=== PATIENT | female | born 1960 | race Caucasian/White ===

== ENCOUNTER 2021-07-18 10:46 | Emergency (ER) | payer MEDICARE, SELFPAY ==
[2021-07-18 10:46] VITALS: BP 121/87; PULSE 82; RESP 18; TEMP 36.8; O2SAT 98; BMI 20.2
--- NOTE | 2021-07-18 12:58 | XR_ITS ---
PROCEDURE INFORMATION: Exam: XR Left Wrist Exam date and time: 07/18/2021 12:58 PM Age: 61 years old Clinical indication: Injury or trauma; Fall; Blunt trauma (contusions or hematomas); Wrist; Left TECHNIQUE: Imaging protocol: XR Left wrist. Views: 3 or more views. COMPARISON: CR XR HAND LT MIN 3V 07/18/2021 1:32 PM FINDINGS: Bones/joints: There is no evidence of acute fracture.There is no evidence of malalignment or dislocation. Soft tissues: Normal. IMPRESSION: There is no evidence of acute fracture.There is no evidence of malalignment or dislocation.
--- NOTE | 2021-07-18 12:58 | XR_ITS ---
PROCEDURE INFORMATION: Exam: XR Left Hand Exam date and time: 07/18/2021 12:58 PM Age: 61 years old Clinical indication: Injury or trauma; Fall; Blunt trauma (contusions or hematomas); Hand; Left TECHNIQUE: Imaging protocol: XR Left hand. Views: 3 or more views. COMPARISON: No relevant prior studies available. FINDINGS: Bones/joints: There is no evidence of acute fracture.There is no evidence of malalignment or dislocation. Soft tissues: Normal. IMPRESSION: There is no evidence of acute fracture.There is no evidence of malalignment or dislocation.
[2021-07-18 12:59] VITALS: PULSE 61; RESP 18; TEMP 36.8; O2SAT 97; BMI 23.3
--- NOTE | 2021-07-18 13:03 | HMH.EDUTC ---
[facility] [place] Clinical Impression: Fall Qualifiers: Encounter type: initial encounter Qualified Code(s): W19.XXXA - Unspecified fall, initial encounter Laceration of left hand Qualifiers: Encounter type: initial encounter Foreign body presence: without foreign body Qualified Code(s): S61.412A - Laceration without foreign body of left hand, initial encounter Left wrist sprain Qualifiers: Encounter type: initial encounter Qualified Code(s): S63.502A - Unspecified sprain of left wrist, initial encounter Disposition: Home, Self-Care Condition on Discharge: Good Instructions: Wrist Sprain, DI for Wrist Sprain, DI for Laceration Repair-Skin Closure Strips Additional Instructions: Rest the extremity, apply ice for 15 minutes as tolerated three or four times per day, Wear the brody wrap for compression, Elevate the extremity as tolerated while you are resting. Take tylenol for pain. Follow up with Dr. Sebastian (orthopedics) regarding your wrist and hand pain if it continues. Sometimes there can be fractures that don't show up well on the first set of x-rays. So, you should follow up if you continue to have symptoms. I put in a referral but you need to call his office and schedule an appointment. Follow up with your regular doctor. GO TO THE ER FOR ANY WORSENING SYMPTOMS Prescriptions: Mupirocin [Bactroban 2% Ointment 22gm tube] 1 applicatio TP TID 7 Days #1 gm Transmission Status: Received by [id number] cephALEXin [cephALEXin 500mg capsule] 500 mg PO Q6H 10 Days #40 cap Transmission Status: Received by [id number] Referrals: ProviderBrittni MD [Primary Care Provider] - Jr Sebastian MD [Staff Physician] - Time of Disposition: 15:38 Medical Decision Making - Medical Records Medical records reviewed: No: I reviewed the patient's medical records. - Sridhar Inquiry Pt receiving controlled substance: No Vital Signs: 07/18/21 10:46 07/18/21 12:59 07/18/21 15:39 Temperature 98.2 F 98.2 F 98.2 F Temperature Source Oral Oral Pulse Rate 61 Pulse Rate [Right Radial] 82 61 Respiratory Rate 18 18 18 Blood Pressure 121/87 Blood Pressure [Right Arm] 121/87 Blood Pressure Mean [Right Arm] 98 02 Sat by Pulse Oximetry 98 97 Oxygen Delivery Method Room Air Orders (Tests/Meds): ED MEDICATIONS Discontinued Medications Generic Name Dose Route Start Last Admin Trade Name Aaron PRN Reason Stop Dose Admin Tetanus/Reduced Diphtheria/Acell Pertussis 0.5 ml 07/18/21 13:03 07/18/21 14:11 Tet/Diphth/Pert-Adult 0.5ml Syringe IM 07/18/21 13:04 0.5 ml .ONCE ONE Administration [facility] [place]PI - General Stated complaint: AO [id number] lac to left thumb Time Seen by Provider: 07/18/21 13:03 Mode of Arrival: Ambulatory Source of Information: Patient Limitations: No Limitations Description of Symptoms (Recalled from Triage Doc. by RN): pt fell yesterday around 1700. pt presents with a lac to her L palm at the base of her thumb. HEENT Symptoms (Recalled from RN notes): No Resp Symptoms (Recalled from RN notes): No Skin Symptoms (Recalled from RN notes): Yes (lac to L palm at the base of the thumb) MS Symptoms (Recalled from RN notes): No Functional Status (Recalled from RN notes): wnl - History of Present Illness Provider Complaint: She fell yesterday evening at around 1800 while cleaning her bedroom. She tripped over some stuff that she has sit in the floor. - Related Data Previous Rx's Medication Instructions Recorded Mupirocin [Bactroban 2% Ointment 1 applicatio TP TID 7 Days #1 gm 07/18/21 22gm tube] cephALEXin [cephALEXin 500mg 500 mg PO Q6H 10 Days #40 cap 07/18/21 capsule] Allergies Allergy/AdvReac Type Severity Reaction Status Date / Time No Known Allergies Allergy Verified 07/18/21 14:10 - Worker's Comp Is this a Worker's Comp case?: No [facility] History - Hepatitis A Screen Drug use history?: No High risk sexual behaviors
[2021-07-18 15:39] VITALS: BP 121/87; PULSE 61; RESP 18; TEMP 36.8
== END 2021-07-18 15:42 | disposition home or self-care (01) ==
PROVIDERS: Emergency Provider Nurse Practitioner Family
DX: S61.412A Laceration without foreign body of left hand, initial encounter (principal); W01.0XXA Fall on same level from slipping, tripping and stumbling without subsequent striking against object, initial encounter; Y92.013 Bedroom of single-family (private) house as the place of occurrence of the external cause; Z23 Encounter for immunization
CPT/HCPCS: 73110; 73130; 90715; 99202; G0463

== ENCOUNTER 2021-08-06 11:28 | Emergency (ER) | payer MEDICARE, SELFPAY ==
[2021-08-06 11:35] VITALS: BP 106/70; PULSE 71; RESP 21; TEMP 36.6; O2SAT 97; BMI 22.4
--- NOTE | 2021-08-06 12:04 | HMH.EDUTC ---
[facility] [place] Impression: Bronchitis Disposition: Home, Self-Care Condition on Discharge: Good Instructions: Sinusitis, Pneumonia-Adult, Acute Bronchitis Additional Instructions: ? Start antibiotic today. Be sure to complete entire prescription even if feeling better ? Monitor temp. Tylenol every 4 hours as needed and / or ibuprofen every 6 hours as needed ( As long as your primary care physician has told you that it ok to take both. For fever/aches/pains ER if no less than 101 despite Tylenol or Motrin ? Humidifier/vaporizer or hot steamy shower ? Inhaler every 4-6 hours as needed like we discussed. If unsure how to use it, ask pharmacist to demonstrate how. Should help open airways and improve cough, wheezing, and shortness of breath ?*Tessalon Perles will not cause drowsiness but use at bedtime to help stop cough so that you may get some rest. Follow up IMMEDIATELY for new or worsening of symptoms OR no noticeable improvement over the next 48-72 hours. 911 immediately for any life threatening symptoms such as chest pain or difficulty breathing Prescriptions: Albuterol Sulfate [Proventil-HFA 90mcg/puff Inh] 1 - 2 puffs IH Q6HP PRN #1 each PRN Reason: Shortness Of Breath Transmission Status: Received by [id number] Benzonatate [Benzonatate 100mg cap] 100 mg PO Q8HP PRN #15 cap PRN Reason: Cough Transmission Status: Received by [facility] Cefdinir [Omnicef 300mg Capsule] 300 mg PO BID #20 cap Transmission Status: Received by [id number] Referrals: Graham Pelaez MD [Primary Care Provider] - As needed Time of Disposition: 18:08 Medical Decision Making - Sridhar Inquiry Pt receiving controlled substance: No Sridhar was queried for this patient: No Vital Signs: 08/06/21 11:35 08/06/21 12:51 Temperature 97.8 F 97.8 F Temperature Source Oral Pulse Rate 71 Pulse Rate [Right Brachial] 71 Respiratory Rate 21 21 Blood Pressure 106/70 L Blood Pressure [Right Arm] 106/70 L Blood Pressure Mean [Right Arm] 82 Blood Pressure Source [Right Arm] Automatic Cuff Blood Pressure Position [Right Arm] Sitting 02 Sat by Pulse Oximetry 97 Oxygen Delivery Method Room Air Orders (Tests/Meds): ORDERS Category Date Time Status Covid-19 Nasal PCR ([facility]) Routine Lab 08/06/21 11:57 Received - Radiology Data #1 Image(s): Chest Image Reviewed: Yes I have reviewed radiologist's interpretation IMPRESSION: Increased interstitial markings with patchy bilateral opacities concerning for pneumonia. Underlying fibrosis not excluded. Recommend follow-up radiographs. Medical Decision Narrative: Patient family reports that she is suppose to have albuterol inhaler but she lost it and wanting to get another one [facility] [place] - General Stated complaint: chest congestion, no appetite Time Seen by Provider: 08/06/21 12:35 Mode of Arrival: Ambulatory Source of Information: Patient Limitations: No Limitations Description of Symptoms (Recalled from Triage Doc. by RN): PATIENT C/O CHEST CONGESTION, SOA, AND DRY COUGH X 2 DAYS HEENT Symptoms (Recalled from RN notes): No Resp Symptoms (Recalled from RN notes): Yes Skin Symptoms (Recalled from RN notes): No MS Symptoms (Recalled from RN notes): No Functional Status (Recalled from RN notes): WNL - History of Present Illness Provider Complaint: Family states that she has been having dry cough, complaining of pain in her lungs when she coughs, chest congestion and sitting around more than normal State that she hasnt had fever or anything but she kept complaining of not feeling well so they brought her in to get her checked States that she gets pneumonia at times and they was worried that she may be starting to get it again and wanted to catch it early - Related Data Previous Rx's Medication Instructions Recorded Albuterol Sulfate [Proventil-HFA 1 - 2 puffs IH Q6HP PRN #1 each 08/06/21 90mcg/puff Inh] Benzonatate
--- NOTE | 2021-08-06 12:11 | XR_ITS ---
FINAL REPORT CLINICAL HISTORY: COUGH FINDINGS: PA and lateral views of the chest were obtained. There is no prior exam for comparison. The cardiac and mediastinal silhouettes are within normal limits. There is increased interstitial markings with patchy bilateral opacities which is concerning for pneumonia. Underlying fibrosis is not excluded. There is no pleural effusion or pneumothorax. No acute osseous abnormality is identified. IMPRESSION: Increased interstitial markings with patchy bilateral opacities concerning for pneumonia. Underlying fibrosis not excluded. Recommend follow-up radiographs. Reviewed, Interpreted and Dictated by Keyona Brunson MD Transcribed by Yaneth Chin Authenticated by Keyona Brunson MD on 08/06/2021 12:34:36 PM [facility]
[2021-08-06 12:51] VITALS: BP 106/70; PULSE 71; RESP 21; TEMP 36.6; O2SAT 97
--- NOTE | 2021-08-06 20:25 | PC.NURSE ---
PATIENT NOTIFIED OF POSITIVE COVID TEST AT THIS TIME
== END 2021-08-06 12:53 | disposition home or self-care (01) ==
PROVIDERS: Emergency Provider Nurse Practitioner; PCP Internal Medicine Adolescent Medicine
DX: J20.9 Acute bronchitis, unspecified (principal); U07.1 COVID-19
CPT/HCPCS: 71046; 99202; C9803; G0463; U0003; U0005

== ENCOUNTER → 2021-08-18 14:59 | Outpatient (CLI) | payer MEDICARE, SELFPAY | LOC: HMH.CTC 15:00 | PROVIDERS: Visit Provider Nurse Practitioner | DX: Z20.822 Contact with and (suspected) exposure to COVID-19 (principal) | CPT/HCPCS: C9803; U0003; U0005 ==

== ENCOUNTER → 2021-09-08 09:43 | Outpatient (CLI) | payer MEDICARE, SELFPAY ==
--- NOTE | 2021-09-08 09:49 | MM_ITS ---
PROCEDURE INFORMATION: Exam: MG Bilateral Screening 3D Mammography Exam date and time: 09/08/2021 9:49 AM Age: 61 years old Clinical indication: Encounter for screening mammogram for malignant neoplasm of breast TECHNIQUE: Imaging protocol: Bilateral Screening tomosynthesis and 2D mammography including computer-aided detection (CAD) when performed. COMPARISON: No relevant prior studies available. FINDINGS: MAMMOGRAPHY: Breast composition: The breast tissue is heterogeneously dense, which may obscure small masses. Mass: None. Architectural distortion: None. Calcifications: No suspicious calcifications. Asymmetric density: None. Skin thickening: None. Axillary adenopathy: None. IMPRESSION: No mammographic evidence of malignancy. Annual screening is recommended unless otherwise clinically indicated. ASSESSMENT: BI-RADS Category 1: Negative
== END ==
PROVIDERS: PCP Internal Medicine Adolescent Medicine; Visit Provider Internal Medicine Adolescent Medicine
DX: Z12.31 Encounter for screening mammogram for malignant neoplasm of breast (principal)
CPT/HCPCS: 77063; 77067

== ENCOUNTER → 2021-12-02 12:45 | Outpatient (CLI) | payer MEDICARE, SELFPAY ==
--- NOTE | 2021-12-02 13:56 | MR_ITS ---
FINAL REPORT CLINICAL HISTORY: SEIZURE DISORDER, ATAXIA seizure disorder ataxia headaches FINDINGS: Multiplanar MR imaging of the brain was performed without contrast. There are postoperative changes from right temporal craniotomy. There is encephalomalacia in the anterior right temporal lobe and involving the right hippocampus. There is no evidence of intracranial hemorrhage or mass. The ventricular size is normal. There is no evidence of shift of the midline structures. No area of restricted diffusion is identified. The posterior fossa and brainstem have an unremarkable appearance. Normal major vessel vascular flow voids are seen. IMPRESSION: Postoperative change from right temporal craniotomy with encephalomalacia in the anterior right temporal lobe including the right hippocampus. No acute intracranial abnormality. Reviewed, Interpreted and Dictated by Carlos Maravilla III, MD Transcribed by Refugio Parham Authenticated by Carlos Maravilla III, MD on 12/02/2021 04:22:33 PM [facility]
== END ==
PROVIDERS: PCP Internal Medicine Adolescent Medicine; Visit Provider Internal Medicine Adolescent Medicine
DX: G40.909 Epilepsy, unspecified, not intractable, without status epilepticus (principal)
CPT/HCPCS: 70551; 95816

== ENCOUNTER → 2022-06-02 11:33 | Outpatient (CLI) | payer MEDICARE, SELFPAY ==
--- NOTE | 2022-06-02 11:38 | XR_ITS ---
FINAL REPORT CLINICAL HISTORY: COUGH COMPARISON: 08/06/2021 FINDINGS: Two views of the chest were obtained. The heart size and pulmonary vascularity are within normal limits. The mediastinum is normal. There are bibasilar pulmonary opacities favoring scarring. There is no pneumothorax. The bony thorax is intact. IMPRESSION: Bibasilar pulmonary opacities favor scarring. Reviewed, Interpreted and Dictated by Carlos Maravilla III, MD Transcribed by Yanteh Chin Authenticated and [facility]
== END ==
LOC: RAD 11:35
PROVIDERS: PCP Internal Medicine Adolescent Medicine; Visit Provider Nurse Practitioner Family
DX: R05.2 Subacute cough (principal); Z86.16 Personal history of COVID-19
CPT/HCPCS: 71046

== ENCOUNTER 2022-09-02 12:52 | Emergency (ER) | payer MEDICARE, SELFPAY ==
--- NOTE | 2022-09-02 12:53 | XR_ITS ---
FINAL REPORT CLINICAL HISTORY: SOA COMPARISON: 06/02/2022 FINDINGS: Two views of the chest were obtained. The heart size and pulmonary vascularity are within normal limits. The mediastinum is normal. There are bilateral pulmonary opacities consistent with bilateral pneumonia. There is no pneumothorax. The bony thorax is intact. IMPRESSION: Findings are consistent with bilateral pneumonia. Reviewed, Interpreted and Dictated by Carlos Maravilla III, MD Transcribed by Yaneth Chin Authenticated and [facility]
[2022-09-02 13:10] VITALS: BP 112/64; PULSE 71; RESP 24; TEMP 36.8; O2SAT 95; BMI 19.1
--- NOTE | 2022-09-02 13:29 | EXP.UTC ---
Discharge Plan Disposition Patient Disposition: Home, Self-Care Condition: Good Prescriptions Prescriptions: New benzonatate 100 mg capsule 100 mg PO TID PRN (Reason: cough) Qty: 30 0RF cefdinir 300 mg capsule 300 mg PO BID Qty: 20 0RF guaifenesin [Mucinex] 600 mg tablet extended release 12hr 600 mg PO BID PRN (Reason: congeston) Qty: 20 0RF azithromycin [Zithromax Z-Carlos] 250 mg tablet See Rx Instructions .ROUTE .COMPLEX 5 Days Qty: 6 0RF Rx Instructions: For 250 mg dose pack: take 500 mg today (day 1), then 250 mg for 4 days (days 2-5) prednisone 10 mg tablet 10 mg PO BID 3 Days Qty: 6 0RF Referrals Follow up/Referrals: Graham Pelaez MD [Primary Care Provider] - See instructions Activity Restrictions/Add. Instructions Additional Instructions/Restrictions: Start antibiotics today you was prescribed Azithromycin and Cefdinir. Be sure to complete entire prescription even if feeling better Monitor temp. Tylenol every 4 hours as needed and / or ibuprofen every 6 hours as needed ( As long as your primary care physician has told you that it ok to take both. For fever/aches/pains ER if no less than 101 despite Tylenol or Motrin Humidifier/vaporizer or hot steamy shower Inhaler as you was prescribed Mucinex during the day for your cough and cough suppressant only at night. Be sure to drink lots of water. I *Tessalon Perles will not cause drowsiness but use at bedtime to help stop cough so that you may get some rest. *Start Oral Prednisone steroid tomorrow. Helps with inflammation therefore, cough and wheezing. Follow directions on the package. Reviewed side effects. Patient reports taking them before. Follow up with your Family Doctor next week for reevaluation Follow up IMMEDIATELY for new or worsening of symptoms OR no noticeable improvement over the next 48-72 hours. 911 immediately for any life threatening symptoms such as chest pain or difficulty breathing Go straight to the ER if any life threatening symptoms or worsening of shortness of breath Clinical Impressions Clinical Impression: Bilateral pneumonia Instructions Patient Instructions: Pneumonia-Adult, Prednisone, Azithromycin, Cefdinir Discharge ED Provider: Roxane Diaz [facility] [place] HPI General Stated complaint: SOA,cough Mode of Arrival: Ambulatory Source of Information: Patient and Relative Limitations: No Limitations Time Seen by Provider: 09/02/22 13:29 Description of Symptoms (Recalled from Triage Doc. by RN): PATIENT C/O SOA AND COUGH X 4 DAYS HEENT Symptoms (Recalled from RN notes): No Resp Symptoms (Recalled from RN notes): Yes Skin Symptoms (Recalled from RN notes): No MS Symptoms (Recalled from RN notes): No Functional Status (Recalled from RN notes): WNL History of Present Illness Provider Complaint: Patient states that she has had cough, sore throat, felt a little SOA at times for the last 4 days States that she did this about a month ago and had to have antibiotics so family brought her in to get her checked Related Data Previous Rx's Medication Instructions Recorded azithromycin 250 mg tablet See Rx Instructions PO .COMPLEX 5 09/02/22 (Zithromax Z-Carlos) days #6 tabs benzonatate 100 mg capsule 100 mg PO TID PRN cough #30 caps 09/02/22 cefdinir 300 mg capsule 300 mg PO BID #20 caps 09/02/22 guaifenesin 600 mg tablet, 600 mg PO BID PRN congeston #20 09/02/22 extended release 12 hr (Mucinex) tabs prednisone 10 mg tablet 10 mg PO BID 3 days #6 tabs 09/02/22 Allergies Allergy/AdvReac Type Severity Reaction Status Date / Time No Known Allergies Allergy Verified 07/18/21 14:10 Worker's Comp Is this a Worker's Comp case?: No PFSH PFS Disclaimer: The information contained in this section may have been updated after the patient was seen, as this information can be updated by other users. Medical History (Updated 09/02/22 @ 14:42 by Roxane Diaz APRN) COPD (chronic obstru
[2022-09-02 13:43] LABS: UTC Strep Screen (Rapid) Negative (Negative)
[2022-09-02 13:44] VITALS: BP 112/64; PULSE 71; RESP 24; TEMP 36.8; O2SAT 95
== END 2022-09-02 15:05 | disposition home or self-care (01) ==
PROVIDERS: Emergency Provider Nurse Practitioner; PCP Internal Medicine Adolescent Medicine
DX: J18.9 Pneumonia, unspecified organism (principal)
CPT/HCPCS: 71046; 87880; 96372; 99212; 99213; G0463

== ENCOUNTER → 2022-09-12 11:43 | Outpatient (CLI) | payer MEDICARE, SELFPAY ==
--- NOTE | 2022-09-12 11:55 | XR_ITS ---
FINAL REPORT CLINICAL HISTORY: CONSTIPATION FINDINGS: A single supine view of the abdomen was obtained. There is a moderate amount of stool in the colon, consistent with constipation. Otherwise, the bowel gas pattern is unremarkable. There are no pathologic calcifications. Osseous structures are within normal limits. IMPRESSION: Moderate amount of stool in the colon consistent with constipation. Reviewed, Interpreted and Dictated by Keyona Brunson MD Transcribed by Kelly Omer Authenticated and [facility]
== END ==
LOC: RAD 11:46
PROVIDERS: PCP Internal Medicine Adolescent Medicine; Visit Provider Internal Medicine Adolescent Medicine
DX: K59.00 Constipation, unspecified (principal)
CPT/HCPCS: 74018

== ENCOUNTER 2022-10-13 23:48 | Emergency (ER) | payer MEDICARE, SELFPAY ==
[2022-10-13 23:50] VITALS: BP 144/78; PULSE 100; RESP 18; TEMP 36.9; O2SAT 93; BMI 20.6
[2022-10-14] VITALS: BP 124/70; PULSE 100; O2SAT 92
--- NOTE | 2022-10-14 | XR_ITS ---
PROCEDURE INFORMATION: Exam: XR Pelvis Exam date and time: 10/14/2022 12:06 AM Age: 62 years old Clinical indication: Injury or trauma; Fall; Blunt trauma (contusions or hematomas); Does not apply; Pelvic region; Additional info: Fal TECHNIQUE: Imaging protocol: Radiologic exam of the pelvis. Views: 1 or 2 view. COMPARISON: CR XR KUB 09/12/2022 12:11 PM FINDINGS: Bones/joints: There is partially visualized mild lumbar scoliosis. Osseous alignment is otherwise normal. No acute fracture. No significant arthritic change. Soft tissues: Unremarkable. IMPRESSION: No acute abnormality
--- NOTE | 2022-10-14 | XR_ITS ---
PROCEDURE INFORMATION: Exam: XR Chest Exam date and time: 10/14/2022 12:02 AM Age: 62 years old Clinical indication: Cough TECHNIQUE: Imaging protocol: Radiologic exam of the chest. Views: 2 views. COMPARISON: CR XR CHEST 2V 09/02/2022 1:36 PM FINDINGS: Lungs: Patchy diffuse bilateral pulmonary infiltrates appear overall slightly improved compared to the prior study. There has developed a small focus of consolidation in the right upper lobe which appears in the. Pleural spaces: Unremarkable. No pleural effusion. No pneumothorax. Heart/Mediastinum: Unremarkable. No cardiomegaly. Bones/joints: Unremarkable. IMPRESSION: Predominant overall improvement of patchy diffuse bilateral pulmonary infiltrates with development of a small new area of infiltrate in the right upper lobe.
[2022-10-14 00:07] LABS: Coronavirus 19, PCR Not Detected (NotDetected); Influenza A, PCR Not Detected (NotDetected); Influenza B, PCR Not Detected (NotDetected)
--- NOTE | 2022-10-14 00:11 | HMH.EDURI ---
Discharge Plan Disposition Patient Disposition: Home, Self-Care Prescriptions Prescriptions: New benzonatate 100 mg Capsule 100 mg PO Q8H Qty: 20 0RF minocycline 100 mg Capsule 100 mg PO BID Qty: 14 0RF prednisone [prednisone] 20 mg tablet 20 mg PO BID Qty: 10 0RF No Action fluticasone propion-salmeterol [Advair Diskus] 250-50 mcg/dose blister with device 2 inh INHALATION BID Label Comments: INHALE 1 PUFF BY MOUTH TWICE DAILY sertraline 100 mg tablet 100 mg PO DAILY Label Comments: TAKE 1 TABLET BY MOUTH ONCE DAILY levothyroxine 25 mcg tablet 25 mcg PO DAILY Label Comments: TAKE 1 TABLET BY MOUTH ONCE DAILY propranolol 10 mg tablet 10 mg PO DAILY Label Comments: TAKE 1 TABLET BY MOUTH ONCE DAILY pravastatin 20 mg tablet 20 mg PO DAILY Label Comments: TAKE 1 TABLET BY MOUTH ONCE DAILY lamotrigine 100 mg tablet 100 mg PO DAILY Label Comments: TAKE 1 TABLET BY MOUTH TWICE DAILY memantine 10 mg tablet 10 mg PO DAILY Label Comments: TAKE 1 TABLET BY MOUTH TWICE DAILY losartan 25 mg Tablet 25 mg PO DAILY Referrals Follow up/Referrals: Graham Pelaez MD [Primary Care Provider] - See instructions Clinical Impressions Clinical Impression: Bronchitis, RAD (reactive airway disease) Instructions Patient Instructions: DI for Acute Bronchitis Discharge ED Provider: Asad (ED)Ciaran URI/Sore Throat HPI General Chief Complaint: Upper Respiratory Infection Stated Complaint: AO 10/13/22 23:15 denies injuries,cough,congestion Time Seen by Provider: 10/14/22 00:11 Mode of Arrival: Ambulatory Source of Information: Patient, Relative and Medical Record Limitations: No Limitations Description of Symptoms (Recalled from ER Triage Doc. by RN): pt's brother states she fell in bedroom today that was unwitnessed by pt reports no injuries. pt has had a cough x 3 days and would like to be check out for that History of Present Illness HPI Narrative: cough over the last few days with reported fall today - has hx of wt loss and ongoing cough - no tob but possible aspiration Complaint: cough Onset (ago): day(s) Duration: intermittent Severity: moderate Able to tolerate fluids by mouth: Yes Associated symptoms: denies other symptoms Treatments prior to arrival: none Related Data Home Medications Medication Instructions Recorded Confirmed fluticasone 250 mcg-salmeterol 50 2 inh inhalation BID Asthma 10/13/22 10/13/22 mcg/dose blistr powdr for inhalation (Advair Diskus) lamotrigine 100 mg tablet 100 mg PO DAILY seizures 10/13/22 10/13/22 levothyroxine 25 mcg tablet 25 mcg PO DAILY hypothyroidism 10/13/22 10/13/22 memantine 10 mg tablet 10 mg PO DAILY dizziness 10/13/22 10/13/22 pravastatin 20 mg tablet 20 mg PO DAILY High cholesterol 10/13/22 10/13/22 propranolol 10 mg tablet 10 mg PO DAILY high blood pressures 10/13/22 10/13/22 sertraline 100 mg tablet 100 mg PO DAILY Depression 10/13/22 10/13/22 losartan 25 mg tablet 25 mg PO DAILY High blood pressure 10/14/22 10/14/22 Previous Rx's Medication Instructions Recorded benzonatate 100 mg capsule 100 mg PO Q8H #20 caps 10/14/22 minocycline 100 mg capsule 100 mg PO BID #14 caps 10/14/22 prednisone 20 mg tablet 20 mg PO BID #10 tabs 10/14/22 Allergies Allergy/AdvReac Type Severity Reaction Status Date / Time No Known Allergies Allergy Verified 07/18/21 14:10 [facility] Disclaimer: The information contained in this section may have been updated after the patient was seen, as this information can be updated by other users. Medical History (Updated 10/14/22 @ 01:40 by Ciaran Kamara (MD [facility]) COPD (chronic obstructive pulmonary disease) Seizure Social History (Updated 09/02/22 @ 15:00 by Roxane Diaz APRN) Smoking Status: Never smoker alcohol intake: never current occupational status: other Travel in the last 8 weeks: None
--- NOTE | 2022-10-14 00:13 | CT_ITS ---
PROCEDURE INFORMATION: Exam: CT Chest Without Contrast; Diagnostic Exam date and time: 10/14/2022 12:19 AM Age: 62 years old Clinical indication: Cough TECHNIQUE: Imaging protocol: Diagnostic computed tomography of the chest without contrast. Radiation optimization: All CT scans at this facility use at least one of these dose optimization techniques: automated exposure control; mA and/or kV adjustment per patient size (includes targeted exams where dose is matched to clinical indication); or iterative reconstruction. REPORTING DATA: Count of CT and Cardiac NM exams in prior 12 months: This patient has received 0 known CTs and 0 known cardiac nuclear medicine studies in the 12 months prior to the current study. COMPARISON: CR XR CHEST 2V 10/14/2022 12:02 AM FINDINGS: Lungs: Moderate diffuse peribronchovascular cuffing noted throughout both lungs. Patchy areas of reticulonodular infiltrate noted throughout both lungs. There is subsegmental atelectasis in the posterior right lung base. There is an 11.5 mm nodule in the lateral right lung apex. A few other scattered subsolid, subcentimeter nodular densities are noted throughout both lungs No other discrete nodular opacities or masslike opacity seen. Pleural spaces: Unremarkable. No pneumothorax. No pleural effusion. Heart: Unremarkable. No cardiomegaly. No pericardial effusion. Coronary arteries: No significant coronary artery calcifications. Lymph nodes: Unremarkable. No enlarged lymph nodes. Vasculature: Moderate atherosclerotic calcification noted in the aortic arch. Bones/joints: Mild degenerative changes noted throughout the thoracic spine. Soft tissues: Unremarkable. IMPRESSION: Scattered mixed parenchymal densities in both lungs including peribronchovascular cuffing, reticulonodular infiltrates and areas of solid and subsolid nodular opacity, the largest measuring 11.5 mm in the right lung apex. Differential diagnosis would include chronic interstitial lung disease and/or active pneumonitis, depending on clinical presentation. Recommend CT Chest at 3-6 months. Subsequent management based on the most suspicious nodule(s). (Reference: Krunal) References: Tamhoaddi H, et al. Guidelines for Management of Incidental Pulmonary Nodules Detected on CT Images: From the Fleischner Society 2017. Radiology. 2017;284(1):228-243.
[2022-10-14 00:30] VITALS: BP 111/59; PULSE 91; O2SAT 91
[2022-10-14 00:40] LABS: Basophils # 0.1 K/mm3 (0-0.2); Basophils % 0.5 % (0.1-2.0); Eosinophils # 0.2 K/mm3 (0.0-0.4); Eosinophils % 1.5 % (0.1-12.0); Hematocrit 38.4 % (37.0-47.0); Hemoglobin 12.4 g/dL (12.2-16.2); Lymphocytes % 9.9 % (10-50); Mean Corpuscular HGB Conc 32.2 g/dL (31.8-35.4); Mean Corpuscular Hemoglobin 29.4 pg (27.0-31.2); Mean Corpuscular Volume 91.5 fl (81-99); Mean Platelet Volume 9.4 fl (7.4-10.4); Monocytes # 0.5 K/mm3 (0.1-1.0); Monocytes % 4.6 % (1.7-9.3); Neutrophils # 8.5 K/mm3 (1.8-7.8); Neutrophils % 83.5 % (37.0-80.0); Platelet Count 79 K/mm3 (142-424); Red Cell Distribution Width 15.4 % (11.5-17.5); White Blood Count 10.2 K/mm3 (4.8-10.8)
[2022-10-14 00:44] LABS: Chloride 103 mmol/L (98-107); Potassium 4.1 mmoL/L (3.5-5.1); Sodium 133 mmol/L (136-145)
[2022-10-14 00:46] LABS: Blood Urea Nitrogen 18 mg/dl (7-17); Creatinine Clearance Estimated 53 mL/min (50-200); Estimated Glomerular Filt Rate 56 ml/min (>60); GFR (African American) 68 ML/MIN (>60)
[2022-10-14 00:47] LABS: Alanine Aminotransferase 27 U/L (12-78); Albumin Level 3.5 g/dl (3.5-5.0); Albumin/Globulin Ratio 1.1 (1.1-1.8); Alkaline Phosphatase 174 U/L (38-126); Anion Gap 9.1 mEq/L (5-15); Aspartate Amino Transferase 52 U/L (14-36); Bilirubin,Total 1.2 mg/dl (0.2-1.3); Calcium 8.2 mg/dl (8.4-10.2); Carbon Dioxide 25 mmol/L (22.0-30.0); Globulin 3.2 g/dL (1.3-3.2); Glucose 122 mg/dl (74-100); Total Protein,Serum 6.7 g/dl (6.3-8.2)
[2022-10-14 01:00] VITALS: BP 103/55; PULSE 87; O2SAT 92
[2022-10-14 01:40] VITALS: BP 116/82; PULSE 81; RESP 16; TEMP 36.9; O2SAT 93
[2022-10-14 01:50] LABS: T4 (Thyroxine) 9.2 ug/dl (5.53-11.0)
[2022-10-14 02:04] LABS: Thyroid Stimulating Hormone 3.27 uIU/mL (0.465-4.68)
== END 2022-10-14 01:47 | disposition home or self-care (01) ==
PROVIDERS: Emergency Provider Emergency Medicine; PCP Internal Medicine Adolescent Medicine
DX: J20.9 Acute bronchitis, unspecified (principal); J45.909 Unspecified asthma, uncomplicated
CPT/HCPCS: 71046; 71250; 72170; 80053; 84436; 84443; 85025; 96374; 99284; 99285; C9803; J0696; U0003; U0005

== ENCOUNTER → 2023-02-22 09:50 | Outpatient (CLI) | payer MEDICARE, SELFPAY ==
[2023-02-22 10:13] LABS: Basophils % 0.2 % (0.1-2.0); Eosinophils # 0.1 K/mm3 (0.0-0.4); Eosinophils % 1.6 % (0.1-12.0); Hematocrit 33.9 % (37.0-47.0); Hemoglobin 10.6 g/dL (12.2-16.2); Lymphocytes % 21.2 % (10-50); Mean Corpuscular HGB Conc 31.2 g/dL (31.8-35.4); Mean Corpuscular Hemoglobin 26.8 pg (27.0-31.2); Mean Corpuscular Volume 85.9 fl (81-99); Mean Platelet Volume 10.5 fl (7.4-10.4); Monocytes # 0.2 K/mm3 (0.1-1.0); Monocytes % 3.6 % (1.7-9.3); Neutrophils # 3.6 K/mm3 (1.8-7.8); Neutrophils % 73.4 % (37.0-80.0); Platelet Count 71 K/mm3 (142-424); Red Blood Count 3.95 M/mm3 (4.20-5.40); Red Cell Distribution Width 16.9 % (11.5-17.5); White Blood Count 4.9 K/mm3 (4.8-10.8)
[2023-02-22 11:32] LABS: Chloride 107 mmol/L (98-107); Potassium 3.8 mmoL/L (3.5-5.1); Sodium 142 mmol/L (136-145)
[2023-02-22 11:35] LABS: Alanine Aminotransferase 34 U/L (12-78); Alkaline Phosphatase 138 U/L (38-126); Amylase 56 U/L (30-110); Anion Gap 9.8 mEq/L (5-15); Aspartate Amino Transferase 63 U/L (14-36); Bilirubin,Total 0.6 mg/dl (0.2-1.3); Blood Urea Nitrogen 18 mg/dl (7-17); Calcium 9.4 mg/dl (8.4-10.2); Carbon Dioxide 29 mmol/L (22.0-30.0); Estimated Glomerular Filt Rate 50 ml/min (>60); GFR (African American) 61 ML/MIN (>60); Glucose 74 mg/dl (74-100); Lipase 104 U/L (23-300)
== END ==
PROVIDERS: PCP Internal Medicine Adolescent Medicine; Visit Provider Internal Medicine Adolescent Medicine
DX: R31.0 Gross hematuria (principal); R10.84 Generalized abdominal pain
CPT/HCPCS: 36415; 80053; 82150; 83690; 85025

== ENCOUNTER → 2023-02-23 09:12 | Outpatient (CLI) | payer MEDICARE, SELFPAY ==
--- NOTE | 2023-02-23 09:17 | CT_ITS ---
FINAL REPORT TECHNIQUE: Oral and IV contrast enhanced exam CLINICAL HISTORY: GROSS HEMATURIA FINDINGS: Abdomen: Lung bases demonstrate bronchial wall thickening. Coarse linear density in the right lower lobe likely represents atelectasis or resolving pneumonia. The gallbladder is unremarkable. Liver has an unremarkable CT appearance. The spleen is moderately enlarged measuring up to 15.5 cm. Portal vein is patent. There are numerous retroperitoneal varices like related to splenic or portal hypertension. Varices obscures the left adrenal gland. Pancreas and right adrenal gland are unremarkable. Kidneys show no mass or obstruction. Bowel is unremarkable. No bowel obstruction or fluid collection is seen. Pelvis: The appendix is not visualized. Pelvic bowel loops unremarkable. Tiny right inguinal hernia containing fat. Patient is status post hysterectomy. Pelvic bowel loops are unremarkable. No fluid collection or adenopathy is seen. IMPRESSION: Significant splenomegaly with evidence of splenic or portal vein hypertension. No evidence of renal mass. Reviewed, Interpreted and Dictated by Paul Pires MD Transcribed by Kelly Omer Authenticated and [facility]
== END ==
LOC: RAD 09:13
PROVIDERS: PCP Internal Medicine Adolescent Medicine; Visit Provider Internal Medicine Adolescent Medicine
DX: R31.0 Gross hematuria (principal)
CPT/HCPCS: 74177; Q9967

== ENCOUNTER → 2023-03-30 14:01 | Outpatient (CLI) | payer MEDICARE, SELFPAY ==
--- NOTE | 2023-03-30 14:01 | US_ITS ---
PROCEDURE: US TRANSVAGINAL CLINICAL INDICATION: post menopausal bleeding COMPARISON: No exams were available for comparison FINDINGS: UTERUS: 4.2 cm x 3.6 cmx 1.8 cm with a combined endometrial thickness of 5.3mm. The endometrial cavity appears to be fluid filled and within the endometrium is a small polyp measuring 3.9 mm. The endometrial stripe is very thin. LEFT OVARY: 1.1 cmx0.9 cmx0.6cm with a volume of 0.3ml. RIGHT OVARY: Not visualized Left ovary appears atrophic. Right ovary not visualized. There is no fluid in the cul-de-sac. Significant fluid-filled bowel in the pelvis. IMPRESSION: 1. Anteverted small atrophic appearing uterus. 2. The endometrial cavity appears fluid-filled, possibly blood or mucus.. 3. There is a 3.9 mm polyp within the uterine cavity near the fundus. There is a tiny 2 mm cystic area next to this. 4. Left ovary appears atrophic. Right ovary is not seen. 5. No fluid in the cul-de-sac. Dictated by: Spencer Benoit MD 03/30/2023 16:58 Spencer Benoit MD in [place] 03/30/2023 16:58
== END ==
LOC: RAD 14:01
PROVIDERS: PCP Internal Medicine Adolescent Medicine; Visit Provider Obstetrics & Gynecology
DX: N95.0 Postmenopausal bleeding (principal)
CPT/HCPCS: 76830

== ENCOUNTER → 2023-04-24 09:36 | Outpatient (CLI) | payer MEDICARE, SELFPAY ==
--- NOTE | 2023-04-24 09:58 | US_ITS ---
FINAL REPORT TECHNIQUE: Sonographic images of the right upper quadrant were obtained. CLINICAL HISTORY: ANEMIA COMPARISON: None FINDINGS: PANCREAS: The head of the pancreas is unremarkable in appearance, while the tail of the pancreas is obscured by overlying bowel gas.. LIVER: Homogeneous. No focal hepatic lesion. No intrahepatic biliary ductal dilatation. GALLBLADDER: No gallstones. No gallbladder wall thickening or pericholecystic fluid. COMMON DUCT: 5 mm. Normal for age. RIGHT KIDNEY: The right kidney measures 8 cm. There is no hydronephrosis, mass, or stone. A small renal cyst is present. FREE FLUID: None. IMPRESSION: Unremarkable ultrasound of the right upper quadrant. Reviewed, Interpreted and Dictated by Keyona Brunson MD Transcribed by Alyssa Harrell Authenticated and [facility]
== END ==
LOC: RAD 09:38
PROVIDERS: PCP Internal Medicine Adolescent Medicine; Visit Provider Internal Medicine Gastroenterology
DX: I85.01 Esophageal varices with bleeding (principal); D50.9 Iron deficiency anemia, unspecified; K62.5 Hemorrhage of anus and rectum; D61.818 Other pancytopenia; R16.1 Splenomegaly, not elsewhere classified; R94.5 Abnormal results of liver function studies
CPT/HCPCS: 93975

== ENCOUNTER → 2023-04-25 09:17 | Outpatient (CLI) | payer MEDICARE, SELFPAY ==
[2023-04-25 10:39] LABS: Basophils % 0.4 % (0.1-2.0); Eosinophils # 0.1 K/mm3 (0.0-0.4); Eosinophils % 1.6 % (0.1-12.0); Hematocrit 32.1 % (37.0-47.0); Hemoglobin 10.1 g/dL (12.2-16.2); Lymphocytes # 0.8 K/mm3 (0.7-4.5); Lymphocytes % 25.3 % (10-50); Mean Corpuscular HGB Conc 31.4 g/dL (31.8-35.4); Mean Corpuscular Volume 85.9 fl (81-99); Mean Platelet Volume 9.6 fl (7.4-10.4); Monocytes # 0.1 K/mm3 (0.1-1.0); Monocytes % 4.3 % (1.7-9.3); Neutrophils # 2.1 K/mm3 (1.8-7.8); Neutrophils % 68.5 % (37.0-80.0); Platelet Count 59 K/mm3 (142-424); Red Blood Count 3.73 M/mm3 (4.20-5.40); Red Cell Distribution Width 16.7 % (11.5-17.5); White Blood Count 3.1 K/mm3 (4.8-10.8)
[2023-04-25 10:44] LABS: INR 1.19 (0.9-1.1); Prothrombin Time 12.7 seconds (10.1-12.5)
[2023-04-25 10:54] LABS: Chloride 108 mmol/L (98-107); Potassium 4.1 mmoL/L (3.5-5.1); Sodium 142 mmol/L (136-145)
[2023-04-25 10:56] LABS: Alanine Aminotransferase 31 U/L (12-78); Aspartate Amino Transferase 59 U/L (14-36); Blood Urea Nitrogen 17 mg/dl (7-17); Estimated Glomerular Filt Rate 50 ml/min (>60); GFR (African American) 61 ML/MIN (>60)
[2023-04-25 10:57] LABS: Albumin Level 3.7 g/dl (3.5-5.0); Alkaline Phosphatase 143 U/L (38-126); Anion Gap 8.1 mEq/L (5-15); Bilirubin,Total 0.5 mg/dl (0.2-1.3); Calcium 8.8 mg/dl (8.4-10.2); Carbon Dioxide 30 mmol/L (22.0-30.0); Globulin 3.6 g/dL (1.3-3.2); Glucose 103 mg/dl (74-100); Iron 44 ug/dL (37-170); Total Protein,Serum 7.3 g/dl (6.3-8.2)
[2023-04-25 11:06] LABS: Total Iron Binding Capacity 477 ug/dL (265-497)
[2023-04-25 11:32] LABS: Ferritin 12.5 ng/ml (11.1-264)
[2023-04-26 07:12] LABS: HBsAg Screen Negative (Negative); HCV Ab Non Reactive (Non Reactive); Hep A Ab, IGM Negative (Negative); Hep B Core Ab, IgM Negative (Negative)
[2023-04-26 08:52] LABS: Ceruloplasmin 26.9 mg/dL (19.0-39.0); Immunoglobulin A, Qn 453 mg/dL (87-352); Immunoglobulin G, Qn 1565 mg/dL (586-1602); Immunoglobulin M, Qn 161 mg/dL (26-217)
[2023-04-26 20:32] LABS: Actin (Smooth Muscle) Antibody 5 Units (0-19); Angiotensin Converting Enzyme 56 U/L (14-82); Mitochondrial (M2) Antibody <20.0 Units (0.0-20.0)
[2023-04-27 08:35] LABS: Antinuclear Antibodies, IFA Negative (.)
[2023-05-02 15:44] LABS: Alpha-1-Antitrypsin 25 mg/dL (101-187); Phenotype (PI) ZZ (.)
[2023-05-07 08:53] LABS: Fibrosis Score 0.62; Fibrosis Stage F3
[2023-05-07 08:54] LABS: NASH Score 0.64; Steatosis Grade S1; Steatosis Score 0.52
[2023-05-07 08:55] LABS: Alpha 2-Macroglobulins, Qn 298; Haptoglobin 41; NASH Grade N2
[2023-05-07 08:56] LABS: Apolipoprotein A-1 131; Bilirubin, Total 0.2
[2023-05-07 08:57] LABS: ALT (SGPT) P5P 28; AST (SGOT) P5P 46; Cholesterol, Total 159; GGT 143
[2023-05-07 08:58] LABS: Glucose 93; Triglycerides 76
== END ==
LOC: LAB 09:19
PROVIDERS: PCP Internal Medicine Adolescent Medicine; Visit Provider Internal Medicine Gastroenterology
DX: K76.0 Fatty (change of) liver, not elsewhere classified (principal); I85.01 Esophageal varices with bleeding; D50.9 Iron deficiency anemia, unspecified; K62.5 Hemorrhage of anus and rectum
CPT/HCPCS: 36415; 80053; 80074; 81256; 82103; 82104; 82164; 82390; 82728; 82784; 83540; 83550; 85025; 85610; 86038; 86255; 86256

== ENCOUNTER 2023-08-01 08:35 | Outpatient (CLI) | payer MEDICARE, SELFPAY ==
[2023-08-01 08:59] LABS: Hematocrit 33.9 % (37.0-47.0); Hemoglobin 10.9 g/dL (12.2-16.2); Mean Corpuscular HGB Conc 32.1 g/dL (31.8-35.4); Mean Corpuscular Hemoglobin 28.3 pg (27.0-31.2); Mean Corpuscular Volume 88.2 fl (81-99); Red Blood Count 3.84 M/mm3 (4.20-5.40); White Blood Count 3.2 K/mm3 (4.8-10.8)
[2023-08-01 09:00] LABS: Basophils % 0.5 % (0.1-2.0); Eosinophils # 0.1 K/mm3 (0.0-0.4); Eosinophils % 2.6 % (0.1-12.0); Lymphocytes # 0.6 K/mm3 (0.7-4.5); Lymphocytes % 18.6 % (10-50); Mean Platelet Volume 10.4 fl (7.4-10.4); Monocytes # 0.1 K/mm3 (0.1-1.0); Monocytes % 3.7 % (1.7-9.3); Neutrophils # 2.4 K/mm3 (1.8-7.8); Neutrophils % 74.7 % (37.0-80.0); Platelet Count 57 K/mm3 (142-424); Red Cell Distribution Width 16.6 % (11.5-17.5)
[2023-08-01 09:25] LABS: Prothrombin Time 12.8 seconds (10.1-12.5)
[2023-08-01 09:35] LABS: Ammonia 16 umol/L (9-30)
[2023-08-01 09:38] LABS: Alanine Aminotransferase 30 U/L (12-78); Albumin Level 3.7 g/dl (3.5-5.0); Alkaline Phosphatase 162 U/L (38-126); Anion Gap 4.9 mEq/L (5-15); Aspartate Amino Transferase 64 U/L (14-36); Bilirubin,Total 0.7 mg/dl (0.2-1.3); Blood Urea Nitrogen 14 mg/dl (7-17); Calcium 8.1 mg/dl (8.4-10.2); Carbon Dioxide 29 mmol/L (22.0-30.0); Chloride 106 mmol/L (98-107); Estimated Glomerular Filt Rate 56 ml/min (>60); GFR (African American) 68 ML/MIN (>60); Globulin 3.6 g/dL (1.3-3.2); Glucose 99 mg/dl (74-100); Potassium 3.9 mmoL/L (3.5-5.1); Sodium 136 mmol/L (136-145); Total Protein,Serum 7.3 g/dl (6.3-8.2)
[2023-08-01 15:17] LABS: Iron 64 ug/dL (37-170)
[2023-08-01 15:31] LABS: Total Iron Binding Capacity 438 ug/dL (265-497)
[2023-08-01 15:54] LABS: Ferritin 14.1 ng/ml (11.1-264)
== END 2023-08-01 23:59 ==
LOC: LAB 08:38
PROVIDERS: PCP Internal Medicine Adolescent Medicine; Visit Provider Internal Medicine Gastroenterology
DX: D50.9 Iron deficiency anemia, unspecified (principal); E88.01 Alpha-1-antitrypsin deficiency; K74.02 Hepatic fibrosis, advanced fibrosis
CPT/HCPCS: 36415; 80053; 82140; 82728; 83540; 83550; 85025; 85610

== ENCOUNTER 2023-09-26 13:57 | Emergency (ER) | payer MEDICARE, SELFPAY ==
[2023-09-26 14:15] VITALS: BP 109/76; PULSE 65; RESP 19; TEMP 36.6; O2SAT 98; BMI 21.2
--- NOTE | 2023-09-26 14:25 | EXP.UTC ---
Discharge Plan Disposition Patient Disposition: Home, Self-Care Condition: Good Prescriptions Prescriptions: New benzonatate 100 mg capsule 100 mg PO TID PRN (Reason: cough) Qty: 20 0RF No Action sertraline 100 mg tablet 100 mg PO DAILY Patient Comments: TAKE 1 TABLET BY MOUTH ONCE DAILY propranolol 10 mg tablet 10 mg PO DAILY Patient Comments: TAKE 1 TABLET BY MOUTH ONCE DAILY pravastatin 20 mg tablet 20 mg PO DAILY Patient Comments: TAKE 1 TABLET BY MOUTH ONCE DAILY lamotrigine 100 mg tablet 100 mg PO DAILY Patient Comments: TAKE 1 TABLET BY MOUTH TWICE DAILY Referrals Follow up/Referrals: Graham Pelaez MD [Primary Care Provider] - See instructions Activity Restrictions/Add. Instructions Additional Instructions/Restrictions: *Monitor Temp, Over the counter Motrin or Tylenol as directed/as needed Tylenol every 4 hours and Motrin every 6 hours (as long as your family doctor has told you that you can take it) for fever or pain. and straight to ER if unable to lower temp less than 101.0 after medication given *Warm salt water gargles may help to soothe the throat *Throat Lozenges? *Warm fluids like tea with honey may help to soothe the throat? *Sleep elevated *Humidifier/Vaporizer Follow up IMMEDIATELY for new or worsening symptoms or no Noticeable improvement over the next 48-72 hours. 911 for difficulty breathing or swallowing You were tested for today for Upper Respiratory Panel with COVID19 your test result should be back in the next 24hours, you may check your results on the [facility] My Health Portal if your COVID or Influenza is positive you must Quarantine for 5 days Clinical Impressions Clinical Impression: Viral syndrome Instructions Patient Instructions: DI for Viral Syndrome Discharge ED Provider: Roxane Diaz [facility] [place] HPI General Stated complaint: vomiting, runny nose, cough Mode of Arrival: Ambulatory Source of Information: Patient Limitations: No Limitations Time Seen by Provider: 09/26/23 14:25 Description of Symptoms (Recalled from Triage Doc. by RN): PATIENT C/O BODY ACHES, CHILLS, AND COUGH SINCE MONDAY HEENT Symptoms (Recalled from RN notes): No Resp Symptoms (Recalled from RN notes): Yes Skin Symptoms (Recalled from RN notes): No MS Symptoms (Recalled from RN notes): No Functional Status (Recalled from RN notes): WNL History of Present Illness Provider Complaint: Family states that she was around grandkids over the weekend and one of them felt warm like they may be sick and Monday she started with a dry cough and saying that she was chilling and feeling achy all over and they was worried she may have flu, COVID or something going around and wanted to get her tested Family states that she hasnt had fever or anything they have been checking her Related Data Home Medications Medication Instructions Recorded Confirmed lamotrigine 100 mg tablet 100 mg PO DAILY 09/26/23 09/26/23 pravastatin 20 mg tablet 20 mg PO DAILY 09/26/23 09/26/23 propranolol 10 mg tablet 10 mg PO DAILY 09/26/23 09/26/23 sertraline 100 mg tablet 100 mg PO DAILY 09/26/23 09/26/23 Previous Rx's Medication Instructions Recorded benzonatate 100 mg capsule 100 mg PO TID PRN cough #20 caps 09/26/23 Allergies Allergy/AdvReac Type Severity Reaction Status Date / Time No Known Allergies Allergy Verified 05/31/23 11:24 Worker's Comp Is this a Worker's Comp case?: No [facility] Disclaimer: The information contained in this section may have been updated after the patient was seen, as this information can be updated by other users. Medical History COPD (chronic obstructive pulmonary disease) Seizure Surgical History History of brain surgery right frontal lobe History of neck surgery Hx of cataract surgery Hx of tubal ligation Family History Other Diabetes Social History Smoking Status: Never smoker alcohol intake: never substance use type: denies use current occupational status: other Travel in the last 8 weeks: None caregiver/support person: Yes ROS Obtained: Yes All systems reviewed & no additional complaints except as documented and Yes Systems reviewed as appropriate & no additional complaints except as documented Constitutional Constitutional: Reports system reviewed and no additional complaints, except as documented, Reports as per HPI, Reports body ache, Reports chills, Denies fever(s) and Denies headache(s) ENT Ears, Nose, Mouth, and Throat: Reports system reviewed and no additional complaints, except as documented, Reports as per HPI, Denies otalgia, Denies headache(s), Reports nasal congestion and Denies sore throat Cardiovascular Cardiovascular: Reports system reviewed and no additional complaints, except as documented, Reports as per HPI, Denies chest pain, Denies dyspnea and Denies dyspnea on exertion Respiratory Respiratory: Reports system reviewed and no additional complaints, except as documented, Reports as per HPI, Denies shortness of breath, Denies chest congestion, Reports cough, Denies dyspnea and Denies dyspnea on exertion Gastrointestinal Gastrointestingal: Reports system reviewed and no additional complaints, except as documented and as per HPI Neurologic Neurologic: Denies headache(s) Physical Exam General General appearance: alert and in no apparent distress ENT ENT exam: Present mucous membranes moist Expanded ENT Exam Nose exam: Absent sinus tenderness Throat exam: Present normal inspection Respiratory Respiratory exam: Present normal lung sounds bilaterally; Absent respiratory distress or wheezes Cardiovascular Cardiovascular exam: Present regular rate, normal rhythm and normal heart sounds Neurological Exam Neurological exam: Present alert, oriented X3 and normal gait Medical Decision Making Sridhar Inquiry Pt receiving controlled substance: No Sridhar was queried for this patient: No Vital Signs: 09/26/23 14:15 Temperature 97.8 F Temperature Source Oral Pulse Rate [Left Brachial] 65 Respiratory Rate 19 Blood Pressure [Left Arm] 109/76 L Blood Pressure Mean [Left Arm] 87 Blood Pressure Source [Left Arm] Automatic Cuff Blood Pressure Position [Left Arm] Sitting 02 Sat by Pulse Oximetry 98 Oxygen Delivery Method Room Air Lab Data Lab results reviewed: Yes I reviewed the patient's lab results.
[2023-09-26 14:27] VITALS: BP 109/76; PULSE 65; RESP 19; TEMP 36.6; O2SAT 98
[2023-09-26 14:32] LABS: UTC Influenza A Antigen Negative (Negative); UTC Influenza B Antigen Negative (Negative)
[2023-09-26 15:20] LABS: Adenovirus,PCR Not Detected (NotDetected); Coronavirus 229E Not Detected (NotDetected); Coronavirus NL63 Not Detected (NotDetected); Coronavirus OC43 Not Detected (NotDetected); Coronovirus HKU1,PCR Not Detected (NotDetected); Human Metapneumovirus Not Detected (NotDetected); Influenza A, PCR Not Detected (NotDetected); Influenza AH1, 2009 Not Detected (NotDetected); Influenza AH1, PCR Not Detected (NotDetected); Influenza AH3,PCR Not Detected (NotDetected); Influenza B, PCR Not Detected (NotDetected); Parainfluenza 1, PCR Not Detected (NotDetected); Parainfluenza 2, PCR Not Detected (NotDetected); Parainfluenza 3, PCR Not Detected (NotDetected); Parainfluenza 4, PCR Not Detected (NotDetected); Respiratory Syncytial Virus Not Detected (NotDetected); Rhinovirus/Enterovirus Not Detected (NotDetected)
[2023-09-26 18:12] LABS: Coronavirus 19, PCR Detected (NotDetected)
== END 2023-09-26 14:52 | disposition home or self-care (01) ==
PROVIDERS: Emergency Provider Nurse Practitioner; PCP Internal Medicine Adolescent Medicine
DX: U07.1 COVID-19 (principal); R11.2 Nausea with vomiting, unspecified; R05.9 Cough, unspecified; R09.81 Nasal congestion; R68.83 Chills (without fever); J45.909 Unspecified asthma, uncomplicated
CPT/HCPCS: 87632; 87635; 87804; 99212; 99214; G0463

== ENCOUNTER 2023-11-06 10:12 | Outpatient (CLI) | payer MEDICARE, SELFPAY ==
[2023-11-06 10:31] LABS: Basophils % 0.2 % (0.1-2.0); Eosinophils # 0.1 K/mm3 (0.0-0.4); Eosinophils % 0.6 % (0.1-12.0); Hematocrit 33.3 % (37.0-47.0); Hemoglobin 10.3 g/dL (12.2-16.2); Lymphocytes # 0.9 K/mm3 (0.7-4.5); Lymphocytes % 9.5 % (10-50); Mean Corpuscular HGB Conc 30.8 g/dL (31.8-35.4); Mean Corpuscular Hemoglobin 26.6 pg (27.0-31.2); Mean Corpuscular Volume 86.4 fl (81-99); Mean Platelet Volume 10.5 fl (7.4-10.4); Monocytes # 0.3 K/mm3 (0.1-1.0); Monocytes % 3.5 % (1.7-9.3); Neutrophils # 8.3 K/mm3 (1.8-7.8); Neutrophils % 86.2 % (37.0-80.0); Platelet Count 51 K/mm3 (142-424); Red Blood Count 3.85 M/mm3 (4.20-5.40); Red Cell Distribution Width 16.8 % (11.5-17.5); White Blood Count 9.6 K/mm3 (4.8-10.8)
[2023-11-06 10:34] LABS: MANUAL DIFFERENTIAL MANUAL DIFFERENTIAL (MANUAL DIFF)
[2023-11-06 10:41] LABS: Ammonia 11 umol/L (9-30)
[2023-11-06 10:45] LABS: INR 1.27 (0.9-1.1); Prothrombin Time 13.5 seconds (10.1-12.5)
[2023-11-06 11:56] LABS: Alanine Aminotransferase 34 U/L (12-78); Albumin Level 3.5 g/dl (3.5-5.0); Alkaline Phosphatase 148 U/L (38-126); Anion Gap 8.8 mEq/L (5-15); Aspartate Amino Transferase 62 U/L (14-36); Bilirubin,Total 1.1 mg/dl (0.2-1.3); Blood Urea Nitrogen 18 mg/dl (7-17); Carbon Dioxide 25 mmol/L (22.0-30.0); Chloride 108 mmol/L (98-107); Estimated Glomerular Filt Rate 63 ml/min (>60); GFR (African American) 76 ML/MIN (>60); Globulin 3.5 g/dL (1.3-3.2); Glucose 116 mg/dl (74-100); Potassium 3.8 mmoL/L (3.5-5.1); Sodium 138 mmol/L (136-145)
[2023-11-06 12:05] LABS: Lymphocytes % 15 % (10-50); Monocytes % 3 % (2-9); Neutrophils % 74 % (42-76); Total Cells Counted 100
[2023-11-06 12:06] LABS: Anisocytosis 3+; Hypochromasia 2+; Platelet Estimate Marked Decrease
[2023-11-06 12:33] LABS: Iron 69 ug/dL (37-170)
[2023-11-06 12:43] LABS: Total Iron Binding Capacity 427 ug/dL (265-497)
[2023-11-06 13:09] LABS: Ferritin 16.2 ng/ml (11.1-264)
== END 2023-11-06 23:59 ==
LOC: LAB 10:13
PROVIDERS: PCP Internal Medicine Adolescent Medicine; Visit Provider Internal Medicine Gastroenterology
DX: D50.9 Iron deficiency anemia, unspecified (principal)
CPT/HCPCS: 36415; 80053; 82140; 82728; 83540; 83550; 85007; 85025; 85610

== ENCOUNTER 2023-11-06 18:59 | Inpatient (IN) | payer MEDICARE, SELFPAY ==
[2023-11-06 19:00] VITALS: BP 156/83; PULSE 100; RESP 18; TEMP 36.9; O2SAT 91; BMI 18.8
--- NOTE | 2023-11-06 19:03 | ECG_ITS ---
APPROVED REPORT Exam: Resting ECG HR:99 bpm ECG Measurements Heart Rate 99 AXES DC 200 P 68 QRSd 113 QRS 86 QT 350 T 74 QTc 406 Conclusion SINUS RHYTHM POSSIBLE LEFT ATRIAL ENLARGEMENT [-0.1mV P-WAVE IN V1/V2] LOW QRS VOLTAGE IN PRECORDIAL LEADS [QRS DEFLECTION < 1.0 mV IN CHEST LEADS] POSSIBLE ANTERIOR MYOCARDIAL INFARCTION , PROBABLY OLD [30 ms Q WAVE IN V3/V4, OR R < 0.2 mV IN V4] BORDERLINE ECG UNCONFIRMED REPORT Electronically signed by : Jamal Martinez, 11/06/2023 22:34:46
--- NOTE | 2023-11-06 19:18 | CT_ITS ---
PROCEDURE INFORMATION: Exam: CT Chest With Contrast; Diagnostic Exam date and time: 11/06/2023 7:49 PM Age: 63 years old Clinical indication: Other: Back pain; Additional info: AMS, off balance, abd pain, back pain TECHNIQUE: Imaging protocol: Diagnostic computed tomography of the chest with contrast. Radiation optimization: All CT scans at this facility use at least one of these dose optimization techniques: automated exposure control; mA and/or kV adjustment per patient size (includes targeted exams where dose is matched to clinical indication); or iterative reconstruction. Contrast material: ISOVUE; Contrast volume: 50 ml; Contrast route: IV; COMPARISON: CT CHEST WO CON 10/14/2022 12:19 AM FINDINGS: Lungs: Diffuse [id number] bronchial wall thickening compatible with chronic bronchitis type changes redemonstrated. Associated inspissated debris in some of the segmental airways to the lower lobes. Multifocal patchy mixed reticulonodular and consolidative type airspace opacities noted scattered throughout the right lung involving all lobes. These opacities includes some more nodular appearing opacities including the anterior right lung apex measuring 12 mm on image 19 and the anterior medial right upper lobe measuring 21 mm on image 36 and the medial superior segment right lower lobe posterior to the hilum measuring 24 mm on image 46 and the medial inferior right lower lobe measuring 24 mm on image 68. Bandlike density seen in the left lower lung riley compatible with subsegmental atelectasis. Lung riley otherwise clear. Lungs somewhat degraded by motion artifact. Pleural spaces: Unremarkable. No pneumothorax. No pleural effusion. Heart: Heart size mildly enlarged similar to previous. Coronary arteries: No significant coronary artery calcifications. Esophagus: Mildly patulous air-filled esophagus redemonstrated. Lymph nodes: Moderate mediastinal lymphadenopathy noted including right paratracheal region measuring up to 18 mm and precarinal region measuring up to 22 mm and subcarinal region measuring up to 22 mm and AP window region measuring up to 16 mm. Associated possible mild right hilar and infrahilar adenopathy but difficult to assess due to motion artifact. Vasculature: Unremarkable. No aortic aneurysm. Bones/joints: Unremarkable. No acute fracture. Soft tissues: Unremarkable. IMPRESSION: 1. Extensive multifocal mixed reticulonodular and airspace opacities throughout the right lung consistent with multifocal pneumonia. Associated more nodular masslike opacities measuring up to 24 mm thought to represent pseudo masses related to consolidation although the possibility that 1 or more these might reflect developing masses can not be excluded. For this reason a follow-up CT in 3 months is advised for reassessment to ensure resolution or assess for progression. 2. Chronic bronchitis type changes with diffuse bronchial wall thickening redemonstrated. Some inspissated debris in the lower lobe airways. 3. Extensive mediastinal lymphadenopathy and mild right hilar adenopathy that may be reactive related to lung changes. This can be reassessed at time of the follow-up chest CT.
--- NOTE | 2023-11-06 19:18 | CT_ITS ---
PROCEDURE INFORMATION: Exam: CT Abdomen And Pelvis With Contrast Exam date and time: 11/06/2023 7:49 PM Age: 63 years old Clinical indication: Abdominal pain; Additional info: AMS, off balance, abd pain, back pain TECHNIQUE: Imaging protocol: Computed tomography of the abdomen and pelvis with contrast. Radiation optimization: All CT scans at this facility use at least one of these dose optimization techniques: automated exposure control; mA and/or kV adjustment per patient size (includes targeted exams where dose is matched to clinical indication); or iterative reconstruction. Contrast material: ISOVUE; Contrast volume: 50 ml; Contrast route: IV; COMPARISON: CT ABDOMEN PELVIS W CON 02/23/2023 9:27 AM FINDINGS: Lungs: Refer to CT chest for lung bases. Liver: Fatty liver changes. Liver otherwise unremarkable. Liver normal length measuring 12 cm. Fgbahohb-ag-aoyldf splenomegaly measuring 17 cm and previously measured 16.3 cm. Spleen otherwise unremarkable. Gallbladder and bile ducts: Normal. No calcified stones. No ductal dilation. Pancreas: Normal. No ductal dilation. Spleen: See Liver finding. Adrenal glands: Normal. No mass. Kidneys and ureters: Bilateral small renal cysts are noted [id number]-left. No follow-up of these lesions advised. Stomach and bowel: Possible mild wall thickening of the distal antrum in the proximal to mid 2nd portion of the duodenum. Mildly fluid distended small bowel loops of the pelvis and lower abdomen. GI tract structures otherwise unremarkable with no evident wall thickening allowing for incomplete distention. Appendix: No evidence of appendicitis. Intraperitoneal space: Unremarkable. No free air. No significant fluid collection. Vasculature: Moderate to severe narrowing of the origin of the SMA identified with possible mild post stenotic dilatation. This finding is similar to previous. Nonvisualization of the celiac artery which may be due to occlusion versus developmental absence with reconstitution at the level of the confluence of the splenic artery and hepatic artery also similar to previous. Extensive upper abdomen varices including paraesophageal and gastroesophageal varices and associated prominence of the splenic vein and recanalized umbilical vein noted similar to previous. Lymph nodes: Unremarkable. No enlarged lymph nodes. Urinary bladder: Unremarkable as visualized. Reproductive: Unremarkable as visualized. Bones/joints: Unremarkable. No acute fracture. Soft tissues: Unremarkable. IMPRESSION: 1. Fatty liver changes redemonstrated. 2. Lmymmrmk-jw-tsrnxy splenomegaly with interval increase in size. Associated extensive upper abdomen varices including the gastrohepatic and paraesophageal region and enlarged splenic vein and recanalized umbilical vein suggesting portal hypertension. 3. Possible wall thickening of the distal stomach and the duodenal that may be accentuated by decreased distension but I can not exclude gastritis or enteritis and can be correlated clinically. 4. Fluid distended pelvic and lower abdomen small bowel loops that may be a transient phenomenon but might also be associated with gastroenteritis. 5. Nonvisualization of the celiac axis that may be developmental versus occlusion with distal reconstitution at the confluence of the splenic and hepatic arteries. These vessels may fill from a branch of the SMA. 6. Potential ymggvrcb-ug-hfemzo narrowing of the proximal SMA redemonstrated incompletely assessed with this non CTA exam. Mild post stenotic dilatation. The narrowing might be secondary to median arcuate ligament syndrome versus atherosclerotic changes. 7. Additional nonemergent findings as above. COMMENTS: Consistent with the [employer]'s Incidental Findings Committee white paper (J Am Radames Radiol 2018): Any incidental renal lesion less than 1 cm or classified as too small to characterize, or any incidental cystic renal lesion characterized as simple-appearing, is likely benign. No follow-up imaging is recommended for these lesions per consensus recommendations based on imaging criteria.
--- NOTE | 2023-11-06 19:18 | CT_ITS ---
PROCEDURE INFORMATION: Exam: CTA Head With Contrast, Arteriography Exam date and time: 11/06/2023 7:46 PM Age: 63 years old Clinical indication: Other: AMS; Additional info: AMS, off balance, abd pain, back pain TECHNIQUE: Imaging protocol: Computed tomographic angiography of the head with contrast. Exam focused on the arteries. 3D rendering (Not supervised by radiologist): MIP and/or 3D reconstructed images were created by the technologist. Radiation optimization: All CT scans at this facility use at least one of these dose optimization techniques: automated exposure control; mA and/or kV adjustment per patient size (includes targeted exams where dose is matched to clinical indication); or iterative reconstruction. Contrast material: ISOVUE; Contrast volume: 100 ml; Contrast route: INTRAVENOUS (IV); COMPARISON: CT HEAD/BRAIN WO CON 11/06/2023 7:31 PM FINDINGS: ANTERIOR CIRCULATION: Right internal carotid artery: Intracranial segment is patent with no significant stenosis. No aneurysm. Right middle cerebral artery: No occlusion or significant stenosis. No aneurysm. Right anterior cerebral artery: No occlusion or significant stenosis. No aneurysm. Left internal carotid artery: Intracranial segment is patent with no significant stenosis. No aneurysm. Left middle cerebral artery: No occlusion or significant stenosis. No aneurysm. Left anterior cerebral artery: No occlusion or significant stenosis. No aneurysm. POSTERIOR CIRCULATION: Right vertebral artery: No occlusion or significant stenosis. No aneurysm. Left vertebral artery: No occlusion or significant stenosis. No aneurysm. Basilar artery: No occlusion or significant stenosis. No aneurysm. Right posterior cerebral artery: No occlusion or significant stenosis. No aneurysm. Left posterior cerebral artery: No occlusion or significant stenosis. No aneurysm. Brain: No definite mass, mass effect, or midline shift. Cerebral ventricles: No ventriculomegaly. Bones/joints: Right-sided craniotomy. No acute fracture. Soft tissues: Unremarkable. IMPRESSION: No large vessel stenosis or occlusion.
--- NOTE | 2023-11-06 19:18 | CT_ITS ---
PROCEDURE INFORMATION: Exam: CTA Neck With Contrast Exam date and time: 11/06/2023 7:46 PM Age: 63 years old Clinical indication: Other: AMS; Additional info: AMS, off balance, abd pain, back pain TECHNIQUE: Imaging protocol: Computed tomographic angiography of the neck with contrast. Exam focused on the cervical segments of the vasculature. 3D rendering (Not supervised by radiologist): MIP and/or 3D reconstructed images were created by the technologist. Radiation optimization: All CT scans at this facility use at least one of these dose optimization techniques: automated exposure control; mA and/or kV adjustment per patient size (includes targeted exams where dose is matched to clinical indication); or iterative reconstruction. Contrast material: ISOVUE; Contrast volume: 100 ml; Contrast route: INTRAVENOUS (IV); COMPARISON: CT ANGIO HEAD 11/06/2023 7:46 PM FINDINGS: Right common carotid artery: No stenosis. No dissection or occlusion. Right internal carotid artery: No stenosis of the extracranial segment. No dissection or occlusion. Right external carotid artery: No occlusion or stenosis of the origin. Left common carotid artery: No stenosis. No dissection or occlusion. Left internal carotid artery: Mild, less than 50% stenosis within the left proximal ICA. Left external carotid artery: No occlusion or stenosis of the origin. Right vertebral artery: No stenosis. No dissection or occlusion. Left vertebral artery: No stenosis. No dissection or occlusion. Lymph nodes: Mediastinal lymphadenopathy. Soft tissues: Normal. No significant soft tissue swelling. Bones/joints: No acute fracture. Lungs: Patchy airspace densities within the lung apices, right worse than left, as detailed on CT chest same day. IMPRESSION: 1. Patchy airspace densities within the lung apices, right worse than left, as detailed on CT chest same day. 2. Mediastinal lymphadenopathy. 3. Mild, less than 50% stenosis within the left proximal ICA. REFERENCES: NASCET CRITERIA. The degree of stenosis in the cervical segment of the internal carotid artery is based on NASCET criteria. Normal is no stenosis. Mild is less than 50% stenosis. Moderate is 50-69% stenosis. Severe is 70% to 99% stenosis. Total occlusion is no detectable patent lumen.
--- NOTE | 2023-11-06 19:18 | CT_ITS ---
PROCEDURE INFORMATION: Exam: CT Thoracic Spine Without Contrast Exam date and time: 11/06/2023 7:41 PM Age: 63 years old Clinical indication: Pain in thoracic spine; Additional info: AMS, off balance, abd pain, back pain TECHNIQUE: Imaging protocol: Computed tomography of the thoracic spine without contrast. Radiation optimization: All CT scans at this facility use at least one of these dose optimization techniques: automated exposure control; mA and/or kV adjustment per patient size (includes targeted exams where dose is matched to clinical indication); or iterative reconstruction. COMPARISON: CT ABDOMEN PELVIS W CON 02/23/2023 9:27 AM FINDINGS: Bones/joints: No acute fracture. Normal alignment. No significant disc bulge or herniation. No severe spinal canal stenosis. No significant neural foraminal narrowing. Soft tissues: Unremarkable. IMPRESSION: Unremarkable CT Spine.
--- NOTE | 2023-11-06 19:18 | CT_ITS ---
PROCEDURE INFORMATION: Exam: CT Lumbar Spine Without Contrast Exam date and time: 11/06/2023 7:43 PM Age: 63 years old Clinical indication: Low back pain; Additional info: AMS, off balance, abd pain, back pain TECHNIQUE: Imaging protocol: Computed tomography of the lumbar spine without contrast. Radiation optimization: All CT scans at this facility use at least one of these dose optimization techniques: automated exposure control; mA and/or kV adjustment per patient size (includes targeted exams where dose is matched to clinical indication); or iterative reconstruction. COMPARISON: T CT THORACIC SPINE WO CON 11/06/2023 7:41 PM FINDINGS: Bones/joints: Mild multilevel degenerative changes identified most pronounced at the L3-L4 level. Alignment vertebral body heights intact. No acute fracture identified. Mild dextroscoliosis. At L2-L3 mildly bulging disc and facet hypertrophic changes result in moderate central canal and [id number]-ew-trorctqa bilateral foramina narrowing. At L3-L4 moderately bulging disc and associated facet and ligamentum hypertrophy result in [id number] central canal and moderate bilateral foramina narrowing. At L4-L5 broadly bulging disc and facet arthritic changes result in moderate central canal and slhe-ek-wrwyskuc foramina narrowing. Soft tissues: Unremarkable. IMPRESSION: Multilevel degenerative changes with associated bulging disc and facet hypertrophic changes resulting in central canal and foramina narrowing most pronounced at L3-L4.
--- NOTE | 2023-11-06 19:18 | CT_ITS ---
PROCEDURE INFORMATION: Exam: CT Head Without Contrast Exam date and time: 11/06/2023 7:31 PM Age: 63 years old Clinical indication: Altered mental status/memory loss; Additional info: AMS, off balance, abd pain, back pain TECHNIQUE: Imaging protocol: Computed tomography of the head without contrast. Radiation optimization: All CT scans at this facility use at least one of these dose optimization techniques: automated exposure control; mA and/or kV adjustment per patient size (includes targeted exams where dose is matched to clinical indication); or iterative reconstruction. COMPARISON: MR HEAD/BRAIN WO CON 12/02/2021 2:10 PM FINDINGS: Brain: No intracranial hemorrhage. Generalized atrophic changes of the ventricles and subarachnoid spaces. Chronic small-vessel ischemic changes noted. No mass, mass effect or midline shift. Intracranial atherosclerotic changes are noted. Encephalomalacia in the right temporal lobe region under the craniotomy site redemonstrated. Cerebral ventricles: See Brain finding. Paranasal sinuses: Mild mucosal thickening of the maxillary and ethmoid sinuses. No fluid levels. Mastoid air cells: Visualized mastoid air cells are well aerated. Bones/joints: Right-sided craniotomy in the temporal frontal bone region redemonstrated. Soft tissues: Unremarkable. IMPRESSION: Stable noncontrast CT brain with chronic changes. No acute intracranial abnormality.
--- NOTE | 2023-11-06 19:19 | XR_ITS ---
PROCEDURE INFORMATION: Exam: XR Chest Exam date and time: 11/06/2023 7:51 PM Age: 63 years old Clinical indication: Dyspnea TECHNIQUE: Imaging protocol: Radiologic exam of the chest. Views: 1 view. COMPARISON: CT CHEST W CON 11/06/2023 7:49 PM and chest x-ray 10/14/2022 FINDINGS: Lungs: Multifocal opacities seen in the right upper and lower lung riley compatible with the opacities noted on the CT scan of the chest obtained today. Mild atelectasis in the left mid lung riley. Lungs are otherwise clear. Pleural spaces: Unremarkable. No pleural effusion. No pneumothorax. Heart/Mediastinum: Cardiomegaly redemonstrated. Vascularity appears normal. Bones/joints: Unremarkable. IMPRESSION: Right sided opacities compatible with multifocal pneumonia as noted on the CT.
[2023-11-06] MEDS: RINGERS SOLUTION,LACTATED 500 ML 999 ML IV (19:26)
--- NOTE | 2023-11-06 19:29 | PC.NURSE ---
pt gone with radiology
[2023-11-06 19:30] LABS: Basophils # 0.1 K/mm3 (0-0.2); Basophils % 0.5 % (0.1-2.0); Eosinophils # 0.1 K/mm3 (0.0-0.4); Eosinophils % 0.8 % (0.1-12.0); Hematocrit 35.7 % (37.0-47.0); Hemoglobin 11.3 g/dL (12.2-16.2); Lymphocytes # 1.2 K/mm3 (0.7-4.5); Lymphocytes % 7.1 % (10-50); Mean Corpuscular HGB Conc 31.8 g/dL (31.8-35.4); Mean Corpuscular Hemoglobin 26.8 pg (27.0-31.2); Mean Corpuscular Volume 84.5 fl (81-99); Monocytes # 0.6 K/mm3 (0.1-1.0); Monocytes % 3.3 % (1.7-9.3); Neutrophils # 14.8 K/mm3 (1.8-7.8); Neutrophils % 88.4 % (37.0-80.0); Platelet Count 82 K/mm3 (142-424); Red Blood Count 4.23 M/mm3 (4.20-5.40); Red Cell Distribution Width 16.9 % (11.5-17.5); White Blood Count 16.8 K/mm3 (4.8-10.8)
[2023-11-06 19:31] LABS: VBG Base Excess -0.9 mmol/L (-2.4-2.3); VBG Oxygen Saturation 43.6 % (50-70); VBG PCO2 48.7 mmol/L (35-51); VBG PH 7.33 mmol/L (7.31-7.41); VBG PO2 26.6 mmol/L (28-40); VBG Total CO2 26.5 mmol/L (23-27)
[2023-11-06 19:32] LABS: Lactate Venous 2.4 mmol/L (0.4-2.0)
[2023-11-06 19:33] LABS: Chloride 105 mmol/L (98-107); MANUAL DIFFERENTIAL MANUAL DIFFERENTIAL (MANUAL DIFF); Sodium 138 mmol/L (136-145)
[2023-11-06 19:35] LABS: Alanine Aminotransferase 40 U/L (12-78); Aspartate Amino Transferase 67 U/L (14-36); Blood Urea Nitrogen 16 mg/dl (7-17); Creatinine Clearance Estimated 52 mL/min (50-200); Estimated Glomerular Filt Rate 63 ml/min (>60); GFR (African American) 76 ML/MIN (>60)
[2023-11-06 19:36] LABS: Activated Partial Thrombo Time 30.6 seconds (22.8-30.6); Albumin Level 4.1 g/dl (3.5-5.0); Alkaline Phosphatase 199 U/L (38-126); Bilirubin,Total 1.3 mg/dl (0.2-1.3); Carbon Dioxide 27 mmol/L (22.0-30.0); Glucose 126 mg/dl (74-100); INR 1.24 (0.9-1.1); Lipase 58 U/L (23-300); Prothrombin Time 13.2 seconds (10.1-12.5); Total Protein,Serum 8.1 g/dl (6.3-8.2)
--- NOTE | 2023-11-06 19:38 | ED_ITS ---
Discharge Plan Disposition Patient Disposition: Admitted Prescriptions Prescriptions: No Action sertraline 100 mg tablet 100 mg PO DAILY Patient Comments: TAKE 1 TABLET BY MOUTH ONCE DAILY propranolol 10 mg tablet 10 mg PO DAILY Patient Comments: TAKE 1 TABLET BY MOUTH ONCE DAILY pravastatin 20 mg tablet 20 mg PO DAILY Patient Comments: TAKE 1 TABLET BY MOUTH ONCE DAILY lamotrigine 100 mg tablet 100 mg PO DAILY Patient Comments: TAKE 1 TABLET BY MOUTH TWICE DAILY benzonatate 100 mg capsule 100 mg PO TID PRN (Reason: cough) Qty: 20 0RF Referrals Follow up/Referrals: Provider,Referral, MD [Referring] - See instructions Clinical Impressions Clinical Impression: Severe sepsis, Encephalopathy, Hypoxemia, Tachypnea, Abdominal pain, Back pain, Tachycardia, Chronic dementia, Multifocal pneumonia, UTI (urinary tract infection) Discharge ED Provider: Ni Martinez General Adult HPI General Chief complaint: Weakness Stated complaint: Weakness Time Seen by Provider: 11/06/23 19:03 Mode of Arrival: Wheelchair Source of Information: Patient Limitations: No Limitations Description of Symptoms (Recalled from ER Triage Doc. by RN): Patient brought in by brother who she lives with. Brother states she has not been acting like her self today, states that she has been more confused today and unsteady. Patient has dementia at baseline. Patient states her back and stomach hurt and that she has been coughing alot. Upon assessment patient o2 sats 90% on room air, patient placed on 3L NC with improvement noted. History of Present Illness HPI narrative: Leia is a 63-year-old female brought in by her brother who lives with her primarily for altered mental status. He states that she is demented at baseline but normally is alert awake oriented for the most part and answering questions and mobile. However the last several days she has had more slowed movements has been falling to the side he also noticed that she has been breathing more heavily than normal. When talking to the patient she complains of multiple things including worsening cough shortness of breath thoracic lumbar and abdominal pain. She and her brother both deny trauma. When asked articulate where the majority of her symptoms are she claims in her abdomen. Her brother states his biggest concern was her falling to the side and her slowed movement. She has not been having a fever at home to their knowledge. No sick contacts that they are aware of. She does have a history of hemochromatosis and cirrhosis but has never had hepatic encephalopathy in the past. Related Data Home Medications Medication Instructions Recorded Confirmed lamotrigine 100 mg tablet 100 mg PO DAILY 09/26/23 09/26/23 pravastatin 20 mg tablet 20 mg PO DAILY 09/26/23 09/26/23 propranolol 10 mg tablet 10 mg PO DAILY 09/26/23 09/26/23 sertraline 100 mg tablet 100 mg PO DAILY 09/26/23 09/26/23 Previous Rx's Medication Instructions Recorded benzonatate 100 mg capsule 100 mg PO TID PRN cough #20 caps 09/26/23 Allergies Allergy/AdvReac Type Severity Reaction Status Date / Time No Known Allergies Allergy Verified 05/31/23 11:24 [facility] Disclaimer: The information contained in this section may have been updated after the patient was seen, as this information can be updated by other users. Medical History COPD (chronic obstructive pulmonary disease) Seizure Surgical History History of brain surgery right frontal lobe History of neck surgery Hx of cataract surgery Hx of tubal ligation Family History Other Diabetes Social History Smoking Status: Never smoker alcohol intake: never substance use type: denies use current occupational status: other Travel in the last 8 weeks: None caregiver/support person: Yes ROS Obtained: Yes All systems reviewed & no additional complaints except as documented Physical Exam General General appearance: alert Head Head exam: atraumatic Neck Neck exam: Absent tenderness Respiratory Respiratory exam: Present other (Patient is tachypneic respiratory rate 30-40 oxygen saturation is 90% on room air placed on 2 L nasal cannula with normal sats no focal adventitious lung sounds) Cardiovascular Cardiovascular exam: Present tachycardia Abdominal Exam Abdominal exam: Present soft and tenderness (Diffuse tenderness primarily lower abdomen) Back Exam Back exam: Present tenderness (Midline thoracic tenderness and lumbar tenderness without any step-offs or deformities) Neurological Exam Neurological exam: Present alert and other (Patient is moving all extremities however does not cooperate with posterior circulation or sensory exam); Absent oriented X3 (Patient disoriented to time) Medical Decision Making Sridhar Inquiry Pt receiving controlled substance: No Vital Signs: 11/06/23 19:00 Temperature 98.4 F Temperature Source Oral Pulse Rate [Right] 100 H Respiratory Rate 18 Blood Pressure [Right Arm] 156/83 H Blood Pressure Mean [Right Arm] 107 Blood Pressure Source [Right Arm] Automatic Cuff 02 Sat by Pulse Oximetry 91 L Oxygen Delivery Method Room Air Lab Data Lab results reviewed: Yes I reviewed the patient's lab results. Lab Results 11/06/23 19:13: WBC 16.8 H D, RBC 4.23, Hgb 11.3 L, Hct 35.7 L, MCV 84.5, MCH 26.8 L, MCHC 31.8, RDW 16.9, Plt Count 82 L D, MPV 10.0, Neut % (Auto) 88.4 H, L ymph % (Auto) 7.1 L, [place] % (Auto) 3.3, Eos % (Auto) 0.8, Baso % (Auto) 0.5, N eut # (Auto) 14.8 H, Lymph # (Auto) 1.2, [place] # (Auto) 0.6, Eos # (Auto) 0.1, Baso # (Auto) 0.1, Total Counted 100, Neutrophils % (Manual) 93 H, Lymphocytes % (Manual) 5 L, Monocytes % (Manual) 2, Platelet Estimate Moderate decrease, Hypochromasia 1+, PT 13.2 H, INR 1.24 H, APTT 30.6, Sodium 138, Potassium 4.0, Chloride 105, Carbon Dioxide 27, Anion Gap 10.0, BUN 16, Creatinine 0.90, Estimated Creat Clear 52, Estimated GFR 63, Est GFR ( Amer) 76, Glucose 126 H, Lactate 2.0, Calcium 9.0, Total Bilirubin 1.3, AST 67 H, ALT 40, Alkaline Phosphatase 199 H, Ammonia 21, Troponin I 0.04 H, Total Protein 8.1, Albumin 4.1 D, Globulin 4.0 H, Albumin/Globulin Ratio 1.0 L, Lipase 58 11/06/23 19:20: VBG pH 7.33, VBG pCO2 48.7, VBG pO2 26.6 L, VBG HCO3 25.0, VBG Total CO2 26.5, VBG O2 Saturation 43.6 L, VBG Base Excess -0.9, VBG Lactic Acid 2.4 H 11/06/23 19:58: SARS-CoV-2 (PCR) Not detected, Influenza A Untype (PCR) Not detected, Influenza Type B (PCR) Not detected 11/06/23 20:05: Urine Color Yellow, Urine Appearance Clear, Urine pH 6.0, Ur Specific [place] 1.015, Urine Protein Negative, Urine Glucose (UA) Negative, Urine Ketones Negative, Urine Blood Negative, Urine Nitrate Negative, Urine Bilirubin Negative, Urine Urobilinogen 1.0, Ur Leukocyte Esterase 2+ A, Urine RBC None, Urine WBC 10-20, Ur Squamous Epith Cells 3-5, Ur Transition Epith Cell Occ, Urine Bacteria None 11/06/23 19:13 11/06/23 19:13 Orders (Tests/Meds): ED MEDICATIONS Generic Name Dose Route Start Last Admin Trade Name Freq PRN Reason Stop Dose Admin Lactated Ringer's 1,990 mls @ 995 mls/hr 11/06/23 20:20 11/06/23 20:29 Lactated Ringer's 1000 Ml Bag 30 ml/kg infuse over 2 hr (1990 ml) 11/06/23 22:19 995 mls/hr IV Administration .Q2H ONE Vancomycin HCl 1,000 mg/ 250 mls @ 125 mls/hr 11/06/23 20:30 Sodium Chloride IV 11/06/23 22:29 ONCE ONE Miscellaneous 1 each 11/06/23 20:30 11/06/23 20:46 Vancomycin Consult Request NOTAPPLIC 12/06/23 20:29 1 each CONSULT PHARMACY [facility] Administration Discontinued Medications Generic Name Dose Route Start Last Admin Trade Name Freq PRN Reason Stop Dose Admin Lactated Ringer's 500 mls @ 999 mls/hr 11/06/23 19:30 Lactated Ringer's 1000 Ml Bag IV 11/06/23 20:00 .Q31M [facility] Lactated Ringer's 500 mls @ 999 mls/hr 11/06/23 19:24 11/06/23 19:26 Lactated Ringer's 500ml IV 11/06/23 19:54 999 mls/hr .Q31M ONE Administration Cefepime HCl 2 gm/ Sodium 100 mls @ 200 mls/hr 11/06/23 20:20 11/06/23 20:30 Chloride IV 11/06/23 20:49 200 mls/hr ONCE ONE Administration Azithromycin 500 mg/ Sodium 250 mls @ 250 mls/hr 11/06/23 20:21 11/06/23 20:59 Chloride IV 11/06/23 20:22 250 mls/hr ONCE ONE Administration Iopamidol 150 ml 11/06/23 19:48 11/06/23 19:50 Iopamidol-370 (76%);100ml Bottle IV 11/06/23 19:49 150 ml ONCE ONE Administration Sodium Chloride 10 ml 11/06/23 19:48 11/06/23 19:50 Sodium Chloride 0.9% 10ml Syr (Rad Only) IV 11/06/23 19:49 10 ml ONCE ONE Administration Sodium Chloride 50 ml 11/06/23 19:48 11/06/23 19:50 0.9 % Sodium Chloride 50 Ml Vial IV 11/06/23 19:49 50 ml ONCE ONE Administration ORDERS Category Date Time Status CT abdomen pelvis w con Stat Cat Scan 11/06/23 19:[address] angio head Stat Cat Scan 11/06/23 19:[address] angio neck Stat Cat Scan 11/06/23 19:[address] chest w con Stat Cat Scan 11/06/23 19:[address] head/brain wo con Stat Cat Scan 11/06/23 19:[address] lumbar spine wo con Stat Cat Scan 11/06/23 19:[address] thoracic spine wo con Stat Cat Scan 11/06/23 19:18 Completed CXR --portable [XR chest portable] Stat Exams 11/06/23 19:19 Completed Ammonia Stat Lab 11/06/23 19:13 Completed Basic Metabolic Panel AMLAB Lab 11/07/23 06:00 Ordered CBC w/Auto Diff [Complete Blood Count Auto Diff] Stat Lab 11/06/23 19:13 Completed CMP [Comprehensive Metabolic Panel] Stat Lab 11/06/23 19:13 Completed Complete Blood Count Auto Diff AMLAB Lab 11/07/23 06:00 Ordered Lactic Acid Stat Lab 11/06/23 19:13 Completed Lipase Stat Lab 11/06/23 19:13 Completed PT/PTT Stat Lab 11/06/23 19:13 Completed Rapid PCR Covid and Flu A/B Stat Lab 11/06/23 19:58 Completed Trop I [Troponin I] Stat Lab 11/06/23 19:13 Completed Troponin I Q3H Lab 11/06/23 22:30 Ordered Troponin I Q3H Lab 11/07/23 01:30 Ordered UA [Urinalysis and Microscopic] Stat Lab 11/06/23 20:05 Completed Blood Culture Stat Micro 11/06/23 19:33 Received Urine Culture Stat Micro 11/06/23 20:05 Received Venous Blood Gas Stat RT 11/06/23 19:20 Completed ECG Data Tracing #1: I reviewed this ECG and interpreted as documented below: Ventricular rate of 99 there is a normal axis sinus rhythm no acute ischemic changes noted there is left atrial enlargement low voltage QRS Tissue Perfus/Sepsis Re-Eval Sepsis Re-Evaluation Performed: Yes Date Performed: 11/06/23 Time Performed: 20:24 Medical Decision Narrative: Patient is an acutely encephalopathic 63-year-old female presents today with tachycardia tachypnea cough changes in mental status back pain and abdominal pain. Given the fact that she is demented and acutely encephalopathic her history and physical is very limited and for this reason her workup will need to be broad. Differential includes trauma particularly intracranial injury or intracranial hematoma, infectious etiologies such as pneumonia COVID flu urinary tract infection, metabolic abnormality such as hyponatremia surgical pathology in the abdomen such as appendicitis colitis etc., hepatic encephalopathy acute hypercarbic respiratory failure etc. CT scan of the head neck chest abdomen pelvis and thoracic and lumbar spine have been ordered in addition to laboratory evaluation. IV fluids have been initiated will reassess after initial workup is complete. Reassessment 8:[address] scans performed which I personally interpreted. I see no evidence of trauma or any intracranial abnormalities. Specifically in the lungs there are multiple nodularities and inflammatory processes most likely infectious we will treat as multifocal pneumonia. These have been noticed on multiple x-rays and CAT scans in the past cannot rule out malignancy. Additionally patient has urinary tract infection. Thus we will treat with vancomycin cefepime and azithromycin. She has leukocytosis was tachypneic and tachycardic and encephalopathic thus having endorgan damage in the setting of sepsis so the working diagnosis is severe sepsis secondary to multifocal pneumonia urinary tract infection. Sepsis fluid bolus has been initiated. Awaiting formal radiology reads to make sure no alternative diagnosis that would require transfer is going to be found. I discussed this case with the family and the patient who are agreeable to this plan. Will reassess after formal radiology reads. Reassessment 9:[address] scans returned which are consistent with my interpretation above. Specifically in the abdomen there is no surgical pathology that is noted. Many other nonemergent findings per radiology read. Serial abdominal exams are improved. CT scan of the chest according radiology is also most likely consistent with infectious etiology but cannot rule out malignancy and I did specifically tell the that she needs repeat CT scan in 3 to 6 months to ensure resolution as we cannot rule out malignancy at the moment. I spoke with Richard with hospital medicine who agreed admit the patient for further evaluation and management. Critical Care Critical Care Time Critical Care Time: Yes Attestation: On 11/06/23, the high probability of a clinically significant, sudden or life threatening deterioration of the following system(s) required my full and direct attention, intervention and personal management. The time I documented below is in addition to time spent performing reported procedures but includes the following listed in this critical care notation. Total Time Total Critical Care Time: 65
[2023-11-06 19:46] LABS: Ammonia 21 umol/L (9-30)
[2023-11-06 19:48] LABS: Troponin I 0.04 ng/ml (0.00-0.034)
[2023-11-06] MEDS: 0.9 % SODIUM CHLORIDE 50 ML VIAL IV (19:50)
[2023-11-06] MEDS: IOPAMIDOL-370 (76%);100ML BOTTLE 150 ML IV (19:50)
[2023-11-06] MEDS: SODIUM CHLORIDE 0.9% 10ML SYR (RAD ONLY) 10 ML IV (19:50)
[2023-11-06 19:58] LABS: Hypochromasia 1+; Lymphocytes % 5 % (10-50); Monocytes % 2 % (2-9); Neutrophils % 93 % (42-76); Platelet Estimate Moderate Decrease; Total Cells Counted 100
[2023-11-06 20:05] VITALS: BP 153/78; PULSE 94; O2SAT 97
[2023-11-06 20:09] LABS: Coronavirus 19, PCR Not Detected (NotDetected); Influenza A, PCR Not Detected (NotDetected); Influenza B, PCR Not Detected (NotDetected)
[2023-11-06 20:09] LABS: Microscopic, Urine URINE MICROSCOPIC (MICROSCOPIC)
[2023-11-06 20:10] LABS: Appearance,Urine CLEAR (Clear); Bilirubin,Urine Negative (Negative); Blood, Urine Negative (Negative); Color,Urine YELLOW (Yellow); Glucose,Urine (UA) Negative (Negative); Ketones,Urine Negative (Negative); Leukocyte Esterase,Urine 2+ (Negative); Nitrate,Urine Negative (Negative); Protein,Urine Negative (Negative); Specific Gravity, Urine 1.015 (1.005-1.030)
[2023-11-06 20:29] LABS: Transitional Epi Cells,Urine OCC #/lpf (0-3)
[2023-11-06] MEDS: LACTATED RINGERS 995 ML IV (20:29)
[2023-11-06 20:30] VITALS: BP 124/73; PULSE 92; RESP 24; O2SAT 99
[2023-11-06] MEDS: CEFEPIME HCL 2 GM in 0.9 % SODIUM CHLORIDE 100 ML IV (20:30)
[2023-11-06] MEDS: VANCOMYCIN CONSULT REQUEST 1 EACH NOTAPPLIC (20:46)
--- NOTE | 2023-11-06 20:46 | PC.NURSE ---
vanc consult complete and verified with Goldy at [facility].
[2023-11-06] MEDS: AZITHROMYCIN 500 MG in 0.9 % SODIUM CHLORIDE 250 ML 250 MG IV (20:59)
[2023-11-06 21:01] VITALS: BP 110/91; PULSE 88; RESP 18; O2SAT 94
--- NOTE | 2023-11-06 21:10 | PC.NURSE ---
call placed to housekeeping room inspector for bed assignment
--- NOTE | 2023-11-06 21:18 | PC.NURSE ---
Attempted report, Nasima HALE requested to return call when she exited patient room. Awaiting return call.
[2023-11-06 21:27] VITALS: BP 110/91; PULSE 88; RESP 18; TEMP 36.9; O2SAT 94
[2023-11-06 22:00] VITALS: BP 121/62; PULSE 90; RESP 18; TEMP 36.8; O2SAT 95; BMI 18.3
--- NOTE | 2023-11-06 22:19 | EXP.HP ---
History of Present Illness *Admission Date: 11/06/23 *Reason for visit:: Sepsis *History of present illness: 63-year-old female brought to [facility] ED by her brother who lives with her primarily for altered mental status. PMHX of dementia, hld, htn, seziures, pancytopenia, and hemochromastosis. Brother reports that the pt has been falling to the left, more confused, and breathing more heavier than normal. She c/o chest pain and back pain. She is alert to self and situation. Brother reports that she is at baseline. She is able to ambulate and complete ADL's on her own. ED work up is significant for leukocytosis of 16.8, chest xray that reveals right sided multifocal pna, and UA with wbc's and leukocyte esterase. She was started on cefepime, vancomycin, and azithromycin and given a sepsis fluid bolus. The ED physician consulted the hospitalist team for further medical management. After discussing the case with the ED physician, I admitted the pt to the medical floor. Upon admission assessment, she is alert to self and situation. Brother is at the bedside and is the main historian. Her lactate is 2.0. I will continue current antibiotics. I will reassess for additional fluid is needed after the sepsis bolus is complete. She is currently 95 % on 2L. I will wean to maintain 02 above 92%. I am consulting pulmonary regrading her Chest CT finds of nodular mass like opacities and need for follow up chest CT imaging. [facility] Disclaimer: The information contained in this section may have been updated after the patient was seen, as this information can be updated by other users. Medical History (Updated 11/07/23 @ 16:24 by Cam Wallace MD) UTI (urinary tract infection) Pneumonia CKD (chronic kidney disease) Cirrhosis Hemochromatosis Seizure COPD (chronic obstructive pulmonary disease) Surgical History Hx of cataract surgery History of neck surgery Hx of tubal ligation History of brain surgery Family History Other Diabetes Social History Smoking Status: Never smoker alcohol intake: never substance use type: denies use current occupational status: other Travel in the last 8 weeks: None caregiver/support person: Yes Review of Systems Review of Systems Review of systems:: unable to obtain Meds Home Medications and Allergies Home Medications Medication Instructions Recorded Confirmed Type lamotrigine 100 mg tablet 100 mg PO BID 09/26/23 11/06/23 History pravastatin 20 mg tablet 20 mg PO DAILY 09/26/23 11/06/23 History propranolol 10 mg tablet 10 mg PO DAILY 09/26/23 11/06/23 History sertraline 100 mg tablet 100 mg PO DAILY 09/26/23 11/06/23 History levothyroxine 25 mcg tablet 25 mcg PO DAILY 11/07/23 11/07/23 History New Prescriptions to Start Prescriptions: Allergies Allergy/AdvReac Type Severity Reaction Status Date / Time No Known Allergies Allergy Verified 05/31/23 11:24 Exam Data for Last 24 hours Vital signs and Labs for Last 24 Hours: Temp Pulse Resp BP Pulse Ox O2 Del Method O2 Flow Rate 98.2 F 90 18 121/62 95 Nasal Cannula 2 11/06/23 22:00 11/06/23 22:00 11/06/23 22:00 11/06/23 22:00 11/06/23 22:00 11/06/23 22:00 11/06/23 22:00 Laboratory Results - last 24 hr 11/06/23 19:13: WBC 16.8 H D, RBC 4.23, Hgb 11.3 L, Hct 35.7 L, MCV 84.5, MCH 26.8 L, MCHC 31.8, RDW 16.9, Plt Count 82 L D, MPV 10.0, Neut % (Auto) 88.4 H, Lymph % (Auto) 7.1 L, [place] % (Auto) 3.3, Eos % (Auto) 0.8, Baso % (Auto) 0.5, Neut # (Auto) 14.8 H, Lymph # (Auto) 1.2, [place] # (Auto) 0.6, Eos # (Auto) 0.1, Baso # (Auto) 0.1, Total Counted 100, Neutrophils % (Manual) 93 H, Lymphocytes % (Manual) 5 L, Monocytes % (Manual) 2, Platelet Estimate Moderate decrease, Hypochromasia 1+, PT 13.2 H, INR 1.24 H, APTT 30.6, Sodium 138, Potassium 4.0, Chloride 105, Carbon Dioxide 27, Anion Gap 10.0, BUN 16, Creatinine 0.90, Estimated Creat Clear 52, Estimated GFR 63, Est GFR ( Amer) 76, Glucose 126 H, Lactate 2.0, Calcium 9.0, Total Bilirubin 1.3, AST 67 H, ALT 40, Alkaline Phosphatase 199 H, Ammonia 21, Troponin I 0.04 H, Total Protein 8.1, Albumin 4.1 D, Globulin 4.0 H, Albumin/Globulin Ratio 1.0 L, Lipase 58 11/06/23 19:20: VBG pH 7.33, VBG pCO2 48.7, VBG pO2 26.6 L, VBG HCO3 25.0, VBG Total CO2 26.5, VBG O2 Saturation 43.6 L, VBG Base Excess -0.9, VBG Lactic Acid 2.4 H 11/06/23 19:58: SARS-CoV-2 (PCR) Not detected, Influenza A Untype (PCR) Not detected, Influenza Type B (PCR) Not detected 11/06/23 20:05: Urine Color Yellow, Urine Appearance Clear, Urine pH 6.0, Ur Specific [place] 1.015, Urine Protein Negative, Urine Glucose (UA) Negative, Urine Ketones Negative, Urine Blood Negative, Urine Nitrate Negative, Urine Bilirubin Negative, Urine Urobilinogen 1.0, Ur Leukocyte Esterase 2+ A, Urine RBC None, Urine WBC 10-20, Ur Squamous Epith Cells 3-5, Ur Transition Epith Cell Occ, Urine Bacteria None I & O for Last 24 hours: Intake & Output 11/03/23 11/04/23 11/05/23 11/06/23 23:59 23:59 23:59 23:59 Intake Total 600 / 600 Balance 600 / 600 Weight 56.245 kg Constitutional Constitutional: no acute distress and thin *Routine HEENT Exam Head: Present normocephalic and atraumatic Eye: Present EOMI, PERRL and normal accommodation ENT: Present mucous membranes dry *Routine Neck Exam Neck: Present supple and full ROM; Absent JVD *Routine Respiratory Exam Respiratory: Present wheezes, crackles, able to speak in complete sentences and symmetric chest movement; Absent respiratory distress *Routine Cardiovascular Exam Cardiovascular: Present RRR *Routine Abdominal Exam Abdominal: Present soft and normoactive bowel sounds; Absent tenderness *Routine Rectal Exam Rectal:: deferred *Routine Genitalia Exam Genitalia:: deferred *Routine Extremities Exam Extremities: Present full ROM and pulses intact; Absent edema *Routine Skin Exam Skin: Present intact and warm *Routine Neurological Exam Neurological: Present alert; Absent oriented X3 Assessment and Plan *Assessment and plan (1) Sepsis: Status: Acute Category: Medical Code(s): A41.9 - Sepsis, unspecified organism (2) Multifocal pneumonia: Status: Acute Category: Medical Code(s): J18.9 - Pneumonia, unspecified organism (3) UTI (urinary tract infection): Status: Acute Category: Medical Code(s): N39.0 - Urinary tract infection, site not specified (4) Hemochromatosis: Status: Acute Category: Medical Code(s): E83.119 - Hemochromatosis, unspecified (5) Pancytopenia: Status: Acute Category: Medical Code(s): D61.818 - Other pancytopenia (6) Dementia: Status: Acute Category: Medical Code(s): F03.90 - Unspecified dementia, unspecified severity, without behavioral disturbance, psychotic disturbance, mood disturbance, and anxiety (7) HTN (hypertension): Status: Acute Category: Medical Code(s): I10 - Essential (primary) hypertension (8) HLD (hyperlipidemia): Status: Acute Category: Medical Code(s): E78.5 - Hyperlipidemia, unspecified Plan 63-year-old female brought to [facility] ED by her brother who lives with her primarily for altered mental status. PMHX of dementia, hld, htn, seziures, pancytopenia, and hemochromastosis. Brother reports that the pt has been falling to the left, more confused, and breathing more heavier than normal. She c/o chest pain and back pain. She is alert to self and situation. Brother reports that she is at baseline. She is able to ambulate and complete ADL's on her own. ED work up is significant for leukocytosis of 16.8, chest xray that reveals right sided multifocal pna, and UA with wbc's and leukocyte esterase. She was started on cefepime, vancomycin, and azithromycin and given a sepsis fluid bolus. The ED physician consulted the hospitalist team for further medical management. After discussing the case with the ED physician, I admitted the pt to the medical floor. Upon admission assessment, she is alert to self and situation. Brother is at the bedside and is the main historian. Her lactate is 2.0. I will continue current antibiotics. I will reassess for additional fluid is needed after the sepsis bolus is complete. She is currently 95 % on 2L. I will wean to maintain 02 above 92%. I am consulting pulmonary regrading her Chest CT finds of nodular mass like opacities and need for follow up chest CT imaging. SEPSIS PNA UTI -Leukocytosis of 16.8, HR 100, UTI + PNA -Complete sepsis re-evaluation -> lactate 2.0 -UA positive for wbc's and leukocyte esterase -Chest XRAY reveiwed and reveals right sided multifocal pna -Cefepime 2gm Q 12 hr, Vancomycin q 12 hr, and Azithromycin 500 mg Q 24 hr -blood culture and ua pending -repeat cbc and bmp in the morning -sepsis fluid bolus given in ED -VBG reveals lactate 2.4 and pO2 26.6 -Chest CT reveals nodular mass like opacities and need for follow up chest CT imaging -> consulting pulmonary, thank you for the help!! -On 2L NC. Please titrate to O2 sat above 92 %. -Duonebs q 6hr prn -Troponin 0.04. Continue to trend. HEMOCHROMATOSIS PANCYTOPENIA DEMENTIA HTN HLD -awaiting home med req -continue lamotrigine 100 mg, pravastatin 20mg, and sertraline. -continue propranolol 10mg with caution in setting of sepsis -Plt count at baseline 82. FULL CODE CARDIAC DIET DVT: HOLD Rounded on patient after nurse practitioner. Personally examined and interviewed patient. Agree with exam findings and care plan as documented.
--- NOTE | 2023-11-06 23:07 | EXP.SEPSISRE ---
[facility] Tissue Perfusion Eval Sepsis Re-Evaluation Performed: Yes Date Performed: 11/06/23 Time Performed: 23:07
[2023-11-06 23:08] LABS: Troponin I 0.07 ng/ml (0.00-0.034)
[2023-11-06 23:33] LABS: Reflex Lactic Add Lactic Reflex
[2023-11-07] VITALS (8 sets, daily range): BP systolic 86–102; BP diastolic 38–53; PULSE 63–95; RESP 16–17; TEMP 36.6–37.2; O2SAT 92–97; BMI 18.3
[2023-11-07 00:08] LABS: Lactic Acid Follow Up (RFLX 1) 2.3 mmol/L (0.7-2.1)
[2023-11-07] MEDS: VANCOMYCIN HCL 1,000 MG in 0.9 % SODIUM CHLORIDE 250 ML 125 MG IV ×2 (00:13→12:18)
--- NOTE | 2023-11-07 01:24 | PC.NURSE ---
pt noted to drag left foot when walking compared to right foot where she is able to mixing picker tender leg completely. notified vicente jalloh aprn of findings.
[2023-11-07 01:38] LABS: Reflex Lactic (2 hrs) Add Lactic Reflex
[2023-11-07] MEDS: ONDANSETRON 4MG/2ML VIAL 4 MG IV ×2 (02:15→12:19)
[2023-11-07] MEDS: ACETAMINOPHEN 325MG TAB 650 MG PO ×2 (02:15→19:55)
[2023-11-07 02:23] LABS: Troponin I 0.07 ng/ml (0.00-0.034)
[2023-11-07] MEDS: LACTATED RINGERS 1000ML 500 ML 250 ML IV (04:13)
[2023-11-07 06:40] LABS: Basophils % 0.4 % (0.1-2.0); Eosinophils % 0.8 % (0.1-12.0); Hematocrit 25.4 % (37.0-47.0); Lymphocytes % 22.3 % (10-50); Mean Corpuscular HGB Conc 30.4 g/dL (31.8-35.4); Mean Corpuscular Hemoglobin 26.3 pg (27.0-31.2); Mean Corpuscular Volume 86.5 fl (81-99); Mean Platelet Volume 10.1 fl (7.4-10.4); Monocytes # 0.3 K/mm3 (0.1-1.0); Monocytes % 5.8 % (1.7-9.3); Neutrophils # 3.1 K/mm3 (1.8-7.8); Neutrophils % 70.7 % (37.0-80.0); Red Blood Count 2.94 M/mm3 (4.20-5.40); Red Cell Distribution Width 17.1 % (11.5-17.5); White Blood Count 4.4 K/mm3 (4.8-10.8)
--- NOTE | 2023-11-07 06:50 | PC.NURSE ---
pt admitted for sepsis pneumonia. pt alert to name and place. lr bolus x2 liters given along with cefepime, vancomycin and zithromax. lactic 2.0 then 2.4 then returned to 2.0. trop 0.07, 0.04 and 0.07. pt reports pain in upper abdomen and back. from what i can collect this is chronic. blood cx collected. bp 92/42. nut former made aware. new order for lr 500 ml over 2 hours ordered and given. repeat bp 86/38. nut former made aware. will recheck in 30min-1 hr per instrction from provider
[2023-11-07 06:58] LABS: Platelet Count 40 K/mm3 (142-424)
[2023-11-07 06:59] LABS: Hemoglobin 7.7 g/dL (12.2-16.2)
[2023-11-07 07:07] LABS: Chloride 113 mmol/L (98-107); Potassium 3.5 mmoL/L (3.5-5.1); Sodium 138 mmol/L (136-145)
[2023-11-07 07:10] LABS: Anion Gap 3.5 mEq/L (5-15); Blood Urea Nitrogen 14 mg/dl (7-17); Calcium 7.8 mg/dl (8.4-10.2); Carbon Dioxide 25 mmol/L (22.0-30.0); Creatinine Clearance Estimated 50 mL/min (50-200); Estimated Glomerular Filt Rate 72 ml/min (>60); GFR (African American) 87 ML/MIN (>60); Glucose 130 mg/dl (74-100)
--- NOTE | 2023-11-07 07:41 | P.PN_ITS ---
Subjective *Date: 11/07/23 *Time: 17:56 Interval history: Patient denies any significant symptoms today. No shortness of breath or chest pain. Family at bedside. No nausea or vomiting. Stable on 2 L oxygen. Afebrile overnight. Labs showing improvement this morning. Medical Exam Vital signs and Labs for Last 24 Hours: Vital Signs Temp Pulse Pulse Resp BP BP Pulse Ox 11/07/23 07:36 97.9 F 73 16 102/53 L 95 11/07/23 06:15 63 86/38 L 11/07/23 05:00 11/07/23 04:00 98.8 F 75 17 92/42 L 94 L 11/07/23 03:00 11/07/23 01:00 11/07/23 00:00 95 H 11/07/23 00:00 98.3 F 92 H 17 101/50 L 97 11/07/23 00:00 98.3 F 92 H 17 101/50 L 97 11/06/23 23:00 11/06/23 22:53 11/06/23 22:00 98.2 F 90 18 121/62 95 11/06/23 21:27 98.4 F 88 18 110/91 H 11/06/23 21:01 88 18 110/91 H 94 L 11/06/23 20:30 92 H 24 124/73 99 11/06/23 20:05 94 H 153/78 H 97 11/06/23 19:00 98.4 F 100 H 18 156/83 H 91 L O2 Del Method O2 Flow Rate 11/07/23 07:36 Nasal Cannula 2 11/07/23 06:15 11/07/23 05:00 Nasal Cannula 2 11/07/23 04:00 Nasal Cannula 2 11/07/23 03:00 Nasal Cannula 2 11/07/23 01:00 Nasal Cannula 2 11/07/23 00:00 11/07/23 00:00 Nasal Cannula 2 11/07/23 00:00 Nasal Cannula 2 11/06/23 23:00 Nasal Cannula 2 11/06/23 22:53 Nasal Cannula 2 11/06/23 22:00 Nasal Cannula 2 11/06/23 21:27 Nasal Cannula 2 11/06/23 21:01 Nasal Cannula 2 11/06/23 20:30 Nasal Cannula 2 11/06/23 20:05 Nasal Cannula 2 11/06/23 19:00 Room Air Intake and Output 11/06/23 11/06/23 11/07/23 15:59 23:59 07:59 Intake Total 600 / 600 1480 / 1480 Output Total 0 / 0 0 / 0 Balance 600 / 600 1480 / 1480 Intake: Intake, Total IV Amount 600 / 600 1480 / 1480 Cefepime HCl 2 gm In 0.9 % 100 / 100 1480 / 1480 Sodium Chloride 100 ml @ 200 mls/hr IV ONCE ONE Rx#:[id number] Lactated Ringers 1000ML 500 ml 500 / 500 @ 999 mls/hr IV .Q31M [facility] Rx#: [id number] Output: Output, Urine Amount 0 / 0 0 / 0 Other: Number of Unmeasured Voids 1 1 Weight 56.245 kg 56.245 kg Patient Weight 11/07/23 23:59 Weight 56.245 kg Laboratory Results - last 24 hr 11/06/23 19:13: WBC 16.8 H D, RBC 4.23, Hgb 11.3 L, Hct 35.7 L, MCV 84.5, MCH 26.8 L, MCHC 31.8, RDW 16.9, Plt Count 82 L D, MPV 10.0, Neut % (Auto) 88.4 H, Lymph % (Auto) 7.1 L, [place] % (Auto) 3.3, Eos % (Auto) 0.8, Baso % (Auto) 0.5, Neut # (Auto) 14.8 H, Lymph # (Auto) 1.2, [place] # (Auto) 0.6, Eos # (Auto) 0.1, Baso # (Auto) 0.1, Total Counted 100, Neutrophils % (Manual) 93 H, Lymphocytes % (Manual) 5 L, Monocytes % (Manual) 2, Platelet Estimate Moderate decrease, Hypochromasia 1+, PT 13.2 H, INR 1.24 H, APTT 30.6, Sodium 138, Potassium 4.0, Chloride 105, Carbon Dioxide 27, Anion Gap 10.0, BUN 16, Creatinine 0.90, Estimated Creat Clear 52, Estimated GFR 63, Est GFR ( Amer) 76, Glucose 126 H, Lactate 2.0, Calcium 9.0, Total Bilirubin 1.3, AST 67 H, ALT 40, Alkaline Phosphatase 199 H, Ammonia 21, Troponin I 0.04 H, Total Protein 8.1, Albumin 4.1 D, Globulin 4.0 H, Albumin/Globulin Ratio 1.0 L, Lipase 58 11/06/23 19:20: VBG pH 7.33, VBG pCO2 48.7, VBG pO2 26.6 L, VBG HCO3 25.0, VBG Total CO2 26.5, VBG O2 Saturation 43.6 L, VBG Base Excess -0.9, VBG Lactic Acid 2.4 H 11/06/23 19:58: SARS-CoV-2 (PCR) Not detected, Influenza A Untype (PCR) Not detected, Influenza Type B (PCR) Not detected 11/06/23 20:05: Urine Color Yellow, Urine Appearance Clear, Urine pH 6.0, Ur Specific [place] 1.015, Urine Protein Negative, Urine Glucose (UA) Negative, Urine Ketones Negative, Urine Blood Negative, Urine Nitrate Negative, Urine Bilirubin Negative, Urine Urobilinogen 1.0, Ur Leukocyte Esterase 2+ A, Urine RBC None, Urine WBC 10-20, Ur Squamous Epith Cells 3-5, Ur Transition Epith Cell Occ, Urine Bacteria None 11/06/23 22:33: Troponin I 0.07 H 11/06/23 23:45: Lactate 2.3 H 11/07/23 01:50: Lactate 2.0, Troponin I 0.07 H 11/07/23 05:51: WBC 4.4 L D, RBC 2.94 L D, Hgb 7.7 L D, Hct 25.4 L, MCV 86.5, MCH 26.3 L, MCHC 30.4 L, RDW 17.1, Plt Count 40 L* D, MPV 10.1, Neut % (Auto) 70.7, Lymph % (Auto) 22.3, [place] % (Auto) 5.8, Eos % (Auto) 0.8, Baso % (Auto) 0.4, Neut # (Auto) 3.1, Lymph # (Auto) 1.0, [place] # (Auto) 0.3, Eos # (Auto) 0.0, Baso # (Auto) 0.0, Sodium 138, Potassium 3.5, Chloride 113 H, Carbon Dioxide 25, Anion Gap 3.5 L, BUN 14, Creatinine 0.80, Estimated Creat Clear 50, Estimated GFR 72, Est GFR ( Amer) 87, Glucose 130 H, Calcium 7.8 L I & O for Labs for Last 24 Hours: Intake & Output 11/04/23 11/05/23 11/06/23 11/07/23 23:59 23:59 23:59 23:59 Intake Total 600 / 600 1480 / 1480 Output Total 0 / 0 0 / 0 Balance 600 / 600 1480 / 1480 Weight 56.245 kg 56.245 kg Constitutional: Present no acute distress, thin and chronically ill appearing Head: Present atraumatic and normocephalic ENT: Present normal exam and mucous membranes moist Comment:: Bitemporal wasting Neck: Present normal inspection Respiratory: Present normal respiratory effort; Absent rhonchi, wheezes or crackles Cardiac: Present Reg Rate and Rhythm GI: Present soft and normal bowel sounds; Absent distention or tenderness Extremities: Present normal inspection and full ROM Skin: Present intact; Absent erythema Neuro: Present Grossly Intact, alert, awake and moves all extremities Comment:: Oriented to self. Answering yes/no questions appropriately Assessment and Plan *Assessment and plan (1) Sepsis: Status: Acute Category: Medical Code(s): A41.9 - Sepsis, unspecified organism (2) Multifocal pneumonia: Status: Acute Category: Medical Code(s): J18.9 - Pneumonia, unspecified organism (3) UTI (urinary tract infection): Status: Acute Category: Medical Code(s): N39.0 - Urinary tract infection, site not specified (4) Hemochromatosis: Status: Acute Category: Medical Code(s): E83.119 - Hemochromatosis, unspecified (5) Pancytopenia: Status: Acute Category: Medical Code(s): D61.818 - Other pancytopenia (6) Dementia: Status: Acute Category: Medical Code(s): F03.90 - Unspecified dementia, unspecified severity, without behavioral disturbance, psychotic disturbance, mood disturbance, and anxiety (7) HTN (hypertension): Status: Acute Category: Medical Code(s): I10 - Essential (primary) hypertension (8) HLD (hyperlipidemia): Status: Acute Category: Medical Code(s): E78.5 - Hyperlipidemia, unspecified Plan 63-year-old female brought to [facility] ED by her brother who lives with her primarily for altered mental status. PMHX of dementia, hld, htn, seziures, pancytopenia, and hemochromastosis. Brother reports that the pt has been falling to the left, more confused, and breathing more heavier than normal. She c/o chest pain and back pain. She is alert to self and situation. Brother reports that she is at baseline. She is able to ambulate and complete ADL's on her own. ED work up is s ignificant for leukocytosis of 16.8, chest xray that reveals right sided multifocal pna, and UA with wbc's and leukocyte esterase. She was started on cefepime, vancomycin, and azithromycin and given a sepsis fluid bolus. The ED physician consulted the hospitalist team for further medical management. After discussing the case with the ED physician, I admitted the pt to the medical floor. Upon admission assessment, she is alert to self and situation. Brother at bedside this morning. Showing some improvement with her labs. Continues to require inpatient management for IV antibiotics awaiting cultures. Pulmonology assisting with care. Problems addressed as follows: SEPSIS PNA UTI -Seeing improvement in white cell count, leukocytosis of 14. Stable on 2 L oxygen with goal sats greater 90%. -Discussed case with pulmonology, recommend continuing antibiotics with cefepime 2 g every 12 hours and vancomycin IV and azithromycin 500 mg daily. -Blood culture and urine cultures pending -repeat cbc and bmp in the morning -sepsis fluid bolus given in ED, blood pressure still soft but tolerating p.o. intake. MAP above 65. Holding home propranolol. -On 2L NC. Please titrate to O2 sat above 92 %. -Duonebs q 6hr prn -Troponin 0.04. Continue to trend. HEMOCHROMATOSIS PANCYTOPENIA DEMENTIA HTN HLD -Continue Lamictal 100 mg twice daily. Continue levothyroxine 25 mcg daily. Continue Zoloft 100 mg daily. -Platelets decreased to 40 this morning. No active signs of bleeding. No indication for transfusion. Hemoglobin 7.7. FULL CODE CARDIAC DIET DVT: HOLD
--- NOTE | 2023-11-07 07:48 | [facility].PHAINT1 ---
Pharmacy Intervention Comments: HOME MEDICATION LIST VERIFIED VIA OUTSIDE PHARMACY
--- NOTE | 2023-11-07 08:14 | P.CONPHA_ITS ---
Pharmacy Consult Date: 11/07/23 Time: 08:14 Referring provider: DR. CASON Reason for Consult:: VANCOMYCIN DOSING Allergies Allergy/AdvReac Type Severity Reaction Status Date / Time No Known Allergies Allergy Verified 05/31/23 11:24 Home Medications Medication Instructions Recorded Confirmed Type lamotrigine 100 mg tablet 100 mg PO BID 09/26/23 11/06/23 History pravastatin 20 mg tablet 20 mg PO DAILY 09/26/23 11/06/23 History propranolol 10 mg tablet 10 mg PO DAILY 09/26/23 11/06/23 History sertraline 100 mg tablet 100 mg PO DAILY 09/26/23 11/06/23 History New Prescriptions to Start Prescriptions: Height: 1.75 m Weight: 56.245 kg Laboratory Results:: Laboratory Results - last 24 hr 11/06/23 19:13: WBC 16.8 H D, RBC 4.23, Hgb 11.3 L, Hct 35.7 L, MCV 84.5, MCH 26.8 L, MCHC 31.8, RDW 16.9, Plt Count 82 L D, MPV 10.0, Neut % (Auto) 88.4 H, Lymph % (Auto) 7.1 L, [place] % (Auto) 3.3, Eos % (Auto) 0.8, Baso % (Auto) 0.5, Neut # (Auto) 14.8 H, Lymph # (Auto) 1.2, [place] # (Auto) 0.6, Eos # (Auto) 0.1, Baso # (Auto) 0.1, Total Counted 100, Neutrophils % (Manual) 93 H, Lymphocytes % (Manual) 5 L, Monocytes % (Manual) 2, Platelet Estimate Moderate decrease, Hypochromasia 1+, PT 13.2 H, INR 1.24 H, APTT 30.6, Sodium 138, Potassium 4.0, Chloride 105, Carbon Dioxide 27, Anion Gap 10.0, BUN 16, Creatinine 0.90, Estimated Creat Clear 52, Estimated GFR 63, Est GFR ( Amer) 76, Glucose 126 H, Lactate 2.0, Calcium 9.0, Total Bilirubin 1.3, AST 67 H, ALT 40, Alkaline Phosphatase 199 H, Ammonia 21, Troponin I 0.04 H, Total Protein 8.1, Albumin 4.1 D, Globulin 4.0 H, Albumin/Globulin Ratio 1.0 L, Lipase 58 11/06/23 19:20: VBG pH 7.33, VBG pCO2 48.7, VBG pO2 26.6 L, VBG HCO3 25.0, VBG Total CO2 26.5, VBG O2 Saturation 43.6 L, VBG Base Excess -0.9, VBG Lactic Acid 2.4 H 11/06/23 19:58: SARS-CoV-2 (PCR) Not detected, Influenza A Untype (PCR) Not detected, Influenza Type B (PCR) Not detected 11/06/23 20:05: Urine Color Yellow, Urine Appearance Clear, Urine pH 6.0, Ur Specific [place] 1.015, Urine Protein Negative, Urine Glucose (UA) Negative, Urine Ketones Negative, Urine Blood Negative, Urine Nitrate Negative, Urine Bilirubin Negative, Urine Urobilinogen 1.0, Ur Leukocyte Esterase 2+ A, Urine RBC None, Urine WBC 10-20, Ur Squamous Epith Cells 3-5, Ur Transition Epith Cell Occ, Urine Bacteria None 11/06/23 22:33: Troponin I 0.07 H 11/06/23 23:45: Lactate 2.3 H 11/07/23 01:50: Lactate 2.0, Troponin I 0.07 H 11/07/23 05:51: WBC 4.4 L D, RBC 2.94 L D, Hgb 7.7 L D, Hct 25.4 L, MCV 86.5, MCH 26.3 L, MCHC 30.4 L, RDW 17.1, Plt Count 40 L* D, MPV 10.1, Neut % (Auto) 70.7, Lymph % (Auto) 22.3, [place] % (Auto) 5.8, Eos % (Auto) 0.8, Baso % (Auto) 0.4, Neut # (Auto) 3.1, Lymph # (Auto) 1.0, [place] # (Auto) 0.3, Eos # (Auto) 0.0, Baso # (Auto) 0.0, Sodium 138, Potassium 3.5, Chloride 113 H, Carbon Dioxide 25, Anion Gap 3.5 L, BUN 14, Creatinine 0.80, Estimated Creat Clear 50, Estimated GFR 72, Est GFR ( Amer) 87, Glucose 130 H, Calcium 7.8 L Medical History: Medical History (Updated 11/06/23 @ 22:41 by Nasima Beauchamp RN) UTI (urinary tract infection) Pneumonia CKD (chronic kidney disease) Cirrhosis Hemochromatosis Seizure COPD (chronic obstructive pulmonary disease) Assessment and Plan Assessment and plan all Dx Assessment and Plan for all problems:: Pharmacokinetic dosing service Objective: Patient: Floor: Age: 63 yo Serum creatinine: 0.8 mg/dL Height: 68.9 Inches Weight (kg): 56.3 Assessment: IBW (kg): 65.97 Dosing wt(kg): 56.3 Estimated Creatinine clearance (ml/min): 63.1 CRCL method: Cockcroft and Gault using ibw(default). Drug selected: Vancomycin Loading dose (mg): 0 Vd (liters): 45.0 (factor used: 0.8 L/kg) Joe (hr-1): 0.057 Half life (hrs): 12.16 Recommended dose: 1000 mg Interval: 18 hrs Infusion time (hrs): 2.0 Predicted peak (mcg/mL): 32.7 Predicted trough (mcg/mL): 13.14 Total body weight is being used for vancomycin dosing. Recommendations: Give Vancomycin 1000 mg q 18 hrs with an expected Cpeak of 32.7 mcg/ml and an expected Ctrough of 13.14 mcg/ml ----Vanco only - ignore for aminoglycosides----- CLvanco= 2.56 L/hr AUC 0-24 /DENISE Data: DENISE 0.5 mcg/mL: AUC/DENISE: 1041.7 DENISE 1.0 mcg/mL: AUC/DENISE: 520.8 --------- DENISE 1.5 mcg/mL: AUC/DENISE: 347.2 DENISE 2.0 mcg/mL: AUC/DENISE: 260.4
[2023-11-07] MEDS: SERTRALINE 100MG TABLET 100 MG PO (08:15)
[2023-11-07] MEDS: lamoTRIgine 100MG TABLET 100 MG PO ×2 (08:16→20:01)
[2023-11-07] MEDS: CEFEPIME HCL 2 GM in 0.9 % SODIUM CHLORIDE 100 ML IV ×2 (08:16→19:54)
--- NOTE | 2023-11-07 09:26 | P.CONS_ITS ---
History of Present Illness History of present illness: Mr. Woo is a 63-year-old female with a reported history of pancytopenia, hemochromatosis, cirrhosis with splenomegaly and varices presented to the ER complaining of altered mentation. She also had a recent diagnosis of COVID-19 pneumonia August 2023. She denies any baseline respiratory complaints. Not using any oxygen at baseline. [facility] Disclaimer: The information contained in this section may have been updated after the patient was seen, as this information can be updated by other users. Medical History (Updated 11/07/23 @ 16:24 by Cam Wallace MD) UTI (urinary tract infection) Pneumonia CKD (chronic kidney disease) Cirrhosis Hemochromatosis Seizure COPD (chronic obstructive pulmonary disease) Surgical History Hx of cataract surgery History of neck surgery Hx of tubal ligation History of brain surgery Family History Other Diabetes Social History Smoking Status: Never smoker alcohol intake: never substance use type: denies use current occupational status: other Travel in the last 8 weeks: None caregiver/support person: Yes Review of Systems Constitutional Constitutional: Reports anorexia, Reports body ache(s) and Reports fatigue Eyes Eyes: Denies eye discharge, Denies dry eyes, Denies irritation and Denies itchy eyes ENT Ears, Nose, Mouth, and Throat: Denies epistaxis, Denies facial pain, Denies lip swelling and Denies throat swelling *Cardiovascular Cardiovascular: Reports dyspnea and Reports dyspnea on exertion *Respiratory Respiratory: Reports chest congestion, Reports cough, Reports dyspnea, Reports dyspnea on exertion, Reports excessive phlegm production, Denies hemoptysis, Denies pain on inspiration and Denies wheezing *Gastrointestinal Gastrointestinal: Denies abdominal pain, Denies belching and Denies cramping *Musculoskeletal Musculoskeletal: Reports myalgias and Reports other (No small joint swelling or Pain) Psychiatric Psychiatric: Denies homicidal ideation and Denies suicidal ideation Endocrine Endocrine: Reports fatigue and Denies heat intolerance Hematologic/Lymphatic Hematologic/Lymphatic: Denies easy bleeding and Denies lymphadenopathy Allergic/Immunologic Allergic/Immunologic: Denies itchy eyes, Denies lip swelling, Denies throat swelling and Denies wheezing Pulmonology Exam Inpatient Vital signs and Labs for Last 24 Hours: Temp Pulse Resp BP Pulse Ox O2 Del Method O2 Flow Rate 97.9 F 70 16 102/53 L 95 Nasal Cannula 2 11/07/23 07:36 11/07/23 08:00 11/07/23 07:36 11/07/23 07:36 11/07/23 07:36 11/07/23 08:15 11/07/23 08:15 Laboratory Results - last 24 hr 11/06/23 19:13: WBC 16.8 H D, RBC 4.23, Hgb 11.3 L, Hct 35.7 L, MCV 84.5, MCH 26.8 L, MCHC 31.8, RDW 16.9, Plt Count 82 L D, MPV 10.0, Neut % (Auto) 88.4 H, L ymph % (Auto) 7.1 L, [place] % (Auto) 3.3, Eos % (Auto) 0.8, Baso % (Auto) 0.5, N eut # (Auto) 14.8 H, Lymph # (Auto) 1.2, [place] # (Auto) 0.6, Eos # (Auto) 0.1, Baso # (Auto) 0.1, Total Counted 100, Neutrophils % (Manual) 93 H, Lymphocytes % (Manual) 5 L, Monocytes % (Manual) 2, Platelet Estimate Moderate decrease, Hypochromasia 1+, PT 13.2 H, INR 1.24 H, APTT 30.6, Sodium 138, Potassium 4.0, Chloride 105, Carbon Dioxide 27, Anion Gap 10.0, BUN 16, Creatinine 0.90, Estimated Creat Clear 52, Estimated GFR 63, Est GFR ( Amer) 76, Glucose 126 H, Lactate 2.0, Calcium 9.0, Total Bilirubin 1.3, AST 67 H, ALT 40, Alkaline Phosphatase 199 H, Ammonia 21, Troponin I 0.04 H, Total Protein 8.1, Albumin 4.1 D, Globulin 4.0 H, Albumin/Globulin Ratio 1.0 L, Lipase 58 11/06/23 19:20: VBG pH 7.33, VBG pCO2 48.7, VBG pO2 26.6 L, VBG HCO3 25.0, VBG Total CO2 26.5, VBG O2 Saturation 43.6 L, VBG Base Excess -0.9, VBG Lactic Acid 2.4 H 11/06/23 19:58: SARS-CoV-2 (PCR) Not detected, Influenza A Untype (PCR) Not detected, Influenza Type B (PCR) Not detected 11/06/23 20:05: Urine Color Yellow, Urine Appearance Clear, Urine pH 6.0, Ur Specific [place] 1.015, Urine Protein Negative, Urine Glucose (UA) Negative, Urine Ketones Negative, Urine Blood Negative, Urine Nitrate Negative, Urine Bilirubin Negative, Urine Urobilinogen 1.0, Ur Leukocyte Esterase 2+ A, Urine RBC None, Urine WBC 10-20, Ur Squamous Epith Cells 3-5, Ur Transition Epith Cell Occ, Urine Bacteria None 11/06/23 22:33: Troponin I 0.07 H 11/06/23 23:45: Lactate 2.3 H 11/07/23 01:50: Lactate 2.0, Troponin I 0.07 H 11/07/23 05:51: WBC 4.4 L D, RBC 2.94 L D, Hgb 7.7 L D, Hct 25.4 L, MCV 86.5, M CH 26.3 L, MCHC 30.4 L, RDW 17.1, Plt Count 40 L* D, MPV 10.1, Neut % (Auto) 70.7, Lymph % (Auto) 22.3, [place] % (Auto) 5.8, Eos % (Auto) 0.8, Baso % (Auto) 0.4, Neut # (Auto) 3.1, Lymph # (Auto) 1.0, [place] # (Auto) 0.3, Eos # (Auto) 0.0, Baso # (Auto) 0.0, Sodium 138, Potassium 3.5, Chloride 113 H, Carbon Dioxide 25, Anion Gap 3.5 L, BUN 14, Creatinine 0.80, Estimated Creat Clear 50, Estimated GFR 72, Est GFR ( Amer) 87, Glucose 130 H, Calcium 7.8 L I & O for Labs for Last 24 Hours: Intake & Output 11/04/23 11/05/23 11/06/23 11/07/23 23:59 23:59 23:59 23:59 Intake Total 600 / 600 1929 Output Total 0 / 0 0 / 0 Balance 600 / 600 1930 / 1930 Weight 124 lb 124 lb Constitutional: Present moderate distress Head: Present normocephalic and atraumatic ENT: Present normal exam, normal oropharynx and mucous membranes moist Neck: Present normal inspection and full ROM Respiratory: Present respiratory distress, rhonchi, diminished air movement and able to speak in complete sentences; Absent wheezes or crackles Cardiac: Present S1/S2, Tachycardia and radial pulses present GI: Present soft and distention; Absent tenderness or guarding Rectal (female): Present deferred (female): Present deferred Skin: Present intact; Absent cyanosis or jaundice Neuro: Present alert and awake Extremities: Present normal inspection; Absent clubbing or cyanosis Psychiatric: Present normal affect and cooperative Meds Home Medications and Allergies Home Medications Medication Instructions Recorded Confirmed Type lamotrigine 100 mg tablet 100 mg PO BID 09/26/23 11/06/23 History pravastatin 20 mg tablet 20 mg PO DAILY 09/26/23 11/06/23 History propranolol 10 mg tablet 10 mg PO DAILY 09/26/23 11/06/23 History sertraline 100 mg tablet 100 mg PO DAILY 09/26/23 11/06/23 History levothyroxine 25 mcg tablet 25 mcg PO DAILY 11/07/23 11/07/23 History New Prescriptions to Start Prescriptions: Allergies Allergy/AdvReac Type Severity Reaction Status Date / Time No Known Allergies Allergy Verified 05/31/23 11:24 Results Laboratory Findings 11/07/23 05:51 11/07/23 05:51 PT/INR, D-dimer PT 13.2 seconds (10.1-12.5) H 11/06/23 19:13 INR 1.24 (0.9-1.1) H 11/06/23 19:13 Abnormal lab findings: Abnormal Labs 11/06/23 11/06/23 11/06/23 19:13 19:20 20:05 WBC 16.8 H D RBC Hgb 11.3 L Hct 35.7 L MCH 26.8 L MCHC Plt Count 82 L D Neut % (Auto) 88.4 H Lymph % (Auto) 7.1 L Neut # (Auto) 14.8 H Neutrophils % (Manual) 93 H Lymphocytes % (Manual) 5 L PT 13.2 H INR 1.24 H VBG pO2 26.6 L VBG O2 Saturation 43.6 L VBG Lactic Acid 2.4 H Chloride Anion Gap Glucose 126 H Lactate Calcium AST 67 H Alkaline Phosphatase 199 H Troponin I 0.04 H Globulin 4.0 H Albumin/Globulin Ratio 1.0 L Ur Leukocyte Esterase 2+ A 11/06/23 11/06/23 11/07/23 22:33 23:45 01:50 WBC RBC Hgb Hct MCH MCHC Plt Count Neut % (Auto) Lymph % (Auto) Neut # (Auto) Neutrophils % (Manual) Lymphocytes % (Manual) PT INR VBG pO2 VBG O2 Saturation VBG Lactic Acid Chloride Anion Gap Glucose Lactate 2.3 H Calcium AST Alkaline Phosphatase Troponin I 0.07 H 0.07 H Globulin Albumin/Globulin Ratio Ur Leukocyte Esterase 11/07/23 05:51 WBC 4.4 L D RBC 2.94 L D Hgb 7.7 L D Hct 25.4 L MCH 26.3 L MCHC 30.4 L Plt Count 40 L* D Neut % (Auto) Lymph % (Auto) Neut # (Auto) Neutrophils % (Manual) Lymphocytes % (Manual) PT INR VBG pO2 VBG O2 Saturation VBG Lactic Acid Chloride 113 H Anion Gap 3.5 L Glucose 130 H Lactate Calcium 7.8 L AST Alkaline Phosphatase Troponin I Globulin Albumin/Globulin Ratio Ur Leukocyte Esterase Assessment and Plan *Assessment and plan (1) Acute hypoxemic respiratory failure: Status: Acute Category: Medical Code(s): J96.01 - Acute respiratory failure with hypoxia Plan Mr. Woo is a 63-year-old female with a reported history of pancytopenia, hemochromatosis, cirrhosis with splenomegaly and varices presented to the ER complaining of altered mentation. She also had a recent diagnosis of COVID-19 pneumonia August 2023. She denies any baseline respiratory complaints. Not using any oxygen at baseline. Significant neutrophilic leukocytosis upon admission, followed by leukopenia. ANC greater than 1000. COVID-19 and flu PCR on this admission negative. CTA upon this admission negative for pulmonary embolism. Bilateral patchy consolidative changes along with bilateral lower lobe Lt > Right bronchial thickening and mucous plugging. The noted findings especially with respect to the right lower lobe airspace/nodular opacity along with right upper lobe bronchiectasis and micronodular pattern, bilateral lower lobe bronchial thickening/mucous plugging appear to be present on patient's CT from September 2022, but worsened on recent imaging. No prior sputum cultures available for review. Given patient's abnormal CT findings as being there and getting worse concerning for atypical pneumonia at this point of time. Plan: Continue oxygen supplementation to maintain O2 saturation goal of 90 to 95%. Currently on 2 L. DuoNebs every 6 hours PRN Follow with sputum Gram stain AFB fungal stain and cultures Follow with fungal infectious workup Continue vancomycin and cefepime pending culture results. Will have low threshold to de-escalate antibiotics pending clinical improvement and blood cultures
--- NOTE | 2023-11-07 13:37 | HMH.OTEV ---
OT Inpatient Evaluation Rehab OT IP Evaluation Start: 11/07/23 10:29 Freq: ONCE Status: Active Protocol: Document 11/07/23 13:31 JULIAN (Rec: 11/07/23 13:36 [facility] [id number]) Rehab OT IP Assessment Subjective History Pt oriented x 3 on arrival. Pt agreeable to engage in therapy evaluation. Pt admitted on 11/06/23 due to sepsis and PNA. History and PHysical: 63-year-old female brought to [facility] ED by her brother who lives with her primarily for altered mental status. PMHX of dementia, hld, htn, seziures, pancytopenia, and hemochromastosis. Brother reports that the pt has been falling to the left, more confused, and breathing more heavier than normal. She c/o chest pain and back pain. She is alert to self and situation . Brother reports that she is at baseline. She is able to ambulate and complete ADL's on her own. ED work up is significant for leukocytosis of 16.8, chest xray that reveals right sided multifocal pna, and UA with wbc's and leukocyte esterase. She was started on cefepime, vancomycin, and azithromycin and given a sepsis fluid bolus . The ED physician consulted the hospitalist team for further medical management. After discussing the case with the ED physician, I admitted the pt to the medical floor. Upon admission assessment, she is alert to self and situation. Brother is at the bedside and is the main historian. Her lactate is 2.0. I will continue current antibiotics. I will reassess for additional fluid is needed after the sepsis bolus is complete. She is currently 95 % on 2L. I will wean to maintain 02 above 92%. I am consulting pulmonary regrading her Chest CT finds of nodular mass like opacities and need for follow up chest CT imaging . Subjective I just feel weak. Prior to being in the hospital , pt reports she was living with her brother. Pt claims normally she is independent with ADLs such as feeding, dressing, and bathing. However, she was dependent upon brother for completion of all IADLs. She did use a cane at times during functional transfers. Objective Patient Orientation Person,Place,Birthday Right Upper Extremity Gross ROM WFL Left Upper Extremity Gross ROM WFL Bed Mobility bed mobility-scooting,bed mobility - supine/sit Assist Level Contact Guard/Hand Hold Transfer Training Sit/Stand Transfer Assist Level Minimal x 1 (25% assist) Chair Transfer Assistive Devices Rolling Walker Rehab OT IP prob,goals,plan Problems Date of Evaluation: 11/07/23 OT IP Problems Bed Mobility,Transfers,Balance ,Self care,Safety Rehab Potential Rehab Potential Good Equipment Needs Assistive Devices Rolling / Wheeled Walker Plan OT intervention Plan Bed Mobility,Transfers,Balance ,Self care,Safety,Therapeutic Exercise OT Plan Frequency Daily Duration LOS Discharge Goals Bed Mobility Ability Standby Assistance Sit to Stand Chair Transfer Ability Contact Guard/Hand Hold Chair Transfer Ability Contact Guard/Hand Hold Chair Transfer Technique Sit to/from Ambulatory Chair Transfer Assistive Devices Rolling Walker Feeding Ability Assist with Tray Set Up Lower Body Dressing Ability Minimal Assistance Upper Body Dressing Ability Standby Assistance Bathing Ability Minimal Assistance Performing Toilet Hygiene Ability Minimal Assistance Overall Commode/Toilet Transfer Ability Contact Guard Commode/Toilet Transfer Technique Sit to/from Ambulatory Commode/Toilet Transfer Assistive Grab Bars Devices Decrease in Endurance Yes Discharge Plan OT Discharge Plan Pt will continue to be seen for OT services while at [facility]. Pt can return home with brother's assistance once she is medically stable per physician. Therapist does reacommend OT evaluation upon returning home. Continued skilled therapy is important in order for patient to improve strength, safety, endurance, ADL independence, and functional transfers to reach PLOF. Eval Complexity Eval Charge Codes 87335 - Moderate Complexity PHYSICIAN CERTIFICATION: I certify the specified therapy services for Leona Woo are required, authorized, and reviewed every 30 days.
--- NOTE | 2023-11-07 13:40 | HMH.PTEV ---
Physical Therapy Evaluation Rehab PT IP Evaluation Start: 11/07/23 10:29 Freq: ONCE Status: Active Protocol: Document 11/07/23 13:30 MAYCO (Rec: 11/07/23 13:40 MAYCO [email or web address]) Subjective/History History History Per H&P: 63-year-old female brought to [facility] ED by her brother who lives with her primarily for altered mental status. PMHX of dementia, hld, htn, seziures, pancytopenia, and hemochromastosis. Brother reports that the pt has been falling to the left, more confused, and breathing more heavier than normal. She c/o chest pain and back pain. She is alert to self and situation . Brother reports that she is at baseline. She is able to ambulate and complete ADL's on her own. ED work up is significant for leukocytosis of 16.8, chest xray that reveals right sided multifocal pna, and UA with wbc's and leukocyte esterase. She was started on cefepime, vancomycin, and azithromycin and given a sepsis fluid bolus . The ED physician consulted the hospitalist team for further medical management.... Subjective Subjective PLOF per pt report: Lives with brother who assists with tasks as needed. Ambulated independently without use of AD. Some stairs in home. Pt is questionable historian d /t confusion and recent medical history. New diagnosis of cancer in past 12 No months? Rehab PT IP Eval Objective Appearance Patient Behavior Appropriate,Cooperative Patient Orientation Person,Birthday Difficulty following instructions none Speech Pattern Clear Ambulation Patient Able to Ambulate Yes Ambulation Observation IP General Gait Pattern Observation Narrow Based Gait Ambulation Distance (feet) 16 Ambulation Assistive Device Rolling Walker Ambulation Ability Contact Guard/Hand Hold, Minimal x 1 (25% assist) Balance Ability to Arise Able, uses arms to help Sitting Balance Steady, safe Standing Balance Steady, wide stance Transfers Bed Transfer Ability Supervision/Stand by Sit to Stand Bed Transfer Ability Minimal x 2 (25% assist) MMT All Extremities PT MMT WFL Rehab PT IP prob,goals,plan Problems Date of Evaluation: 11/07/23 PT IP Problems Transfers,Gait,Balance,Self care,Safety Rehab Potential Rehab Potential Good Equipment Needs Assistive Devices Rolling / Wheeled Walker Plan PT Intervention Plan Transfers,Gait,Balance,Self care,Safety,Therapeutic Exercise Other Intervention Plan 1-2 times PT Plan Frequency Daily Duration LOS Discharge Goals Bed Transfer Ability Independent Sit to Stand Chair Transfer Ability Contact Guard/Hand Hold Ambulation Assistive Device Rolling Walker Ambulation Distance (feet) 25 Discharge Plan PT Discharge Plan Initial physical therapy evaluation performed. Patient presents below baseline at this time in functional mobility, transfers, gait, and strength. Pt would benefit from skilled PT while at [facility] to prevent further functional decline and maximize safety with mobility. Pt safe to d/c home when deemed medically necessary d/t current level of mobility, home set-up, and available family support. PT recommending home health PT services to address deficits. Eval Complexity Eval Charge Codes 19652 - Moderate Complexity PHYSICIAN CERTIFICATION: I certify the specified therapy services for Leona Woo are required, authorized, and reviewed every 30 days.
--- NOTE | 2023-11-07 14:27 | PC.NURSE ---
made nurse aware of hypotension
[2023-11-07] MEDS: PRAVASTATIN 20MG TAB 20 MG PO (20:01)
[2023-11-07] MEDS: AZITHROMYCIN 500 MG in 0.9 % SODIUM CHLORIDE 250 ML 250 MG IV (20:45)
[2023-11-08] VITALS (9 sets, daily range): BP systolic 90–111; BP diastolic 45–58; PULSE 64–82; RESP 16–24; TEMP 36.5–37; O2SAT 95–98; BMI 20.2
[2023-11-08 06:03] LABS: Basophils % 0.6 % (0.1-2.0); Eosinophils % 1.5 % (0.1-12.0); Hematocrit 25.6 % (37.0-47.0); Hemoglobin 7.7 g/dL (12.2-16.2); Lymphocytes # 0.8 K/mm3 (0.7-4.5); Lymphocytes % 31.7 % (10-50); Mean Corpuscular HGB Conc 30.2 g/dL (31.8-35.4); Mean Corpuscular Hemoglobin 26.6 pg (27.0-31.2); Mean Corpuscular Volume 87.9 fl (81-99); Monocytes # 0.2 K/mm3 (0.1-1.0); Monocytes % 8.3 % (1.7-9.3); Neutrophils # 1.4 K/mm3 (1.8-7.8); Neutrophils % 57.9 % (37.0-80.0); Red Blood Count 2.91 M/mm3 (4.20-5.40); Red Cell Distribution Width 16.9 % (11.5-17.5); White Blood Count 2.4 K/mm3 (4.8-10.8)
[2023-11-08 06:07] LABS: Chloride 114 mmol/L (98-107); Sodium 140 mmol/L (136-145)
[2023-11-08 06:08] LABS: Potassium 4.4 mmoL/L (3.5-5.1)
[2023-11-08 06:10] LABS: Alanine Aminotransferase 24 U/L (12-78); Alkaline Phosphatase 116 U/L (38-126); Anion Gap 0.4 mEq/L (5-15); Aspartate Amino Transferase 43 U/L (14-36); Bilirubin,Total 0.8 mg/dl (0.2-1.3); Blood Urea Nitrogen 16 mg/dl (7-17); Carbon Dioxide 30 mmol/L (22.0-30.0); Creatinine Clearance Estimated 56 mL/min (50-200); Estimated Glomerular Filt Rate 63 ml/min (>60); GFR (African American) 76 ML/MIN (>60)
[2023-11-08 06:11] LABS: Albumin Level 2.3 g/dl (3.5-5.0); Albumin/Globulin Ratio 0.8 (1.1-1.8); Calcium 8.1 mg/dl (8.4-10.2); Globulin 2.9 g/dL (1.3-3.2); Glucose 86 mg/dl (74-100); Magnesium 2.1 mg/dl (1.6-2.3); Total Protein,Serum 5.2 g/dl (6.3-8.2)
[2023-11-08 06:12] LABS: Platelet Count 38 K/mm3 (142-424)
[2023-11-08] MEDS: VANCOMYCIN HCL 1,000 MG in 0.9 % SODIUM CHLORIDE 250 ML 125 MG IV (06:20)
[2023-11-08] MEDS: LEVOTHYROXINE 25MCG (0.025MG) TAB 25 MCG PO (06:20)
[2023-11-08] MEDS: ONDANSETRON 4MG/2ML VIAL 4 MG IV (06:20)
--- NOTE | 2023-11-08 07:46 | P.PN_ITS ---
Subjective *Date: 11/08/23 *Time: 10:23 Interval history: Patient did well overnight. Continues to require 2 L oxygen. No fevers. No nausea or vomiting. Tolerating p.o. intake. Kidney function electrolytes stable. White cell count down again to 2.4. Still awaiting cultures. Unable to produce sputum with cough. Will induce today with respiratory therapy Medical Exam Vital signs and Labs for Last 24 Hours: Vital Signs Temp Pulse Pulse Resp BP Pulse Ox O2 Del Method 11/08/23 07:32 97.9 F 69 17 92/52 L 97 Room Air 11/08/23 07:00 Nasal Cannula 11/08/23 06:31 100/49 L 11/08/23 05:00 Nasal Cannula 11/08/23 04:00 98.1 F 65 16 93/45 L 96 Nasal Cannula 11/08/23 03:00 Nasal Cannula 11/08/23 01:00 Nasal Cannula 11/08/23 00:00 98.6 F 64 16 90/50 L 95 Nasal Cannula 11/07/23 23:00 Nasal Cannula 11/07/23 21:00 Nasal Cannula 11/07/23 20:00 98.0 F 72 16 92/49 L 92 L Nasal Cannula 11/07/23 20:00 Room Air 11/07/23 18:29 Nasal Cannula 11/07/23 16:43 Nasal Cannula 11/07/23 15:26 98.2 F 74 17 95/50 L 94 L Nasal Cannula 11/07/23 14:01 Nasal Cannula 11/07/23 11:37 Nasal Cannula 11/07/23 11:22 98.9 F 64 16 91/46 L 92 L Room Air 11/07/23 11:00 Nasal Cannula 11/07/23 08:15 Nasal Cannula 11/07/23 08:00 70 11/07/23 08:00 Nasal Cannula O2 Flow Rate 11/08/23 07:32 11/08/23 07:00 2 11/08/23 06:31 11/08/23 05:00 2 11/08/23 04:00 11/08/23 03:00 2 11/08/23 01:00 2 11/08/23 00:00 11/07/23 23:00 2 11/07/23 21:00 11/07/23 20:00 2 11/07/23 20:00 11/07/23 18:29 2 11/07/23 16:43 2 11/07/23 15:26 2 11/07/23 14:01 2 11/07/23 11:37 2 11/07/23 11:22 11/07/23 11:00 2 11/07/23 08:15 2 11/07/23 08:00 11/07/23 08:00 Intake and Output 11/07/23 11/07/23 11/08/23 15:59 23:59 07:59 Intake Total 1280 / 2760 Output Total 200 / 400 200 / 400 0 / 0 Balance 1080 / 2360 -200 / 2360 0 / 0 Intake: Intake, Oral Amount 930 / 930 Intake, Total IV Amount 350 / 1830 Azithromycin 500 mg In 0.9 % 250 / 250 Sodium Chloride 250 ml @ 250 mls/hr IV Q24H [facility] Rx#:[id number] Cefepime HCl 2 gm In 0.9 % 100 / 100 Sodium Chloride 100 ml @ 200 mls/hr IV Q12H [facility] Rx#:[id number] Output: Output, Urine Amount 200 / 400 200 / 400 0 / 0 Other: Number of Unmeasured Voids 1 1 1 Number of Bowel Movements 1 Weight 56.245 kg 62.188 kg Patient Weight 11/08/23 23:59 Weight 62.188 kg Laboratory Results - last 24 hr 11/08/23 05:40: WBC 2.4 L D, RBC 2.91 L, Hgb 7.7 L, Hct 25.6 L, MCV 87.9, MCH 26.6 L, MCHC 30.2 L, RDW 16.9, Plt Count 38 L*, MPV 11.0 H, Neut % (Auto) 57.9, Lymph % (Auto) 31.7, [place] % (Auto) 8.3, Eos % (Auto) 1.5, Baso % (Auto) 0.6, Neut # (Auto) 1.4 L, Lymph # (Auto) 0.8, [place] # (Auto) 0.2, Eos # (Auto) 0.0, Baso # (Auto) 0.0, Sodium 140, Potassium 4.4 D, Chloride 114 H, Carbon Dioxide 30, Anion Gap 0.4 L, BUN 16, Creatinine 0.90, Estimated Creat Clear 56, Estimated GFR 63, Est GFR ( Amer) 76, Glucose 86 D, Calcium 8.1 L, Magnesium 2.1, Total Bilirubin 0.8, AST 43 H D, ALT 24 D, Alkaline Phosphatase 116, Total Protein 5.2 L D, Albumin 2.3 L D, Globulin 2.9, Albumin/Globulin Ratio 0.8 L I & O for Labs for Last 24 Hours: Intake & Output 11/05/23 11/06/23 11/07/23 11/08/23 23:59 23:59 23:59 23:59 Intake Total 600 / 600 2760 / 2760 Output Total 0 / 0 400 / 400 0 / 0 Balance 600 / 600 2360 / 2360 0 / 0 Weight 56.245 kg 56.245 kg 62.188 kg Constitutional: Present no acute distress, thin and chronically ill appearing Head: Present atraumatic and normocephalic ENT: Present normal exam and mucous membranes moist Comment:: Bitemporal wasting Neck: Present normal inspection Respiratory: Present rhonchi and normal respiratory effort; Absent wheezes or crackles Cardiac: Present Reg Rate and Rhythm GI: Present soft and normal bowel sounds; Absent distention or tenderness Extremities: Present normal inspection and full ROM Skin: Present intact; Absent erythema Neuro: Present Grossly Intact, alert, awake and moves all extremities Comment:: Oriented to self. Answering yes/no questions appropriately Assessment and Plan *Assessment and plan (1) Sepsis: Status: Acute Category: Medical Code(s): A41.9 - Sepsis, unspecified organism (2) Multifocal pneumonia: Status: Acute Category: Medical Code(s): J18.9 - Pneumonia, unspecified organism (3) UTI (urinary tract infection): Status: Acute Category: Medical Code(s): N39.0 - Urinary tract infection, site not specified (4) Hemochromatosis: Status: Acute Category: Medical Code(s): E83.119 - Hemochromatosis, unspecified (5) Pancytopenia: Status: Acute Category: Medical Code(s): D61.818 - Other pancytopenia (6) Dementia: Status: Acute Category: Medical Code(s): F03.90 - Unspecified dementia, unspecified severity, without behavioral disturbance, psychotic disturbance, mood disturbance, and anxiety (7) HTN (hypertension): Status: Acute Category: Medical Code(s): I10 - Essential (primary) hypertension (8) HLD (hyperlipidemia): Status: Acute Category: Medical Code(s): E78.5 - Hyperlipidemia, unspecified Plan 63-year-old female brought to [facility] ED by her brother who lives with her primarily for altered mental status. PMHX of dementia, hld, htn, seziures, pancytopenia, and hemochromastosis. Brother reports that the pt has been falling to the left, more confused, and breathing more heavier than normal. She c/o chest pain and back pain. She is alert to self and situation. Brother reports that she is at baseline. She is able to ambulate and complete ADL's on her own. ED work up is significant for leukocytosis of 16.8, chest xray that reveals right sided multifocal pna, and UA with wbc's and leukocyte esterase. She was started on cefepime, vancomycin, and azithromycin and given a sepsis fluid bolus. The ED physician consulted the hospitalist team for further medical management. After discussing the case with the ED physician, I admitted the pt to the medical floor. Upon admission assessment, she is alert to self and situation. Brother at bedside this morning. Showing some improvement with her labs. Continues to require inpatient management for IV antibiotics awaiting cultures. Pulmonology assisting with care. Problems addressed as follows: SEPSIS PNA UTI -Consulted, discussed case this morning. Continue oxygen for goal saturation greater 90%, currently on 2 L. Continue DuoNebs every 6 hours as needed. Pulmonology recommends inducing sputum today with percussion and nebs. Will follow sputum Gram stain, AFB, fungal stains and cultures. Fungal infectious workup pending. - Continue vancomycin and cefepime pending culture results. - White cell count decreased to 2.4. Concern for pancytopenia -Repeat CBC, CMP, magnesium ordered for the morning. -Blood culture and urine culture pending HEMOCHROMATOSIS PANCYTOPENIA DEMENTIA HTN HLD -Continue Lamictal 100 mg twice daily. Continue levothyroxine 25 mcg daily. Continue Zoloft 100 mg daily. -Platelets decreased to 40 this morning. No active signs of bleeding. No indication for transfusion. Hemoglobin 7.7. FULL CODE CARDIAC DIET DVT: HOLD
[2023-11-08] MEDS: SERTRALINE 100MG TABLET 100 MG PO (08:52)
[2023-11-08] MEDS: lamoTRIgine 100MG TABLET 100 MG PO ×2 (08:52→20:00)
[2023-11-08] MEDS: CEFEPIME HCL 2 GM in 0.9 % SODIUM CHLORIDE 100 ML IV ×2 (08:53→19:49)
--- NOTE | 2023-11-08 09:37 | P.PN_ITS ---
Subjective *Date: 11/08/23 *Time: 13:18 Interval history: No acute respiratory events overnight. Patient denies any new respiratory complaints. Pulmonology Exam Inpatient Vital signs and Labs for Last 24 Hours: Temp Pulse Resp BP Pulse Ox O2 Del Method O2 Flow Rate 97.9 F 69 17 92/52 L 97 Room Air 2 11/08/23 07:32 11/08/23 07:32 11/08/23 07:32 11/08/23 07:32 11/08/23 07:32 11/08/23 07:32 11/08/23 07:00 Laboratory Results - last 24 hr 11/08/23 05:40: WBC 2.4 L D, RBC 2.91 L, Hgb 7.7 L, Hct 25.6 L, MCV 87.9, MCH 26.6 L, MCHC 30.2 L, RDW 16.9, Plt Count 38 L*, MPV 11.0 H, Neut % (Auto) 57.9, Lymph % (Auto) 31.7, [place] % (Auto) 8.3, Eos % (Auto) 1.5, Baso % (Auto) 0.6, Neut # (Auto) 1.4 L, Lymph # (Auto) 0.8, [place] # (Auto) 0.2, Eos # (Auto) 0.0, Baso # (Auto) 0.0, Sodium 140, Potassium 4.4 D, Chloride 114 H, Carbon Dioxide 30, Anion Gap 0.4 L, BUN 16, Creatinine 0.90, Estimated Creat Clear 56, Estimated GFR 63, Est GFR ( Amer) 76, Glucose 86 D, Calcium 8.1 L, Magnesium 2.1, Total Bilirubin 0.8, AST 43 H D, ALT 24 D, Alkaline Phosphatase 116, Total Protein 5.2 L D, Albumin 2.3 L D, Globulin 2.9, Albumin/Globulin Ratio 0.8 L Temp Pulse Resp BP Pulse Ox O2 Del Method O2 Flow Rate 97.9 F 70 16 102/53 L 95 Nasal Cannula 2 11/07/23 07:36 11/07/23 08:00 11/07/23 07:36 11/07/23 07:36 11/07/23 07:36 11/07/23 08:15 11/07/23 08:15 Laboratory Results - last 24 hr 11/06/23 19:13: WBC 16.8 H D, RBC 4.23, Hgb 11.3 L, Hct 35.7 L, MCV 84.5, MCH 26.8 L, MCHC 31.8, RDW 16.9, Plt Count 82 L D, MPV 10.0, Neut % (Auto) 88.4 H, Lymph % (Auto) 7.1 L, [place] % (Auto) 3.3, Eos % (Auto) 0.8, Baso % (Auto) 0.5, Neut # (Auto) 14.8 H, Lymph # (Auto) 1.2, [place] # (Auto) 0.6, Eos # (Auto) 0.1, Baso # (Auto) 0.1, Total Counted 100, Neutrophils % (Manual) 93 H, Lymphocytes % (Manual) 5 L, Monocytes % (Manual) 2, Platelet Estimate Moderate decrease, Hypochromasia 1+, PT 13.2 H, INR 1.24 H, APTT 30.6, Sodium 138, Potassium 4.0, Chloride 105, Carbon Dioxide 27, Anion Gap 10.0, BUN 16, Creatinine 0.90, Estimated Creat Clear 52, Estimated GFR 63, Est GFR ( Amer) 76, Glucose 126 H, Lactate 2.0, Calcium 9.0, Total Bilirubin 1.3, AST 67 H, ALT 40, Alkaline Phosphatase 199 H, Ammonia 21, Troponin I 0.04 H, Total Protein 8.1, Albumin 4.1 D, Globulin 4.0 H, Albumin/Globulin Ratio 1.0 L, Lipase 58 11/06/23 19:20: VBG pH 7.33, VBG pCO2 48.7, VBG pO2 26.6 L, VBG HCO3 25.0, VBG Total CO2 26.5, VBG O2 Saturation 43.6 L, VBG Base Excess -0.9, VBG Lactic Acid 2.4 H 11/06/23 19:58: SARS-CoV-2 (PCR) Not detected, Influenza A Untype (PCR) Not detected, Influenza Type B (PCR) Not detected 11/06/23 20:05: Urine Color Yellow, Urine Appearance Clear, Urine pH 6.0, Ur Specific [place] 1.015, Urine Protein Negative, Urine Glucose (UA) Negative, Urine Ketones Negative, Urine Blood Negative, Urine Nitrate Negative, Urine Bilirubin Negative, Urine Urobilinogen 1.0, Ur Leukocyte Esterase 2+ A, Urine RBC None, Urine WBC 10-20, Ur Squamous Epith Cells 3-5, Ur Transition Epith Cell Occ, Urine Bacteria None 11/06/23 22:33: Troponin I 0.07 H 11/06/23 23:45: Lactate 2.3 H 11/07/23 01:50: Lactate 2.0, Troponin I 0.07 H 11/07/23 05:51: WBC 4.4 L D, RBC 2.94 L D, Hgb 7.7 L D, Hct 25.4 L, MCV 86.5, MCH 26.3 L, MCHC 30.4 L, RDW 17.1, Plt Count 40 L* D, MPV 10.1, Neut % (Auto) 70.7, Lymph % (Auto) 22.3, [place] % (Auto) 5.8, Eos % (Auto) 0.8, Baso % (Auto) 0.4, Neut # (Auto) 3.1, Lymph # (Auto) 1.0, [place] # (Auto) 0.3, Eos # (Auto) 0.0, Baso # (Auto) 0.0, Sodium 138, Potassium 3.5, Chloride 113 H, Carbon Dioxide 25, Anion Gap 3.5 L, BUN 14, Creatinine 0.80, Estimated Creat Clear 50, Estimated GFR 72, Est GFR ( Amer) 87, Glucose 130 H, Calcium 7.8 L I & O for Labs for Last 24 Hours: Intake & Output 11/05/23 11/06/23 11/07/23 11/08/23 23:59 23:59 23:59 23:59 Intake Total 600 / 600 2760 / 2760 270 / 270 Output Total 0 / 0 400 / 400 0 / 0 Balance 600 / 600 2360 / 2360 270 / 270 Weight 124 lb 124 lb 137 lb 1.6 oz Intake & Output 11/04/23 11/05/23 11/06/23 11/07/23 23:59 23:59 23:59 23:59 Intake Total 600 / 600 1929 / 1930 Output Total 0 / 0 0 / 0 Balance 600 / 600 1929 / 193 Weight 124 lb 124 lb Constitutional: Present moderate distress Head: Present normocephalic and atraumatic ENT: Present normal exam, normal oropharynx and mucous membranes moist Neck: Present normal inspection and full ROM Respiratory: Present respiratory distress, rhonchi, diminished air movement and able to speak in complete sentences; Absent wheezes or crackles Cardiac: Present S1/S2, Tachycardia and radial pulses present GI: Present soft and distention; Absent tenderness or guarding Rectal (female): Present deferred (female): Present deferred Skin: Present intact; Absent cyanosis or jaundice Neuro: Present alert and awake Extremities: Present normal inspection; Absent clubbing or cyanosis Psychiatric: Present normal affect and cooperative Assessment and Plan *Assessment and plan (1) Acute hypoxemic respiratory failure: Status: Acute Category: Medical Code(s): J96.01 - Acute respiratory failure with hypoxia Plan Mr. Woo is a 63-year-old female with a reported history of pancytopenia, hemochromatosis, cirrhosis with splenomegaly and varices presented to the ER complaining of altered mentation. She also had a recent diagnosis of COVID-19 pneumonia August 2023. She denies any baseline respiratory complaints. Not using any oxygen at baseline. Significant neutrophilic leukocytosis upon admission, followed by leukopenia. ANC greater than 1000. COVID-19 and flu PCR on this admission negative. CTA upon this admission negative for pulmonary embolism. Bilateral patchy consolidative changes along with bilateral lower lobe Lt > Right bronchial thickening and mucous plugging. The noted findings especially with respect to the right lower lobe airspace/nodular opacity along with right upper lobe bronchiectasis and micronodular pattern, bilateral lower lobe bronchial thickening/mucous plugging appear to be present on patient's CT from September 2022, but worsened on recent imaging. No prior sputum cultures available for review. Given patient's abnormal CT findings as being there and getting worse concerning for atypical pneumonia at this point of time. Interval update: No acute respiratory events overnight. Worsening leukopenia and neutropenia. ANC 1400. Platelet count of 38. Cultures pending. Blood pressure is low normal. Will continue to monitor. Plan: Initiate chest percussion therapy twice daily Continue oxygen supplementation to maintain O2 saturation goal of 90 to 95%. C urrently on 2 L. DuoNebs every 6 hours PRN Follow with sputum Gram stain AFB fungal stain and cultures Follow with fungal infectious workup Continue vancomycin and cefepime pending culture results. Will have low threshold to de-escalate antibiotics pending clinical improvement and blood cultures
--- NOTE | 2023-11-08 10:00 | SW/DCPLANNER ---
Addendum entered by Sunshine Prince 11/08/23 10:23: Carly terrell/ [facility] stated that rolling walker will be delivered to patient today. Original Note: I spoke w/ this patient regarding plans once medically stable for discharge. PT/OT evaluated patient and recommended home w/ home health service. I spoke w/ patient and her family that she resides w/ at this time. Family stated that patient will not be homebound at this time and they would prefer outpatient rehab at [facility]. MD will order outpatient rehab once medically stable for discharge. Patient/family have also requested a rolling walker from [facility] at time of discharge: this will be ordered.
[2023-11-08] MEDS: SODIUM CHLORIDE 3% 15ML NEB 3 ML IH (10:23)
--- NOTE | 2023-11-08 14:02 | PC.NURSE ---
Helped patient up to use restroom. Patient resting in chair with chair alarm active.
--- NOTE | 2023-11-08 17:12 | PC.NURSE ---
Pt is sitting up in bed eating dinner. She has been up to the chair this shift and tolerated well. She has c/o discomfort to her back today. Has ambulated to BR with assist x1. No BM this shift. Medications administered per sep. Call light within reach.
[2023-11-08] MEDS: IPRATROPIUM/ALBUTEROL 3 ML NEB IH (19:03)
--- NOTE | 2023-11-08 19:38 | PC.NURSE ---
ROOM AIR SAT PT SATTING 98% ON 2L NC. SPO2 DROPPED TO 89% ON ROOM AIR. PLACED PT BACK ON 1L NC
[2023-11-08] MEDS: AZITHROMYCIN 500 MG in 0.9 % SODIUM CHLORIDE 250 ML 250 MG IV (19:49)
[2023-11-08] MEDS: PRAVASTATIN 20MG TAB 20 MG PO (20:00)
[2023-11-09] VITALS: BP 115/64; PULSE 93; RESP 20; TEMP 37.4; O2SAT 90; O2SAT 95
[2023-11-09 00:42] LABS: Vancomycin,Trough 10.8 ug/mL (5.0-10.0)
--- NOTE | 2023-11-09 00:51 | PC.NURSE ---
Consulted [facility] for dosing of vancomycin after trough of 10.8, Oma from [facility] said to proceed with scheduled dose
[2023-11-09] MEDS: VANCOMYCIN HCL 1,000 MG in 0.9 % SODIUM CHLORIDE 250 ML 125 MG IV (01:05)
--- NOTE | 2023-11-09 03:32 | PC.NURSE ---
Pt is alert to self and has moderate intermittent confusion. Pt was on 1L NC at the beginning of this shift and was tolerating it well at that time, pt took NC off and O2 dropped to low 80s this nurse applied 2L NC. Pt is now sating at 96%. pt is unstable while walking and requires x2 assist. Pt has tolerated antibiotic therapy well. Pt denies pain and needs at this time.
[2023-11-09 04:00] VITALS: BP 98/53; PULSE 79; RESP 18; TEMP 36.8; O2SAT 92; BMI 20.7
[2023-11-09] MEDS: BENZONATATE 100MG CAPSULE 100 MG PO (04:46)
[2023-11-09] MEDS: ACETAMINOPHEN 325MG TAB 650 MG PO ×2 (04:47→09:20)
[2023-11-09 06:32] LABS: Chloride 114 mmol/L (98-107)
[2023-11-09 06:33] LABS: Potassium 4.2 mmoL/L (3.5-5.1); Sodium 140 mmol/L (136-145)
[2023-11-09 06:34] LABS: Basophils % 0.4 % (0.1-2.0); Eosinophils % 0.8 % (0.1-12.0); Hematocrit 24.9 % (37.0-47.0); Hemoglobin 7.5 g/dL (12.2-16.2); Lymphocytes # 0.7 K/mm3 (0.7-4.5); Lymphocytes % 25.2 % (10-50); Mean Corpuscular HGB Conc 30.2 g/dL (31.8-35.4); Mean Corpuscular Hemoglobin 26.6 pg (27.0-31.2); Mean Platelet Volume 10.3 fl (7.4-10.4); Monocytes # 0.2 K/mm3 (0.1-1.0); Monocytes % 5.5 % (1.7-9.3); Neutrophils % 68.1 % (37.0-80.0); Red Blood Count 2.83 M/mm3 (4.20-5.40); Red Cell Distribution Width 17.1 % (11.5-17.5); White Blood Count 2.9 K/mm3 (4.8-10.8)
[2023-11-09 06:35] LABS: Alanine Aminotransferase 25 U/L (12-78); Alkaline Phosphatase 124 U/L (38-126); Aspartate Amino Transferase 47 U/L (14-36); Bilirubin,Total 0.7 mg/dl (0.2-1.3); Blood Urea Nitrogen 16 mg/dl (7-17); Creatinine Clearance Estimated 57 mL/min (50-200); Estimated Glomerular Filt Rate 63 ml/min (>60); GFR (African American) 76 ML/MIN (>60)
[2023-11-09 06:36] LABS: Albumin Level 2.3 g/dl (3.5-5.0); Albumin/Globulin Ratio 0.8 (1.1-1.8); Anion Gap 1.2 mEq/L (5-15); Carbon Dioxide 29 mmol/L (22.0-30.0); Glucose 101 mg/dl (74-100); Total Protein,Serum 5.3 g/dl (6.3-8.2)
[2023-11-09] MEDS: LEVOTHYROXINE 25MCG (0.025MG) TAB 25 MCG PO (06:38)
[2023-11-09 06:42] LABS: Platelet Count 42 K/mm3 (142-424)
--- NOTE | 2023-11-09 06:48 | PC.NURSE ---
Estrellita from lab called with critical platelet of 42
[2023-11-09 07:19] VITALS: BP 91/59; PULSE 80; RESP 19; TEMP 36.6; O2SAT 95
--- NOTE | 2023-11-09 07:28 | P.DS_ITS ---
General Admission date:: 11/07/23 Discharge date: 11/09/23 HPI HPI HPI: 63-year-old female brought to [facility] ED by her brother who lives with her primarily for altered mental status. PMHX of dementia, hld, htn, seziures, pancytopenia, and hemochromastosis. Brother reports that the pt has been falling to the left, more confused, and breathing more heavier than normal. She c/o chest pain and back pain. She is alert to self and situation. Brother reports that she is at baseline. She is able to ambulate and complete ADL's on her own. ED work up is significant for leukocytosis of 16.8, chest xray that reveals right sided multifocal pna, and UA with wbc's and leukocyte esterase. She was started on cefepime, vancomycin, and azithromycin and given a sepsis fluid bolus. The ED physician consulted the hospitalist team for further medical management. After discussing the case with the ED physician, I admitted the pt to the medical floor. Upon admission assessment, she is alert to self and situation. Brother is at the bedside and is the main historian. Her lactate is 2.0. I will continue current antibiotics. I will reassess for additional fluid is needed after the sepsis bolus is complete. She is currently 95 % on 2L. I will wean to maintain 02 above 92%. I am consulting pulmonary regrading her Chest CT finds of nodular mass like opacities and need for follow up chest CT imaging. Hospital Course Hospital Course Hospital Course: 63-year-old female brought to [facility] ED by her brother who lives with her primarily for altered mental status. PMHX of dementia, hld, htn, seziures, pancytopenia, and hemochromastosis. Brother reports that the pt has been falling to the left, more confused, and breathing more heavier than normal. She c/o chest pain and back pain. She is alert to self and situation. Brother reports that she is at baseline. She is able to ambulate and complete ADL's on her own. ED work up is significant for leukocytosis of 16.8, chest xray that reveals right sided multifocal pna, and UA with wbc's and leukocyte esterase. She was started on cefepime, vancomycin, and azithromycin and given a sepsis fluid bolus. The ED physician consulted the hospitalist team for further medical management. After discussing the case with the ED physician, admitted the pt to the medical floor. Patient did well on IV antibiotics during admission. Pulmonology was consulted and assisted with care. Stable to discharge home to complete antibiotic course. Problems addressed as follows: SEPSIS PNA UTI -Admitted to medicine for further management. Started on supplemental oxygen at 2 L. Did well with breathing treatments and antibiotics. Pulmonology was consulted, recommended obtaining sputum sample, acid-fast bacteria, fungal stains and cultures due to abnormal appearance of airspace disease on imaging. Patient developed leukopenia during treatment with white cell count of 2.4. Lab s on day of discharge showing white count of 2.9, hemoglobin 7.5, platelets 42. These were stable findings for over 48 hours prior to discharge home. Blood cultures negative on day of discharge. Urine culture positive for strep. Antibiotics transitioned to clindamycin to complete course at discharge. Nasal swab was positive for MRSA. Will have close follow-up with pulmonology for further management. Working with therapy. Patient to get outpatient therapy after discharge. HEMOCHROMATOSIS PANCYTOPENIA DEMENTIA HTN HLD -Continue Lamictal 100 mg twice daily. Continue levothyroxine 25 mcg daily. Continue Zoloft 100 mg daily. -Pancytopenia stable. Total time spent on discharge 35 minutes in counseling, documentation, chart review, and direct care with patient. Exam Data for Last 24 hours Vital signs and Labs for Last 24 Hours: Temp Pulse Resp BP Pulse Ox O2 Del Method O2 Flow Rate 97.9 F 80 19 91/59 L 95 Nasal Cannula 2 11/09/23 07:19 11/09/23 07:19 11/09/23 07:19 11/09/23 07:19 11/09/23 07:19 11/09/23 07:19 11/09/23 06:33 Laboratory Results - last 24 hr 11/09/23 00:07: Vancomycin Trough 10.8 H 11/09/23 06:04: WBC 2.9 L, RBC 2.83 L, Hgb 7.5 L, Hct 24.9 L, MCV 88.0, MCH 26.6 L, MCHC 30.2 L, RDW 17.1, Plt Count 42 L*, MPV 10.3, Neut % (Auto) 68.1, Lymph % (Auto) 25.2, [place] % (Auto) 5.5, Eos % (Auto) 0.8, Baso % (Auto) 0.4, Neut # (Auto) 2.0, Lymph # (Auto) 0.7, [place] # (Auto) 0.2, Eos # (Auto) 0.0, Baso # (Auto) 0.0, Sodium 140, Potassium 4.2, Chloride 114 H, Carbon Dioxide 29, Anion Gap 1.2 L, BUN 16, Creatinine 0.90, Estimated Creat Clear 57, Estimated GFR 63, Est GFR ( Amer) 76, Glucose 101 H, Calcium 8.0 L, Total Bilirubin 0.7, AST 47 H, ALT 25, Alkaline Phosphatase 124, Total Protein 5.3 L, Albumin 2.3 L, Globulin 3.0, Albumin/Globulin Ratio 0.8 L I & O for Last 24 hours: Intake & Output 11/06/23 11/07/23 11/08/23 11/09/23 23:59 23:59 23:59 23:59 Intake Total 600 / 600 2760 / 2760 810 / 1400 860 / 860 Output Total 0 / 0 400 / 400 3 / 3 0 / 0 Balance 600 / 600 2360 / 2360 807 / 1397 860 / 860 Weight 56.245 kg 56.245 kg 62.188 kg 63.412 kg Microbiology Reports for the Last 24 Hours: Microbiology 11/07/23 12:27 Nose - Nasal MRSA Culture - Final Results Data Completed and Pending Labs on day of discharge: Labs from last 24 hours 11/09/23 11/09/23 06:04 00:07 WBC 2.9 L RBC 2.83 L Hgb 7.5 L Hct 24.9 L MCV 88.0 MCH 26.6 L MCHC 30.2 L RDW 17.1 Plt Count 42 L* MPV 10.3 Neut % (Auto) 68.1 Lymph % (Auto) 25.2 [place] % (Auto) 5.5 Eos % (Auto) 0.8 Baso % (Auto) 0.4 Neut # (Auto) 2.0 Lymph # (Auto) 0.7 [place] # (Auto) 0.2 Eos # (Auto) 0.0 Baso # (Auto) 0.0 Sodium 140 Potassium 4.2 Chloride 114 H Carbon Dioxide 29 Anion Gap 1.2 L BUN 16 Creatinine 0.90 Estimated Creat Clear 57 Estimated GFR 63 Est GFR ( Amer) 76 Glucose 101 H Calcium 8.0 L Total Bilirubin 0.7 AST 47 H ALT 25 Alkaline Phosphatase 124 Total Protein 5.3 L Albumin 2.3 L Globulin 3.0 Albumin/Globulin Ratio 0.8 L Vancomycin Trough 10.8 H DS: Diagnosis Discharge Diagnosis (1) Acute hypoxemic respiratory failure: Status: Acute Code(s): J96.01 - Acute respiratory failure with hypoxia (2) Pneumonia: Status: Acute Code(s): J18.9 - Pneumonia, unspecified organism (3) HTN (hypertension): Status: Acute Code(s): I10 - Essential (primary) hypertension (4) Sepsis: Status: Acute Code(s): A41.9 - Sepsis, unspecified organism (5) UTI (urinary tract infection): Status: Acute Code(s): N39.0 - Urinary tract infection, site not specified (6) Chronic dementia: Status: Acute Code(s): F03.90 - Unspecified dementia, unspecified severity, without behavioral disturbance, psychotic disturbance, mood disturbance, and anxiety (7) Pancytopenia: Status: Acute Code(s): D61.818 - Other pancytopenia (8) Hemochromatosis: Status: Acute Code(s): E83.119 - Hemochromatosis, unspecified Meds Home Medications and Allergies Home Medications Medication Instructions Recorded Confirmed Type lamotrigine 100 mg tablet 100 mg PO BID 09/26/23 11/06/23 History pravastatin 20 mg tablet 20 mg PO DAILY 09/26/23 11/06/23 History sertraline 100 mg tablet 100 mg PO DAILY 09/26/23 11/06/23 History levothyroxine 25 mcg tablet 25 mcg PO DAILY 11/07/23 11/07/23 History clindamycin HCl 300 mg capsule 300 mg PO Q8H 7 days #21 caps 11/09/23 Rx New Prescriptions to Start Prescriptions: clindamycin HCl Jamal Bundy Allergies Allergy/AdvReac Type Severity Reaction Status Date / Time No Known Allergies Allergy Verified 05/31/23 11:24 Discharge Plan Disposition Patient Disposition: Home, Self-Care Condition: Fair Discharge Order Discharge Orders: Discharge Order (Routine); Ordered 11/09/23 Ordered By: Jamal Bundy Follow up Plan Follow up with: Cam Wallace MD [Physician] - 11/16/23 1:00 pm Graham Pelaez MD [Primary Care Provider] - 11/15/23 10:45 am Prescriptions/Medication Reconciliation: New clindamycin HCl 300 mg capsule 300 mg PO Q8H 7 Days Qty: 21 0RF Continued sertraline 100 mg tablet 100 mg PO DAILY Patient Comments: TAKE 1 TABLET BY MOUTH ONCE DAILY pravastatin 20 mg tablet 20 mg PO DAILY Patient Comments: TAKE 1 TABLET BY MOUTH ONCE DAILY lamotrigine 100 mg tablet 100 mg PO BID Patient Comments: TAKE 1 TABLET BY MOUTH TWICE DAILY levothyroxine 25 mcg tablet 25 mcg PO DAILY Patient Comments: TAKE 1 TABLET BY MOUTH ONCE DAILY Discontinued propranolol 10 mg tablet 10 mg PO DAILY Patient Comments: TAKE 1 TABLET BY MOUTH ONCE DAILY Other Ambulatory Orders: Home Medical Equipment (Routine) Location: None Selected Ordered By: Jamal Bundy Rehab [facility]riz (Routine) Timeframe: 3 Days Facility: [facility] - Location: Physical Therapy Ordered By: Jamal Bundy Problem Reconciliation Problems Reviewed?: Yes Patient Discharge Instructions ACTIVITY: Continue current activity DIET: continue same diet Patient Instructions: DI for Pneumonia -- Adult, DI for Sepsis -- Adult Providers Primary Care Provider: Graham Pelaez Admit Provider: Kaylynn Rosa Attending Provider: Kaylynn Rosa
[2023-11-09 08:00] VITALS: O2SAT 95
[2023-11-09] MEDS: lamoTRIgine 100MG TABLET 100 MG PO (09:17)
[2023-11-09] MEDS: SERTRALINE 100MG TABLET 100 MG PO (09:17)
[2023-11-09] MEDS: CEFEPIME HCL 2 GM in 0.9 % SODIUM CHLORIDE 100 ML IV (09:22)
--- NOTE | 2023-11-09 09:37 | P.PN_ITS ---
Subjective *Date: 11/09/23 *Time: 12:03 Interval history: No acute respiratory events overnight. Patient denies any new respiratory complaints. Pulmonology Exam Inpatient Vital signs and Labs for Last 24 Hours: Temp Pulse Resp BP Pulse Ox O2 Del Method O2 Flow Rate 97.9 F 80 19 91/59 L 95 Nasal Cannula 2 11/09/23 07:19 11/09/23 07:19 11/09/23 07:19 11/09/23 07:19 11/09/23 07:19 11/09/23 07:19 11/09/23 06:33 Laboratory Results - last 24 hr 11/09/23 00:07: Vancomycin Trough 10.8 H 11/09/23 06:04: WBC 2.9 L, RBC 2.83 L, Hgb 7.5 L, Hct 24.9 L, MCV 88.0, MCH 26.6 L, MCHC 30.2 L, RDW 17.1, Plt Count 42 L*, MPV 10.3, Neut % (Auto) 68.1, Lymph % (Auto) 25.2, [place] % (Auto) 5.5, Eos % (Auto) 0.8, Baso % (Auto) 0.4, Neut # (Aut o) 2.0, Lymph # (Auto) 0.7, [place] # (Auto) 0.2, Eos # (Auto) 0.0, Baso # (Auto) 0.0, Sodium 140, Potassium 4.2, Chloride 114 H, Carbon Dioxide 29, Anion Gap 1.2 L, BUN 16, Creatinine 0.90, Estimated Creat Clear 57, Estimated GFR 63, Est GFR ( Amer) 76, Glucose 101 H, Calcium 8.0 L, Total Bilirubin 0.7, AST 47 H, ALT 25, Alkaline Phosphatase 124, Total Protein 5.3 L, Albumin 2.3 L, Globulin 3.0, Albumin/Globulin Ratio 0.8 L, Vancomycin Peak 19.0 Temp Pulse Resp BP Pulse Ox O2 Del Method O2 Flow Rate 97.9 F 70 16 102/53 L 95 Nasal Cannula 2 11/07/23 07:36 11/07/23 08:00 11/07/23 07:36 11/07/23 07:36 11/07/23 07:36 11/07/23 08:15 11/07/23 08:15 Laboratory Results - last 24 hr 11/06/23 19:13: WBC 16.8 H D, RBC 4.23, Hgb 11.3 L, Hct 35.7 L, MCV 84.5, MCH 26.8 L, MCHC 31.8, RDW 16.9, Plt Count 82 L D, MPV 10.0, Neut % (Auto) 88.4 H, Lymph % (Auto) 7.1 L, [place] % (Auto) 3.3, Eos % (Auto) 0.8, Baso % (Auto) 0.5, Neut # (Auto) 14.8 H, Lymph # (Auto) 1.2, [place] # (Auto) 0.6, Eos # (Auto) 0.1, Baso # (Auto) 0.1, Total Counted 100, Neutrophils % (Manual) 93 H, Lymphocytes % (Manual) 5 L, Monocytes % (Manual) 2, Platelet Estimate Moderate decrease, Hypochromasia 1+, PT 13.2 H, INR 1.24 H, APTT 30.6, Sodium 138, Potassium 4.0, Chloride 105, Carbon Dioxide 27, Anion Gap 10.0, BUN 16, Creatinine 0.90, Estimated Creat Clear 52, Estimated GFR 63, Est GFR ( Amer) 76, Glucose 126 H, Lactate 2.0, Calcium 9.0, Total Bilirubin 1.3, AST 67 H, ALT 40, Alkaline Phosphatase 199 H, Ammonia 21, Troponin I 0.04 H, Total Protein 8.1, Albumin 4.1 D, Globulin 4.0 H, Albumin/Globulin Ratio 1.0 L, Lipase 58 11/06/23 19:20: VBG pH 7.33, VBG pCO2 48.7, VBG pO2 26.6 L, VBG HCO3 25.0, VBG Total CO2 26.5, VBG O2 Saturation 43.6 L, VBG Base Excess -0.9, VBG Lactic Acid 2.4 H 11/06/23 19:58: SARS-CoV-2 (PCR) Not detected, Influenza A Untype (PCR) Not detected, Influenza Type B (PCR) Not detected 11/06/23 20:05: Urine Color Yellow, Urine Appearance Clear, Urine pH 6.0, Ur Specific [place] 1.015, Urine Protein Negative, Urine Glucose (UA) Negative, Urine Ketones Negative, Urine Blood Negative, Urine Nitrate Negative, Urine Bilirubin Negative, Urine Urobilinogen 1.0, Ur Leukocyte Esterase 2+ A, Urine RBC None, Urine WBC 10-20, Ur Squamous Epith Cells 3-5, Ur Transition Epith Cell Occ, Urine Bacteria None 11/06/23 22:33: Troponin I 0.07 H 11/06/23 23:45: Lactate 2.3 H 11/07/23 01:50: Lactate 2.0, Troponin I 0.07 H 11/07/23 05:51: WBC 4.4 L D, RBC 2.94 L D, Hgb 7.7 L D, Hct 25.4 L, MCV 86.5, MCH 26.3 L, MCHC 30.4 L, RDW 17.1, Plt Count 40 L* D, MPV 10.1, Neut % (Auto) 70.7, Lymph % (Auto) 22.3, [place] % (Auto) 5.8, Eos % (Auto) 0.8, Baso % (Auto) 0.4, Neut # (Auto) 3.1, Lymph # (Auto) 1.0, [place] # (Auto) 0.3, Eos # (Auto) 0.0, Baso # (Auto) 0.0, Sodium 138, Potassium 3.5, Chloride 113 H, Carbon Dioxide 25, Anion Gap 3.5 L, BUN 14, Creatinine 0.80, Estimated Creat Clear 50, Estimated GFR 72, Est GFR ( Amer) 87, Glucose 130 H, Calcium 7.8 L I & O for Labs for Last 24 Hours: Intake & Output 11/06/23 11/07/23 11/08/23 11/09/23 23:59 23:59 23:59 23:59 Intake Total 600 / 600 2760 / 2760 810 / 1400 860 / 860 Output Total 0 / 0 400 / 400 3 / 3 200 / 200 Balance 600 / 600 2360 / 2360 807 / 1397 660 / 660 Weight 124 lb 124 lb 137 lb 1.6 oz 139 lb 12.8 oz Intake & Output 11/04/23 11/05/23 11/06/23 11/07/23 23:59 23:59 23:59 23:59 Intake Total 600 / 600 1930 / 1930 Output Total 0 / 0 0 / 0 Balance 600 / 600 1930 / 1930 Weight 124 lb 124 lb Microbiology Reports for the Last 24 Hours: Microbiology 11/07/23 12:27 Nose - Nasal MRSA Culture - Final Constitutional: Present moderate distress Head: Present normocephalic and atraumatic ENT: Present normal exam, normal oropharynx and mucous membranes moist Neck: Present normal inspection and full ROM Respiratory: Present respiratory distress, rhonchi, diminished air movement and able to speak in complete sentences; Absent wheezes or crackles Cardiac: Present S1/S2, Tachycardia and radial pulses present GI: Present soft and distention; Absent tenderness or guarding Rectal (female): Present deferred (female): Present deferred Skin: Present intact; Absent cyanosis or jaundice Neuro: Present alert and awake Extremities: Present normal inspection; Absent clubbing or cyanosis Psychiatric: Present normal affect and cooperative Assessment and Plan *Assessment and plan (1) Acute hypoxemic respiratory failure: Status: Acute Category: Medical Code(s): J96.01 - Acute respiratory failure with hypoxia Plan Mr. Woo is a 63-year-old female with a reported history of pancytopenia, hemochromatosis, cirrhosis with splenomegaly and varices presented to the ER complaining of altered mentation. She also had a recent diagnosis of COVID-19 pneumonia August 2023. She denies any baseline respiratory complaints. Not using any oxygen at baseline. Significant neutrophilic leukocytosis upon admission, followed by leukopenia. ANC greater than 1000. COVID-19 and flu PCR on this admission negative. CTA upon this admission negative for pulmonary embolism. Bilateral patchy consolidative changes along with bilateral lower lobe Lt > Right bronchial thickening and mucous plugging. The noted findings especially with respect to the right lower lobe airspace/nodular opacity along with right upper lobe bronchiectasis and micronodular pattern, bilateral lower lobe bronchial thickening/mucous plugging appear to be present on patient's CT from September 2022, but worsened on recent imaging. No prior sputum cultures available for review. Given patient's abnormal CT findings as being there and getting worse concerning for atypical pneumonia at this point of time. Interval update: No acute respiratory vents overnight. Afebrile. Leukopenia stable. Platelets less than 50. Nasal MRSA PCR positive. Could not obtain sputum cultures despite sputum induction and chest percussion therapy Plan: Continue flutter valve 3 times daily upon discharge Continue oxygen supplementation to maintain O2 saturation goal of 90 to 95%. Currently on 2 L. Given clinical stability and stable ox requirements patient can be discharged home on clindamycin to complete a total of 10-day course from pulmonary s [facility]. Will schedule for bronchoscopy transbronchial biopsy as an outpatient basis. Blood culture still pending. DuoNebs every 6 hours PRN Follow with fungal infectious workup. # Thank you for involving pulmonary in this patient care. Will continue to follow.
--- NOTE | 2023-11-09 09:38 | XR_ITS ---
FINAL REPORT CLINICAL HISTORY: Hypoxia/PNM COMPARISON: 11/06/2023 FINDINGS: SINGLE-VIEW CHEST There is cardiomegaly with persistent pulmonary vascular congestion. The mediastinum is normal. There is partially improved aeration in the right upper lobe. There is worsening bibasilar atelectasis or pneumonia. Small left effusion is identified. There is no pneumothorax. IMPRESSION: Worsening bibasilar atelectasis versus pneumonia with small left effusion. Persistent pulmonary vascular congestion. Reviewed, Interpreted and Dictated by Carlos Maravilla III, MD Transcribed by Sharon Cartwright Authenticated and [facility]
[2023-11-09 11:14] LABS: Magnesium 2.1 mg/dl (1.6-2.3)
[2023-11-09 11:27] VITALS: O2SAT 95
--- NOTE | 2023-11-10 14:24 | CARE MANAGER ---
Contacted patient's sister related to patient's hospital discharge. She states that the patient is doing well today. They have the medication and are aware of follow up appointments. Deny any other questions or concerns at this time. GEOFFREY Chaparro
[2023-11-10 18:00] LABS: Histoplasma Antibody Quant Negative (Neg:<1:1)
[2023-11-11 15:35] LABS: Aspergillus flavus Negative (Neg:<1:1); Aspergillus fumigatus Negative (Neg:<1:1); Aspergillus niger Negative (Neg:<1:1); Blastomyces Antibody Negative (Neg:<1:1)
[2023-11-14 09:06] LABS: Fungitell(Beta D-Glucan) Serum SCANNED IMAGE
== END 2023-11-09 11:48 | disposition home or self-care (01) | DRG 871 ==
LOC: ER 20:23 → 2ND 21:14
PROVIDERS: Internal Medicine Adolescent Medicine; Internal Medicine Pulmonary Disease; Nurse Practitioner Critical Care Medicine; Admitting Provider Internal Medicine; Emergency Provider Student in an Organized Health Care Education/Training Program; PCP Internal Medicine Adolescent Medicine; Visit Provider Internal Medicine
DX: A41.9 Sepsis, unspecified organism (principal); J18.9 Pneumonia, unspecified organism; J96.01 Acute respiratory failure with hypoxia; D61.818 Other pancytopenia; I12.9 Hypertensive chronic kidney disease with stage 1 through stage 4 chronic kidney disease, or unspecified chronic kidney disease; N39.0 Urinary tract infection, site not specified; F03.90 Unspecified dementia, unspecified severity, without behavioral disturbance, psychotic disturbance, mood disturbance, and anxiety; E78.5 Hyperlipidemia, unspecified; K74.60 Unspecified cirrhosis of liver; J44.9 Chronic obstructive pulmonary disease, unspecified; N18.9 Chronic kidney disease, unspecified; E83.119 Hemochromatosis, unspecified
CPT/HCPCS: 36415; 70450; 70496; 70498; 71045; 71260; 72128; 72131; 74177; 80048; 80053; 80202; 81001; 82140; 82728; 82803; 83540; 83550; 83605; 83690; 83735; 84484; 85007; 85025; 85610; 85730; 86606; 86612; 86698; 87040; 87081; 87086; 87449; 87636; 93005; 94640; 94761; 97110; 97162; 97166; 97530; 99291; G0378; J0456; J2405; J3370; Q9967

== ENCOUNTER 2023-11-23 09:34 | Outpatient (CLI) | payer MEDICARE, SELFPAY ==
[2023-11-23 09:59] LABS: Basophils % 0.8 % (0.1-2.0); Eosinophils # 0.1 K/mm3 (0.0-0.4); Eosinophils % 2.2 % (0.1-12.0); Hematocrit 28.3 % (37.0-47.0); Hemoglobin 8.6 g/dL (12.2-16.2); Lymphocytes # 0.6 K/mm3 (0.7-4.5); Lymphocytes % 24.4 % (10-50); Mean Corpuscular HGB Conc 30.6 g/dL (31.8-35.4); Mean Corpuscular Hemoglobin 26.1 pg (27.0-31.2); Mean Corpuscular Volume 85.5 fl (81-99); Mean Platelet Volume 8.8 fl (7.4-10.4); Monocytes # 0.1 K/mm3 (0.1-1.0); Monocytes % 5.4 % (1.7-9.3); Neutrophils # 1.8 K/mm3 (1.8-7.8); Neutrophils % 67.2 % (37.0-80.0); Platelet Count 77 K/mm3 (142-424); Red Blood Count 3.31 M/mm3 (4.20-5.40); Red Cell Distribution Width 17.2 % (11.5-17.5); White Blood Count 2.6 K/mm3 (4.8-10.8)
[2023-11-24 05:09] LABS: Immunoglobulin A, Qn 578 mg/dL (87-352); Immunoglobulin G, Qn 1839 mg/dL (586-1602)
[2023-11-30 18:10] LABS: Alpha-1-Antitrypsin 22 mg/dL (101-187); Phenotype (PI) ZZ (.)
[2023-12-01 08:57] LABS: Antinuclear Antibodies (ANA) Negative
== END 2023-11-23 23:59 | disposition home or self-care (01) ==
LOC: LAB 09:35
PROVIDERS: Internal Medicine Pulmonary Disease; PCP Internal Medicine Adolescent Medicine; Visit Provider Internal Medicine Medical Oncology
DX: D61.818 Other pancytopenia; J44.9 Chronic obstructive pulmonary disease, unspecified; E88.01 Alpha-1-antitrypsin deficiency; J47.9 Bronchiectasis, uncomplicated; J84.9 Interstitial pulmonary disease, unspecified; D50.9 Iron deficiency anemia, unspecified; Z79.899 Other long term (current) drug therapy
CPT/HCPCS: 36415; 82103; 82104; 82784; 85025; 86038; 86225; 86235

== ENCOUNTER 2023-11-27 09:38 | Outpatient (CLI) | payer MEDICARE, SELFPAY ==
[2023-11-27 11:00] VITALS: PULSE 74; PULSE 77
[2023-11-27] MEDS: ALBUTEROL 0.083% 2.5 MG/3 ML NEB IH (11:00)
== END 2023-11-27 23:59 | disposition home or self-care (01) ==
LOC: RT 09:39
PROVIDERS: PCP Internal Medicine Adolescent Medicine; Visit Provider Internal Medicine Pulmonary Disease
DX: R06.09 Other forms of dyspnea (principal)
CPT/HCPCS: 94060; 94618; 94640; 94727; 94729

== ENCOUNTER 2023-12-04 08:19 | Day surgery (SDC) | payer MEDICARE, SELFPAY ==
[2023-12-01 09:20] VITALS: BMI 21.4
[2023-12-04] VITALS (11 sets, daily range): BP systolic 98–155; BP diastolic 54–69; PULSE 81–87; RESP 14–20; TEMP 6.1–43; O2SAT 86–97
[2023-12-04] MEDS: LACTATED RINGERS 1000ML 1,000 ML 25 ML IV (08:38)
[2023-12-04 09:12] LABS: Anion Gap 10.8 mEq/L (5-15); Blood Urea Nitrogen 20 mg/dl (7-17); Calcium 8.7 mg/dl (8.4-10.2); Carbon Dioxide 28 mmol/L (22.0-30.0); Chloride 107 mmol/L (98-107); Creatinine Clearance Estimated 52 mL/min (50-200); Estimated Glomerular Filt Rate 72 ml/min (>60); GFR (African American) 87 ML/MIN (>60); Glucose 96 mg/dl (74-100); Potassium 3.8 mmoL/L (3.5-5.1); Sodium 142 mmol/L (136-145)
[2023-12-04 09:28] LABS: Basophils % 0.5 % (0.1-2.0); Eosinophils # 0.1 K/mm3 (0.0-0.4); Eosinophils % 3.8 % (0.1-12.0); Hematocrit 29.6 % (37.0-47.0); Lymphocytes # 0.7 K/mm3 (0.7-4.5); Lymphocytes % 28.1 % (10-50); Mean Corpuscular HGB Conc 30.4 g/dL (31.8-35.4); Mean Corpuscular Hemoglobin 25.4 pg (27.0-31.2); Mean Corpuscular Volume 83.7 fl (81-99); Mean Platelet Volume 10.7 fl (7.4-10.4); Monocytes # 0.1 K/mm3 (0.1-1.0); Monocytes % 5.5 % (1.7-9.3); Neutrophils # 1.5 K/mm3 (1.8-7.8); Neutrophils % 62.2 % (37.0-80.0); Red Blood Count 3.53 M/mm3 (4.20-5.40); Red Cell Distribution Width 17.5 % (11.5-17.5); White Blood Count 2.4 K/mm3 (4.8-10.8)
[2023-12-04 09:32] LABS: Platelet Count 37 K/mm3 (142-424)
--- NOTE | 2023-12-04 09:34 | EXP.ANES.CKL ---
[facility] Disclaimer: The information contained in this section may have been updated after the patient was seen, as this information can be updated by other users. Medical History Recurrent pneumonia Bronchiectasis AAT ([id number]) deficiency COPD mixed type UTI (urinary tract infection) Pneumonia CKD (chronic kidney disease) Cirrhosis Hemochromatosis Seizure COPD (chronic obstructive pulmonary disease) Surgical History Hx of cataract surgery History of neck surgery Hx of tubal ligation History of brain surgery right frontal lobe Family History Other Diabetes Social History Smoking Status: Never smoker alcohol intake: never substance use type: denies use current occupational status: disabled Travel in the last 8 weeks: None caregiver/support person: Yes [facility] Anesthesia Checklist Patient Identification Patient Identification: Arm Band and Family Structural Data Admitted From: Home Planned Operative Procedure/s: Bronchoscopy with Transbronchial Biopsy Consent for Planned Operative Procedure(s) Verified: Yes Verified Documents: Surgical Consent and History and Physical NPO Status Verified Time NPO: 00:00 Additional verifications Anesthesia Reactions: No Hx Blood Transfusions: No Blood Transfusion Reaction: No Airway Assessment Mallampati Score:: Class II C-Spine Mobility Assessed: Yes TMJ Mobility Assessed: Yes Dentition: Good Dentition Neurological Assessment Level of Consciousness: Awake and Alert Anesthesia Plan Anesthesia Risk discussed: Yes Anesthesia Plan: Verified ASA Class: III Anesthesia Type: General
--- NOTE | 2023-12-04 11:12 | XR_ITS ---
FINAL REPORT CLINICAL HISTORY: post bronch COMPARISON: 11/09/2023 FINDINGS: A single portable view of the chest was obtained. Cardiomegaly is noted. The pulmonary vascularity is within normal limits. The mediastinum is within normal limits. There are persistent bilateral pulmonary opacities. There is no evidence of pneumothorax. The bony thorax is intact. IMPRESSION: Persistent bilateral pulmonary opacities. No pneumothorax post bronchoscopy. Reviewed, Interpreted and Dictated by Carlos Maravilla III, MD Transcribed by Shanae Parker Authenticated and . [facility]
--- NOTE | 2023-12-04 11:13 | EXP.ANES.I ---
[facility] Anesthesia Record Part I Anesthesia Record I Intake, IV Amount: 900 Hydration: Adequate Estimated blood loss (mL): 0 Urine output (mL): 0 Blood Products used (#): none Blood Pressure: 155/68 SaO2: 92 Pulse Rate: 82 Airway Patency: Patent Respiratory Rate: 16 Temperature: 98.3 F Patient is:: Drowsy and Stable Stable to PACU at:: 11:05
--- NOTE | 2023-12-04 11:20 | EXP.BRONCH.N ---
Procedure: Date: 12/04/23 Patient Date of :: 1960 Procedure Performed:: Bronchoscopy airway examination bronchoalveolar lavage Indications:: Atypical pneumonia Recurrent pneumonia Performing Provider:: Cam Wallace MD Referring Provider:: Dr: Graham Pelaez MD Sedation:: General anesthesia Procedure:: Bronchoscopy airway examination and bronchoalveolar lavage: Consent obtained from the patient and the family member at bedside. Platelet count was resulted e low at 37 this morning. The previously transbronchial biopsy was not performed. New consent was obtained today. Airway examination alveolar lavage was performed. A clean DIAGNOSTIC bronchoscopy was advanced through the ET tube and airways were examined up to subsegmental bronchi. Airways appeared grossly normal, no evidence of mucoid secretions, mucous plugging active bleeding/old blood clots noted. Bronchoalveolar lavage was performed in the RIGHT LOWER LOBE with instillation of 60 cc normal saline with return of 30 cc blood tinged fluid back. BAL fluid was sent for cell count and differential along with bacterial fungal and AFB stain and cultures. Small alveolar bleeding noted after BAL was from the right lower lobe, hemostasis achieved by cold saline. No active bleeding noted at the end of the procedure. After completing the right lower lobe lavage and hemostasis was achieved, bronchoalveolar lavage was performed in the LEFT LOWER LOBE with instillation of 60 cc normal saline with return of 35 cc blood tinged fluid back. BAL fluid was sent for cell count and differential along with bacterial fungal and AFB stain and cultures. No transbronchial biopsies were attempted. Patient tolerated the procedure with no immediate acute complications. We will follow the patient in pulmonary clinic in 7 to 10 days. Findings:: Please see the procedure note Recommendations:: Postoperative bronchoscopy instructions Follow in pulmonary clinic in 1 to 2 weeks to follow-up with the results Complications:: No acute immediate complications Estimated blood obtained (mL): 10
--- NOTE | 2023-12-04 11:58 | SUR.PHASEI ---
All charting and care performed by Nurse Bacilio Tesfaye in phase 1 under the direct supervision and guidance from Rajni Denny RN
--- NOTE | 2023-12-04 12:45 | SUR.PHASEII ---
123Elizabeth with [facility] at bedside with oxygen tank.
--- NOTE | 2023-12-05 10:39 | EXP.ANES.II ---
[facility] Anesthesia Record Part II Anesthesia Record Part II Discharge Time: 11:23 Destination: Surgical Day Care (OP Surgery) PACU nurse assessment reviewed?: Yes Patient Condition:: Good Anesthesia Complications:: None Swallowing reflex intact?: Yes Airway Patency: Patent Cyanosis?: No Blood Pressure: 107/58 SaO2: 95 Respiratory Rate: 18 Pulse Rate: 87 Temperature: 97.5 F Mental Status: Alert & Oriented Pain level:: 0 Nausea and/or vomitting:: None Intake, IV Amount: 0 Hydration: Adequate
[2023-12-05 10:40] VITALS: BP 107/58; PULSE 87; RESP 18; TEMP 36.4; O2SAT 95
== END 2023-12-04 12:47 | disposition home or self-care (01) ==
PROVIDERS: PCP Internal Medicine Adolescent Medicine; Visit Provider Internal Medicine Pulmonary Disease
PROC: (CPT 31624; principal; 2023-12-04 10:00)
DX: J18.9 Pneumonia, unspecified organism (principal); Z87.01 Personal history of pneumonia (recurrent); J44.9 Chronic obstructive pulmonary disease, unspecified; E88.01 Alpha-1-antitrypsin deficiency; J47.9 Bronchiectasis, uncomplicated; R06.02 Shortness of breath; N18.9 Chronic kidney disease, unspecified; Z79.899 Other long term (current) drug therapy; J96.91 Respiratory failure, unspecified with hypoxia
CPT/HCPCS: 31624; 71045; 80048; 85025; 87070; 87102; 87116; 87186; 87205; 87206; 88112; 88305; 89051; J3490; J2405

== ENCOUNTER 2023-12-13 09:07 | Outpatient (CLI) | payer MEDICARE, SELFPAY | END 2023-12-13 23:59 | disposition home or self-care (01) | LOC: RT 09:08 | PROVIDERS: PCP Internal Medicine Adolescent Medicine; Visit Provider Internal Medicine Pulmonary Disease | DX: J44.9 Chronic obstructive pulmonary disease, unspecified (principal) | CPT/HCPCS: 94762 ==

== ENCOUNTER 2024-01-26 10:00 | Outpatient (RCR) | payer MEDICARE, MEDICAID, SELFPAY ==
--- NOTE | 2023-11-28 09:39 | HMH.PTOPEV ---
PT Outpatient Evaluation Rehab PT Outpatient Evaluation Start: 11/28/23 08:02 Freq: Status: Active Protocol: Document 11/28/23 08:02 DONNA (Rec: 11/28/23 09:39 DONNA [id number]) E-signed By Cheryl Nicole, PT Outpatient Therapy Subjective History Subjective History Pt is a 63 y/o female referred to PT for dementia. Pt is accompanied by her sister-in- law Rosalia who was her main historian. She reports Jonah was hospitalized for pneumonia , UTI and sepsis from 11/05-11/08 . She reports noted generalized weakness and balance deficits following hospitalization that is gradually improving. She reports she fell twice after she returned home without significant injuries. She states she was given a walker when discharged but she is not able to use it safely, states she bumps into things and pushes it too far in front of her. She states she tried using a cane but this made her balance worse as well. She states she walks slow and looks down but does not pay attention to her surroundings. She states she loses her balance and trips on uneven terrain such as the yard, slopes and sidewalks. She also states she loses her balance when she bends or reaches forward. She states she will sit a lot of the day and gets stiff so she encourages her to walk around the house multiple times per day for exercise. She states she lives with her ([id number]) and her brother Austin, states she is able to perform all ADLs independently. She states she performs dressing and bathing in a seated position and has grab bars in the bathroom to assist with balance. Medical History: Recurrent pneumonia, Bronchiectasis, AAT ([id number]) deficiency, COPD mixed type, UTI (urinary tract infection), Pneumonia, CKD (chronic kidney disease), Cirrhosis, Hemochromatosis, Seizure, COPD (chronic obstructive pulmonary disease) Vitals at rest: Spo2 98% on RA , HR 77 bpm Functional tests: 5x sit to stand: 20 from standard chair without UE support TU from standard chair without AD New diagnosis of cancer in past 12 No months? Chief Complaint Weakness Lumbopelvic Eval Manual Muscle Test Right Knee Extension Strength Grade 4 Good Knee Flexion Strength Grade 4 Good Hip Flexion Strength Grade 4 Good Hip Abduction Strength Grade 4- Good- Hip Adduction Strength Grade 4- Good- Hip Extension Strength Grade 4- Good- Ankle Dorsiflexion Strength Grade 5 Normal Left Knee Extension Strength Grade 4- Good- Knee Flexion Strength Grade 4- Good- Hip Flexion Strength Grade 4- Good- Hip Abduction Strength Grade 4- Good- Hip Adduction Strength Grade 4- Good- Hip Extension Strength Grade 4- Good- Ankle Dorsiflexion Strength Grade 5 Normal Balance Eval Gait/Posture Asssessment General Gait Observation Narrow Based Gait Assistive Devices None / NA Timed Up and Go Test 1. Is the Timed Up and Go test result > yes or = to 12 seconds? 3. Is the Timed Up and Go Test result < no 12 seconds? [place] Feet Together/Eyes open/Stable Surface pass Feet Together/Eyes Closed/Stable Surface fail Feet Together/Eyes open/Unstable Surface fail Feet Together/Eyes Closed/Unstable fail Surface Outpatient Therapy Assessment Impairments Problems/Impairmments Impaired Strength,Impaired Endurance,Impaired Transfers, Impaired Gait Pattern,Impaired Walking,Impaired Stair Climbing,Impaired Stepping on Uneven Surface,Impaired Squatting,Impaired Bending, Impaired Balance,Impaired COTTRELL Score,Impaired TUG Time, Subjective C/O Pain,Impaired Self Care/Self Management Prognosis Rehab Potential Good Clinical Impression Consistent with Diagnosis Yes Consistent with also gen. weakness & gait abnorm. Short Term Goals Number of Weeks 3 Increase Endurance Yes: perform NuStep x10' with RPE 5/10 or less Improve Balance Yes: FT EO unstable surface 30 without LOB to dec fall risk Decrease TUG Time Yes: 15 or less to decrease fall risk Patient to be Ind w/ HEP Yes: with assistance from caregiver d/t dementia Usp Goals Number of Weeks 6 Increase Strength Yes: improve BLE MMT to 4+/5 grossly to assist with gait/ function Increase Endurance Yes: perform NuStep x15' with RPE 5/10 or less Improve Transfers Yes: improve 5x sit to stand to 12 or less to dec fall risk Improve Balance Yes: FT EC unstable surface 30 without LOB to dec fall risk Decrease TUG Time Yes: 15 or less to decrease fall risk Outpatient Therapy Plan of Care Treatment Plan May Include Therapeutic Exercise Including Home Yes Exercise Program Manual Therapy Techniques Yes Neuromuscular Re-education Yes Therapeutic Activities to Return to Yes Previous Functional/Work Level Gait Training Yes ADL/Self Care Education Yes Group Therapy for Medicare Yes Eval/Re-Eval Yes Frequency Times per week 2 Duration Number of Weeks 4-6 Addendums This patient is a candidate for social No or vocational rehab? Patient/Guardian verbally acknowledges Yes understanding of treatment program and consents to further treatment? Patient/Guardian verbally acknowledges Yes understanding of diagnosis, prognosis and goals for treatment? Eval Complexity PT Charges 58972 - Moderate Complexity Shoulder/Elbow Eval Shoulder Objective Measurements Elbow Objective Measurements PHYSICIAN CERTIFICATION: I certify the specified therapy services for Leona Woo are required, authorized, and reviewed every 30 days.
--- NOTE | 2024-01-03 12:29 | HMH.RHREAS ---
Rehab Reassessment Rehab OP Re-assessment Start: 11/28/23 08:02 Freq: Status: Active Protocol: Document 01/03/24 10:50 MAYANKAlfonso (Rec: 01/03/24 12:29 DONNA [id number]) E-signed By Cheryl Nicole PT Rehab Re-assessment Subjective Subjective Pt with dementia and is poor historian. Pt reports she feels stronger overall but her balance is still wobbly at times. Denies recent falls. Pt reports she is only wearing oxygen at night now but does experience some SOA with increased activity. Pt reports compliance with HEP. Objective Objective Notes TU without AD, CGA Balance: FT EO unstable surface 25 then self corrected LOB Assessment Assessment Notes Pt has attended 5 PT visits since her initial evaluation on 11/28/23 consisting of functional strengthening and balance/proprioception training with good tolerance. Pt has not attended PT in 20+ days due to scheduling issues with her caregivers. Pt demonstrated improved balance and TUG test this date compared to the initial evaluation. Overall the pt would continue to benefit from skilled PT to further improve LE strength, endurance, and balance/proprioception to decrease fall risk and improve functional activity tolerance . Patient goals met ST/ Goals Not Met LTG Revised Goals n/a Plan Plan Continue initial POC Frequency of Therapy 2x/week Duration of therapy 4 more weeks Time and Billing Re-Eval Time 10 Re-Eval Billing Units 1 PHYSICIAN CERTIFICATION: I certify the specified therapy services for Leona Woo are required, authorized, and reviewed every 30 days.
== END 2024-01-26 11:00 | disposition home or self-care (01) ==
LOC: PT 10:00
PROVIDERS: Visit Provider Internal Medicine Adolescent Medicine
DX: R53.1 Weakness (principal)
CPT/HCPCS: 97112; 97163; 97164; 97530

== ENCOUNTER 2024-04-04 11:32 | Outpatient (CLI) | payer MEDICARE, MEDICAID, SELFPAY ==
[2024-04-04 11:40] LABS: Microscopic, Urine URINE MICROSCOPIC (MICROSCOPIC)
--- NOTE | 2024-04-04 12:00 | CT_ITS ---
FINAL REPORT CLINICAL HISTORY: ACUTE ATAXIA COMPARISON: 11/06/2023 FINDINGS: Axial images of the head were obtained without contrast. Coronal reformatted images were also obtained.This study was performed with techniques to keep radiation doses as low as reasonably achievable (ALARA). Individualized dose reduction techniques using automated exposure control or adjustment of mA and/or kV according to the patient's size were employed. There is no evidence of intracranial hemorrhage or mass. The ventricular size is within normal limits. There is no evidence of shift of the midline structures. There are postoperative changes from right temporal craniotomy with right temporal encephalomalacia, stable. No abnormal extra axial fluid collection is identified. No skull abnormality is seen on the bone window images. IMPRESSION: No acute intracranial abnormality. Postsurgical changes as above. Reviewed, Interpreted and Dictated by Carlos Maravilla III, MD Transcribed by Sharon Cartwright Authenticated and [facility]
[2024-04-04 12:08] LABS: Basophils % 0.3 % (0.1-2.0); Eosinophils % 0.4 % (0.1-12.0); Hematocrit 31.5 % (37.0-47.0); Hemoglobin 9.2 g/dL (12.2-16.2); Lymphocytes % 16.6 % (10-50); Mean Corpuscular HGB Conc 29.2 g/dL (31.8-35.4); Mean Corpuscular Hemoglobin 22.8 pg (27.0-31.2); Mean Corpuscular Volume 77.8 fl (81-99); Mean Platelet Volume 7.8 fl (7.4-10.4); Monocytes # 0.4 K/mm3 (0.1-1.0); Monocytes % 7.1 % (1.7-9.3); Neutrophils # 4.6 K/mm3 (1.8-7.8); Neutrophils % 75.6 % (37.0-80.0); Platelet Count 64 K/mm3 (142-424); Red Blood Count 4.05 M/mm3 (4.20-5.40); Red Cell Distribution Width 19.9 % (11.5-17.5)
[2024-04-04 12:24] LABS: Appearance,Urine CLEAR (Clear); Bilirubin,Urine Negative (Negative); Blood, Urine Negative (Negative); Color,Urine YELLOW (Yellow); Glucose,Urine (UA) Negative (Negative); Ketones,Urine Negative (Negative); Leukocyte Esterase,Urine Negative (Negative); Nitrate,Urine Negative (Negative); Protein,Urine 1+ (Negative); Specific Gravity, Urine >= 1.030 (1.005-1.030)
[2024-04-04 12:37] LABS: Alanine Aminotransferase 31 U/L (12-78); Albumin/Globulin Ratio 0.8 (1.1-1.8); Alkaline Phosphatase 170 U/L (38-126); Anion Gap 8.2 mEq/L (5-15); Aspartate Amino Transferase 60 U/L (14-36); Bilirubin,Total 1.3 mg/dl (0.2-1.3); Blood Urea Nitrogen 20 mg/dl (7-17); Calcium 8.1 mg/dl (8.4-10.2); Carbon Dioxide 24 mmol/L (22.0-30.0); Chloride 107 mmol/L (98-107); Estimated Glomerular Filt Rate 63 ml/min (>60); GFR (African American) 76 ML/MIN (>60); Globulin 3.9 g/dL (1.3-3.2); Glucose 98 mg/dl (74-100); Potassium 4.2 mmoL/L (3.5-5.1); Sodium 135 mmol/L (136-145); Total Protein,Serum 6.9 g/dl (6.3-8.2)
[2024-04-04 12:55] LABS: Bacteria,Urine Trace /lpf; Mucus,Urine Trace /lpf; RBC,Urine Occasional #/hpf (0-3)
[2024-04-04 12:56] LABS: Hyaline Casts,Urine Occasional #/lpf (0)
== END 2024-04-04 23:59 | disposition home or self-care (01) ==
PROVIDERS: PCP Internal Medicine Adolescent Medicine; Visit Provider Internal Medicine Adolescent Medicine
DX: R27.8 Other lack of coordination (principal); R41.82 Altered mental status, unspecified
CPT/HCPCS: 36415; 70450; 80053; 81001; 85025; 87086

== ENCOUNTER 2024-04-09 10:11 | Emergency (ER) | payer MEDICARE, MEDICAID, SELFPAY ==
[2024-04-09 10:20] VITALS: BP 102/48; PULSE 60; O2SAT 95
--- NOTE | 2024-04-09 10:22 | ECG_ITS ---
APPROVED REPORT Exam: Resting ECG HR:56 bpm ECG Measurements Heart Rate 56 AXES VA 241 P 53 QRSd 122 QRS 67 QT 461 T 72 QTc 454 Conclusion SINUS BRADYCARDIA WITH FIRST DEGREE AV BLOCK LEFT ATRIAL ENLARGEMENT [-0.15mV P-WAVE IN V1/V2] MODERATE INTRAVENTRICULAR CONDUCTION DELAY [105+ ms QRS DURATION, 80+ ms Q/S IN V1/V2, NO Q AND 60+ ms R IN I/aVL/V5/V6] ABNORMAL ECG UNCONFIRMED REPORT Electronically signed by : Jamal Martinez, 04/12/2024 23:46:24
[2024-04-09 10:25] LABS: Microscopic, Urine URINE MICROSCOPIC (MICROSCOPIC)
--- NOTE | 2024-04-09 10:27 | XR_ITS ---
FINAL REPORT CLINICAL HISTORY: falls COMPARISON: 10/14/2022 FINDINGS: Pelvis A single view was obtained. There is no acute fracture or dislocation. The joint spaces appear normal. No soft tissue abnormality is identified. IMPRESSION: No acute process. Reviewed, Interpreted and Dictated by Carlos Maravilla III, MD Transcribed by Sharon Cartwright Authenticated and [facility]
--- NOTE | 2024-04-09 10:27 | CT_ITS ---
FINAL REPORT CLINICAL HISTORY: [facility] COMPARISON: 04/04/2024 FINDINGS: Axial images of the head were obtained without contrast. Coronal reformatted images were also obtained.This study was performed with techniques to keep radiation doses as low as reasonably achievable (ALARA). Individualized dose reduction techniques using automated exposure control or adjustment of mA and/or kV according to the patient's size were employed. There is no evidence of intracranial hemorrhage or mass. The ventricular size is within normal limits. There are postoperative changes from bilateral craniotomies. Right temporal encephalomalacia is again identified. There is no evidence of shift of the midline structures. No abnormal extra axial fluid collection is identified. No skull abnormality is seen on the bone window images. IMPRESSION: No acute intracranial abnormality. Postoperative and chronic appearing findings. Reviewed, Interpreted and Dictated by Carlos Maravilla III, MD Transcribed by Sharon Cartwright Authenticated and [facility]
--- NOTE | 2024-04-09 10:28 | XR_ITS ---
FINAL REPORT CLINICAL HISTORY: falls COMPARISON: 12/04/2023 FINDINGS: SINGLE-VIEW CHEST There is cardiomegaly. The mediastinum is normal. Mild scarring is identified. There is moderate left effusion. There is no pneumothorax. IMPRESSION: Moderate left effusion should. Reviewed, Interpreted and Dictated by Carlos Maravilla III, MD Transcribed by Sharon Cartwright Authenticated and [facility]
--- NOTE | 2024-04-09 10:29 | XR_ITS ---
FINAL REPORT CLINICAL HISTORY: injury, falls FINDINGS: Left foot Three views were obtained. There is no acute fracture or dislocation. The joint spaces appear normal. No soft tissue abnormality is identified. IMPRESSION: No acute process. Reviewed, Interpreted and Dictated by Carlos Maravilla III, MD Transcribed by Sharon Cartwright Authenticated and [facility]
--- NOTE | 2024-04-09 10:29 | XR_ITS ---
FINAL REPORT CLINICAL HISTORY: injury, falls FINDINGS: Left ankle Three views were obtained. Images are presumed to be a left ankle however not marked. There is no acute fracture or dislocation. The joint spaces appear normal. No soft tissue abnormality is identified. IMPRESSION: No acute process. Reviewed, Interpreted and Dictated by Carlos Maravilla III, MD Transcribed by Sharon Cartwright Authenticated and [facility]
--- NOTE | 2024-04-09 10:30 | HMH.EDGENADL ---
Discharge Plan Disposition Patient Disposition: Home, Self-Care Prescriptions Prescriptions: No Action Greysonlerusty Ellipta 100-62.5-25 mcg blister with device 1 inh inhalation DAILY 90 Days Qty: 90 2RF albuterol sulfate 90 mcg/actuation HFA aerosol inhaler 2 inh inhalation QID PRN (Reason: shortness of breath or wheezing) 90 Days Qty: 8.5 2RF Prolastin-C 1,000 mg (+/-)/20 mL solution 3,524 mg IV WEEKLY 360 Days ipratropium-albuterol 0.5 mg-3 mg(2.5 mg base)/3 mL solution for nebulization 3 ml inhalation QID PRN (Reason: shortness of breath or wheezing) 90 Days Qty: 270 3RF Rx Instructions: Coverage under Medicare part D denied. Please run through Medicare part B if feasible. Thank you. sertraline 100 mg tablet 100 mg PO DAILY Patient Comments: TAKE 1 TABLET BY MOUTH ONCE DAILY pravastatin 20 mg tablet 20 mg PO DAILY Patient Comments: TAKE 1 TABLET BY MOUTH ONCE DAILY lamotrigine 100 mg tablet 100 mg PO BID Patient Comments: TAKE 1 TABLET BY MOUTH TWICE DAILY levothyroxine 25 mcg tablet 25 mcg PO DAILY Patient Comments: TAKE 1 TABLET BY MOUTH ONCE DAILY Referrals Follow up/Referrals: Graham Pelaez MD [Primary Care Provider] - See instructions Clinical Impressions Clinical Impression: Falls frequently, Injury of foot, left, Declining functional status, Chronic dementia Print Language Print Language: Albanian Discharge ED Provider: Ni Martinez General Adult HPI General Chief complaint: Fall Stated complaint: AMS bruises 5 falls recently soa Time Seen by Provider: 04/09/24 10:21 History of Present Illness HPI narrative: 63-year-old female with a history of alpha 1 antitrypsin and cirrhosis presents today with acute encephalopathy over the last 3 weeks. She is accompanied by her [id number]-aw-uje whom she lives with. [id number] states she has been falling frequently and has been confused and not doing her activities of daily living. She was seen at her primary care doctor's office and sent to the emergency department further evaluation and management. No further focal somatic complaints other than left foot pain from the patient after one of the recent falls. She denies any injuries definitively to her head neck chest abdomen pelvis or other long bones. Related Data Home Medications ?Medication ?Instructions ?Recorded ?Confirmed lamotrigine 100 mg tablet 100 mg PO BID 09/26/23 02/15/24 pravastatin 20 mg tablet 20 mg PO DAILY 09/26/23 02/15/24 sertraline 100 mg tablet 100 mg PO DAILY 09/26/23 02/15/24 levothyroxine 25 mcg tablet 25 mcg PO DAILY 11/07/23 02/15/24 Previous Rx's ?Medication ?Instructions ?Recorded albuterol sulfate 90 mcg/actuation 2 inh inhalation QID PRN shortness 12/11/23 aerosol inhaler of breath or wheezing 90 days #8.5 grams alpha-1 proteinase inhib.(hum) 3,524 mg (70.48 mL) IV WEEKLY 12 12/11/23 1,000 mg (+/-)/20 mL IV solution months (Prolastin-C) ipratropium 0.5 mg-albuterol 3 mg 3 ml inhalation QID PRN shortness 12/12/23 (2.5 mg base)/3 mL nebulization of breath or wheezing 90 days #270 soln mL fluticasone fur. 100 mcg-umeclid 1 inh inhalation DAILY 90 days #90 01/01/24 62.5 mcg-vilant 25 mcg ea inhalat.powder (Trelegy Ellipta) Allergies Allergy/AdvReac Type Severity Reaction Status Date / Time No Known Allergies Allergy Verified 04/09/24 10:42 [facility] Disclaimer: The information contained in this section may have been updated after the patient was seen, as this information can be updated by other users. Medical History Pulmonary emphysema Recurrent pneumonia Bronchiectasis AAT ([id number]) deficiency COPD mixed type UTI (urinary tract infection) Pneumonia CKD (chronic kidney disease) Cirrhosis Hemochromatosis Seizure COPD (chronic obstructive pulmonary disease) Surgical History Hx of cataract surgery History of neck surgery Hx of tubal ligation History of brain surgery right frontal lobe Family History Other Diabetes Social History Smoking Status: Never smoker alcohol intake: never substance use type: denies use current occupational status: disabled Travel in the last 8 weeks: None caregiver/support person: Yes ROS Obtained: Yes All systems reviewed & no additional complaints except as documented Physical Exam General General appearance: alert and in no apparent distress Respiratory Respiratory exam: Present other (Patient mildly tachypneic oxygen saturation 100% room air otherwise nonfocal respiratory exam) Cardiovascular Cardiovascular exam: Present regular rate Extremities Exam Extremities exam: Present other (Ecchymosis swelling and tenderness over the left foot) Neurological Exam Neurological exam: Present alert and other (Nonfocal GCS of 14 patient is confused); Absent oriented X3 Medical Decision Making Sridhar Inquiry Pt receiving controlled substance: No Vital Signs: 04/09/24 10:20 04/09/24 10:33 04/09/24 11:00 Temperature 98 F Temperature Source Rectal Pulse Rate 60 54 L Pulse Rate [Left] 55 L Respiratory Rate 16 Blood Pressure 102/48 L 115/62 Blood Pressure [Right Arm] 102/48 L Blood Pressure Mean Blood Pressure Mean [Right Arm] 66 Blood Pressure Source [Right Arm] Automatic Cuff Blood Pressure Position [Right Arm] Sitting 02 Sat by Pulse Oximetry 95 100 97 Oxygen Delivery Method Room Air Room Air 04/09/24 11:05 04/09/24 12:00 Temperature Temperature Source Pulse Rate 53 L 54 L Pulse Rate [Left] Respiratory Rate Blood Pressure 117/61 107/58 L Blood Pressure [Right Arm] Blood Pressure Mean 86 Blood Pressure Mean [Right Arm] Blood Pressure Source [Right Arm] Blood Pressure Position [Right Arm] 02 Sat by Pulse Oximetry 100 97 Oxygen Delivery Method Room Air Room Air Lab Data Lab results reviewed: Yes I reviewed the patient's lab results. Lab Results 04/09/24 10:20: Urine Color [place], Urine Appearance Clear, Urine pH 6.0, Ur Specific [place] >= 1.030, Urine Protein Trace, Urine Glucose (UA) Negative, Urine Ketones Negative, Urine Blood Negative, Urine Nitrate Negative, Urine Bilirubin 1+ A, Urine Urobilinogen 2.0, Ur Leukocyte Esterase Negative, Urine RBC None, Urine WBC Occasional, Ur Squamous Epith Cells 3-5, Urine Bacteria Trace 04/09/24 10:29: WBC 7.9, RBC 3.99 L, Hgb 9.1 L, Hct 31.6 L, MCV 79.1 L, MCH 22.7 L, MCHC 28.7 L, RDW 20.9 H, Plt Count 86 L, MPV 8.1, Neut % (Auto) 77.3, Lymph % (Auto) 14.2, [place] % (Auto) 7.0, Eos % (Auto) 1.0, Baso % (Auto) 0.5, Neut # (Auto) 6.1, Lymph # (Auto) 1.1, [place] # (Auto) 0.6, Eos # (Auto) 0.1, Baso # (Auto) 0.0, PT 14.0 H, INR 1.28 H, APTT 29.9, Sodium 137, Potassium 4.1, Chloride 109 H, Carbon Dioxide 26, Anion Gap 6.1, BUN 19 H, Creatinine 0.80, Estimated Creat Clear 52, Estimated GFR 72, Est GFR ( Amer) 87, Glucose 107 H, Calcium 8.2 L, Total Bilirubin 1.6 H, AST 72 H, ALT 38, Alkaline Phosphatase 167 H, Ammonia 29, Troponin I 0.04 H, Total Protein 7.1, Albumin 3.1 L, Globulin 4.0 H, Albumin/Globulin Ratio 0.8 L 04/09/24 10:32: VBG pH 7.32, VBG pCO2 48.0, VBG pO2 42.3 H, VBG HCO3 24.1, VBG Total CO2 25.6, VBG O2 Saturation 72.2 H, VBG Base Excess -2.0, VBG Lactic Acid 2.4 H 04/09/24 10:29 04/09/24 10:29 Orders (Tests/Meds): ED MEDICATIONS Discontinued Medications Generic Name Dose Route Start Last Admin Trade Name Freq PRN Reason Stop Dose Admin Lactated Ringer's 1,000 mls @ 999 mls/hr 04/09/24 10:30 04/09/24 10:32 Lactated Ringer's 1000 Ml Bag IV 04/09/24 11:30 999 mls/hr .Q1H1M SUDHA Administration ORDERS Category Date Time Status CT head/brain wo con Stat Cat Scan 04/09/24 10:27 Completed Ankle XR - Left minimum 3 Views [XR ankle LT min 3V] Exams 04/09/24 10:29 Completed Stat CXR --portable [XR chest portable] Stat Exams 04/09/24 10:28 Completed Foot XR left minimum 3 views [XR foot LT min 3V] Stat Exams 04/09/24 10:29 Completed POCUS Point of Care (ER Only) Stat Exams 04/09/24 10:27 Completed Pelvis XR 1-2 views [XR pelvis 1-2V] Stat Exams 04/09/24 10:27 Completed Ammonia Stat Lab 04/09/24 10:29 Completed CBC w/Auto Diff [Complete Blood Count Auto Diff] Stat Lab 04/09/24 10:29 Completed CMP [Comprehensive Metabolic Panel] Stat Lab 04/09/24 10:29 Completed Lactate Venous Stat Lab 04/09/24 10:32 Ordered PT/PTT Stat Lab 04/09/24 10:29 Completed Trop I [Troponin I] Stat Lab 04/09/24 10:29 Completed Troponin I Q3H Lab 04/09/24 13:30 Ordered Troponin I Q3H Lab 04/09/24 16:30 Ordered UA [Urinalysis and Microscopic] Stat Lab 04/09/24 10:20 Completed Blood Culture Stat Micro 04/09/24 11:05 Received Venous Blood Gas Stat RT 04/09/24 10:32 Completed Medical Decision Narrative: 63-year-old who was acutely encephalopathic with above history and physical presents with broad differential including infectious etiology such as pneumonia or urinary tract infection head injury with intracranial hemorrhage, malignancy, decompensated cirrhosis and hepatic encephalopathy etc. Will reassess after this initial workup is complete patient is hemodynamically stable at the moment. Reassessment 1250 patient remains very stable and after further discussion with her family this has been a chronic decline over the last [address] scan of the patient's head chest x-ray of pelvis x-ray and extremity x-rays performed which all which I personally interpreted also reviewed radiology imaging and no acute abnormalities there. Labs unremarkable specifically no evidence of ammonia elevation or hepatic encephalopathy. Bedside ultrasound was done and she does have some ascites but nothing large enough to tap. SBP is possible but unlikely. Chest x-ray performed and there is a left-sided pleural effusion she has had this in the past most likely secondary to her ascites. There is a right lower lobe consolidation that has been there with multiple chest x-rays in the past she does not have any worsening of a cough or fever and this appears actually to be radiographically improved but still persistent cannot rule out malignancy or scarring. Overall no definitive reason to admit this patient she has no urinary tract infection or acute explanation of her symptoms and it seems as if this is a chronic decline family does agree to this they have been thinking about penitentiary placement and discussion about this as well as hospice. They would not like to pursue this further I do not believe there is any indication for an acute admission to the hospital outside of social placement they will take the patient home and return with any desire to discuss hospice or penitentiary placement. Patient remains at her baseline and was discharged in stable condition. Procedures Miscellaneous Procedure Procedure Performed: Limited abdominal ultrasound Indication evaluation for possible ascites Findings small amount of ascites not large enough for paracentesis Critical Care Critical Care Time Critical Care Time: No
[2024-04-09] MEDS: LACTATED RINGERS 1000ML 1,000 ML 999 ML IV (10:32)
[2024-04-09 10:33] VITALS: BP 102/48; PULSE 55; RESP 16; TEMP 36.6; O2SAT 100; BMI 21.8
[2024-04-09 10:35] LABS: Appearance,Urine CLEAR (Clear); Blood, Urine Negative (Negative); Color,Urine ORANGE (Yellow); Glucose,Urine (UA) Negative (Negative); Ketones,Urine Negative (Negative); Leukocyte Esterase,Urine Negative (Negative); Nitrate,Urine Negative (Negative); Protein,Urine TRACE (Negative); Specific Gravity, Urine >= 1.030 (1.005-1.030)
--- NOTE | 2024-04-09 10:35 | PC.NURSE ---
RT notified of VBG order
[2024-04-09 10:37] LABS: VBG HCO3 24.1 mmol/L (23-30); VBG Oxygen Saturation 72.2 % (50-70); VBG PH 7.32 mmol/L (7.31-7.41); VBG PO2 42.3 mmol/L (28-40); VBG Total CO2 25.6 mmol/L (23-27)
[2024-04-09 10:38] LABS: Bilirubin,Urine 1+ (Negative)
--- NOTE | 2024-04-09 10:40 | PC.NURSE ---
Pt gone to RAD via stretcher
[2024-04-09 10:41] LABS: Lactate Venous 2.4 mmol/L (0.4-2.0)
[2024-04-09 10:44] LABS: Albumin Level 3.1 g/dl (3.5-5.0); Chloride 109 mmol/L (98-107)
[2024-04-09 10:45] LABS: Potassium 4.1 mmoL/L (3.5-5.1); Sodium 137 mmol/L (136-145)
[2024-04-09 10:47] LABS: Alanine Aminotransferase 38 U/L (12-78); Albumin/Globulin Ratio 0.8 (1.1-1.8); Alkaline Phosphatase 167 U/L (38-126); Anion Gap 6.1 mEq/L (5-15); Aspartate Amino Transferase 72 U/L (14-36); Bilirubin,Total 1.6 mg/dl (0.2-1.3); Blood Urea Nitrogen 19 mg/dl (7-17); Carbon Dioxide 26 mmol/L (22.0-30.0); Creatinine Clearance Estimated 52 mL/min (50-200); Estimated Glomerular Filt Rate 72 ml/min (>60); GFR (African American) 87 ML/MIN (>60); Total Protein,Serum 7.1 g/dl (6.3-8.2)
[2024-04-09 10:48] LABS: Calcium 8.2 mg/dl (8.4-10.2); Glucose 107 mg/dl (74-100)
[2024-04-09 10:49] LABS: Ammonia 29 umol/L (9-30)
[2024-04-09 10:53] LABS: Basophils % 0.5 % (0.1-2.0); Eosinophils # 0.1 K/mm3 (0.0-0.4); Hematocrit 31.6 % (37.0-47.0); Hemoglobin 9.1 g/dL (12.2-16.2); Lymphocytes # 1.1 K/mm3 (0.7-4.5); Lymphocytes % 14.2 % (10-50); Mean Corpuscular HGB Conc 28.7 g/dL (31.8-35.4); Mean Corpuscular Hemoglobin 22.7 pg (27.0-31.2); Mean Corpuscular Volume 79.1 fl (81-99); Mean Platelet Volume 8.1 fl (7.4-10.4); Monocytes # 0.6 K/mm3 (0.1-1.0); Neutrophils # 6.1 K/mm3 (1.8-7.8); Neutrophils % 77.3 % (37.0-80.0); Platelet Count 86 K/mm3 (142-424); Red Blood Count 3.99 M/mm3 (4.20-5.40); Red Cell Distribution Width 20.9 % (11.5-17.5); White Blood Count 7.9 K/mm3 (4.8-10.8)
[2024-04-09 10:55] LABS: Activated Partial Thrombo Time 29.9 seconds (22.8-30.6); INR 1.28 (0.9-1.1)
[2024-04-09 10:56] LABS: Bacteria,Urine Trace /lpf; WBC,Urine Occasional #/hpf (0-3)
[2024-04-09 11:00] VITALS: BP 115/62; PULSE 54; O2SAT 97
[2024-04-09 11:00] LABS: Troponin I 0.04 ng/ml (0.00-0.034)
[2024-04-09 11:05] VITALS: BP 117/61; PULSE 53; O2SAT 100
--- NOTE | 2024-04-09 11:47 | PC.NURSE ---
I rounded on the pt, no new complaints at this time. call mckeon in reach.
[2024-04-09 12:00] VITALS: BP 107/58; PULSE 54; O2SAT 97
[2024-04-09 13:06] VITALS: BP 114/61; PULSE 56; RESP 16; TEMP 36.7; O2SAT 96
[2024-04-09 14:42] LABS: Reflex Lactic Add Lactic Reflex
== END 2024-04-09 13:09 | disposition home or self-care (01) ==
PROVIDERS: Emergency Provider Student in an Organized Health Care Education/Training Program; PCP Internal Medicine Adolescent Medicine
DX: S99.922A Unspecified injury of left foot, initial encounter (principal); R29.6 Repeated falls; J90 Pleural effusion, not elsewhere classified; R18.8 Other ascites; R53.81 Other malaise; F03.90 Unspecified dementia, unspecified severity, without behavioral disturbance, psychotic disturbance, mood disturbance, and anxiety; W19.XXXA Unspecified fall, initial encounter
CPT/HCPCS: 70450; 71045; 72170; 73610; 73630; 80053; 81001; 82140; 82803; 84484; 85025; 85610; 85730; 87040; 93005; 96360; 99285; J7120

== ENCOUNTER 2024-04-13 02:11 | Inpatient (IN) | payer MEDICARE, MEDICAID, SELFPAY ==
[2024-04-13] VITALS (80 sets, daily range): BP systolic 67–171; BP diastolic 34–134; PULSE 48–94; RESP 14–28; TEMP 36.3–38.1; O2SAT 83–100; BMI 24.7
--- NOTE | 2024-04-13 02:14 | ECG_ITS ---
APPROVED REPORT Exam: Resting ECG HR:96 bpm ECG Measurements Heart Rate 96 AXES QRSd 169 QRS 262 QT 434 T 99 QTc 488 Conclusion ATRIAL FIBRILLATION RIGHT AXIS DEVIATION [QRS AXIS > 100] Left bundle branch block No STEMI Wide-complex tachycardia Electronically signed by : HARVEY ESTRELLA, 04/13/2024 07:42:36
[2024-04-13] MEDS: CALCIUM CHLORIDE 1GM/10ML SYRINGE (CRASH CART) 1 GM IVP (02:16)
[2024-04-13] MEDS: ROCURONIUM BROMIDE 50MG/5ML VIAL 70 MG IV (02:22)
[2024-04-13] MEDS: ETOMIDATE 40MG/20ML VIAL 20 MG IV (02:22)
--- NOTE | 2024-04-13 02:25 | CT_ITS ---
PROCEDURE INFORMATION: Exam: CTA Chest With Contrast Exam date and time: 04/13/2024 3:10 AM Age: 63 years old Clinical indication: Shortness of breath; Additional info: AMS SOA TECHNIQUE: Imaging protocol: Computed tomographic angiography of the chest with contrast. Exam focused on the arteries. 3D rendering (Not supervised by radiologist): MIP and/or 3D reconstructed images were created by the technologist. Radiation optimization: All CT scans at this facility use at least one of these dose optimization techniques: automated exposure control; mA and/or kV adjustment per patient size (includes targeted exams where dose is matched to clinical indication); or iterative reconstruction. Contrast material: ISOVUE; Contrast volume: 70 ml; Contrast route: INTRAVENOUS (IV); COMPARISON: CR XR CHEST PORTABLE 04/13/2024 2:20 AM FINDINGS: Tubes, catheters and devices: ET tube is in good position. Pulmonary arteries: Normal. No pulmonary emboli. Aorta: Unremarkable. No aortic aneurysm. No aortic dissection. Lungs: Extensive bilateral infiltrates are noted involving all lung segments. Areas of ground-glass opacity are also noted. Pleural spaces: Unremarkable. No pneumothorax. No pleural effusion. Heart: Unremarkable. No cardiomegaly. No pericardial effusion. Lymph nodes: Some prominent mediastinal lymph nodes are identified the largest is a precarinal lymph node measuring 22 mm. Bones/joints: Unremarkable. No acute fracture. Soft tissues: Unremarkable. IMPRESSION: 1. No evidence of pulmonary embolus. 2. Extensive bilateral infiltrates and moderate bilateral pleural effusions. 3. Diffuse mediastinal and bilateral hilar lymphadenopathy. 4. Coronary atherosclerosis and cardiomegaly.
--- NOTE | 2024-04-13 02:25 | XR_ITS ---
PROCEDURE INFORMATION: Exam: XR Chest Exam date and time: 04/13/2024 2:20 AM Age: 63 years old Clinical indication: Shortness of breath; Additional info: Tubed SOA TECHNIQUE: Imaging protocol: Radiologic exam of the chest. Views: 1 view. COMPARISON: CR XR CHEST PORTABLE 04/09/2024 10:41 AM FINDINGS: Tubes, catheters and devices: ET tube is in good position. Lungs: Patchy bilateral airspace disease is noted. Focal areas of consolidation are seen most prominently in the left lung base. Pleural spaces: Bilateral pleural effusions are present. Heart/Mediastinum: Unremarkable. No cardiomegaly. Bones/joints: Unremarkable. IMPRESSION: ET tube in good position. Patchy bilateral airspace disease is noted. Focal areas of consolidation are seen most prominently in the left lung base. Bilateral pleural effusions are present.
--- NOTE | 2024-04-13 02:25 | CT_ITS ---
PROCEDURE INFORMATION: Exam: CT Head Without Contrast Exam date and time: 04/13/2024 3:06 AM Age: 63 years old Clinical indication: Altered mental status/memory loss; Additional info: AMS SOA TECHNIQUE: Imaging protocol: Computed tomography of the head without contrast. Radiation optimization: All CT scans at this facility use at least one of these dose optimization techniques: automated exposure control; mA and/or kV adjustment per patient size (includes targeted exams where dose is matched to clinical indication); or iterative reconstruction. COMPARISON: CT HEAD/BRAIN WO CON 04/09/2024 10:44 AM FINDINGS: Brain: There is diffuse prominence of the cerebral sulci, cisterns, and ventricles consistent with atrophy. No intra or extra-axial fluid collections are noted. No mass or mass effect is seen. Periventricular white matter hypoattenuation is seen consistent with chronic small vessel disease. Prior right craniotomy. Cerebral ventricles: No ventriculomegaly. Paranasal sinuses: Visualized sinuses are unremarkable. No fluid levels. Mastoid air cells: Visualized mastoid air cells are well aerated. Bones: Unremarkable. No acute fracture. Soft tissues: ET tube is present.. IMPRESSION: No acute process noted.
--- NOTE | 2024-04-13 02:27 | PC.NURSE ---
finger stick 160
[2024-04-13] MEDS: FUROSEMIDE 40MG/4ML VIAL 80 MG IV (02:29)
[2024-04-13] MEDS: propofoL 100 ML 1.91 MG IV (02:30)
[2024-04-13 02:33] LABS: Basophils # 0.1 K/mm3 (0-0.2); Basophils % 0.9 % (0.1-2.0); Eosinophils # 0.2 K/mm3 (0.0-0.4); Eosinophils % 1.6 % (0.1-12.0); Hematocrit 35.7 % (37.0-47.0); Lymphocytes # 3.4 K/mm3 (0.7-4.5); Lymphocytes % 24.3 % (10-50); Mean Corpuscular Hemoglobin 23.2 pg (27.0-31.2); Mean Corpuscular Volume 82.8 fl (81-99); Mean Platelet Volume 9.3 fl (7.4-10.4); Monocytes # 0.6 K/mm3 (0.1-1.0); Monocytes % 4.4 % (1.7-9.3); Neutrophils # 9.8 K/mm3 (1.8-7.8); Neutrophils % 68.8 % (37.0-80.0); Platelet Count 180 K/mm3 (142-424); Red Blood Count 4.31 M/mm3 (4.20-5.40); Red Cell Distribution Width 21.6 % (11.5-17.5); White Blood Count 14.2 K/mm3 (4.8-10.8)
--- NOTE | 2024-04-13 02:35 | ECG_ITS ---
APPROVED REPORT Exam: Resting ECG HR:105 bpm ECG Measurements Heart Rate 105 AXES OH 165 P 79 QRSd 177 QRS 256 QT 350 T 81 QTc 411 Conclusion SINUS TACHYCARDIA WITH FREQUENT SUPRAVENTRICULAR PREMATURE COMPLEXES INTRAVENTRICULAR CONDUCTION DELAY [130+ ms QRS DURATION] LATERAL MYOCARDIAL INFARCTION , OF INDETERMINATE AGE [40+ ms Q WAVE AND/OR ST/T ABNORMALITY IN I/aVL/V5/V6] INFERIOR MYOCARDIAL INFARCTION , PROBABLY OLD [40+ ms Q WAVE AND/OR ST/T ABNORMALITY IN II/aVF] ABNORMAL ECG Wide-complex tachycardia, no STEMI Electronically signed by : HARVEY ESTRELLA, 04/13/2024 07:41:40
[2024-04-13 02:37] LABS: Albumin Level 3.4 g/dl (3.5-5.0); Chloride 107 mmol/L (98-107); Potassium 5.8 mmoL/L (3.5-5.1); Sodium 137 mmol/L (136-145)
[2024-04-13 02:39] LABS: Blood Urea Nitrogen 21 mg/dl (7-17)
[2024-04-13 02:40] LABS: Alanine Aminotransferase 44 U/L (12-78); Albumin/Globulin Ratio 0.8 (1.1-1.8); Alkaline Phosphatase 211 U/L (38-126); Anion Gap 14.8 mEq/L (5-15); Aspartate Amino Transferase 81 U/L (14-36); Bilirubin,Total 1.3 mg/dl (0.2-1.3); Calcium 8.4 mg/dl (8.4-10.2); Carbon Dioxide 21 mmol/L (22.0-30.0); Estimated Glomerular Filt Rate 50 ml/min (>60); GFR (African American) 61 ML/MIN (>60); Globulin 4.4 g/dL (1.3-3.2); Glucose 154 mg/dl (74-100); Total Protein,Serum 7.8 g/dl (6.3-8.2)
[2024-04-13 02:41] LABS: INR 1.25 (0.9-1.1); Prothrombin Time 13.7 seconds (10.1-12.5)
--- NOTE | 2024-04-13 02:44 | CT_ITS ---
PROCEDURE INFORMATION: Exam: CT Abdomen And Pelvis With Contrast Exam date and time: 04/13/2024 3:10 AM Age: 63 years old Clinical indication: Other: AMS; Additional info: Sepsis AMS TECHNIQUE: Imaging protocol: Computed tomography of the abdomen and pelvis with contrast. Radiation optimization: All CT scans at this facility use at least one of these dose optimization techniques: automated exposure control; mA and/or kV adjustment per patient size (includes targeted exams where dose is matched to clinical indication); or iterative reconstruction. Contrast material: ISOVUE; Contrast volume: 70 ml; Contrast route: IV; COMPARISON: CT ABDOMEN PELVIS W CON 11/06/2023 7:49 PM FINDINGS: Lungs: Moderate bibasilar pleural effusions. Extensive bilateral infiltrates. Heart: Cardiomegaly and coronary atherosclerosis. Liver: Normal. No mass. Gallbladder and biliary ducts: Normal. No calcified stones. No ductal dilation. Pancreas: Normal. No ductal dilation. Spleen: Normal. No splenomegaly. Adrenal glands: Normal. No mass. Kidneys and ureters: The left kidney is positioned somewhat more inferiorly the unusual and there is a prominent extrarenal pelvis although this is unchanged from prior studies. Stomach and bowel: Moderate retained stool is seen in the colon. No ileus or obstruction is present. Appendix: No evidence of appendicitis. Intraperitoneal space: Small amount of free fluid is seen in the dependent portions of the abdomen and pelvis. Vasculature: Unremarkable. No abdominal aortic aneurysm. Lymph nodes: Unremarkable. No enlarged lymph nodes. Urinary bladder: Unremarkable as visualized. Reproductive: Unremarkable as visualized. Bones/joints: Unremarkable. No acute fracture. Soft tissues: Unremarkable. IMPRESSION: 1. Extensive bilateral infiltrates and moderate bilateral pleural effusions. 2. A small amount of free fluid is seen in the abdomen and pelvis. Moderate retained stool is present. No acute process is identified.
[2024-04-13 02:47] LABS: Microscopic, Urine URINE MICROSCOPIC (MICROSCOPIC)
[2024-04-13 02:50] LABS: NT Pro Brain Natriuretic Pep. 4580 pg/mL (0-125)
[2024-04-13 02:52] LABS: Troponin I 0.06 ng/ml (0.00-0.034)
[2024-04-13 02:53] LABS: Coronavirus 19, PCR Not Detected (NotDetected); Influenza A, PCR Not Detected (NotDetected); Influenza B, PCR Not Detected (NotDetected)
[2024-04-13 02:55] LABS: Appearance,Urine CLEAR (Clear); Bilirubin,Urine Negative (Negative); Blood, Urine Negative (Negative); Color,Urine YELLOW (Yellow); Glucose,Urine (UA) Negative (Negative); Ketones,Urine Negative (Negative); Leukocyte Esterase,Urine 1+ (Negative); Nitrate,Urine Negative (Negative); Protein,Urine 2+ (Negative); Specific Gravity, Urine >= 1.030 (1.005-1.030)
[2024-04-13 02:57] LABS: ABG HCO3 19.5 mmhg (22.0-26.0); ABG Oxygen Saturation 98 % (90-100); ABG PCO2 46.8 mmhg (35.0-45.0); ABG PH 7.24 mmol/L (7.35-7.45); ABG PO2 129.4 mmhg (80-100); ABG TCO2 20.9 mmhg (23-27); Oxygen 100 %; PEEP 5; Tidal Volume 420; Vent Rate 18
[2024-04-13 02:58] LABS: Allen's Test Patient Unable; Lactate Arterial 3.3 mmol/L (0.4-2.0); Source Left Radial
[2024-04-13] MEDS: 0.9 % SODIUM CHLORIDE 50 ML VIAL IV (03:20)
[2024-04-13] MEDS: IOPAMIDOL-370 (76%);100ML BOTTLE 70 ML IV (03:20)
[2024-04-13] MEDS: SODIUM CHLORIDE 0.9% 10ML SYR (RAD ONLY) 10 ML IV (03:20)
[2024-04-13] MEDS: ASPIRIN 300MG SUPPOSITORY 300 MG RC (03:21)
--- NOTE | 2024-04-13 03:26 | ECG_ITS ---
APPROVED REPORT Exam: Resting ECG HR:84 bpm ECG Measurements Heart Rate 84 AXES QRSd 153 QRS -50 QT 376 T 79 QTc 416 Conclusion Rhythm appears regular however no obvious P waves, cannot verify sinus rhythm LEFT AXIS DEVIATION [QRS AXIS < -30] LEFT BUNDLE BRANCH BLOCK [120+ ms QRS DURATION, 80+ ms Q/S IN V1/V2, 85+ ms R IN I/aVL/V5/V6] ABNORMAL ECG Nondiagnostic ECG, see repeat ECG Electronically signed by : HARVEY ESTRELLA, 04/13/2024 07:47:26
--- NOTE | 2024-04-13 03:28 | PC.NURSE ---
INTUABTION NOTE 0209- pt to ED via EMS on NRB with gurgling resp, responsive to pain, pupils dilated. pt transferred over to ED stretcher in room 2 0215- RT starting bagging pt with BVM. FSBS 160. VS- 171/134 HR- 78, 82% on NRB. Zolle pads placed on pt. 0216- 1G Calcium Chloride given IVP 0222- 20mg etomidate given IVP, and 70mg sarmad given IVP 0223 pt intubed by MD Chavez with 7.5 ETT, 22cm @teeth. color change noted. bilat breath sounds auscultated. 0229- 80 lasix given IV per MD Chavez 0230- 20G inserted in right AC. propofol started @5 mcg/kg/min 0236- 16Fr wheeler catheter inserted 0239- 12 Fr OG inserted to 40cm.
[2024-04-13] MEDS: PIPERACILLIN/TAZO 4.5 GM in 0.9 % SODIUM CHLORIDE 100 ML IV (03:35)
--- NOTE | 2024-04-13 03:38 | ECG_ITS ---
APPROVED REPORT Exam: Resting ECG HR:61 bpm ECG Measurements Heart Rate 61 AXES FL 236 P 65 QRSd 134 QRS 71 QT 453 T 81 QTc 455 Conclusion SINUS RHYTHM WITH FIRST DEGREE AV BLOCK POSSIBLE LEFT ATRIAL ENLARGEMENT [-0.1mV P-WAVE IN V1/V2] INTRAVENTRICULAR CONDUCTION DELAY [130+ ms QRS DURATION] POSSIBLE ANTERIOR MYOCARDIAL INFARCTION , OF INDETERMINATE AGE [30 ms Q WAVE IN V3/V4, OR R < 0.2 mV IN V4] ABNORMAL ECG Electronically signed by : HARVEY ESTRELLA, 04/13/2024 07:48:07
[2024-04-13 03:39] LABS: Bacteria,Urine 1+ /lpf; WBC,Urine 20-50 #/hpf (0-3)
[2024-04-13] MEDS: ALBUTEROL 0.083% 2.5 MG/3 ML NEB 5 MG IH (03:39)
[2024-04-13 04:00] LABS: ABG Base Excess -3.5 mmol/L (-2.4-2.3); ABG HCO3 22.4 mmhg (22.0-26.0); ABG Oxygen Saturation 98 % (90-100); ABG PCO2 43.6 mmhg (35.0-45.0); ABG PH 7.33 mmol/L (7.35-7.45); ABG PO2 125.9 mmhg (80-100); ABG TCO2 23.8 mmhg (23-27)
[2024-04-13 04:01] LABS: Allen's Test Patient Unable; Oxygen 100 %; PEEP 5; Source Left Radial; Tidal Volume 420; Vent Rate 18
--- NOTE | 2024-04-13 04:43 | XR_ITS ---
PROCEDURE INFORMATION: Exam: XR Abdomen Exam date and time: 04/13/2024 4:45 AM Age: 63 years old Clinical indication: Other: Og tube placement TECHNIQUE: Imaging protocol: Radiologic exam of the abdomen. Views: Frontal supine view of the abdomen. 1 View. COMPARISON: CT ABDOMEN PELVIS W CON 04/13/2024 3:10 AM FINDINGS: Tubes, catheters and devices: The NG tube overlies the distal esophagus, advancement recommended. Gastrointestinal tract: Normal. No bowel dilation. Bones/joints: Unremarkable. IMPRESSION: The NG tube overlies the distal esophagus, advancement recommended.
--- NOTE | 2024-04-13 05:06 | ED_ITS ---
Discharge Plan Disposition Patient Disposition: Admitted Condition: Critical Chief Complaint: Shortness of Breath/Dyspnea Clinical Impressions Clinical Impression: Pulmonary edema, Pleural effusion, Sepsis, Acute hypoxic respiratory failure, Hyperkalemia, UTI (urinary tract infection) Discharge ED Provider: Tyler Chavez General Chief Complaint: Shortness of Breath/Dyspnea Stated Complaint: SOA Time Seen by Provider: 04/13/24 02:15 Mode of Arrival: EMS Source of Information: EMS Limitations: Altered Mental Status Description of Symptoms (Recalled from ER Triage Doc. by RN): Pt to ED via [facility] with inital c/o SOA. EMS reports pt was seen here 1 week ago for fluid overload. Upon arrival pt is only responsive to pain, pupils dilated, in respiratory distress with gurgling respirations. see note History of Present Illness HPI narrative: 63-year-old female with history of alpha 1 antitrypsin, COPD, hypertension, hyperlipidemia, reported recent diagnosis of fluid overload presents to the ER with concerns of shortness of breath. EMS reports patient has been on a steady decline and family called for shortness of breath and significant difficulty breathing. EMS reports they found the patient saturating in the 70s despite being on home nasal cannula. They were not able to significantly improve her oxygenation with nonrebreather. Patient declined from answering questions at home due to not being able to communicate or interact by the time they arrived in the ER. Related Data Home Medications ?Medication ?Instructions ?Recorded ?Confirmed lamotrigine 100 mg tablet 100 mg PO BID 09/26/23 02/15/24 pravastatin 20 mg tablet 20 mg PO DAILY 09/26/23 02/15/24 sertraline 100 mg tablet 100 mg PO DAILY 09/26/23 02/15/24 levothyroxine 25 mcg tablet 25 mcg PO DAILY 11/07/23 02/15/24 Previous Rx's ?Medication ?Instructions ?Recorded albuterol sulfate 90 mcg/actuation 2 inh inhalation QID PRN shortness 12/11/23 aerosol inhaler of breath or wheezing 90 days #8.5 grams alpha-1 proteinase inhib.(hum) 3,524 mg (70.48 mL) IV WEEKLY 12 12/11/23 1,000 mg (+/-)/20 mL IV solution months (Prolastin-C) ipratropium 0.5 mg-albuterol 3 mg 3 ml inhalation QID PRN shortness 05/14/24 (2.5 mg base)/3 mL nebulization of breath or wheezing 90 days #270 soln mL fluticasone fur. 100 mcg-umeclid 1 inh inhalation DAILY 90 days #90 01/01/24 62.5 mcg-vilant 25 mcg ea inhalat.powder (Trelegy Ellipta) Allergies Allergy/AdvReac Type Severity Reaction Status Date / Time No Known Allergies Allergy Verified 04/09/24 10:42 [facility] Disclaimer: The information contained in this section may have been updated after the patient was seen, as this information can be updated by other users. Medical History Pulmonary emphysema Recurrent pneumonia Bronchiectasis AAT ([id number]) deficiency COPD mixed type UTI (urinary tract infection) Pneumonia CKD (chronic kidney disease) Cirrhosis Hemochromatosis Seizure COPD (chronic obstructive pulmonary disease) Surgical History Hx of cataract surgery History of neck surgery Hx of tubal ligation History of brain surgery right frontal lobe Family History Other Diabetes Social History Smoking Status: Unknown if ever smoked alcohol intake: never substance use type: denies use current occupational status: disabled Travel in the last 8 weeks: None caregiver/support person: Yes ROS Obtained: Yes unobtainable due to mental status Physical Exam General General appearance: alert and in no apparent distress Head Head exam: atraumatic and normocephalic Eye Eye exam: Present PERRL and EOMI ENT ENT exam: Present mucous membranes moist Neck Neck exam: Present normal inspection and full ROM Chest Chest inspection: Present symmetric chest wall rise Respiratory Respiratory exam: Present respiratory distress, accessory muscle use and other (Patient in severe respiratory distress with dense rhonchi and rales throughout, accessory muscle use, clearly experiencing respiratory fatigue, only saturating in the low 80s on nonrebreather) Cardiovascular Cardiovascular exam: Present normal rhythm and tachycardia Abdominal Exam Abdominal exam: Present soft; Absent distention, tenderness, guarding or rebound Extremities Exam Extremities exam: Present full ROM, edema (2+ pitting edema in bilateral lower extremities) and other (Ecchymosis with healing abrasion on right knee, no other traumatic findings) Neurological Exam Neurological exam: Absent motor sensory deficit (No localizing deficits, responds equally to pain in all extremities) Expanded Neurological Exam Coma scale eye opening: Spontaneous Coma scale motor response: Abnormal flexion Coma scale verbal response: None Coma scale total: 8 Psychiatric Psychiatric exam: Present normal affect and normal mood Skin Skin exam: Present warm and dry HEART Score HEART Score HEART Score assessment performed?: Yes History (anamnesis): Moderately suspicious ECG: Non-specific disturbance Age: 45-65 years Risk factors: 1-2 risk factors Troponin: </= normal limit HEART Score: 4 Procedures Intubation Mallampati Score:: Class II sedative: Etomidate Mg Given: 20 paralytic: Rocuronium Mg Given: 70 Laryngoscope: Bekah (3) Assist Device Used: other (Video-assisted) ET Tube Size: 7.5 ET Tube Uncuffed: Yes Tube Secured Depth (cm): 22 Tube Secured Location: teeth Tube Placement Confirmation: visualized tube passing through cords Patient Tolerated Procedure: well and no complications Intubation Complications: none Critical Care Critical Care Time Critical Care Time: Yes Attestation: On 04/13/24, the high probability of a clinically significant, sudden or life threatening deterioration of the following system(s) required my full and direct attention, intervention and personal management. The time I documented below is in addition to time spent performing reported procedures but includes the following listed in this critical care notation. Total Time Total Critical Care Time: 80 Medical Decision Making Medical Records Medical records reviewed: Yes I reviewed the patient's medical records. MR Comment: Patient evaluated for encephalopathy 4 days ago in the ED with unremarkable workup. Patient follows with pulmonology, review of most recent progress note from pulmonology demonstrates patient has a family history of hemochromatosis and alpha 1 antitrypsin deficiency, patient to start alpha 1 antitrypsin infusions at that time. Patient does have findings of pulmonary nodule. Sridhar Inquiry Pt receiving controlled substance: No Vital Signs Vital Signs: 04/13/24 02:09 04/13/24 02:14 04/13/24 02:15 Temperature 100.5 F H Temperature Source Rectal Pulse Rate 74 80 Pulse Rate [Apical] 74 Respiratory Rate 24 Blood Pressure Blood Pressure [Right Arm] 171/134 H Blood Pressure Mean Blood Pressure Mean [Right Arm] 146 Blood Pressure Source [Right Arm] Automatic Cuff Blood Pressure Position [Right Arm] Supine 02 Sat by Pulse Oximetry 89 L 83 L 87 L Oxygen Delivery Method Non-Rebreather Non-Rebreather Non-Rebreather 04/13/24 02:15 04/13/24 02:18 04/13/24 02:19 Temperature Temperature Source Pulse Rate 81 Pulse Rate [Apical] Respiratory Rate Blood Pressure 171/134 H 143/123 H Blood Pressure [Right Arm] Blood Pressure Mean 147 129 Blood Pressure Mean [Right Arm] Blood Pressure Source [Right Arm] Blood Pressure Position [Right Arm] 02 Sat by Pulse Oximetry 99 Oxygen Delivery Method Ambu-Bag Ambu-Bag 04/13/24 02:23 04/13/24 02:23 04/13/24 02:29 Temperature Temperature Source Pulse Rate 81 85 Pulse Rate [Apical] Respiratory Rate Blood Pressure 138/117 H Blood Pressure [Right Arm] Blood Pressure Mean 122 Blood Pressure Mean [Right Arm] Blood Pressure Source [Right Arm] Blood Pressure Position [Right Arm] 02 Sat by Pulse Oximetry 100 100 Oxygen Delivery Method Mechanical Ventilation 04/13/24 02:29 04/13/24 02:31 04/13/24 02:40 Temperature Temperature Source Pulse Rate 71 89 Pulse Rate [Apical] Respiratory Rate 18 Blood Pressure 120/97 H Blood Pressure [Right Arm] Blood Pressure Mean 104 Blood Pressure Mean [Right Arm] Blood Pressure Source [Right Arm] Blood Pressure Position [Right Arm] 02 Sat by Pulse Oximetry 100 100 Oxygen Delivery Method 04/13/24 02:40 04/13/24 02:43 04/13/24 02:44 Temperature Temperature Source Pulse Rate 52 L Pulse Rate [Apical] Respiratory Rate 18 18 Blood Pressure 126/90 Blood Pressure [Right Arm] Blood Pressure Mean 105 Blood Pressure Mean [Right Arm] Blood Pressure Source [Right Arm] Blood Pressure Position [Right Arm] 02 Sat by Pulse Oximetry 100 100 Oxygen Delivery Method 04/13/24 02:44 04/13/24 02:45 04/13/24 03:20 Temperature Temperature Source Pulse Rate 89 94 H Pulse Rate [Apical] Respiratory Rate 18 27 H Blood Pressure 145/88 H Blood Pressure [Right Arm] Blood Pressure Mean 103 Blood Pressure Mean [Right Arm] Blood Pressure Source [Right Arm] Blood Pressure Position [Right Arm] 02 Sat by Pulse Oximetry 100 98 Oxygen Delivery Method 04/13/24 03:21 04/13/24 03:21 04/13/24 03:30 Temperature Temperature Source Pulse Rate 68 82 Pulse Rate [Apical] Respiratory Rate 22 17 Blood Pressure 141/72 H Blood Pressure [Right Arm] Blood Pressure Mean 110 Blood Pressure Mean [Right Arm] Blood Pressure Source [Right Arm] Blood Pressure Position [Right Arm] 02 Sat by Pulse Oximetry 94 L 91 L Oxygen Delivery Method 04/13/24 03:30 04/13/24 03:36 04/13/24 03:36 Temperature Temperature Source Pulse Rate 64 67 Pulse Rate [Apical] Respiratory Rate Blood Pressure 141/76 H Blood Pressure [Right Arm] Blood Pressure Mean 97 Blood Pressure Mean [Right Arm] Blood Pressure Source [Right Arm] Blood Pressure Position [Right Arm] 02 Sat by Pulse Oximetry Oxygen Delivery Method 04/13/24 03:45 04/13/24 03:46 04/13/24 03:46 Temperature Temperature Source Pulse Rate 51 L 53 L Pulse Rate [Apical] Respiratory Rate 18 18 Blood Pressure 84/46 L Blood Pressure [Right Arm] Blood Pressure Mean 58 Blood Pressure Mean [Right Arm] Blood Pressure Source [Right Arm] Blood Pressure Position [Right Arm] 02 Sat by Pulse Oximetry 100 100 Oxygen Delivery Method 04/13/24 03:47 04/13/24 03:47 04/13/24 03:49 Temperature Temperature Source Pulse Rate 50 L Pulse Rate [Apical] Respiratory Rate 18 Blood Pressure 87/47 L 84/42 L Blood Pressure [Right Arm] Blood Pressure Mean 56 52 Blood Pressure Mean [Right Arm] Blood Pressure Source [Right Arm] Blood Pressure Position [Right Arm] 02 Sat by Pulse Oximetry 100 Oxygen Delivery Method 04/13/24 03:49 04/13/24 03:50 04/13/24 03:50 Temperature Temperature Source Pulse Rate 50 L 49 L Pulse Rate [Apical] Respiratory Rate 18 18 Blood Pressure 82/40 L Blood Pressure [Right Arm] Blood Pressure Mean 50 Blood Pressure Mean [Right Arm] Blood Pressure Source [Right Arm] Blood Pressure Position [Right Arm] 02 Sat by Pulse Oximetry 100 100 Oxygen Delivery Method 04/13/24 03:53 04/13/24 03:53 04/13/24 03:54 Temperature Temperature Source Pulse Rate 55 L 55 L Pulse Rate [Apical] Respiratory Rate 20 21 Blood Pressure 81/38 L Blood Pressure [Right Arm] Blood Pressure Mean 48 Blood Pressure Mean [Right Arm] Blood Pressure Source [Right Arm] Blood Pressure Position [Right Arm] 02 Sat by Pulse Oximetry 100 100 Oxygen Delivery Method 04/13/24 03:54 04/13/24 03:56 04/13/24 03:56 Temperature Temperature Source Pulse Rate 55 L Pulse Rate [Apical] Respiratory Rate 21 Blood Pressure 81/39 L 67/51 L Blood Pressure [Right Arm] Blood Pressure Mean 46 54 Blood Pressure Mean [Right Arm] Blood Pressure Source [Right Arm] Blood Pressure Position [Right Arm] 02 Sat by Pulse Oximetry 100 Oxygen Delivery Method 04/13/24 03:58 04/13/24 03:58 04/13/24 04:00 Temperature Temperature Source Pulse Rate 55 L Pulse Rate [Apical] Respiratory Rate 21 21 Blood Pressure 82/41 L Blood Pressure [Right Arm] Blood Pressure Mean 51 Blood Pressure Mean [Right Arm] Blood Pressure Source [Right Arm] Blood Pressure Position [Right Arm] 02 Sat by Pulse Oximetry 100 Oxygen Delivery Method 04/13/24 04:00 04/13/24 04:02 04/13/24 04:05 Temperature Temperature Source Pulse Rate 58 L 62 Pulse Rate [Apical] Respiratory Rate 20 24 Blood Pressure 80/42 L 77/45 L 93/46 L Blood Pressure [Right Arm] Blood Pressure Mean 50 Blood Pressure Mean [Right Arm] Blood Pressure Source [Right Arm] Blood Pressure Position [Right Arm] 02 Sat by Pulse Oximetry 99 99 Oxygen Delivery Method 04/13/24 04:08 04/13/24 04:10 04/13/24 04:15 Temperature Temperature Source Pulse Rate 64 64 Pulse Rate [Apical] Respiratory Rate 23 23 28 H Blood Pressure 91/45 L 100/54 L Blood Pressure [Right Arm] Blood Pressure Mean Blood Pressure Mean [Right Arm] Blood Pressure Source [Right Arm] Blood Pressure Position [Right Arm] 02 Sat by Pulse Oximetry 98 92 L 98 Oxygen Delivery Method 04/13/24 04:20 04/13/24 04:29 04/13/24 04:30 Temperature Temperature Source Pulse Rate 62 Pulse Rate [Apical] Respiratory Rate 23 23 24 Blood Pressure 97/55 L 93/53 L 95/53 L Blood Pressure [Right Arm] Blood Pressure Mean Blood Pressure Mean [Right Arm] Blood Pressure Source [Right Arm] Blood Pressure Position [Right Arm] 02 Sat by Pulse Oximetry 98 Oxygen Delivery Method 04/13/24 04:36 Temperature Temperature Source Pulse Rate Pulse Rate [Apical] Respiratory Rate 18 Blood Pressure 85/68 L Blood Pressure [Right Arm] Blood Pressure Mean Blood Pressure Mean [Right Arm] Blood Pressure Source [Right Arm] Blood Pressure Position [Right Arm] 02 Sat by Pulse Oximetry Oxygen Delivery Method Lab Data Labs: Lab Results 04/13/24 02:10: WBC 14.2 H, RBC 4.31, Hgb 10.0 L, Hct 35.7 L, MCV 82.8, MCH 23.2 L, MCHC 28.0 L, RDW 21.6 H, Plt Count 180 D, MPV 9.3, Neut % (Auto) 68.8, Lymph % (Auto) 24.3, [place] % (Auto) 4.4, Eos % (Auto) 1.6, Baso % (Auto) 0.9, Neut # (Auto) 9.8 H, Lymph # (Auto) 3.4, [place] # (Auto) 0.6, Eos # (Auto) 0.2, Baso # (Auto) 0.1, PT 13.7 H, INR 1.25 H, Sodium 137, Potassium 5.8 H, Chloride 107, C arbon Dioxide 21 L, Anion Gap 14.8, BUN 21 H, Creatinine 1.10 H, Estimated GFR 50 L, Est GFR ( Amer) 61, Glucose 154 H, Calcium 8.4, Total Bilirubin 1.3, AST 81 H, ALT 44, Alkaline Phosphatase 211 H, Troponin I 0.06 H, NT-Pro-B Natriuret Pep 4580 H, Total Protein 7.8, Albumin 3.4 L, Globulin 4.4 H, A lbumin/Globulin Ratio 0.8 L 04/13/24 02:31: Urine Color Yellow, Urine Appearance Clear, Urine pH 6.0, Ur Specific [place] >= 1.030, Urine Protein 2+ A, Urine Glucose (UA) Negative, Urine Ketones Negative, Urine Blood Negative, Urine Nitrate Negative, Urine Bilirubin Negative, Urine Urobilinogen 1.0, Ur Leukocyte Esterase 1+ A, Urine RBC None, Urine WBC 20-50, Ur Squamous Epith Cells 5-10, Urine Bacteria 1+ 04/13/24 02:48: SARS-CoV-2 (PCR) Not detected, Influenza A Untype (PCR) Not detected, Influenza Type B (PCR) Not detected 04/13/24 02:52: Specimen Source Left radial, O2 % 100, ABG pH 7.24 L*, ABG pCO2 46.8 H, ABG pO2 129.4 H, ABG HCO3 19.5 L, ABG Total CO2 20.9 L, ABG O2 Saturation 98, ABG Base Excess -8.0 L, Ollie Test Patient unable, ABG Lactate 3.3 H, Vent Rate 18, Tidal Volume 420, PEEP 5 04/13/24 03:58: Specimen Source Left radial, O2 % 100, ABG pH 7.33 L, ABG pCO2 43.6, ABG pO2 125.9 H, ABG HCO3 22.4, ABG Total CO2 23.8, ABG O2 Saturation 98, ABG Base Excess -3.5 L, Ollie Test Patient unable, Vent Rate 18, Tidal Volume 420, PEEP 5 04/13/24 04:00: Potassium 6.0 H 04/13/24 02:10 04/13/24 04:00 Response Orders (Tests/Meds): ED MEDICATIONS Generic Name Dose Route Start Last Admin Trade Name Aaron PRN Reason Stop Dose Admin Propofol 100 mls @ 1.905 mls/hr 04/13/24 03:15 04/13/24 02:30 Diprivan 10mg/Ml 100ml Bottle IV 05/13/24 03:14 5 mcg/kg/min .Q24H SUDHA 1.91 mls/hr Administration Protocol 5 MCG/KG/MIN Midazolam/Sodium Chloride 50 mg in 50 mls @ 1.27 mls/hr 04/13/24 03:45 Midazolam 50 Mg/50 Ml-0.9%Nacl IV 05/13/24 03:44 .Q24H SUDHA Protocol 0.02 MG/KG/HR Midazolam/Sodium Chloride 50 mg in 50 mls @ 1.27 mls/hr 04/13/24 03:45 04/13/24 03:39 Midazolam 50 Mg/50 Ml-0.9%Nacl IV 05/13/24 03:44 Not Given .Q24H SUDHA Protocol 0.02 MG/KG/HR Vancomycin HCl 1,000 mg/ 250 mls @ 125 mls/hr 04/13/24 05:00 Sodium Chloride IV 04/13/24 06:59 ONCE ONE Miscellaneous 1 each 04/13/24 05:00 Vancomycin Consult Request NOTAPPLIC 05/13/24 04:59 CONSULT PHARMACY [facility] Sodium Chloride 10 ml 04/13/24 03:18 04/13/24 03:20 Sodium Chloride 0.9% 10ml Syr (Rad Only) IV 05/13/24 03:17 10 ml NEEDED PRN Administration Maintain IV Site Sodium Chloride 3 ml 04/13/24 03:31 Sodium Chloride 3% 15ml [facility] 05/13/24 03:30 ONCE PRN INDUCE SPUTUM COLLECTION Sodium Polystyrene Sulfonate 15 gm 04/13/24 05:06 Sodium Poly Sulfon 15gm/60ml Oral.Susp PO 04/13/24 05:07 ONCE ONE Discontinued Medications Generic Name Dose Route Start Last Admin Trade Name Freq PRN Reason Stop Dose Admin Albuterol Sulfate 5 mg 04/13/24 03:17 04/13/24 03:39 Albuterol 0.083% 2.5 Mg/3 Ml [facility] 04/13/24 03:18 5 mg ONCE ONE Administration Aspirin 300 mg 04/13/24 02:25 04/13/24 03:21 Aspirin 300mg Suppository RC 04/13/24 02:26 300 mg ONCE ONE Administration Calcium Chloride 1 gm 04/13/24 02:16 04/13/24 02:16 Calcium Chloride 1gm/10ml Syringe (Crash Cart) IVP 04/13/24 02:17 1 gm ONCE ONE Administration Etomidate 20 mg 04/13/24 02:22 04/13/24 02:22 Etomidate 40mg/20ml Vial IV 04/13/24 02:23 20 mg ONCE ONE Administration Furosemide 80 mg 04/13/24 02:25 04/13/24 02:29 Furosemide 40mg/4ml Vial IV 04/13/24 02:26 80 mg ONCE ONE Administration Piperacillin Sod/Tazobactam 100 mls @ 200 mls/hr 04/13/24 02:40 04/13/24 03:35 Sod 4.5 gm/ Sodium Chloride IV 04/13/24 03:09 200 mls/hr Q6HP ONE Administration Calcium Chloride 1 gm/ Sodium 110 mls @ 55 mls/hr 04/13/24 02:16 04/13/24 03:04 Chloride IV 04/13/24 02:17 Not Given ONCE ONE Iopamidol 70 ml 04/13/24 03:18 04/13/24 03:20 Iopamidol-370 (76%);100ml Bottle IV 04/13/24 03:19 70 ml ONCE ONE Administration Rocuronium [place] 70 mg 04/13/24 02:22 04/13/24 02:22 Rocuronium [place] 50mg/5ml Vial IV 04/13/24 02:23 70 mg ONCE ONE Administration Sodium Chloride 50 ml 04/13/24 03:18 04/13/24 03:20 0.9 % Sodium Chloride 50 Ml Vial IV 04/13/24 03:19 50 ml ONCE ONE Administration ORDERS Category Date Time Status CT abdomen pelvis w con Stat Cat Scan 04/13/24 02:[address] head/brain wo con Stat Cat Scan 04/13/24 02:25 Completed CTA Chest [CT angio chest PE protocol] Stat Cat Scan 04/13/24 02:25 Completed POCUS Point of Care (ER Only) Stat Exams 04/13/24 02:11 Completed XR chest portable Stat Exams 04/13/24 02:25 Completed Complete Blood Count Auto Diff Stat Lab 04/13/24 02:10 Completed Comprehensive Metabolic Panel Stat Lab 04/13/24 02:10 Completed NT Pro Brain Natriuretic Pep. Stat Lab 04/13/24 02:10 Completed POC Glucose,Bedside Stat Lab 04/13/24 03:16 Ordered Potassium Stat Lab 04/13/24 04:00 Completed Prothrombin Time INR Stat Lab 04/13/24 02:10 Completed Rapid PCR Covid and Flu A/B Stat Lab 04/13/24 02:48 Completed Troponin I Q3H Lab 04/13/24 02:10 Completed Troponin I Q3H Lab 04/13/24 05:30 Ordered Troponin I Q3H Lab 04/13/24 08:30 Ordered Urinalysis and Microscopic Stat Lab 04/13/24 02:31 Completed Blood Culture Stat Micro 04/13/24 02:50 Received Sputum Culture & Gram Stain Stat Micro 04/13/24 02:35 Received Urine Culture Stat Micro 04/13/24 02:31 Received ABG [Arterial Blood Gas] Stat RT 04/13/24 03:58 Completed Arterial Blood Gas Stat RT 04/13/24 02:52 Completed Arterial Blood Gas Stat RT 04/13/24 02:59 Ordered Lactate Arterial Stat RT 04/13/24 02:52 Completed VBG [Venous Blood Gas] Stat RT 04/13/24 02:25 Ordered MDM Narrative Medical Decision Narrative: In summary, 63-year-old female with multiple chronic medical conditions including alpha-1 antitrypsin, hyperlipidemia, hypertension, recent fluid overload all of which are comorbidities of current condition and increase her overall morbidity as well as the mount of data to be reviewed presents to the ER for complaints of shortness of breath. On initial evaluation patient is clearly in respiratory distress with a depressed GCS, tachycardic, but not hypotensive. Patient did not have any localizing deficits on exam. Patient's rhythm on the monitor was a wide-complex tachycardia, with fluid overload and concerns of possible kidney dysfunction that could have caused hyperkalemia administered calcium gluconate for membrane stabilization. She required immediate intubation for airway protection. Patient was bagged to improve oxygen saturation and was intubated with etomidate, rocuronium. See procedure note for details. Immediately upon intubation patient had pink, frothy sputum through the ET tube. This has been consistently suctioned. Chest x-ray after intubation personally interpreted demonstrated ET tube slightly high, it was advanced for better positioning. Patient also had obvious findings of pulmonary edema on that x- ray. See radiology read for final interpretation. [id number] bedside ultrasound demonstrated grossly decreased ejection fraction and poor septal squeeze. See procedure note for details. I also ordered immediate dose of IV Lasix to help with fluid management. Differential diagnosis includes but is not limited to sepsis since patient is febrile, tachycardic, hypoxic, fluid overload, CHF exacerbation, pneumonia, urinary tract infection, intracranial bleed, electrolyte abnormality, kidney dysfunction, viral syndrome. Appropriate labs and imaging were ordered to assess for these problems. Multiple ECGs were performed on this patient. Initial ECG demonstrated sinus tachycardia with occasional ectopic beats, right 105, normal MI and QTc, patient does have worsening left bundle branch block compared to previous ECG but no STEMI. Initial troponin 0.06, similar to previous. BNP over 4000. With these findings, I consulted Dr. Dawson with cardiology and discussed her ECG changes, fluid overload. He agreed with patient receiving IV Lasix and recommended she continue to receive this inpatient if she has good response, no other cardiac intervention at this time. Labs were notable for new leukocytosis with WBC 14.2, up from 7.94 days ago, patient has anemia improved from prior, ABG with pH 7.23, lactic 3.3, no hypercarbia. CMP notable for very mild RIC, patient will not tolerate fluids at this time, creatinine is likely slightly elevated due to poor cardiac function. Patient did have mild hyperkalemia with potassium 5.8, she is receiving albuterol and Lasix for management at this time. UA with findings concerning for infection WBC 20-50, 1+ bacteria, nitrate negative. Patient has already been covered with vancomycin and Zosyn, viral swab negative. Patient had episodes of hypotension from sedation but once the sedation was turned off she recovered. Versed drip was ordered to attempt different sedation on propofol to mitigate this problem. Family like patient to be full code. They are grateful patient is more stable than when they saw her leaving the house despite her being on a ventilator. CT imaging personally interpreted does not demonstrate acute intracranial abnormality. See radiology read for final interpretation. CT chest, abdomen, pelvis are notable for pulmonary edema and pleural effusions as well as mild free fluid in the pelvis likely related to her overload. She did not have an acute abdomen on exam on arrival. See reads for full interpretations. Patient did have a rhythm change and on repeat ECG had an unclear rhythm that I believed to be a junctional rhythm briefly with rate 85, no STEMI, QRS widening had improved. Further repeat ECG performed shortly thereafter demonstrate patient had converted to a sinus rhythm with first-degree AV block, normal axis, rate 61, no STEMI. This ECG appears more normal than any of her previous ECGs tonight. Patient requires admission for continued ICU level care and management of her multiple ongoing problems. I discussed this case with the hospitalist including lab abnormalities, EKG changes, cardiology recommendations, treatments in the ER so far. Patient was accepted for admission. Patient's potassium is not significantly improved on recheck. I discussed this with the hospitalist since patient was still in the ED when this resulted. After discussion because we do not want to fluid overload the patient and she will require dextrose containing fluids if she receives insulin, since she is only mildly hyperkalemic he recommended Kayexalate which I believe is reasonable. This was ordered. Patient was admitted to the hospital in critical condition.
--- NOTE | 2024-04-13 05:10 | PC.NURSE ---
[id number] FSBS 139
--- NOTE | 2024-04-13 05:29 | PC.NURSE ---
Patient arrived to floor via stretcher from ED at 05:26.
--- NOTE | 2024-04-13 05:41 | XR_ITS ---
PROCEDURE INFORMATION: Exam: XR Abdomen Exam date and time: 04/13/2024 6:03 AM Age: 63 years old Clinical indication: Other: Og placement TECHNIQUE: Imaging protocol: Radiologic exam of the abdomen. Views: Frontal supine view of the abdomen. 1 View. COMPARISON: CR XR KUB 04/13/2024 4:45 AM FINDINGS: Tubes, catheters and devices: The NG tube is in the stomach. Gastrointestinal tract: Moderate retained stool seen throughout the colon. Bones/joints: Unremarkable. IMPRESSION: The NG tube is in the stomach. Moderate retained stool seen throughout the colon.
[2024-04-13] MEDS: NOREPINEPHRINE BITARTRATE/D5W 8 MG/250 ML PLAST..BAG 15 MG IV (06:10)
[2024-04-13] MEDS: VANCOMYCIN HCL 1,000 MG in 0.9 % SODIUM CHLORIDE 250 ML 125 MG IV (06:19)
[2024-04-13] MEDS: VANCOMYCIN CONSULT REQUEST 1 EACH NOTAPPLIC (06:26)
[2024-04-13 06:49] LABS: ABG HCO3 22.6 mmhg (22.0-26.0); ABG Oxygen Saturation 97 % (90-100); ABG PCO2 36.5 mmhg (35.0-45.0); ABG PH 7.41 mmol/L (7.35-7.45); ABG PO2 92.3 mmhg (80-100); ABG TCO2 23.7 mmhg (23-27)
[2024-04-13 06:53] LABS: Oxygen 80% %; Tidal Volume 420; Vent Rate 18
[2024-04-13 06:54] LABS: Allen's Test Acceptable; PEEP 5; Source Right Radial
[2024-04-13] MEDS: MIDAZOLAM HCL IN 0.9 % NACL/PF 50 MG/50 ML PLAST..BAG IV (06:55)
[2024-04-13 07:26] LABS: Basophils # 0.1 K/mm3 (0-0.2); Basophils % 0.4 % (0.1-2.0); Eosinophils # 0.1 K/mm3 (0.0-0.4); Eosinophils % 0.6 % (0.1-12.0); Hematocrit 33.6 % (37.0-47.0); Hemoglobin 9.8 g/dL (12.2-16.2); Lymphocytes # 0.9 K/mm3 (0.7-4.5); Lymphocytes % 5.7 % (10-50); Mean Corpuscular HGB Conc 29.1 g/dL (31.8-35.4); Mean Corpuscular Hemoglobin 22.8 pg (27.0-31.2); Mean Corpuscular Volume 78.5 fl (81-99); Mean Platelet Volume 8.8 fl (7.4-10.4); Monocytes # 0.7 K/mm3 (0.1-1.0); Monocytes % 4.4 % (1.7-9.3); Neutrophils # 13.7 K/mm3 (1.8-7.8); Platelet Count 119 K/mm3 (142-424); Red Blood Count 4.29 M/mm3 (4.20-5.40); Red Cell Distribution Width 21.7 % (11.5-17.5); White Blood Count 15.3 K/mm3 (4.8-10.8)
[2024-04-13 07:29] LABS: Lactic Acid 1.6 mmol/L (0.7-2.1)
[2024-04-13 07:32] LABS: Alanine Aminotransferase 39 U/L (12-78); Albumin Level 2.6 g/dl (3.5-5.0); Albumin/Globulin Ratio 0.7 (1.1-1.8); Alkaline Phosphatase 177 U/L (38-126); Anion Gap 6.5 mEq/L (5-15); Aspartate Amino Transferase 78 U/L (14-36); Bilirubin, Conjugated 0.1 mg/dL (0.0-0.3); Bilirubin,Direct 0.8 mg/dl (0.0-0.4); Bilirubin,Indirect 0.8 mg/dL (0.0-0.9); Bilirubin,Total 1.6 mg/dl (0.2-1.3); Bilirubin,Unconjugated 0.8 mg/dL (0.0-1.1); Blood Urea Nitrogen 25 mg/dl (7-17); Calcium 8.7 mg/dl (8.4-10.2); Carbon Dioxide 25 mmol/L (22.0-30.0); Chloride 108 mmol/L (98-107); Creatinine Clearance Estimated 57 mL/min (50-200); Estimated Glomerular Filt Rate 56 ml/min (>60); GFR (African American) 68 ML/MIN (>60); Globulin 3.8 g/dL (1.3-3.2); Glucose 122 mg/dl (74-100); Magnesium 1.8 mg/dl (1.6-2.3); Potassium 4.5 mmoL/L (3.5-5.1); Sodium 135 mmol/L (136-145); Total Protein,Serum 6.4 g/dl (6.3-8.2)
[2024-04-13 07:59] LABS: MANUAL DIFFERENTIAL MANUAL DIFFERENTIAL (MANUAL DIFF)
--- NOTE | 2024-04-13 08:07 | P.HP_ITS ---
History of Present Illness *Admission Date: 04/13/24 *Reason for visit:: Respiratory failure, requiring intubation *History of present illness: This patient with multiple medical problems and being O2 dependent at home with hemochromatosis and alpha-1 antitrypsin deficiency who is oxygen dependent at home began to have difficulty breathing and not able to keep O2 saturations above 80% showing some signs of encephalitis with elevated white count and mild increase in creatinine other problems included elevated KCl. Urgency room physician did speak with Dr. Dawson patient was diuresed I believe with 80 of Lasix troponin slightly elevated but is stable patient noted with abnormal EKGs, the patient sees Dr. Valenzuela our new flower shop laborer/designer also Dr. Wallace. Pulmonology. is with the patient he does want her to remain a full code but actually expressed his relief that she was still alive he was unsure if she was can to make it to the hospital. Also gave history that she used to have seizure and had brain surgery done approximately 30 years ago. Primary care doctor is Dr. Huber [facility] Disclaimer: The information contained in this section may have been updated after the patient was seen, as this information can be updated by other users. Medical History Pulmonary emphysema Recurrent pneumonia Bronchiectasis AAT ([id number]) deficiency COPD mixed type UTI (urinary tract infection) Pneumonia CKD (chronic kidney disease) Cirrhosis Hemochromatosis Seizure COPD (chronic obstructive pulmonary disease) Surgical History Hx of cataract surgery History of neck surgery Hx of tubal ligation History of brain surgery Family History Other Diabetes Social History Smoking Status: Unknown if ever smoked alcohol intake: never substance use type: denies use current occupational status: disabled Travel in the last 8 weeks: None caregiver/support person: Yes Review of Systems Review of Systems Review of systems:: unable to obtain Constitutional Constitutional: Reports as per HPI Comments: Patient unresponsive and placed on ventilator Eyes Eyes: Reports as per HPI ENT Ears, Nose, Mouth, and Throat: Reports as per HPI *Cardiovascular Cardiovascular: Reports as per HPI *Respiratory Respiratory: Reports as per HPI Comments: Respiratory failure *Gastrointestinal Gastrointestinal: Reports as per HPI *Genitourinary Genitourinary: Reports as per HPI *Musculoskeletal Musculoskeletal: Reports as per HPI Integumentary/Breasts Skin/Breast: Reports as per HPI *Neurologic Neurologic: Reports as per HPI Psychiatric Psychiatric: Reports as per HPI Endocrine Endocrine: Reports as per HPI Hematologic/Lymphatic Hematologic/Lymphatic: Reports as per HPI Allergic/Immunologic Allergic/Immunologic: Reports as per HPI Meds Home Medications and Allergies Home Medications ?Medication ?Instructions ?Recorded ?Confirmed ?Type lamotrigine 100 mg tablet 100 mg PO BID 09/26/23 04/13/24 History pravastatin 20 mg tablet 20 mg PO DAILY 09/26/23 04/13/24 History levothyroxine 25 mcg tablet 25 mcg PO DAILY 11/07/23 04/13/24 History alpha-1 proteinase inhib.(hum) 3,524 mg (70.48 mL) IV WEEKLY 12 12/11/23 04/13/24 Rx 1,000 mg (+/-)/20 mL IV solution months (Prolastin-C) fluticasone fur. 100 mcg-umeclid 1 inh inhalation DAILY 90 days #90 01/01/24 04/13/24 Rx 62.5 mcg-vilant 25 mcg ea inhalat.powder (Trelegy Ellipta) acetylcysteine 600 mg capsule (NAC) 1,000 mg PO DAILY 04/13/24 04/13/24 History s-adenosylmethionine 400 mg tablet 400 mg PO DAILY 04/13/24 04/13/24 History sertraline 100 mg tablet 100 mg PO DAILY 04/13/24 04/13/24 History spironolactone 50 mg tablet 50 mg PO BID 04/13/24 04/13/24 History New Prescriptions to Start Prescriptions: Allergies Allergy/AdvReac Type Severity Reaction Status Date / Time No Known Allergies Allergy Verified 04/09/24 10:42 Exam Data for Last 24 hours Vital signs and Labs for Last 24 Hours: Temp Pulse Resp BP Pulse Ox O2 Del Method FiO2 97.7 F 48 L 24 96/47 L 100 Mechanical Ventilation 80 04/13/24 06:00 04/13/24 08:00 04/13/24 08:00 04/13/24 08:00 04/13/24 08:00 04/13/24 08:00 04/13/24 08:00 Laboratory Results - last 24 hr 04/13/24 02:10: WBC 14.2 H, RBC 4.31, Hgb 10.0 L, Hct 35.7 L, MCV 82.8, MCH 23.2 L, MCHC 28.0 L, RDW 21.6 H, Plt Count 180 D, MPV 9.3, Neut % (Auto) 68.8, Lymph % (Auto) 24.3, [place] % (Auto) 4.4, Eos % (Auto) 1.6, Baso % (Auto) 0.9, Neut # (Auto) 9.8 H, Lymph # (Auto) 3.4, [place] # (Auto) 0.6, Eos # (Auto) 0.2, Baso # (Auto) 0.1, PT 13.7 H, INR 1.25 H, Sodium 137, Potassium 5.8 H, Chloride 107, Carbon Dioxide 21 L, Anion Gap 14.8, BUN 21 H, Creatinine 1.10 H, Estimated GFR 50 L, Est GFR ( Amer) 61, Glucose 154 H, Calcium 8.4, Total Bilirubin 1.3, AST 81 H, ALT 44, Alkaline Phosphatase 211 H, Troponin I 0.06 H, NT-Pro-B Natriuret Pep 4580 H, Total Protein 7.8, Albumin 3.4 L, Globulin 4.4 H, Albumin/Globulin Ratio 0.8 L 04/13/24 02:31: Urine Color Yellow, Urine Appearance Clear, Urine pH 6.0, Ur Specific [place] >= 1.030, Urine Protein 2+ A, Urine Glucose (UA) Negative, Urine Ketones Negative, Urine Blood Negative, Urine Nitrate Negative, Urine Bilirubin Negative, Urine Urobilinogen 1.0, Ur Leukocyte Esterase 1+ A, Urine RBC None, Urine WBC 20-50, Ur Squamous Epith Cells 5-10, Urine Bacteria 1+ 04/13/24 02:48: SARS-CoV-2 (PCR) Not detected, Influenza A Untype (PCR) Not detected, Influenza Type B (PCR) Not detected 04/13/24 02:52: Specimen Source Left radial, O2 % 100, ABG pH 7.24 L*, ABG pCO2 46.8 H, ABG pO2 129.4 H, ABG HCO3 19.5 L, ABG Total CO2 20.9 L, ABG O2 Saturation 98, ABG Base Excess -8.0 L, Ollie Test Patient unable, ABG Lactate 3.3 H, Vent Rate 18, Tidal Volume 420, PEEP 5 04/13/24 03:58: Specimen Source Left radial, O2 % 100, ABG pH 7.33 L, ABG pCO2 43.6, ABG pO2 125.9 H, ABG HCO3 22.4, ABG Total CO2 23.8, ABG O2 Saturation 98, ABG Base Excess -3.5 L, Ollie Test Patient unable, Vent Rate 18, Tidal Volume 420, PEEP 5 04/13/24 04:00: Potassium 6.0 H 04/13/24 06:00: Specimen Source Right radial, O2 % 80%, ABG pH 7.41, ABG pCO2 36.5, ABG pO2 92.3, ABG HCO3 22.6, ABG Total CO2 23.7, ABG O2 Saturation 97, ABG Base Excess -2.0, Ollie Test Acceptable, Vent Rate 18, Tidal Volume 420, PEEP 5 04/13/24 06:48: WBC 15.3 H, RBC 4.29, Hgb 9.8 L, Hct 33.6 L, MCV 78.5 L, MCH 22.8 L, MCHC 29.1 L, RDW 21.7 H, Plt Count 119 L D, MPV 8.8, Neut % (Auto) 89.0 H, Lymph % (Auto) 5.7 L, [place] % (Auto) 4.4, Eos % (Auto) 0.6, Baso % (Auto) 0.4, Neut # (Auto) 13.7 H, Lymph # (Auto) 0.9, [place] # (Auto) 0.7, Eos # (Auto) 0.1, Baso # (Auto) 0.1, Sodium 135 L, Potassium 4.5 D, Chloride 108 H, Carbon Dioxide 25, Anion Gap 6.5, BUN 25 H, Creatinine 1.00, Estimated Creat Clear 57, Estimated GFR 56 L, Est GFR ( Amer) 68, Glucose 122 H D, Lactate 1.6, Calcium 8.7, Magnesium 1.8, Total Bilirubin 1.6 H, Direct Bilirubin 0.8 H, Conjugated Bilirubin 0.1, Indirect Bilirubin 0.8, Unconjugated Bilirubin 0.8, AST 78 H, ALT 39, Alkaline Phosphatase 177 H, Total Protein 6.4, Albumin 2.6 L D , Globulin 3.8 H, Albumin/Globulin Ratio 0.7 L I & O for Last 24 hours: Intake & Output 04/10/24 04/11/24 04/12/24 04/13/24 23:59 23:59 23:59 23:59 Intake Total 17.48 / 17.48 Output Total 700 / 700 Balance -682.52 / -682.52 Weight 63.503 kg Radiology Reports for the Last 24 Hours: Patient is intubated tube has been confirmed in proper placement Constitutional Constitutional: severe distress, thin and chronically ill appearing Comments: Patient was really nonresponsive on oxygen but low O2 sats in the 70s emergency room physician intubated patient and placed up on ventilator *Routine HEENT Exam Head: Present normocephalic and atraumatic Eye: Present PERRL ENT: Present mucous membranes dry *Routine Neck Exam Neck: Present supple Routine Chest/Breast/Axilla Exam Comments: No signs of trauma found *Routine Respiratory Exam Respiratory: Present patient mechanically ventilated *Routine Cardiovascular Exam Cardiovascular: Present bradycardia Comments: Heart sounds hard to hear with ventilation in place. Patient still has positive pulses with brisk capillary refill *Routine Abdominal Exam Abdominal: Present soft (No signs of tenderness was found patient did not wince when palpated) *Routine Rectal Exam Rectal:: deferred *Routine Genitalia Exam Genitalia:: deferred *Routine Extremities Exam Extremities: Present normal capillary refill Comments: No signs of injury found to upper or lower extremities Routine Back/Spine/Pelvis Exam Comments: Patient on stretcher being intubated musculoskeletal exam limited due to patient's critical condition *Routine Skin Exam Skin: Present intact Comments: Skin is pale but intact I did not find any abnormal bruising *Routine Neurological Exam Neurological: Present altered mental status Comments: Patient has been given medication and is sedated Routine Psychiatric Exam Comments: Unable to assess H&P: Result Impressions 1. Acute respiratory failure: Patient is O2 dependent at home was unable to maintain saturations and has been at the bed 2. Abnormal electrolytes with a KCl of 5.8 3. Several underlying chronic medical problems including deficiency alpha elton trypsin deficiency and hemochromatosis Imaging and Cardiology CT scan - chest: Status: image reviewed by me Additional comments: Bilateral pulmonary infiltrates Assessment and Plan *Assessment and plan (1) Acute hypoxic respiratory failure: Status: Acute Category: Medical Code(s): J96.01 - Acute respiratory failure with hypoxia (2) Pulmonary edema: Status: Acute Category: Medical Code(s): J81.1 - Chronic pulmonary edema (3) Hyperkalemia: Status: Acute Category: Medical Code(s): E87.5 - Hyperkalemia (4) UTI (urinary tract infection): Status: Acute Category: Medical Code(s): N39.0 - Urinary tract infection, site not specified (5) Sepsis: Status: Acute Category: Medical Code(s): A41.9 - Sepsis, unspecified organism (6) Pleural effusion: Status: Acute Category: Medical Code(s): J90 - Pleural effusion, not elsewhere classified (7) Chronic dementia: Status: Acute Category: Medical Code(s): F03.90 - Unspecified dementia, unspecified severity, without behavioral disturbance, psychotic disturbance, mood disturbance, and anxiety (8) Chronic dementia: Status: Acute Category: Medical Code(s): F03.90 - Unspecified dementia, unspecified severity, without behavioral disturbance, psychotic disturbance, mood disturbance, and anxiety (9) Declining functional status: Status: Acute Category: Medical Code(s): R53.81 - Other malaise (10) AAT ([id number]) deficiency: Status: Acute Category: Medical Code(s): E88.01 - Qmhyd-2-jzxwpsloagh deficiency Plan Ms. Tolbert is a 63-year-old female who presented in respiratory failure. Necessitating enervation in the ER. Found to have hemoptysis. Case discussed with ER physician, request admission to ICU for further management of respiratory failure and hemoptysis along with hyperkalemia. Medicine agreed to admit for further management. Pulmonology consulted to assist with vent management. 1. Respiratory failure: Secondary to chronic underlying problems including COPD alpha antitrypsin 1 deficiency hemochromatosis, possible CHF, Not O2 dependent at home. Patient developed pulmonary infiltrates -Intubated for respiratory failure and inability to oxygenate patient. Initiated on empiric antibiotics. Initiated on diuresis. - Pulmonology consulted to assist with care -Per review of chest CT, shows diffuse patchy opacifications as well as effusions bilaterally -White count elevated at 14, BNP elevated at 4500. 2. Abnormal electrolytes with elevated potassium, limited IV access so we will treat with Kayexalate, try to correct acidosis before using insulin replacement. If that is done may need to place deep, line in the future. Also noting a history of elevated liver function test consult put in for Dr. Valenzuela Initially full code, further discussion about CODE STATUS will make patient DNR notes she is intubated. They do not want trauma of chest compressions but do not want to withdraw care at this time either. Will continue with vasopressors and mechanical ventilation. Attempt to wean mechanical ventilation and extubate in the coming days if tolerates. N.p.o. Holding on anticoagulation given hemoptysis Rounded on patient after nurse practitioner. Personally examined and interviewed patient. Agree with exam findings and care plan as documented. See critical care note for further details
[2024-04-13 08:24] LABS: Troponin I 0.11 ng/ml (0.00-0.034)
[2024-04-13] MEDS: FENTANYL CITRATE/PF 1,000 MCG in 0.9 % SODIUM CHLORIDE 80 ML 2.5 MCG IV (09:08)
[2024-04-13] MEDS: SODIUM POLY SULFON 15GM/60ML ORAL.SUSP 15 GM PO (09:42)
--- NOTE | 2024-04-13 09:43 | EXP.PHA.CONS ---
Pharmacy Consult Date: 04/13/24 Time: 09:43 Referring provider: DR. VERNON Reason for Consult:: VANCOMYCIN DOSING Allergies Allergy/AdvReac Type Severity Reaction Status Date / Time No Known Allergies Allergy Verified 04/09/24 10:42 Home Medications ?Medication ?Instructions ?Recorded ?Confirmed ?Type lamotrigine 100 mg tablet 100 mg PO BID 09/26/23 02/15/24 History pravastatin 20 mg tablet 20 mg PO DAILY 09/26/23 02/15/24 History sertraline 100 mg tablet 100 mg PO DAILY 09/26/23 02/15/24 History levothyroxine 25 mcg tablet 25 mcg PO DAILY 11/07/23 02/15/24 History albuterol sulfate 90 mcg/actuation 2 inh inhalation QID PRN shortness 12/11/23 02/15/24 Rx aerosol inhaler of breath or wheezing 90 days #8.5 grams alpha-1 proteinase inhib.(hum) 3,524 mg (70.48 mL) IV WEEKLY 12 12/11/23 02/15/24 Rx 1,000 mg (+/-)/20 mL IV solution months (Prolastin-C) ipratropium 0.5 mg-albuterol 3 mg 3 ml inhalation QID PRN shortness 12/12/23 02/15/24 Rx (2.5 mg base)/3 mL nebulization of breath or wheezing 90 days #270 soln mL fluticasone fur. 100 mcg-umeclid 1 inh inhalation DAILY 90 days #90 01/01/24 02/15/24 Rx 62.5 mcg-vilant 25 mcg ea inhalat.powder (Trelegy Ellipta) New Prescriptions to Start Prescriptions: Height: 1.6 m Weight: 63.503 kg Laboratory Results:: Laboratory Results - last 24 hr 04/13/24 02:10: WBC 14.2 H, RBC 4.31, Hgb 10.0 L, Hct 35.7 L, MCV 82.8, MCH 23.2 L, MCHC 28.0 L, RDW 21.6 H, Plt Count 180 D, MPV 9.3, Neut % (Auto) 68.8, Lymph % (Auto) 24.3, [place] % (Auto) 4.4, Eos % (Auto) 1.6, Baso % (Auto) 0.9, Neut # (Auto) 9.8 H, Lymph # (Auto) 3.4, [place] # (Auto) 0.6, Eos # (Auto) 0.2, Baso # (Auto) 0.1, PT 13.7 H, INR 1.25 H, Sodium 137, Potassium 5.8 H, Chloride 107, Carbon Dioxide 21 L, Anion Gap 14.8, BUN 21 H, Creatinine 1.10 H, Estimated GFR 50 L, Est GFR ( Amer) 61, Glucose 154 H, Calcium 8.4, Total Bilirubin 1.3, AST 81 H, ALT 44, Alkaline Phosphatase 211 H, Troponin I 0.06 H, NT-Pro-B Natriuret Pep 4580 H, Total Protein 7.8, Albumin 3.4 L, Globulin 4.4 H, Albumin/Globulin Ratio 0.8 L 04/13/24 02:31: Urine Color Yellow, Urine Appearance Clear, Urine pH 6.0, Ur Specific [place] >= 1.030, Urine Protein 2+ A, Urine Glucose (UA) Negative, Urine Ketones Negative, Urine Blood Negative, Urine Nitrate Negative, Urine Bilirubin Negative, Urine Urobilinogen 1.0, Ur Leukocyte Esterase 1+ A, Urine RBC None, Urine WBC 20-50, Ur Squamous Epith Cells 5-10, Urine Bacteria 1+ 04/13/24 02:48: SARS-CoV-2 (PCR) Not detected, Influenza A Untype (PCR) Not detected, Influenza Type B (PCR) Not detected 04/13/24 02:52: Specimen Source Left radial, O2 % 100, ABG pH 7.24 L*, ABG pCO2 46.8 H, ABG pO2 129.4 H, ABG HCO3 19.5 L, ABG Total CO2 20.9 L, ABG O2 Saturation 98, ABG Base Excess -8.0 L, Ollie Test Patient unable, ABG Lactate 3.3 H, Vent Rate 18, Tidal Volume 420, PEEP 5 04/13/24 03:58: Specimen Source Left radial, O2 % 100, ABG pH 7.33 L, ABG pCO2 43.6, ABG pO2 125.9 H, ABG HCO3 22.4, ABG Total CO2 23.8, ABG O2 Saturation 98, ABG Base Excess -3.5 L, Ollie Test Patient unable, Vent Rate 18, Tidal Volume 420, PEEP 5 04/13/24 04:00: Potassium 6.0 H 04/13/24 06:00: Specimen Source Right radial, O2 % 80%, ABG pH 7.41, ABG pCO2 36.5, ABG pO2 92.3, ABG HCO3 22.6, ABG Total CO2 23.7, ABG O2 Saturation 97, ABG Base Excess -2.0, Ollie Test Acceptable, Vent Rate 18, Tidal Volume 420, PEEP 5 04/13/24 06:48: WBC 15.3 H, RBC 4.29, Hgb 9.8 L, Hct 33.6 L, MCV 78.5 L, MCH 22.8 L, MCHC 29.1 L, RDW 21.7 H, Plt Count 119 L D, MPV 8.8, Neut % (Auto) 89.0 H, Lymph % (Auto) 5.7 L, [place] % (Auto) 4.4, Eos % (Auto) 0.6, Baso % (Auto) 0.4, Neut # (Auto) 13.7 H, Lymph # (Auto) 0.9, [place] # (Auto) 0.7, Eos # (Auto) 0.1, Baso # (Auto) 0.1, Sodium 135 L, Potassium 4.5 D, Chloride 108 H, Carbon Dioxide 25, Anion Gap 6.5, BUN 25 H, Creatinine 1.00, Estimated Creat Clear 57, Estimated GFR 56 L, Est GFR ( Amer) 68, Glucose 122 H D, Lactate 1.6, Calcium 8.7, Magnesium 1.8, Total Bilirubin 1.6 H, Direct Bilirubin 0.8 H, Conjugated Bilirubin 0.1, Indirect Bilirubin 0.8, Unconjugated Bilirubin 0.8, AST 78 H, ALT 39, Alkaline Phosphatase 177 H, Troponin I 0.11 H, Total Protein 6.4, Albumin 2.6 L D, Globulin 3.8 H, Albumin/Globulin Ratio 0.7 L Medical History: Medical History (Updated 04/13/24 @ 05:41 by Tyler Chavez MD) Pulmonary emphysema Recurrent pneumonia Bronchiectasis AAT (icblu-[id number]) deficiency COPD mixed type UTI (urinary tract infection) Pneumonia CKD (chronic kidney disease) Cirrhosis Hemochromatosis Seizure COPD (chronic obstructive pulmonary disease) Assessment and Plan Assessment and plan all Dx Assessment and Plan for all problems:: Pharmacokinetic dosing service Objective: Patient: Floor: Age: 63 yo Serum creatinine: 1 mg/dL Height: 63.0 Inches Weight (kg): 63.5 Assessment: IBW (kg): 52.40 Dosing wt(kg): 63.5 Estimated Creatinine clearance (ml/min): 47.0 CRCL method: Cockcroft and Gault using ibw(default). Drug selected: Vancomycin Loading dose (mg): 0 Vd (liters): 50.8 (factor used: 0.8 L/kg) Joe (hr-1): 0.043 Half life (hrs): 16.12 Recommended dose: 1250 mg Interval: 24 hrs Infusion time (hrs): 2.0 Predicted peak (mcg/mL): 36.6 Predicted trough (mcg/mL): 14.21 Total body weight is being used for vancomycin dosing. Recommendations: Give Vancomycin 1250 mg q 24 hrs with an expected Cpeak of 36.6 mcg/ml and an expected Ctrough of 14.21 mcg/ml ----Vanco only - ignore for aminoglycosides----- CLvanco= 2.18 L/hr AUC 0-24 /DENISE Data: DENISE 0.5 mcg/mL: AUC/DENISE: 1146.8 DENISE 1.0 mcg/mL: AUC/DENISE: 573.4 --------- DENISE 1.5 mcg/mL: AUC/DENISE: 382.3 DENISE 2.0 mcg/mL: AUC/DENISE: 286.7
--- NOTE | 2024-04-13 10:21 | DIET.NUTRFU ---
TF recommendations when medically feasible to start: Pulmocare at 10ml/hr increasing Q4H as tolerated to reach goal rate of 40ml/hr providing 1440kcal/day, 60gm protein and 753ml formula fluid, flush based on fluid status start at 50ml TID and adjust based on input and output. Also currently on propofol calorie goals may need to be adjusted.
[2024-04-13 10:50] LABS: Hypochromasia 1+; Lymphocytes % 13 % (10-50); Monocytes % 3 % (2-9); Neutrophils % 84 % (42-76); Platelet Estimate Slight Decrease; Total Cells Counted 100
[2024-04-13] MEDS: PIPERCILLIN/TAZO 3.375 GM in 0.9 % SODIUM CHLORIDE 50 ML IV ×3 (11:44→22:32)
[2024-04-13 11:51] LABS: Troponin I 0.09 ng/ml (0.00-0.034)
[2024-04-13 12:03] LABS: POC Glucose,Bedside 134 (70-110)
[2024-04-13 14:53] LABS: Troponin I 0.08 ng/ml (0.00-0.034)
--- NOTE | 2024-04-13 15:10 | PC.WOUNDNOTE ---
Right Knee Left Great Toe Right Hip Right Lower back
[2024-04-13 17:27] LABS: POC Glucose,Bedside 134 (70-110)
--- NOTE | 2024-04-13 17:39 | P.PN_ITS ---
Critical Care Event Note Summary Code activated: No Narrative: This case had a high probability of a clinically significant, sudden, or life threatening deterioration of this patient's condition which required my full and direct attention, intervention and personal management. ICU/Critical care attestation Patient presented with respiratory failure. Was intubated. Continuing with vent settings, PEEP of 8, volume 420, assist-control, FiO2 weaned to 30%. Initiated on propofol and fentanyl for analgosedation. Patient is mildly hypotensive due to sedation. Currently on norepinephrine at 10. Diuresing aggressively. Negative at least 2 L so far today. Will monitor for improvement and wean vent settings as tolerates as she diuresis. Concern for pulmonary edema secondary to possible cirrhosis versus heart failure. Will obtain echo on Monday. Continue empiric broad-spectrum antibiotics with vancomycin 1.25 g daily and Zosyn 3.375 gm every 6 hours. Pending. Will de-escalate antibiotics as tolerated. This patient is critically ill with 35 minutes devoted solely to this patient managing life/organ supporting interventions that required physician assessment. This includes time spent making adjustments in ventilator settings, IV fluid administration, titration of pressors, adjustments of medications, discussion of patient with consultants and other care providers as well as updating patient and/or family (if patient by virtue of his/her condition is unable to pa rticipate in decision making). This does not include time spent performing separately billed procedures. Time is not concurrent with that of other providers. Critical care time: 30 - 74 mins [facility] Critical Care Exam Physical Exam Vital signs: Temp Pulse Resp BP Pulse Ox O2 Del Method FiO2 98.3 F 65 21 97/37 L 98 Mechanical Ventilation 30 04/13/24 17:00 04/13/24 17:00 04/13/24 17:19 04/13/24 17:00 04/13/24 17:19 04/13/24 17:26 04/13/24 17:19 Constitutional Constitutional: Present mild distress, chronically ill appearing and obtunded Routine HEENT Exam Head: Present normocephalic and atraumatic Comments: ETT in place Routine Respiratory Exam Respiratory: Present patient mechanically ventilated, rhonchi, wheezes and crackles Routine Cardiovascular Exam Cardiovascular: Present RRR Routine Abdominal Exam Abdominal: Present soft and normoactive bowel sounds Routine Extremities Exam Extremities: Present edema (3+ to thighs)
--- NOTE | 2024-04-13 17:41 | PC.NURSE ---
pt is currently intubated and lightly sedated with prop @ 8mcg and fentanyl @ 30mcg. pt remains easy to awaken. pt bp remains low even with levophed at 12mcg. pt has required frequent titration of all medications. family states that pt is a light sleeper even at home. pt will/will attempt to sit straight up in the bed. pt heels have been floated all shift, q2h oral care/suctioning attempted by RN and RT. pt tends to bite down on ett and oral care sponge when attempting care. Pt has mittens in place to prevent pt from pulling tube. pt is turned q2h, but will wiggle her body until she is off of the wedge and back in a supine position.
[2024-04-13 17:48] LABS: Troponin I 0.06 ng/ml (0.00-0.034)
[2024-04-13] MEDS: NOREPINEPHRINE BITARTRATE/D5W 8 MG/250 ML PLAST..BAG 22.5 MG IV (18:57)
[2024-04-13] MEDS: SODIUM CHLORIDE 0.9% 10ML VIAL 10 ML IV (21:05)
[2024-04-13] MEDS: PANTOPRAZOLE 40MG VIAL 40 MG IV (21:05)
[2024-04-13 21:14] LABS: Troponin I 0.06 ng/ml (0.00-0.034)
[2024-04-13 22:42] LABS: POC Glucose,Bedside 135 (70-110)
[2024-04-14] VITALS (45 sets, daily range): BP systolic 87–119; BP diastolic 39–58; PULSE 57–88; RESP 18–26; TEMP 36.4–37.7; O2SAT 94–100; BMI 22.6
[2024-04-14 00:04] LABS: Troponin I 0.06 ng/ml (0.00-0.034)
[2024-04-14] MEDS: propofoL 100 ML 9.53 MG IV ×2 (01:02→08:45)
[2024-04-14 02:49] LABS: Troponin I 0.06 ng/ml (0.00-0.034)
[2024-04-14] MEDS: NOREPINEPHRINE BITARTRATE/D5W 8 MG/250 ML PLAST..BAG 26.25 MG IV ×2 (04:06→14:13)
[2024-04-14] MEDS: PIPERCILLIN/TAZO 3.375 GM in 0.9 % SODIUM CHLORIDE 50 ML IV ×4 (05:58→22:31)
--- NOTE | 2024-04-14 06:00 | XR_ITS ---
PROCEDURE INFORMATION: Exam: XR Chest Exam date and time: 04/14/2024 6:08 AM Age: 63 years old Clinical indication: Device placement; Ett placement (vent status); Additional info: Ett/og tube verification TECHNIQUE: Imaging protocol: Radiologic exam of the chest. Views: 1 view. COMPARISON: CT ANGIO CHEST PE PROTOCOL 04/13/2024 3:10 AM FINDINGS: Tubes, catheters and devices: There is an endotracheal tube in place terminating above the pilo. There is an enteric tube in place. The tip extends beyond the field of view. Lungs: There is redemonstration of widespread pulmonary opacities. Pleural spaces: Unchanged left pleural effusion. Heart/Mediastinum: Unremarkable. No cardiomegaly. Bones/joints: Unremarkable. IMPRESSION: 1. There is an endotracheal tube in place terminating above the pilo. 2. There is redemonstration of widespread pulmonary opacities.
--- NOTE | 2024-04-14 06:35 | PC.NURSE ---
Pt remains ventilated. Current vent settings: FIO2 30%, TV 420, PEEP 5, RR 18. Current drip titration: Propofol @ 25 mcg/kg/min, Fentanyl @ 40 mcg/hr, Levo @ 14 mcg/min. Banks in place draining clear yellow urine. Total urine output: 385ml Pt received bed bath during shift. Pt q2 turned and oral care provided. Call light within reach.
[2024-04-14] MEDS: FENTANYL CITRATE/PF 1,000 MCG in 0.9 % SODIUM CHLORIDE 80 ML 4 MCG IV (07:02)
[2024-04-14 07:31] LABS: Lactate Venous 1.8 mmol/L (0.4-2.0); VBG Base Excess 0.7 mmol/L (-2.4-2.3); VBG HCO3 23.9 mmol/L (23-30); VBG Oxygen Saturation 94.8 % (50-70); VBG PCO2 31.7 mmol/L (35-51); VBG PO2 72.3 mmol/L (28-40); VBG Total CO2 24.9 mmol/L (23-27)
[2024-04-14 07:57] LABS: Basophils # 0.1 K/mm3 (0-0.2); Basophils % 0.4 % (0.1-2.0); Eosinophils # 0.1 K/mm3 (0.0-0.4); Eosinophils % 0.7 % (0.1-12.0); Hematocrit 31.3 % (37.0-47.0); Hemoglobin 9.2 g/dL (12.2-16.2); Lymphocytes # 1.7 K/mm3 (0.7-4.5); Lymphocytes % 8.7 % (10-50); Mean Corpuscular HGB Conc 29.6 g/dL (31.8-35.4); Mean Corpuscular Hemoglobin 22.7 pg (27.0-31.2); Mean Corpuscular Volume 76.9 fl (81-99); Mean Platelet Volume 7.7 fl (7.4-10.4); Monocytes # 0.9 K/mm3 (0.1-1.0); Monocytes % 4.5 % (1.7-9.3); Neutrophils # 16.4 K/mm3 (1.8-7.8); Neutrophils % 85.7 % (37.0-80.0); Platelet Count 114 K/mm3 (142-424); Red Blood Count 4.07 M/mm3 (4.20-5.40); Red Cell Distribution Width 21.9 % (11.5-17.5); White Blood Count 19.2 K/mm3 (4.8-10.8)
[2024-04-14 07:58] LABS: Ammonia 40 umol/L (9-30)
[2024-04-14 08:02] LABS: Prothrombin Time 16.1 seconds (10.1-12.5)
[2024-04-14 08:11] LABS: Alanine Aminotransferase 37 U/L (12-78); Albumin Level 2.3 g/dl (3.5-5.0); Albumin/Globulin Ratio 0.7 (1.1-1.8); Alkaline Phosphatase 154 U/L (38-126); Anion Gap 2.6 mEq/L (5-15); Aspartate Amino Transferase 67 U/L (14-36); Blood Urea Nitrogen 26 mg/dl (7-17); Calcium 7.4 mg/dl (8.4-10.2); Carbon Dioxide 30 mmol/L (22.0-30.0); Chloride 106 mmol/L (98-107); Creatinine Clearance Estimated 47 mL/min (50-200); Estimated Glomerular Filt Rate 50 ml/min (>60); GFR (African American) 61 ML/MIN (>60); Globulin 3.5 g/dL (1.3-3.2); Glucose 120 mg/dl (74-100); Magnesium 1.7 mg/dl (1.6-2.3); Potassium 3.6 mmoL/L (3.5-5.1); Sodium 135 mmol/L (136-145); Total Protein,Serum 5.8 g/dl (6.3-8.2)
[2024-04-14 08:12] LABS: MANUAL DIFFERENTIAL MANUAL DIFFERENTIAL (MANUAL DIFF)
[2024-04-14] MEDS: VANCOMYCIN/WATER FOR INJ (PEG) 1.25 GM/250 ML PIGGYBACK IV (08:46)
--- NOTE | 2024-04-14 09:50 | EXP.ACUTE.PN ---
Subjective *Date: 04/14/24 *Time: 16:18 Interval history: No acute respiratory events overnight. Afebrile. Tolerating minimal vent settings. No bowel movement. Having good urine output. -2 L since admission. Sputum growing gram-negative rods. Family at bedside and updated of plan Medical Exam Vital signs and Labs for Last 24 Hours: Vital Signs Temp Pulse Pulse Resp BP Pulse Ox O2 Del Method 04/14/24 08:17 18 98 04/14/24 08:00 61 18 94/42 L 98 Mechanical Ventilation 04/14/24 08:00 99 04/14/24 07:30 60 18 98/45 L 99 Mechanical Ventilation 04/14/24 07:25 59 L 99 Mechanical Ventilation 04/14/24 07:00 59 L 18 109/46 L 98 Mechanical Ventilation 04/14/24 06:43 18 99 04/14/24 06:33 Mechanical Ventilation 04/14/24 06:00 59 L 18 100/45 L 99 Mechanical Ventilation 04/14/24 05:00 59 L 19 104/46 L 100 Mechanical Ventilation 04/14/24 05:00 Mechanical Ventilation 04/14/24 04:00 58 L 04/14/24 04:00 98.5 F 58 L 18 105/43 L 99 Mechanical Ventilation 04/14/24 04:00 58 L 99 Mechanical Ventilation 04/14/24 03:00 58 L 18 104/44 L 100 Mechanical Ventilation 04/14/24 02:58 Mechanical Ventilation 04/14/24 02:51 20 04/14/24 02:00 57 L 18 96/39 L 99 Mechanical Ventilation 04/14/24 01:00 57 L 18 98/41 L 99 Mechanical Ventilation 04/14/24 01:00 Mechanical Ventilation 04/14/24 00:00 57 L 04/14/24 00:00 98.2 F 58 L 18 101/45 L 100 Mechanical Ventilation 04/14/24 00:00 57 L 100 Mechanical Ventilation 04/13/24 23:26 19 04/13/24 23:00 Mechanical Ventilation 04/13/24 23:00 56 L 18 98/42 L 99 Mechanical Ventilation 04/13/24 22:00 55 L 18 98/45 L 99 Mechanical Ventilation 04/13/24 21:00 56 L 18 106/42 L 99 Mechanical Ventilation 04/13/24 21:00 Mechanical Ventilation 04/13/24 20:00 56 L 04/13/24 20:00 56 L 99 Mechanical Ventilation 04/13/24 20:00 98.3 F 56 L 18 97/42 L 99 Mechanical Ventilation 04/13/24 19:45 55 L 18 89/34 L 98 Mechanical Ventilation 04/13/24 19:29 20 04/13/24 19:00 55 L 20 99/39 L 99 Mechanical Ventilation 04/13/24 18:45 Mechanical Ventilation 04/13/24 18:30 62 20 110/43 L 98 Mechanical Ventilation 04/13/24 18:00 75 24 99/35 L 96 Mechanical Ventilation 04/13/24 17:30 63 26 H 117/45 L 97 Mechanical Ventilation 04/13/24 17:26 Mechanical Ventilation 04/13/24 17:19 21 98 04/13/24 17:00 65 21 97/37 L 97 Mechanical Ventilation 04/13/24 17:00 98.3 F 04/13/24 16:28 95 04/13/24 16:27 98.2 F 69 27 H 90/58 L 95 Mechanical Ventilation 04/13/24 16:16 69 97 Mechanical Ventilation 04/13/24 16:00 60 24 100/52 L 96 Mechanical Ventilation 04/13/24 16:00 58 L 04/13/24 15:40 59 L 22 104/38 L 98 Mechanical Ventilation 04/13/24 15:40 Mechanical Ventilation 04/13/24 15:30 56 L 20 99/44 L 98 Mechanical Ventilation 04/13/24 15:00 61 20 108/64 L 97 Mechanical Ventilation 04/13/24 14:44 25 H 97 04/13/24 14:40 62 20 105/38 L 97 Mechanical Ventilation 04/13/24 14:20 58 L 22 103/53 L 97 Mechanical Ventilation 04/13/24 14:10 62 22 106/52 L 96 Mechanical Ventilation 04/13/24 14:00 60 24 81/46 L 98 Mechanical Ventilation 04/13/24 13:30 64 22 107/55 L 96 Mechanical Ventilation 04/13/24 13:00 Mechanical Ventilation 04/13/24 13:00 66 24 101/59 L 96 Mechanical Ventilation 04/13/24 12:50 69 24 113/51 L 97 Mechanical Ventilation 04/13/24 12:41 28 H 96 04/13/24 12:30 58 L 97 Mechanical Ventilation 04/13/24 12:30 59 L 25 H 100/39 L 96 Mechanical Ventilation 04/13/24 12:20 58 L 14 95/47 L 98 Mechanical Ventilation 04/13/24 12:00 60 04/13/24 12:00 96 04/13/24 12:00 56 L 24 89/53 L 99 Mechanical Ventilation 04/13/24 11:30 58 L 19 98/49 L 98 Mechanical Ventilation 04/13/24 11:00 Mechanical Ventilation 04/13/24 11:00 56 L 20 94/44 L 97 Mechanical Ventilation 04/13/24 10:15 50 L 20 98/49 L 96 Mechanical Ventilation 04/13/24 10:00 Mechanical Ventilation 04/13/24 09:51 98 FiO2 04/14/24 08:17 30 04/14/24 08:00 30 04/14/24 08:00 30 04/14/24 07:30 30 04/14/24 07:25 04/14/24 07:00 04/14/24 06:43 30 04/14/24 06:33 04/14/24 06:00 04/14/24 05:00 04/14/24 05:00 04/14/24 04:00 04/14/24 04:00 04/14/24 04:00 04/14/24 03:00 04/14/24 02:58 04/14/24 02:51 04/14/24 02:00 04/14/24 01:00 04/14/24 01:00 04/14/24 00:00 04/14/24 00:00 04/14/24 00:00 04/13/24 23:26 30 04/13/24 23:00 04/13/24 23:00 04/13/24 22:00 04/13/24 21:00 04/13/24 21:00 04/13/24 20:00 04/13/24 20:00 04/13/24 20:00 04/13/24 19:45 04/13/24 19:29 30 04/13/24 19:00 04/13/24 18:45 04/13/24 18:30 30 04/13/24 18:00 30 04/13/24 17:30 30 04/13/24 17:26 04/13/24 17:19 30 04/13/24 17:00 30 04/13/24 17:00 04/13/24 16:28 30 04/13/24 16:27 30 04/13/24 16:16 30 04/13/24 16:00 30 04/13/24 16:00 04/13/24 15:40 30 04/13/24 15:40 04/13/24 15:30 30 04/13/24 15:00 30 04/13/24 14:44 30 04/13/24 14:40 30 04/13/24 14:20 30 04/13/24 14:10 30 04/13/24 14:00 30 04/13/24 13:30 30 04/13/24 13:00 04/13/24 13:00 30 04/13/24 12:50 30 04/13/24 12:41 97 04/13/24 12:30 30 04/13/24 12:30 30 04/13/24 12:20 40 04/13/24 12:00 04/13/24 12:00 30 04/13/24 12:00 40 04/13/24 11:30 40 04/13/24 11:00 04/13/24 11:00 40 04/13/24 10:15 40 04/13/24 10:00 04/13/24 09:51 40 Intake and Output 04/13/24 04/14/24 04/14/24 23:59 07:59 15:59 Intake Total 271.464 / 755.043 400.512 / 492.612 92.1 / 492.612 Output Total 375 / 3220 230 / 265 35 / 265 Balance -103.536 / -2464.957 170.512 / 227.612 57.1 / 227.612 Intake: Intake, Total IV Amount 271.464 / 755.043 400.512 / 492.612 92.1 / 492.612 Pipercillin/Tazo 3.375 gm In 0. 50 / 100 50 / 50 9 % Sodium Chloride 50 ml @ 100 mls/hr IV Q6H [facility] Rx#:[id number] Output: Output, Urine Amount 220 / 2325 35 / 35 Output, Urine Amount (Catheter) 155 / 895 230 / 230 Banks 155 / 895 230 / 230 Other: Number of Unmeasured Voids 0 Weight 57.833 kg Patient Weight 04/14/24 23:59 Weight 57.833 kg Laboratory Results - last 24 hr 04/13/24 02:31: Urine Color Yellow, Urine Appearance Clear, Urine pH 6.0, Ur Specific [place] >= 1.030, Urine Protein 2+ A, Urine Glucose (UA) Negative, Urine Ketones Negative, Urine Blood Negative, Urine Nitrate Negative, Urine Bilirubin Negative, Urine Urobilinogen 1.0, Ur Leukocyte Esterase 1+ A, Urine RBC None, Urine WBC 20-50, Ur Squamous Epith Cells 5-10, Urine Bacteria 1+ 04/13/24 06:48: Total Counted 100, Neutrophils % (Manual) 84 H, Lymphocytes % (Manual) 13, Monocytes % (Manual) 3, Platelet Estimate Slight decrease, Hypochromasia 1+ 04/13/24 08:53: Troponin I 0.10 H 04/13/24 11:11: POC Glucose 134 H 04/13/24 11:16: Troponin I 0.09 H 04/13/24 14:19: Troponin I 0.08 H 04/13/24 16:51: POC Glucose 134 H 04/13/24 17:15: Troponin I 0.06 H 04/13/24 20:45: Troponin I 0.06 H 04/13/24 22:30: POC Glucose 135 H 04/13/24 23:20: Troponin I 0.06 H 04/14/24 02:20: Troponin I 0.06 H 04/14/24 07:20: VBG pH 7.50 H, VBG pCO2 31.7 L, VBG pO2 72.3 H, VBG HCO3 23.9, VBG Total CO2 24.9, VBG O2 Saturation 94.8 H, VBG Base Excess 0.7, VBG Lactic Acid 1.8 04/14/24 07:23: WBC 19.2 H D, RBC 4.07 L, Hgb 9.2 L, Hct 31.3 L, MCV 76.9 L, MCH 22.7 L, MCHC 29.6 L, RDW 21.9 H, Plt Count 114 L, MPV 7.7, Neut % (Auto) 85.7 H, Lymph % (Auto) 8.7 L, [place] % (Auto) 4.5, Eos % (Auto) 0.7, Baso % (Auto) 0.4, Neut # (Auto) 16.4 H, Lymph # (Auto) 1.7, [place] # (Auto) 0.9, Eos # (Auto) 0.1, Baso # (Auto) 0.1, PT 16.1 H, INR 1.50 H, Sodium 135 L, Potassium 3.6, Chloride 106, Carbon Dioxide 30, Anion Gap 2.6 L, BUN 26 H, Creatinine 1.10 H, Estimated Creat Clear 47, Estimated GFR 50 L, Est GFR ( Amer) 61, Glucose 120 H, Calcium 7.4 L, Magnesium 1.7, Total Bilirubin 2.0 H, AST 67 H, ALT 37, Alkaline Phosphatase 154 H, Ammonia 40 H, Total Protein 5.8 L, Albumin 2.3 L D, Globulin 3.5 H, Albumin/Globulin Ratio 0.7 L I & O for Labs for Last 24 Hours: Intake & Output 04/11/24 04/12/24 04/13/24 04/14/24 23:59 23:59 23:59 23:59 Intake Total 755.043 / 755.043 492.612 / 492.612 Output Total 3180 / 3220 265 / 265 Balance -2424.957 / -2464.957 227.612 / 227.612 Weight 63.5 kg 57.833 kg Microbiology Reports for the Last 24 Hours: Microbiology 04/13/24 02:35 Sputum - Endotracheal Tube Aspirate Gram Stain - Final 04/13/24 02:35 Sputum - Endotracheal Tube Aspirate Sputum Culture - Preliminary Gram Negative Rods 04/13/24 02:31 Urine,Catheterized Urine Culture - Preliminary Gram Positive Cocci 04/13/24 02:50 Blood Blood Culture - Preliminary NO GROWTH AFTER 24 HOURS 04/13/24 02:50 Blood Blood Culture - Preliminary NO GROWTH AFTER 24 HOURS Constitutional: Present no acute distress, thin and chronically ill appearing Head: Present atraumatic and normocephalic ENT: Present normal exam and mucous membranes moist Comment:: Bitemporal wasting Neck: Present normal inspection Respiratory: Present patient mechanically ventilated, rhonchi and crackles; Absent wheezes Cardiac: Present Reg Rate and Rhythm GI: Present soft and normal bowel sounds; Absent distention or tenderness Extremities: Present normal inspection, full ROM and edema (3+ pitting edema to knees) Skin: Present intact; Absent erythema Neuro: Present Other Comment:: Sedated, withdraws from painful stimuli Assessment and Plan *Assessment and plan (1) Acute hypoxic respiratory failure: Status: Acute Category: Medical Code(s): J96.01 - Acute respiratory failure with hypoxia (2) Pulmonary edema: Status: Acute Category: Medical Code(s): J81.1 - Chronic pulmonary edema (3) Hyperkalemia: Status: Acute Category: Medical Code(s): E87.5 - Hyperkalemia (4) UTI (urinary tract infection): Status: Acute Category: Medical Code(s): N39.0 - Urinary tract infection, site not specified (5) Sepsis: Status: Acute Category: Medical Code(s): A41.9 - Sepsis, unspecified organism (6) Pleural effusion: Status: Acute Category: Medical Code(s): J90 - Pleural effusion, not elsewhere classified (7) Chronic dementia: Status: Acute Category: Medical Code(s): F03.90 - Unspecified dementia, unspecified severity, without behavioral disturbance, psychotic disturbance, mood disturbance, and anxiety (8) Chronic dementia: Status: Acute Category: Medical Code(s): F03.90 - Unspecified dementia, unspecified severity, without behavioral disturbance, psychotic disturbance, mood disturbance, and anxiety (9) Declining functional status: Status: Acute Category: Medical Code(s): R53.81 - Other malaise (10) AAT ([id number]) deficiency: Status: Acute Category: Medical Code(s): E88.01 - Vuakm-[id number] deficiency Plan Ms. Tolbert is a 63-year-old female who presented in respiratory failure. Necessitating intubation in the ER. Found to have hemoptysis. Case discussed with ER physician, request admission to ICU for further management of respiratory failure and hemoptysis along with hyperkalemia. Medicine agreed to admit for further management. Pulmonology consulted to assist with vent management and assisting with critical care management. Patient showing slight improvements. Tolerating weaning settings on ventilator. Will attempt SBT today. Continues to require ICU level of care. Problems addressed as follows: Acute hypoxemic respiratory failure Pulmonary edema -Unclear etiology at this time. Sputum culture growing gram-negative rods. -Continue broad-spectrum empiric antibiotics with vancomycin and Zosyn IV, will wean pending cultures and sensitivity -Pulmonary edema concerning for secondary to CHF, COPD, alpha-1 antitrypsin deficiency, volume overload. -Echocardiogram pending -Pulmonology consulted, discussed case today, will trial SBT. Continue to keep patient intubated. Adjustments made after morning gas showing mild respiratory alkalosis. On minimal vent settings with PEEP of 8, TV 400, 30% FiO2, rate of 18. -Per my review of chest x-ray from today, improving airspace disease and edema. -White count elevated at 19, up from 14 yesterday. -Analgosedation with fentanyl and propofol -Hypotension due to sedation necessitating norepinephrine. Wean as tolerated for MAP greater than 65 -Diuresing again today with Bumex 1 mg IV Seizure disorder: Continue Lamictal 100 mg per tube twice daily Hypothyroid: Continue levothyroxine 25 mcg daily Alpha-1 antitrypsin deficiency Hemochromatosis -Complicate her liver function, heart function, respiratory function, cognition. -Ammonia elevated at 40. Initiate lactulose 20 mL once daily to promote bowel movement Electrolyte abnormalities: - Electrolytes low with potassium 3.6, magnesium 1.7. Kidney function stable with BUN 26, creatinine 1.1. Repeat CBC, CMP, magnesium ordered for the morning. BMP and magnesium ordered for this evening. -Replace per protocol N.p.o. Lovenox 40 mg daily DNR This case had a high probability of a clinically significant, sudden, or life threatening deterioration of this patient's condition which required my full and direct attention, intervention and personal management. ICU/Critical care attestation This patient is critically ill with 35 minutes devoted solely to this patient managing life/organ supporting interventions that required physician assessment. This includes time spent making adjustments in ventilator settings, IV fluid administration, titration of pressors, adjustments of medications, discussion of patient with consultants and other care providers as well as updating patient and/or family (if patient by virtue of his/her condition is unable to participate in decision making). This does not include time spent performing separately billed procedures. Time is not concurrent with that of other providers.
[2024-04-14] MEDS: ENOXAPARIN 40MG/0.4ML SYRINGE 40 MG SQ (11:25)
[2024-04-14] MEDS: BUMETANIDE 1MG/4ML VIAL 1 MG IV (11:25)
[2024-04-14 12:14] LABS: Lymphocytes % 28 % (10-50); Monocytes % 2 % (2-9); Neutrophils % 70 % (42-76); Total Cells Counted 100
[2024-04-14 12:15] LABS: Hypochromasia 1+; Platelet Estimate Moderate Decrease
--- NOTE | 2024-04-14 14:17 | PC.NURSE ---
Addendum entered by Dana Franklin RN 04/14/24 15:04: SBT completed at 1445. pt tolerated well, TV noted to be in the 350-400 range. no alarms noted while in SBT. sedation restarted and vent changed back to AC Original Note: SBT started at 1300
[2024-04-14 14:50] LABS: Lactate Venous 1.4 mmol/L (0.4-2.0); VBG Base Excess -0.8 mmol/L (-2.4-2.3); VBG HCO3 22.6 mmol/L (23-30); VBG Oxygen Saturation 95.3 % (50-70); VBG PCO2 30.6 mmol/L (35-51); VBG PH 7.49 mmol/L (7.31-7.41); VBG PO2 73.1 mmol/L (28-40); VBG Total CO2 23.6 mmol/L (23-27)
[2024-04-14 17:01] LABS: Chloride 105 mmol/L (98-107); Potassium 3.6 mmoL/L (3.5-5.1); Sodium 135 mmol/L (136-145)
[2024-04-14 17:04] LABS: Anion Gap 4.6 mEq/L (5-15); Blood Urea Nitrogen 25 mg/dl (7-17); Calcium 7.1 mg/dl (8.4-10.2); Carbon Dioxide 29 mmol/L (22.0-30.0); Creatinine Clearance Estimated 47 mL/min (50-200); Estimated Glomerular Filt Rate 50 ml/min (>60); GFR (African American) 61 ML/MIN (>60); Glucose 123 mg/dl (74-100); Magnesium 1.6 mg/dl (1.6-2.3)
[2024-04-14] MEDS: LACTULOSE 20GM/30ML UDC 20 GM PO (17:17)
[2024-04-14 17:34] LABS: POC Glucose,Bedside 136 (70-110)
[2024-04-14] MEDS: PHA TO NURSING INSTRUCTION 1 EACH NOTAPPLIC (20:20)
[2024-04-14] MEDS: SODIUM CHLORIDE 0.9% 10ML VIAL 10 ML IV (20:31)
[2024-04-14] MEDS: PANTOPRAZOLE 40MG VIAL 40 MG IV (20:31)
[2024-04-14] MEDS: MAGNESIUM SULFATE IN WATER 2 GM/50 ML PIGGYBACK IV ×2 (20:31→21:16)
[2024-04-14] MEDS: lamoTRIgine 100MG TABLET 100 MG PO (20:31)
[2024-04-14] MEDS: propofoL 100 ML 7.62 MG IV (21:16)
[2024-04-14 21:27] LABS: POC Glucose,Bedside 140 (70-110)
[2024-04-15] VITALS (35 sets, daily range): BP systolic 69–117; BP diastolic 33–64; PULSE 56–97; RESP 18–30; TEMP 36.6–37.2; O2SAT 93–100; BMI 22.6
[2024-04-15] MEDS: NOREPINEPHRINE BITARTRATE/D5W 8 MG/250 ML PLAST..BAG 18.75 MG IV ×2 (01:54→18:50)
[2024-04-15] MEDS: PIPERCILLIN/TAZO 3.375 GM in 0.9 % SODIUM CHLORIDE 50 ML IV (05:25)
[2024-04-15] MEDS: FENTANYL CITRATE/PF 1,000 MCG in 0.9 % SODIUM CHLORIDE 80 ML 3.5 MCG IV (05:39)
[2024-04-15 06:06] LABS: POC Glucose,Bedside 117 (70-110)
[2024-04-15 07:00] LABS: Basophils # 0.1 K/mm3 (0-0.2); Basophils % 0.4 % (0.1-2.0); Eosinophils # 0.2 K/mm3 (0.0-0.4); Eosinophils % 1.2 % (0.1-12.0); Hematocrit 29.8 % (37.0-47.0); Hemoglobin 8.9 g/dL (12.2-16.2); Lymphocytes % 14.4 % (10-50); Mean Corpuscular HGB Conc 29.9 g/dL (31.8-35.4); Mean Corpuscular Hemoglobin 23.1 pg (27.0-31.2); Mean Corpuscular Volume 77.1 fl (81-99); Mean Platelet Volume 9.2 fl (7.4-10.4); Monocytes # 0.8 K/mm3 (0.1-1.0); Monocytes % 5.6 % (1.7-9.3); Neutrophils # 10.9 K/mm3 (1.8-7.8); Neutrophils % 78.4 % (37.0-80.0); Platelet Count 101 K/mm3 (142-424); Red Blood Count 3.86 M/mm3 (4.20-5.40); Red Cell Distribution Width 21.9 % (11.5-17.5); White Blood Count 13.9 K/mm3 (4.8-10.8)
[2024-04-15 07:09] LABS: Albumin Level 2.3 g/dl (3.5-5.0); Chloride 106 mmol/L (98-107); Sodium 134 mmol/L (136-145)
[2024-04-15 07:10] LABS: Potassium 3.3 mmoL/L (3.5-5.1)
[2024-04-15 07:12] LABS: Alanine Aminotransferase 29 U/L (12-78); Albumin/Globulin Ratio 0.7 (1.1-1.8); Alkaline Phosphatase 170 U/L (38-126); Anion Gap 7.3 mEq/L (5-15); Aspartate Amino Transferase 63 U/L (14-36); Bilirubin,Total 2.3 mg/dl (0.2-1.3); Blood Urea Nitrogen 25 mg/dl (7-17); Carbon Dioxide 24 mmol/L (22.0-30.0); Creatinine Clearance Estimated 52 mL/min (50-200); Estimated Glomerular Filt Rate 56 ml/min (>60); GFR (African American) 68 ML/MIN (>60); Globulin 3.4 g/dL (1.3-3.2); Total Protein,Serum 5.7 g/dl (6.3-8.2)
[2024-04-15 07:13] LABS: Calcium 6.8 mg/dl (8.4-10.2); Glucose 102 mg/dl (74-100)
[2024-04-15 08:01] LABS: Magnesium 2.6 mg/dl (1.6-2.3); Phosphorous 2.6 mg/dl (2.5-4.5)
[2024-04-15] MEDS: ENOXAPARIN 40MG/0.4ML SYRINGE 40 MG SQ (08:05)
[2024-04-15] MEDS: LACTULOSE 20GM/30ML UDC 20 GM PO (08:05)
[2024-04-15] MEDS: lamoTRIgine 100MG TABLET 100 MG PO ×2 (08:05→20:25)
--- NOTE | 2024-04-15 09:03 | PC.NURSE ---
0836 dose rate changed from to to 5mcg cpot 0
--- NOTE | 2024-04-15 09:04 | PC.NURSE ---
0836 fentanyl dose changed from 30 to 20 cpot 0
[2024-04-15] MEDS: POTASSIUM CHLORIDE 20MEQ/15ML UDC 40 MEQ NG-TUBE ×2 (09:05→14:39)
--- NOTE | 2024-04-15 09:30 | EXP.PULM.CON ---
History of Present Illness History of present illness: Ms. Woo is a 63-year-old female never smoker, history of hemochromatosis alpha-1 antitrypsin deficiency, emphysema multiple pulmonary nodules and bronchiectasis presented to the ER with worsening respiratory distress eventually needing intubation mechanical ventilatory support and pulmonary was called for further evaluation and management. [facility] Disclaimer: The information contained in this section may have been updated after the patient was seen, as this information can be updated by other users. Medical History (Updated 04/15/24 @ 10:42 by Cam Wallace MD) On mechanically assisted ventilation Pulmonary emphysema Recurrent pneumonia Bronchiectasis AAT ([id number]) deficiency COPD mixed type UTI (urinary tract infection) Pneumonia CKD (chronic kidney disease) Cirrhosis Hemochromatosis Seizure COPD (chronic obstructive pulmonary disease) Surgical History Hx of cataract surgery History of neck surgery Hx of tubal ligation History of brain surgery Family History Other Diabetes Social History Smoking Status: Unknown if ever smoked alcohol intake: never substance use type: denies use current occupational status: disabled Travel in the last 8 weeks: None caregiver/support person: Yes Review of Systems Review of Systems Review of systems:: unable to obtain Review of systems (narrative): Intubated and sedated Pulmonology Exam Inpatient Vital signs and Labs for Last 24 Hours: Temp Pulse Resp BP Pulse Ox O2 Del Method FiO2 98.8 F 89 18 117/52 L 93 L Mechanical Ventilation 30 04/15/24 08:00 04/15/24 09:00 04/15/24 09:00 04/15/24 09:00 04/15/24 09:00 04/15/24 09:00 04/15/24 07:00 Laboratory Results - last 24 hr 04/14/24 07:23: Total Counted 100, Neutrophils % (Manual) 70, Lymphocytes % (Manual) 28, Monocytes % (Manual) 2, Platelet Estimate Moderate decrease, Hypochromasia 1+ 04/14/24 14:31: VBG pH 7.49 H, VBG pCO2 30.6 L, VBG pO2 73.1 H, VBG HCO3 22.6 L, VBG Total CO2 23.6, VBG O2 Saturation 95.3 H, VBG Base Excess -0.8, VBG Lactic Acid 1.4 04/14/24 16:39: Sodium 135 L, Potassium 3.6, Chloride 105, Carbon Dioxide 29, Anion Gap 4.6 L, BUN 25 H, Creatinine 1.10 H, Estimated Creat Clear 47, Estimated GFR 50 L, Est GFR ( Amer) 61, Glucose 123 H, Calcium 7.1 L, Magnesium 1.6 04/14/24 17:19: POC Glucose 136 H 04/14/24 21:14: POC Glucose 140 H 04/15/24 05:30: POC Glucose 117 H 04/15/24 06:05: WBC 13.9 H D, RBC 3.86 L, Hgb 8.9 L, Hct 29.8 L, MCV 77.1 L, MCH 23.1 L, MCHC 29.9 L, RDW 21.9 H, Plt Count 101 L, MPV 9.2, Neut % (Auto) 78.4, Lymph % (Auto) 14.4, Morris % (Auto) 5.6, Eos % (Auto) 1.2, Baso % (Auto) 0.4, Neut # (Auto) 10.9 H, Lymph # (Auto) 2.0, Morris # (Auto) 0.8, Eos # (Auto) 0.2, Baso # (Auto) 0.1, Sodium 134 L, Potassium 3.3 L, Chloride 106, Carbon Dioxide 24, Anion Gap 7.3, BUN 25 H, Creatinine 1.00, Estimated Creat Clear 52, Estimated GFR 56 L, Est GFR ( Amer) 68, Glucose 102 H, Calcium 6.8 L, Phosphorus 2.6, Magnesium 2.6 H D, Total Bilirubin 2.3 H, AST 63 H, ALT 29, Alkaline Phosphatase 170 H, Total Protein 5.7 L, Albumin 2.3 L, Globulin 3.4 H, Albumin/Globulin Ratio 0.7 L I & O for Labs for Last 24 Hours: Intake & Output 04/12/24 04/13/24 04/14/24 04/15/24 23:59 23:59 23:59 23:59 Intake Total 755.043 / 266.139 2168.246 / 1276.246 394.121 / 394.121 Output Total 3180 / 3220 1758 / 1823 435 / 435 Balance -2424.957 / -2464.957 -481.754 / -546.754 -40.879 / -40.879 Weight 139 lb 15.896 oz 127 lb 8 oz 127 lb 6.835 oz Microbiology Reports for the Last 24 Hours: Microbiology 04/13/24 02:31 Urine,Catheterized Urine Culture - Final 04/13/24 02:35 Sputum - Endotracheal Tube Aspirate Gram Stain - Final 04/13/24 02:35 Sputum - Endotracheal Tube Aspirate Sputum Culture - Final Pseudomonas aeruginosa 04/13/24 02:50 Blood Blood Culture - Preliminary NO GROWTH AFTER 48 HOURS 04/13/24 02:50 Blood Blood Culture - Preliminary NO GROWTH AFTER 48 HOURS Constitutional: Present severe distress Comment:: Intubated and Sedated Head: Present normocephalic and atraumatic Neck: Present normal inspection and trachea midline Respiratory: Present patient mechanically ventilated, respiratory distress and rhonchi; Absent wheezes or normal respiratory effort Cardiac: Present S1/S2 and Tachycardia GI: Present soft; Absent distention or tenderness Skin: Present intact; Absent cyanosis Neuro: Present awake; Absent alert or oriented x 3 Extremities: Present normal inspection; Absent clubbing or cyanosis Psychiatric: Present unable to assess Meds Home Medications and Allergies Home Medications ?Medication ?Instructions ?Recorded ?Confirmed ?Type lamotrigine 100 mg tablet 100 mg PO BID 09/26/23 04/13/24 History pravastatin 20 mg tablet 20 mg PO DAILY 09/26/23 04/13/24 History levothyroxine 25 mcg tablet 25 mcg PO DAILY 11/07/23 04/13/24 History alpha-1 proteinase inhib.(hum) 3,524 mg (70.48 mL) IV WEEKLY 12 12/11/23 04/13/24 Rx 1,000 mg (+/-)/20 mL IV solution months (Prolastin-C) fluticasone fur. 100 mcg-umeclid 1 inh inhalation DAILY 90 days #90 01/01/24 04/13/24 Rx 62.5 mcg-vilant 25 mcg ea inhalat.powder (Trelegy Ellipta) acetylcysteine 600 mg capsule (NAC) 1,000 mg PO DAILY 04/13/24 04/13/24 History s-adenosylmethionine 400 mg tablet 400 mg PO DAILY 04/13/24 04/13/24 History sertraline 100 mg tablet 100 mg PO DAILY 04/13/24 04/13/24 History spironolactone 50 mg tablet 50 mg PO BID 04/13/24 04/13/24 History New Prescriptions to Start Prescriptions: Allergies Allergy/AdvReac Type Severity Reaction Status Date / Time No Known Allergies Allergy Verified 04/09/24 10:42 Results Laboratory Findings 04/15/24 06:05 04/15/24 06:05 ABG ABG pH 7.41 mmol/L (7.35-7.45) 04/13/24 06:00 ABG pCO2 36.5 mmhg (35.0-45.0) 04/13/24 06:00 ABG pO2 92.3 mmhg (80-100) 04/13/24 06:00 ABG O2 Saturation 97 % (90-100) 04/13/24 06:00 PT/INR, D-dimer PT 16.1 seconds (10.1-12.5) H 04/14/24 07:23 INR 1.50 (0.9-1.1) H 04/14/24 07:23 Abnormal lab findings: Abnormal Labs 04/13/24 04/13/24 04/13/24 02:10 02:31 02:52 WBC 14.2 H RBC Hgb 10.0 L Hct 35.7 L MCV MCH 23.2 L MCHC 28.0 L RDW 21.6 H Plt Count Neut % (Auto) Lymph % (Auto) Neut # (Auto) 9.8 H Neutrophils % (Manual) PT 13.7 H INR 1.25 H ABG pH 7.24 L* ABG pCO2 46.8 H ABG pO2 129.4 H ABG HCO3 19.5 L ABG Total CO2 20.9 L ABG Base Excess -8.0 L ABG Lactate 3.3 H VBG pH VBG pCO2 VBG pO2 VBG HCO3 VBG O2 Saturation Sodium Potassium 5.8 H Chloride Carbon Dioxide 21 L Anion Gap BUN 21 H Creatinine 1.10 H Estimated GFR 50 L Glucose 154 H POC Glucose Calcium Magnesium Total Bilirubin Direct Bilirubin AST 81 H Alkaline Phosphatase 211 H Ammonia Troponin I 0.06 H NT-Pro-B Natriuret Pep 4580 H Total Protein Albumin 3.4 L Globulin 4.4 H Albumin/Globulin Ratio 0.8 L Urine Protein 2+ A Ur Leukocyte Esterase 1+ A 04/13/24 04/13/24 04/13/24 03:58 04:00 06:48 WBC 15.3 H RBC Hgb 9.8 L Hct 33.6 L MCV 78.5 L MCH 22.8 L MCHC 29.1 L RDW 21.7 H Plt Count 119 L D Neut % (Auto) 89.0 H Lymph % (Auto) 5.7 L Neut # (Auto) 13.7 H Neutrophils % (Manual) 84 H PT INR ABG pH 7.33 L ABG pCO2 ABG pO2 125.9 H ABG HCO3 ABG Total CO2 ABG Base Excess -3.5 L ABG Lactate VBG pH VBG pCO2 VBG pO2 VBG HCO3 VBG O2 Saturation Sodium 135 L Potassium 6.0 H Chloride 108 H Carbon Dioxide Anion Gap BUN 25 H Creatinine Estimated GFR 56 L Glucose 122 H D POC Glucose Calcium Magnesium Total Bilirubin 1.6 H Direct Bilirubin 0.8 H AST 78 H Alkaline Phosphatase 177 H Ammonia Troponin I 0.11 H NT-Pro-B Natriuret Pep Total Protein Albumin 2.6 L D Globulin 3.8 H Albumin/Globulin Ratio 0.7 L Urine Protein Ur Leukocyte Esterase 04/13/24 04/13/24 04/13/24 08:53 11:11 11:16 WBC RBC Hgb Hct MCV MCH MCHC RDW Plt Count Neut % (Auto) Lymph % (Auto) Neut # (Auto) Neutrophils % (Manual) PT INR ABG pH ABG pCO2 ABG pO2 ABG HCO3 ABG Total CO2 ABG Base Excess ABG Lactate VBG pH VBG pCO2 VBG pO2 VBG HCO3 VBG O2 Saturation Sodium Potassium Chloride Carbon Dioxide Anion Gap BUN Creatinine Estimated GFR Glucose POC Glucose 134 H Calcium Magnesium Total Bilirubin Direct Bilirubin AST Alkaline Phosphatase Ammonia Troponin I 0.10 H 0.09 H NT-Pro-B Natriuret Pep Total Protein Albumin Globulin Albumin/Globulin Ratio Urine Protein Ur Leukocyte Esterase 04/13/24 04/13/24 04/13/24 14:19 16:51 17:15 WBC RBC Hgb Hct MCV MCH MCHC RDW Plt Count Neut % (Auto) Lymph % (Auto) Neut # (Auto) Neutrophils % (Manual) PT INR ABG pH ABG pCO2 ABG pO2 ABG HCO3 ABG Total CO2 ABG Base Excess ABG Lactate VBG pH VBG pCO2 VBG pO2 VBG HCO3 VBG O2 Saturation Sodium Potassium Chloride Carbon Dioxide Anion Gap BUN Creatinine Estimated GFR Glucose POC Glucose 134 H Calcium Magnesium Total Bilirubin Direct Bilirubin AST Alkaline Phosphatase Ammonia Troponin I 0.08 H 0.06 H NT-Pro-B Natriuret Pep Total Protein Albumin Globulin Albumin/Globulin Ratio Urine Protein Ur Leukocyte Esterase 04/13/24 04/13/24 04/13/24 20:45 22:30 23:20 WBC RBC Hgb Hct MCV MCH MCHC RDW Plt Count Neut % (Auto) Lymph % (Auto) Neut # (Auto) Neutrophils % (Manual) PT INR ABG pH ABG pCO2 ABG pO2 ABG HCO3 ABG Total CO2 ABG Base Excess ABG Lactate VBG pH VBG pCO2 VBG pO2 VBG HCO3 VBG O2 Saturation Sodium Potassium Chloride Carbon Dioxide Anion Gap BUN Creatinine Estimated GFR Glucose POC Glucose 135 H Calcium Magnesium Total Bilirubin Direct Bilirubin AST Alkaline Phosphatase Ammonia Troponin I 0.06 H 0.06 H NT-Pro-B Natriuret Pep Total Protein Albumin Globulin Albumin/Globulin Ratio Urine Protein Ur Leukocyte Esterase 04/14/24 04/14/24 04/14/24 02:20 07:20 07:23 WBC 19.2 H D RBC 4.07 L Hgb 9.2 L Hct 31.3 L MCV 76.9 L MCH 22.7 L MCHC 29.6 L RDW 21.9 H Plt Count 114 L Neut % (Auto) 85.7 H Lymph % (Auto) 8.7 L Neut # (Auto) 16.4 H Neutrophils % (Manual) PT 16.1 H INR 1.50 H ABG pH ABG pCO2 ABG pO2 ABG HCO3 ABG Total CO2 ABG Base Excess ABG Lactate VBG pH 7.50 H VBG pCO2 31.7 L VBG pO2 72.3 H VBG HCO3 VBG O2 Saturation 94.8 H Sodium 135 L Potassium Chloride Carbon Dioxide Anion Gap 2.6 L BUN 26 H Creatinine 1.10 H Estimated GFR 50 L Glucose 120 H POC Glucose Calcium 7.4 L Magnesium Total Bilirubin 2.0 H Direct Bilirubin AST 67 H Alkaline Phosphatase 154 H Ammonia 40 H Troponin I 0.06 H NT-Pro-B Natriuret Pep Total Protein 5.8 L Albumin 2.3 L D Globulin 3.5 H Albumin/Globulin Ratio 0.7 L Urine Protein Ur Leukocyte Esterase 04/14/24 04/14/24 04/14/24 14:31 16:39 17:19 WBC RBC Hgb Hct MCV MCH MCHC RDW Plt Count Neut % (Auto) Lymph % (Auto) Neut # (Auto) Neutrophils % (Manual) PT INR ABG pH ABG pCO2 ABG pO2 ABG HCO3 ABG Total CO2 ABG Base Excess ABG Lactate VBG pH 7.49 H VBG pCO2 30.6 L VBG pO2 73.1 H VBG HCO3 22.6 L VBG O2 Saturation 95.3 H Sodium 135 L Potassium Chloride Carbon Dioxide Anion Gap 4.6 L BUN 25 H Creatinine 1.10 H Estimated GFR 50 L Glucose 123 H POC Glucose 136 H Calcium 7.1 L Magnesium Total Bilirubin Direct Bilirubin AST Alkaline Phosphatase Ammonia Troponin I NT-Pro-B Natriuret Pep Total Protein Albumin Globulin Albumin/Globulin Ratio Urine Protein Ur Leukocyte Esterase 04/14/24 04/15/24 04/15/24 21:14 05:30 06:05 WBC 13.9 H D RBC 3.86 L Hgb 8.9 L Hct 29.8 L MCV 77.1 L MCH 23.1 L MCHC 29.9 L RDW 21.9 H Plt Count 101 L Neut % (Auto) Lymph % (Auto) Neut # (Auto) 10.9 H Neutrophils % (Manual) PT INR ABG pH ABG pCO2 ABG pO2 ABG HCO3 ABG Total CO2 ABG Base Excess ABG Lactate VBG pH VBG pCO2 VBG pO2 VBG HCO3 VBG O2 Saturation Sodium 134 L Potassium 3.3 L Chloride Carbon Dioxide Anion Gap BUN 25 H Creatinine Estimated GFR 56 L Glucose 102 H POC Glucose 140 H 117 H Calcium 6.8 L Magnesium 2.6 H D Total Bilirubin 2.3 H Direct Bilirubin AST 63 H Alkaline Phosphatase 170 H Ammonia Troponin I NT-Pro-B Natriuret Pep Total Protein 5.7 L Albumin 2.3 L Globulin 3.4 H Albumin/Globulin Ratio 0.7 L Urine Protein Ur Leukocyte Esterase Assessment and Plan *Assessment and plan (1) Acute hypoxic respiratory failure: Status: Acute Category: Medical Code(s): J96.01 - Acute respiratory failure with hypoxia (2) Pneumonia: Status: Acute Category: Medical Code(s): J18.9 - Pneumonia, unspecified organism (3) On mechanically assisted ventilation: Status: Acute Category: Medical Code(s): Z99.11 - Dependence on respirator [ventilator] status Plan Ms. Woo is a 63-year-old female never smoker, history of hemochromatosis alpha-1 antitrypsin deficiency, emphysema multiple pulmonary nodules and bronchiectasis presented to the ER with worsening respiratory distress eventually needing intubation mechanical ventilatory support and pulmonary was called for further evaluation and management. CT chest upon admission bilateral diffuse patchy dense consolidative changes not consistent with pulmonary edema. These consolidative changes are new from her most recent CT from October 2023. Patient also noted to have bilateral pleural effusions. Patient on admission was initiated on vancomycin and cefepime. Tracheal aspirate culture from this admission growing Pseudomonas, pansensitive. Plan: Continue abnormal sedation propofol and fentanyl. No need for deep sensation sedation Continue mechanical ventilator support, currently on PEEP of 8 FiO2 30% tidal volume of 420 and a rate of 18. Will follow SBT trial. Follow with chest x-ray. Monitor end-tidal CO2. Continue vancomycin pending nasal MRSA PCR Wean cefepime to levofloxacin. Will consider bronchoscopy DuoNebs every 6 hours scheduled Abdomen soft nondistended Adequate urine output. Continue to be diagnosed. Echocardiogram pending. - Continue mechanical ventilatory support - Continue AnalgoSedation with Propofol and Fentanyl with CPOT gal less than or euqal to 2 and RASS goal of to 2 (No need for deep sedation) - VAP bundle Recommend elevate head of the bed at 30 to 45 degrees Recommend oral care with chlorhexidne Recommend GI ulcer prophylaxis - Famotidine 20mg IV BID Recommend chemical DVT prophylaxis Total critical care time spent on this patient is 35 minutes managing acute hypoxic respiratory failure needing mechanical ventilation. This time spent include reviewing test results including interpreting chest x-rays, labs and arterial blood gas, optimizing the ventilator settings,formulating plan of care, discussing the plan of care with the team and the nursing staff.
--- NOTE | 2024-04-15 09:31 | PC.NURSE ---
RESP CARE NOTE: Attempted SBT with 5cmH2O PSV and 5 cmH2O Peep, Patient Vt 100ml and Rate 30 BPM and above. Patient switched back to A/C mode and we will attempt to wait until patient is more alert, RN discontinued Fentanyl drip and will continue to monitor patient.
[2024-04-15 09:33] LABS: Vancomycin,Trough 10.2 ug/mL (5.0-10.0)
[2024-04-15] MEDS: VANCOMYCIN/WATER FOR INJ (PEG) 1.25 GM/250 ML PIGGYBACK IV (10:19)
--- NOTE | 2024-04-15 10:43 | XR_ITS ---
FINAL REPORT TECHNIQUE: Single view chest CLINICAL HISTORY: PNM COMPARISON: 04/14/2024 FINDINGS: A single view of the chest was obtained. ET tube and NG tube are unchanged. The heart is stable in size. No interval change is seen in patchy bilateral opacities. Left pleural effusion is also unchanged. There is no pneumothorax. Osseous structures are unremarkable. IMPRESSION: No significant change in patchy bilateral opacities and left pleural effusion. Reviewed, Interpreted and Dictated by Keyona Brunson MD Transcribed by Kelly Omer Authenticated and [facility]
--- NOTE | 2024-04-15 12:18 | P.CONS_ITS ---
History of Present Illness *Admission Date: 04/13/24 *Reason for visit:: Respiratory distress *History of present illness: This is a 63-year-old female patient known to this office. She has history of alpha 1 antitrypsin deficiency phenotype ZZ and hemochromatosis. 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 Patient was last seen earlier this year at our previous office. She has been having a decline over the past month per family's report. She has a history of COPD and oxygen requirements secondary to alpha-1 antitrypsin deficiency as well. Over the past month the patient has been gaining weight and becoming more short of breath. She was placed on p.o. Lasix by her PCP Dr. Pelaez. She had gone from 125 pounds to 145 approximately. On the Lasix she was able to lose the 20 pounds but was still significantly short of breath. She was admitted through the ER for respiratory failure and was intubated. CT showed extensive bilateral infiltrates and moderate bilateral pleural effusions. Sputum grew Pseudomonas. Blood cultures x 2 have been negative for 48 hours. She did have a echo done today and we are awaiting results. Upon arrival she had elevated bilirubin of 1.3, AST elevated of 81, ALT of 44 and alk phos of 211. Bilirubin was as high as 2.0 AST of 67, ALT of 37 and alk phos of 154. Concern was for pulmonary edema related to liver failure versus heart failure. Ammonia is 40 patient remains intubated. She is currently still on Lasix, lactulose for the hyperammonemia and antibiotics for Pseudomonas. No signs of ascites or perihepatic fluid on imaging. Current MELD sodium score equals 15 with elevations of her INR and bilirubin. Creatinine has remained stable around 1.0. Platelet count 101. PFSH FORMERLY [facility], 1928–1983 Disclaimer: The information contained in this section may have been updated after the patient was seen, as this information can be updated by other users. Medical History (Updated 04/15/24 @ 13:34 by Anika Forman APRN) On mechanically assisted ventilation Pulmonary emphysema Recurrent pneumonia Bronchiectasis AAT ([id number]) deficiency COPD mixed type UTI (urinary tract infection) Pneumonia CKD (chronic kidney disease) Cirrhosis Hemochromatosis Seizure COPD (chronic obstructive pulmonary disease) Surgical History Hx of cataract surgery History of neck surgery Hx of tubal ligation History of brain surgery Family History Other Diabetes Social History Smoking Status: Unknown if ever smoked alcohol intake: never substance use type: denies use current occupational status: disabled Travel in the last 8 weeks: None caregiver/support person: Yes Review of Systems Review of Systems Review of systems:: pertinent systems reviewed and negative unless documented below Review of systems (narrative): Patient's POA her brother, Austin Woo and sister provided information. Constitutional Constitutional: Reports frequent falls and Reports lethargy *Cardiovascular Cardiovascular: Reports dyspnea and Reports leg edema *Respiratory Respiratory: Reports dyspnea *Gastrointestinal Gastrointestinal: Denies abdominal pain *Neurologic Neurologic: Reports as per HPI, Reports confusion and Reports frequent falls Comments: 1 month of progressive confusion per family report Psychiatric Psychiatric: Reports confusion Meds Home Medications and Allergies Home Medications ?Medication ?Instructions ?Recorded ?Confirmed ?Type lamotrigine 100 mg tablet 100 mg PO BID 09/26/23 04/13/24 History pravastatin 20 mg tablet 20 mg PO DAILY 09/26/23 04/13/24 History levothyroxine 25 mcg tablet 25 mcg PO DAILY 11/07/23 04/13/24 History alpha-1 proteinase inhib.(hum) 3,524 mg (70.48 mL) IV WEEKLY 12 12/11/23 04/13/24 Rx 1,000 mg (+/-)/20 mL IV solution months (Prolastin-C) fluticasone fur. 100 mcg-umeclid 1 inh inhalation DAILY 90 days #90 01/01/24 04/13/24 Rx 62.5 mcg-vilant 25 mcg ea inhalat.powder (Trelegy Ellipta) acetylcysteine 600 mg capsule (NAC) 1,000 mg PO DAILY 04/13/24 04/13/24 History s-adenosylmethionine 400 mg tablet 400 mg PO DAILY 04/13/24 04/13/24 History sertraline 100 mg tablet 100 mg PO DAILY 04/13/24 04/13/24 History spironolactone 50 mg tablet 50 mg PO BID 04/13/24 04/13/24 History New Prescriptions to Start Prescriptions: Allergies Allergy/AdvReac Type Severity Reaction Status Date / Time No Known Allergies Allergy Verified 04/09/24 10:42 Exam (Inpt) Vital signs and Labs for Last 24 Hours: Temp Pulse Resp BP Pulse Ox O2 Del Method FiO2 99 F 97 H 30 H 109/45 L 95 Mechanical Ventilation 30 04/15/24 11:58 04/15/24 11:00 04/15/24 11:00 04/15/24 11:00 04/15/24 11:00 04/15/24 11:57 04/15/24 10:15 Laboratory Results - last 24 hr 04/14/24 14:31: VBG pH 7.49 H, VBG pCO2 30.6 L, VBG pO2 73.1 H, VBG HCO3 22.6 L, VBG Total CO2 23.6, VBG O2 Saturation 95.3 H, VBG Base Excess -0.8, VBG Lactic Acid 1.4 04/14/24 16:39: Sodium 135 L, Potassium 3.6, Chloride 105, Carbon Dioxide 29, A nion Gap 4.6 L, BUN 25 H, Creatinine 1.10 H, Estimated Creat Clear 47, Estimated GFR 50 L, Est GFR ( Amer) 61, Glucose 123 H, Calcium 7.1 L, Magnesium 1.6 04/14/24 17:19: POC Glucose 136 H 04/14/24 21:14: POC Glucose 140 H 04/15/24 05:30: POC Glucose 117 H 04/15/24 06:05: WBC 13.9 H D, RBC 3.86 L, Hgb 8.9 L, Hct 29.8 L, MCV 77.1 L, MCH 23.1 L, MCHC 29.9 L, RDW 21.9 H, Plt Count 101 L, MPV 9.2, Neut % (Auto) 78.4, Lymph % (Auto) 14.4, Avery % (Auto) 5.6, Eos % (Auto) 1.2, Baso % (Auto) 0.4, N eut # (Auto) 10.9 H, Lymph # (Auto) 2.0, Avery # (Auto) 0.8, Eos # (Auto) 0.2, Baso # (Auto) 0.1, Sodium 134 L, Potassium 3.3 L, Chloride 106, Carbon Dioxide 24, Anion Gap 7.3, BUN 25 H, Creatinine 1.00, Estimated Creat Clear 52, E stimated GFR 56 L, Est GFR ( Amer) 68, Glucose 102 H, Calcium 6.8 L, Phosphorus 2.6, Magnesium 2.6 H D, Total Bilirubin 2.3 H, AST 63 H, ALT 29, A lkaline Phosphatase 170 H, Total Protein 5.7 L, Albumin 2.3 L, Globulin 3.4 H, A lbumin/Globulin Ratio 0.7 L 04/15/24 08:25: Vancomycin Trough 10.2 H I & O for Labs for Last 24 Hours: Intake & Output 04/13/24 04/14/24 04/15/24 04/16/24 11:59 11:59 11:59 11:59 Intake Total 768.308 1826.146 848.910 3.75 Output Total 2425 1158 1840 20 Balance -2085.146 99.146 -991.090 -16.25 Weight 63.5 kg 57.833 kg 57.8 kg Microbiology Reports for the Last 24 Hours: Microbiology 04/13/24 02:31 Urine,Catheterized Urine Culture - Final 04/13/24 02:35 Sputum - Endotracheal Tube Aspirate Gram Stain - Final 04/13/24 02:35 Sputum - Endotracheal Tube Aspirate Sputum Culture - Final Pseudomonas aeruginosa 04/13/24 02:50 Blood Blood Culture - Preliminary NO GROWTH AFTER 48 HOURS 04/13/24 02:50 Blood Blood Culture - Preliminary NO GROWTH AFTER 48 HOURS Constitutional: obtunded Comment:: Patient intubated on trial of sedative withdrawal, obtunded and unable to answer questions currently Head: Present normocephalic and atraumatic Respiratory: Present patient mechanically ventilated; Absent wheezes Cardiac: Present Reg Rate and Rhythm GI: Present soft; Absent distention, rigidity or ascites Comments:: Slightly decreased bowel sounds Comment:: Urinary catheter in place with dark yellow urine noted in bag Extremities: Present edema Comment:: Bilateral lower extremity edema with feet elevated Comment:: See above Results Labs 04/15/24 06:05 04/15/24 06:05 Labs: Laboratory Results - last 24 hr 04/14/24 14:31: VBG pH 7.49 H, VBG pCO2 30.6 L, VBG pO2 73.1 H, VBG HCO3 22.6 L, VBG Total CO2 23.6, VBG O2 Saturation 95.3 H, VBG Base Excess -0.8, VBG Lactic Acid 1.4 04/14/24 16:39: Sodium 135 L, Potassium 3.6, Chloride 105, Carbon Dioxide 29, A nion Gap 4.6 L, BUN 25 H, Creatinine 1.10 H, Estimated Creat Clear 47, Estimated GFR 50 L, Est GFR ( Amer) 61, Glucose 123 H, Calcium 7.1 L, Magnesium 1.6 04/14/24 17:19: POC Glucose 136 H 04/14/24 21:14: POC Glucose 140 H 04/15/24 05:30: POC Glucose 117 H 04/15/24 06:05: WBC 13.9 H D, RBC 3.86 L, Hgb 8.9 L, Hct 29.8 L, MCV 77.1 L, MCH 23.1 L, MCHC 29.9 L, RDW 21.9 H, Plt Count 101 L, MPV 9.2, Neut % (Auto) 78.4, Lymph % (Auto) 14.4, Avery % (Auto) 5.6, Eos % (Auto) 1.2, Baso % (Auto) 0.4, N eut # (Auto) 10.9 H, Lymph # (Auto) 2.0, Avery # (Auto) 0.8, Eos # (Auto) 0.2, Baso # (Auto) 0.1, Sodium 134 L, Potassium 3.3 L, Chloride 106, Carbon Dioxide 24, Anion Gap 7.3, BUN 25 H, Creatinine 1.00, Estimated Creat Clear 52, E stimated GFR 56 L, Est GFR ( Amer) 68, Glucose 102 H, Calcium 6.8 L, Phosphorus 2.6, Magnesium 2.6 H D, Total Bilirubin 2.3 H, AST 63 H, ALT 29, A lkaline Phosphatase 170 H, Total Protein 5.7 L, Albumin 2.3 L, Globulin 3.4 H, A lbumin/Globulin Ratio 0.7 L 04/15/24 08:25: Vancomycin Trough 10.2 H Assessment and Plan *Assessment and plan (1) Acute hypoxic respiratory failure: Status: Acute Category: Medical Code(s): J96.01 - Acute respiratory failure with hypoxia (2) Declining functional status: Status: Acute Category: Medical Code(s): R53.81 - Other malaise (3) AAT (nfzlj-9-srnouqwnxdo) deficiency: Status: Acute Category: Medical Code(s): E88.01 - Fhkee-3-jciyrjalxgf deficiency (4) Hemochromatosis: Status: Acute Category: Medical Code(s): E83.119 - Hemochromatosis, unspecified (5) Pulmonary edema: Status: Acute Category: Medical Code(s): J81.1 - Chronic pulmonary edema Plan This is a 63-year-old female patient known to this office with a history of alpha 1 antitrypsin deficiency phenotype ZZ and hemochromatosis. She also has a history of early cirrhosis. She has had a 1 month decline per family report with increasing shortness of breath and fluid retention. She gained 20 pounds, able to diurese with outpatient p.o. Lasix per her PCP. Family reports that the shortness of breath did not improve. CT showed extensive bilateral infiltrates and moderate bilateral pleural effusions concerning for pulmonary edema secondary to liver failure/cirrhosis. Patient did have a jump in her LFTs upon arrival on the with bilirubin of 1.3, AST of 81, ALT of 44 and alk phos of 211. Alk phos is improved to 154 bilirubin has increased to 2.0. Creatinine has remained stable around 1.0. She does have a history of COPD and alpha-1 antitrypsin deficiency affecting lung function. Given ZZ phenotype. Also hemochromatosis. Current MELD score equals 15 she is currently intubated and sputum cultures have grown Pseudomonas, on antibiotics. Blood cultures x 2 negative for 48 hours. She did have echo today and we do not have results. CTA showed no pericardial effusion and no perihepatic fluid or current ascites just a small amount of free fluid in the abdomen and pelvis. No signs of hepatic hydrothorax. Discussed with Dr. Valenzuela. This does not look to be hepatopulmonary or hepatorenal syndrome. Ammonia was equal to 40 and patient is on daily lactulose, I would continue that. Patient likely needs an EGD as an outpatient to evaluate possible varices.
[2024-04-15] MEDS: LEVOFLOXACIN/D5W 750 MG/150 ML 750 MG/150 ML PIGGYBACK 100 MG IV (12:27)
--- NOTE | 2024-04-15 13:30 | PC.NURSE ---
RESP CARE NOTE: Pt placed back into A/C mode per Dr Wallace verbal order. SBT terminated at this time due to patient distress. Pulmonary toilet encouraged and sedation restarted per RN. Will continue to monitor patient.
--- NOTE | 2024-04-15 13:53 | HMH.PTWOUND ---
Rehab Inpt Wound Evaluation Rehab IP Wound Evaluation Start: 04/13/24 07:29 Freq: ONCE Status: Active Protocol: Document 04/15/24 13:47 LEONOR (Rec: 04/15/24 13:52 LEONOR [id number]) Rehab PT Wound Assessment Subjective Subjective 63 yowf adm to [facility] with SOA and multiple medical problems and being O2 dependent at home with hemochromatosis and alpha-1 antitrypsin deficiency who is oxygen dependent at home began to have difficulty breathing and not able to keep O2 saturations above 80% showing some signs of encephalitis with elevated white count and mild increase in creatinine other problems included elevated KCl. She presents with R knee wound upon admission. Wound Right Knee Wound Type Skin Tear Is This a Chronic Wound Yes Wound Length (cm) 2.5 Wound Width (cm) 2.5 Wound Margins Description Well Defined Drainage Amount None Dressing Change Patient Tolerance Tolerated Well Plan/Recommendation Comment Currently the R knee wound presents with a scab in place from some recent active bleeding since yesterday. No current dressing necessary, but speaking with RN who is in agreement with leaving the wound uncovered at this time, we would apply a non-adherent pad to the wound if it does re -open. No current needs for debridement. Will assist with mobility and further wound care as needed as pt condition improves. Eval Complexity Eval Charge Codes 00439 - High Complexity PHYSICIAN CERTIFICATION: I certify the specified therapy services for Leona Woo are required, authorized, and reviewed every 30 days.
--- NOTE | 2024-04-15 15:27 | DIET.NUTRFU ---
Touched base with nursing, unable to extubate. Propofol turned back on. Ready to start TF: Pulmocare at 10ml/hr and increase by 10ml Q4H with goal rate of 40ml/hr to meet 100% of needs. Currently receiving IVF with ABT and sedation medications no bolus in place at this time. urine output 1323ml yesterday. Na 134L, potassium 3.3L, labs reviewed. received bumex 04/14 which may have contributed to increased urine output. flush with 50ml [id number], will continue to monitor fluid status.
--- NOTE | 2024-04-15 15:35 | EXP.CARD.CON ---
History of Present Illness History of Present Illness Consult date: 04/15/24 Requesting physician: Jamal Bundy Chief complaint: respiratory failure History of present illness: This is a 63-year-old white female who presented to the emergency department with respiratory failure. The patient began to have difficulty breathing and not being able to keep her oxygen saturations above 80%. The patient was found to have a slightly elevated troponin on admission with an abnormal EKG and elevated BNP. She was given some IV Lasix in the emergency department. She is currently intubated and on the ventilator. She is sedated on fentanyl and propofol. She appears to be in no distress. [facility] Disclaimer: The information contained in this section may have been updated after the patient was seen, as this information can be updated by other users. Medical History (Updated 04/15/24 @ 15:41 by Evelina Gooden APRN) HFrEF (heart failure with reduced ejection fraction) UTI (urinary tract infection) Acute hypoxic respiratory failure Sepsis Pleural effusion Pulmonary edema HLD (hyperlipidemia) HTN (hypertension) On mechanically assisted ventilation Pulmonary emphysema Recurrent pneumonia Bronchiectasis AAT (jguhm-4-eqwbqdrazjm) deficiency COPD mixed type UTI (urinary tract infection) Pneumonia CKD (chronic kidney disease) Cirrhosis Hemochromatosis Seizure COPD (chronic obstructive pulmonary disease) Surgical History Hx of cataract surgery History of neck surgery Hx of tubal ligation History of brain surgery Family History Other Diabetes Social History Smoking Status: Unknown if ever smoked alcohol intake: never substance use type: denies use current occupational status: disabled Travel in the last 8 weeks: None caregiver/support person: Yes Review of Systems Review of Systems Review of systems:: unable to obtain (Patient intubated and on ventilator.) Exam Data for Last 24 hours Vital signs and Labs for Last 24 Hours: Temp Pulse Resp BP Pulse Ox O2 Del Method FiO2 99 F 63 18 91/45 L 100 Mechanical Ventilation 30 04/15/24 11:58 04/15/24 15:20 04/15/24 15:20 04/15/24 15:20 04/15/24 15:20 04/15/24 15:20 04/15/24 13:28 Laboratory Results - last 24 hr 04/14/24 16:39: Sodium 135 L, Potassium 3.6, Chloride 105, Carbon Dioxide 29, Anion Gap 4.6 L, BUN 25 H, Creatinine 1.10 H, Estimated Creat Clear 47, Estimated GFR 50 L, Est GFR ( Amer) 61, Glucose 123 H, Calcium 7.1 L, Magnesium 1.6 04/14/24 17:19: POC Glucose 136 H 04/14/24 21:14: POC Glucose 140 H 04/15/24 05:30: POC Glucose 117 H 04/15/24 06:05: WBC 13.9 H D, RBC 3.86 L, Hgb 8.9 L, Hct 29.8 L, MCV 77.1 L, MCH 23.1 L, MCHC 29.9 L, RDW 21.9 H, Plt Count 101 L, MPV 9.2, Neut % (Auto) 78.4, Lymph % (Auto) 14.4, Peach % (Auto) 5.6, Eos % (Auto) 1.2, Baso % (Auto) 0.4, Neut # (Auto) 10.9 H, Lymph # (Auto) 2.0, Peach # (Auto) 0.8, Eos # (Auto) 0.2, Baso # (Auto) 0.1, Sodium 134 L, Potassium 3.3 L, Chloride 106, Carbon Dioxide 24, Anion Gap 7.3, BUN 25 H, Creatinine 1.00, Estimated Creat Clear 52, Estimated GFR 56 L, Est GFR ( Amer) 68, Glucose 102 H, Calcium 6.8 L, Phosphorus 2.6, Magnesium 2.6 H D, Total Bilirubin 2.3 H, AST 63 H, ALT 29, Alkaline Phosphatase 170 H, Total Protein 5.7 L, Albumin 2.3 L, Globulin 3.4 H, Albumin/Globulin Ratio 0.7 L 04/15/24 08:25: Vancomycin Trough 10.2 H I & O for Last 24 hours: Intake & Output 04/12/24 04/13/24 04/14/24 04/15/24 23:59 23:59 23:59 23:59 Intake Total 755.043 / 984.727 8558.246 / 5072.473 5033.226 / 1041.226 Output Total 3180 / 3220 1758 / 1823 560 / 560 Balance -2424.957 / -2464.957 -481.754 / -546.754 481.226 / 481.226 Weight 139 lb 15.896 oz 127 lb 8 oz 127 lb 6.835 oz Microbiology Reports for the Last 24 Hours: Microbiology 04/13/24 02:31 Urine,Catheterized Urine Culture - Final 04/13/24 02:35 Sputum - Endotracheal Tube Aspirate Gram Stain - Final 04/13/24 02:35 Sputum - Endotracheal Tube Aspirate Sputum Culture - Final Pseudomonas aeruginosa 04/13/24 02:50 Blood Blood Culture - Preliminary NO GROWTH AFTER 48 HOURS 04/13/24 02:50 Blood Blood Culture - Preliminary NO GROWTH AFTER 48 HOURS Constitutional Constitutional: no acute distress and average body habitus *Routine HEENT Exam Head: Present normocephalic and atraumatic ENT: Present mucous membranes moist *Routine Neck Exam Neck: Present supple, full ROM and normal carotid upstroke; Absent JVD, carotid bruit or lymphadenopathy *Routine Respiratory Exam Respiratory: Present CTA bilaterally, normal respiratory effort, able to speak in complete sentences and symmetric chest movement *Routine Cardiovascular Exam Cardiovascular: Present RRR, Normal S1 and Normal S2; Absent murmur or gallop *Routine Abdominal Exam Abdominal: Present soft and normoactive bowel sounds; Absent tenderness, distended or organomegaly *Routine Extremities Exam Extremities: Present full ROM, pulses intact and normal capillary refill; Absent cyanosis, clubbing or edema *Routine Skin Exam Skin: Present intact and warm; Absent erythema *Routine Neurological Exam Neurological: Present alert, oriented X3 and CN II-XII intact; Absent sensory deficit or motor deficit Routine Psychiatric Exam Psychiatric: Present normal affect Meds Home Medications and Allergies Home Medications ?Medication ?Instructions ?Recorded ?Confirmed ?Type lamotrigine 100 mg tablet 100 mg PO BID 09/26/23 04/13/24 History pravastatin 20 mg tablet 20 mg PO DAILY 09/26/23 04/13/24 History levothyroxine 25 mcg tablet 25 mcg PO DAILY 11/07/23 04/13/24 History alpha-1 proteinase inhib.(hum) 3,524 mg (70.48 mL) IV WEEKLY 12 12/11/23 04/13/24 Rx 1,000 mg (+/-)/20 mL IV solution months (Prolastin-C) fluticasone fur. 100 mcg-umeclid 1 inh inhalation DAILY 90 days #90 01/01/24 04/13/24 Rx 62.5 mcg-vilant 25 mcg ea inhalat.powder (Trelegy Ellipta) acetylcysteine 600 mg capsule (NAC) 1,000 mg PO DAILY 04/13/24 04/13/24 History s-adenosylmethionine 400 mg tablet 400 mg PO DAILY 04/13/24 04/13/24 History sertraline 100 mg tablet 100 mg PO DAILY 04/13/24 04/13/24 History spironolactone 50 mg tablet 50 mg PO BID 04/13/24 04/13/24 History New Prescriptions to Start Prescriptions: Allergies Allergy/AdvReac Type Severity Reaction Status Date / Time No Known Allergies Allergy Verified 04/09/24 10:42 Assessment and Plan *Assessment and plan (1) HFrEF (heart failure with reduced ejection fraction): Status: Acute Category: Medical Code(s): I50.20 - Unspecified systolic (congestive) heart failure (2) On mechanically assisted ventilation: Status: Acute Category: Medical Code(s): Z99.11 - Dependence on respirator [ventilator] status (3) UTI (urinary tract infection): Status: Acute Qualifiers: Urinary tract infection type: site unspecified Category: Medical Code(s): N39.0 - Urinary tract infection, site not specified (4) Acute hypoxic respiratory failure: Status: Acute Category: Medical Code(s): J96.01 - Acute respiratory failure with hypoxia (5) Sepsis: Status: Acute Category: Medical Code(s): A41.9 - Sepsis, unspecified organism (6) Pleural effusion: Status: Acute Category: Medical Code(s): J90 - Pleural effusion, not elsewhere classified (7) Pulmonary edema: Status: Acute Qualifiers: Chronicity: acute Qualified Code(s): J81.0 - Acute pulmonary edema Category: Medical Code(s): J81.1 - Chronic pulmonary edema (8) HTN (hypertension): Status: Acute Qualifiers: Hypertension type: primary hypertension Qualified Code(s): I10 - Essential (primary) hypertension Category: Medical Code(s): I10 - Essential (primary) hypertension (9) HLD (hyperlipidemia): Status: Acute Qualifiers: Hyperlipidemia type: mixed hyperlipidemia Qualified Code(s): E78.2 - Mixed hyperlipidemia Category: Medical Code(s): E78.5 - Hyperlipidemia, unspecified (10) Dementia: Status: Acute Qualifiers: Dementia type: unspecified type Dementia severity: unspecified severity Dementia behavioral or psychological symptom: unspecified whether behavioral, psychotic, or mood disturbance or anxiety Qualified Code(s): F03.90 - Unspecified dementia, unspecified severity, without behavioral disturbance, psychotic disturbance, mood disturbance, and anxiety Category: Medical Code(s): F03.90 - Unspecified dementia, unspecified severity, without behavioral disturbance, psychotic disturbance, mood disturbance, and anxiety Plan Plan: 1. The patient was admitted to the hospital with acute respiratory failure requiring intubation and mechanical ventilation. She remains sedated and on the ventilator today. Will defer to pulmonology and the hospitalist. 2. The patient does have acute HFrEF. Her ejection fraction is currently 30%. She also has at least a large left pleural effusion. The patient will need aggressive diuresis. We recommend Bumex 1 mg IV twice daily for diuresis. 3. Once this patient is able to take oral medications we do recommend carvedilol, Entresto, Jardiance and spironolactone as well due to her HFrEF. 4. She did have a slightly elevated troponin which is likely a type II non-STEMI secondary to her acute respiratory failure and acute HFrEF. We do recommend aspirin 81 mg daily and a statin once she is able to take oral medications. 5. The patient would benefit from an ischemic evaluation once she has recovered from her respiratory failure. 6. Her blood pressure is stable at this time on a norepinephrine drip. 7. Her LDL goal is less than 100. As mentioned above we do recommend a statin once she is able to take oral medications. 8. Her renal function is normal. Will continue to follow. 9. Further recommendations will be made pending the patient's response to treatment. Thank you for the opportunity to help her to spend the care of this patient. All recommendations and orders are per Dr. Gardner.
--- NOTE | 2024-04-15 15:47 | PC.NURSE ---
Levophed restarted due to low blood pressures after sedation restarted. Turn q2, og at 60, et tube 22 at teeth. Potassium given through og, tolerated well. Sedation increased as patient is trying to climb out of bed.
[2024-04-15] MEDS: propofoL 100 ML 5.72 MG IV (16:05)
[2024-04-15] MEDS: FENTANYL CITRATE/PF 1,000 MCG in 0.9 % SODIUM CHLORIDE 80 ML 3.75 MCG IV (16:06)
--- NOTE | 2024-04-15 16:24 | CA_ITS ---
APPROVED REPORT EXAM: Comprehensive 2D, Doppler, and color-flow Echocardiogram Cake Stripper: Polly Fam CRT Ht: 5 ft 3 in Wt: 127lbs BSA: 1.59 BP: 94/42 mmHg Indications: intubated, pleural effusion, dementia, DNR, CHF, SOB, EF 60-70% 12-16-22 2D Dimensions LA Volume 35.00 mL LA Volume Index 21.50 mL/m2 (M/F) 16-34 M-Mode Dimensions RVDd 2.36 cm (0.9-2.6) LA Diam 3.35 cm (1.9-4.0) LVDd 5.55 cm (3.5-5.7) LVDs 4.51 cm (3.5-5.7) IVSd 1.08 cm (0.6-1.1) PWd 0.82 cm (0.6-1.1) EF (Teich) 38.30% FS 18.70% EDV (Teich) 150.50 mL TAPSE 1.29 (<1.7) ESV (Teich) 92.90 mL LV Diastology E Decel Time 353 (160-240 msec) E/A Ratio 0.86 MED A' 13.00 cm/s LAT A' 13.50 cm/s Aortic Valve AO Peak GR. 10.10 mmHg Mitral Valve MV E Max Piyush. 97.0 (40-130 cm/s) MV A Velocity 114.0 (40-130 cm/s) E/A Ratio 0.86 MV PHT 103.0 ms Pulmonary Valve PV Peak Velocity 99.0 (50-150 cm/s) Tricuspid Valve TR P. Velocity 200.00 cm/s RAP Estimate 10.00 mmHg RVSP 25.90 mmHg Left Ventricle The left ventricle is normal size. The left ventricular systolic function is moderately to severely reduced There is normal left ventricular wall thickness. There is moderate to severe global hypokinesis present. Grade 1 diastolic dysfunction. LVEF is 30%. Right Ventricle The right ventricle is normal size. The right ventricular systolic function is normal. Atria The left atrium size is normal. The right atrium size is normal. There is no Doppler evidence of interatrial shunt. Aortic Valve The aortic valve opens well. There is no aortic valvular stenosis. No aortic regurgitation is present. Mitral Valve The mitral valve is normal in structure. No evidence of mitral valve stenosis. Moderate mitral regurgitation. The MR jet is eccentric and posteriorly directed. Tricuspid Valve The tricuspid valve leaflets are thin and pliable. Mild tricuspid regurgitation. RVSP is 15-20 mmHg. Pulmonic Valve The pulmonary valve is normal in structure. Trace pulmonic regurgitation. Great Vessels The aortic root is normal in size. The ascending aorta is normal in size. IVC is normal in size and collapses >50% with inspiration. Pericardium There is no pericardial effusion. A pleural effusion is present. Other Information Study Quality: Fair Conclusion Moderate to severe reduction in LV systolic function (LVEF 30%). Moderate MR. The MR jet is eccentric and posteriorly directed. Mild TR. Pleural effusion. Electronically signed by : Vrena Gadrner MD 04/16/2024 12:57:48
[2024-04-15] MEDS: BUMETANIDE 1MG/4ML VIAL 1 MG IV (16:51)
[2024-04-15 17:38] LABS: POC Glucose,Bedside 117 (70-110)
[2024-04-15 18:05] LABS: Vancomycin,Peak 27.5 ug/ml (11-39)
[2024-04-15] MEDS: SODIUM CHLORIDE 0.9% 10ML VIAL 10 ML IV (20:25)
[2024-04-15] MEDS: PANTOPRAZOLE 40MG VIAL 40 MG IV (20:25)
--- NOTE | 2024-04-15 20:25 | P.PN_ITS ---
Subjective *Date: 04/15/24 *Time: 22:32 Interval history: SBT being performed on rounds. Patient remained afebrile. Blood pressure showing improvement. Able to wean pressors when sedation is weaned. Diuresing well. Medical Exam Vital signs and Labs for Last 24 Hours: Vital Signs Temp Pulse Pulse Resp BP Pulse Ox O2 Del Method 04/15/24 20:00 18 100 04/15/24 20:00 98.8 F 04/15/24 20:00 64 18 91/53 L 100 Mechanical Ventilation 04/15/24 19:48 Mechanical Ventilation 04/15/24 19:15 66 89/43 L 04/15/24 19:00 62 18 86/41 L 100 Mechanical Ventilation 04/15/24 18:57 Mechanical Ventilation 04/15/24 18:20 20 100 04/15/24 18:00 64 18 93/44 L 100 Mechanical Ventilation 04/15/24 17:00 97 H 21 111/59 L 100 Mechanical Ventilation 04/15/24 17:00 Mechanical Ventilation 04/15/24 16:00 63 04/15/24 16:00 Mechanical Ventilation 04/15/24 16:00 97 H 24 88/43 L 96 Mechanical Ventilation 04/15/24 15:20 63 18 91/45 L 100 Mechanical Ventilation 04/15/24 15:00 Mechanical Ventilation 04/15/24 14:30 64 18 69/33 L 99 Mechanical Ventilation 04/15/24 14:00 97 H 21 95/56 L 95 Mechanical Ventilation 04/15/24 13:28 28 H 95 04/15/24 13:00 97 H 21 117/64 97 Mechanical Ventilation 04/15/24 13:00 Mechanical Ventilation 04/15/24 12:30 96 H 26 H 109/55 L 96 Mechanical Ventilation 04/15/24 12:00 80 04/15/24 11:58 99 F 04/15/24 11:57 Mechanical Ventilation 04/15/24 11:00 Mechanical Ventilation 04/15/24 11:00 97 H 30 H 109/45 L 95 Mechanical Ventilation 04/15/24 10:15 96 04/15/24 10:00 95 H 18 110/57 L 95 Mechanical Ventilation 04/15/24 09:00 89 18 117/52 L 93 L Mechanical Ventilation 04/15/24 09:00 Mechanical Ventilation 04/15/24 08:00 61 04/15/24 08:00 98.8 F 04/15/24 08:00 Mechanical Ventilation 04/15/24 08:00 61 18 98/45 L 100 Mechanical Ventilation 04/15/24 07:00 61 18 97/50 L 99 Mechanical Ventilation 04/15/24 07:00 Mechanical Ventilation 04/15/24 06:29 100 04/15/24 06:00 60 18 100/48 L 100 Mechanical Ventilation 04/15/24 05:00 61 18 101/45 L 99 Mechanical Ventilation 04/15/24 05:00 Mechanical Ventilation 04/15/24 04:09 21 04/15/24 04:00 60 100 Mechanical Ventilation 04/15/24 04:00 98.5 F 60 18 91/44 L 99 Mechanical Ventilation 04/15/24 04:00 62 04/15/24 03:00 Mechanical Ventilation 04/15/24 03:00 60 18 102/51 L 99 Mechanical Ventilation 04/15/24 02:00 57 L 18 93/45 L 100 Mechanical Ventilation 04/15/24 01:00 Mechanical Ventilation 04/15/24 01:00 57 L 18 94/45 L 100 Mechanical Ventilation 04/15/24 00:39 20 04/15/24 00:00 60 04/15/24 00:00 97.8 F 58 L 18 97/46 L 100 04/15/24 00:00 56 L 100 Mechanical Ventilation 04/14/24 23:00 57 L 18 92/43 L 100 Mechanical Ventilation 04/14/24 22:45 Mechanical Ventilation 04/14/24 22:00 58 L 18 91/45 L 100 Mechanical Ventilation 04/14/24 21:34 18 04/14/24 21:00 Mechanical Ventilation 04/14/24 21:00 63 18 87/46 L 100 Mechanical Ventilation FiO2 04/15/24 20:00 30 04/15/24 20:00 04/15/24 20:00 30 04/15/24 19:48 30 04/15/24 19:15 04/15/24 19:00 30 04/15/24 18:57 04/15/24 18:20 30 04/15/24 18:00 30 04/15/24 17:00 04/15/24 17:00 04/15/24 16:00 04/15/24 16:00 04/15/24 16:00 04/15/24 15:20 04/15/24 15:00 04/15/24 14:30 04/15/24 14:00 04/15/24 13:28 30 04/15/24 13:00 04/15/24 13:00 04/15/24 12:30 04/15/24 12:00 04/15/24 11:58 04/15/24 11:57 04/15/24 11:00 04/15/24 11:00 04/15/24 10:15 30 04/15/24 10:00 04/15/24 09:00 04/15/24 09:00 04/15/24 08:00 04/15/24 08:00 04/15/24 08:00 04/15/24 08:00 04/15/24 07:00 04/15/24 07:00 04/15/24 06:29 30 04/15/24 06:00 04/15/24 05:00 04/15/24 05:00 04/15/24 04:09 04/15/24 04:00 04/15/24 04:00 04/15/24 04:00 04/15/24 03:00 04/15/24 03:00 30 04/15/24 02:00 30 04/15/24 01:00 04/15/24 01:00 04/15/24 00:39 30 04/15/24 00:00 04/15/24 00:00 04/15/24 00:00 04/14/24 23:00 30 04/14/24 22:45 04/14/24 22:00 30 04/14/24 21:34 30 04/14/24 21:00 04/14/24 21:00 30 Intake and Output 04/15/24 04/15/24 04/15/24 07:59 15:59 23:59 Intake Total 239.002 / 1145.962 802.224 / 1145.962 104.736 / 1145.962 Output Total 345 / 815 215 / 815 255 / 815 Balance -105.998 / 330.962 587.224 / 330.962 -150.264 / 330.962 Intake: Intake, Tube Irrigant Amount 200 / 200 Intake, Total IV Amount 239.002 / 945.962 602.224 / 945.962 104.736 / 945.962 Levofloxacin/D5w 750 mg/150 ml 150 / 150 750 mg In 150 ml @ 100 mls/hr IV Q24H [facility] Rx#:[id number] Vancomycin HCl 1,000 mg In 0.9 250 / 250 % Sodium Chloride 250 ml @ 125 mls/hr IV ONCE ONE Rx#:[id number] Output: Output, Urine Amount 80 / 140 60 / 140 Output, Urine Amount (Catheter) 265 / 675 155 / 675 255 / 675 Banks 265 / 675 155 / 675 255 / 675 Other: Number of Unmeasured Voids 0 0 Weight 57.8 kg Patient Weight 04/15/24 23:59 Weight 57.8 kg Laboratory Results - last 24 hr 04/14/24 21:14: POC Glucose 140 H 04/15/24 05:30: POC Glucose 117 H 04/15/24 06:05: WBC 13.9 H D, RBC 3.86 L, Hgb 8.9 L, Hct 29.8 L, MCV 77.1 L, MCH 23.1 L, MCHC 29.9 L, RDW 21.9 H, Plt Count 101 L, MPV 9.2, Neut % (Auto) 78.4, Lymph % (Auto) 14.4, [place] % (Auto) 5.6, Eos % (Auto) 1.2, Baso % (Auto) 0.4, Neut # (Auto) 10.9 H, Lymph # (Auto) 2.0, [place] # (Auto) 0.8, Eos # (Auto) 0.2, Baso # (Auto) 0.1, Sodium 134 L, Potassium 3.3 L, Chloride 106, Carbon Dioxide 24, Anion Gap 7.3, BUN 25 H, Creatinine 1.00, Estimated Creat Clear 52, Estimated GFR 56 L, Est GFR ( Amer) 68, Glucose 102 H, Calcium 6.8 L, Phosphorus 2.6, Magnesium 2.6 H D, Total Bilirubin 2.3 H, AST 63 H, ALT 29, Alkaline Phosphatase 170 H, Total Protein 5.7 L, Albumin 2.3 L, Globulin 3.4 H, Albumin/Globulin Ratio 0.7 L 04/15/24 08:25: Vancomycin Trough 10.2 H 04/15/24 14:30: Vancomycin Peak 27.5 04/15/24 17:29: POC Glucose 117 H I & O for Labs for Last 24 Hours: Intake & Output 04/12/24 04/13/24 04/14/24 04/15/24 23:59 23:59 23:59 23:59 Intake Total 755.043 / 344.682 6081.246 / 7579.928 0573.962 / 1145.962 Output Total 3180 / 3220 1758 / 1823 815 / 815 Balance -2424.957 / -2464.957 -481.754 / -546.754 330.962 / 330.962 Weight 63.5 kg 57.833 kg 57.8 kg Microbiology Reports for the Last 24 Hours: Microbiology 04/13/24 02:31 Urine,Catheterized Urine Culture - Final 04/13/24 02:35 Sputum - Endotracheal Tube Aspirate Gram Stain - Final 04/13/24 02:35 Sputum - Endotracheal Tube Aspirate Sputum Culture - Final Pseudomonas aeruginosa 04/13/24 02:50 Blood Blood Culture - Preliminary NO GROWTH AFTER 48 HOURS 04/13/24 02:50 Blood Blood Culture - Preliminary NO GROWTH AFTER 48 HOURS Constitutional: Present no acute distress, thin and chronically ill appearing Head: Present atraumatic and normocephalic ENT: Present normal exam and mucous membranes moist Comment:: Bitemporal wasting Neck: Present normal inspection Respiratory: Present patient mechanically ventilated, rhonchi and crackles; Absent wheezes Cardiac: Present Reg Rate and Rhythm GI: Present soft and normal bowel sounds; Absent distention or tenderness Extremities: Present normal inspection, full ROM and edema (3+ pitting edema to knees) Skin: Present intact; Absent erythema Neuro: Present Other, alert, awake and moves all extremities Comment:: Sedation off, spontaneous movement. Assessment and Plan *Assessment and plan (1) Acute hypoxic respiratory failure: Status: Acute Category: Medical Code(s): J96.01 - Acute respiratory failure with hypoxia (2) Pulmonary edema: Status: Acute Qualifiers: Chronicity: acute Qualified Code(s): J81.0 - Acute pulmonary edema Category: Medical Code(s): J81.1 - Chronic pulmonary edema (3) Hyperkalemia: Status: Acute Category: Medical Code(s): E87.5 - Hyperkalemia (4) UTI (urinary tract infection): Status: Acute Qualifiers: Urinary tract infection type: site unspecified Category: Medical Code(s): N39.0 - Urinary tract infection, site not specified (5) Sepsis: Status: Acute Category: Medical Code(s): A41.9 - Sepsis, unspecified organism (6) Pleural effusion: Status: Acute Category: Medical Code(s): J90 - Pleural effusion, not elsewhere classified (7) Chronic dementia: Status: Acute Category: Medical Code(s): F03.90 - Unspecified dementia, unspecified severity, without behavioral disturbance, psychotic disturbance, mood disturbance, and anxiety (8) Chronic dementia: Status: Acute Category: Medical Code(s): F03.90 - Unspecified dementia, unspecified severity, without behavioral disturbance, psychotic disturbance, mood disturbance, and anxiety (9) Declining functional status: Status: Acute Category: Medical Code(s): R53.81 - Other malaise (10) AAT (uszox-4-bnyyhkvdros) deficiency: Status: Acute Category: Medical Code(s): E88.01 - Mqjwq-0-hzssvjqscqj deficiency Plan Ms. Woo is a 63-year-old female who presented in respiratory failure. Necessitating intubation in the ER. Found to have hemoptysis. Case discussed with ER physician, request admission to ICU for further management of respiratory failure and hemoptysis along with hyperkalemia. Medicine agreed to admit for further management. Pulmonology consulted to assist with vent management and assisting with critical care management. Patient showing slight improvements. Tolerating weaning settings on ventilator. Will attempt SBT today. Continues to require ICU level of care. Problems addressed as follows: Acute hypoxemic respiratory failure Pulmonary edema Acute HFrEF -Sputum positive for pansensitive Pseudomonas. -Discussed case with cardiology, echo obtained showing reduced ejection fraction of 30%. Continue Bumex 1 mg IV twice daily. Discussed case with cardiology. Given slight elevation in troponin, likely type II NSTEMI due to her acute respiratory failure and heart failure. Recommend initiating aspirin 81 mg daily on a statin once able to take oral medications. Would benefit from ischemic eval if in line with goals of care. - Discussed case with pulmonology. Given sputum culture, wean antibiotics to levofloxacin and vancomycin pending MRSA swab. Tolerating minimal vent settings. Daily SBT. Monitoring end-tidal CO2. -Pulmonology consulted, discussed case today, will trial SBT. Continue to keep patient intubated. Adjustments made after morning gas showing mild respiratory alkalosis. On minimal vent settings with PEEP of 8, TV 400, 30% FiO2, rate of 18. -White count improved from yesterday, down to 13.8 -Analgosedation with fentanyl and propofol -Hypotension due to sedation necessitating norepinephrine. Wean as tolerated for MAP greater than 65 Seizure disorder: Continue Lamictal 100 mg per tube twice daily Hypothyroid: Continue levothyroxine 25 mcg daily Alpha-1 antitrypsin deficiency Hemochromatosis -Complicate her liver function, heart function, respiratory function, cognition. -Ammonia elevated at 40. Initiate lactulose 20 mL once daily to promote bowel movement Electrolyte abnormalities: -Potassium low at 3.3, magnesium and phosphorus both 2.6. Kidney function at baseline with BUN 25, creatinine 1.0. Repeat CBC, CMP, magnesium ordered for the morning. -Replace per protocol Initaite NG feeds Lovenox 40 mg daily DNR This case had a high probability of a clinically significant, sudden, or life threatening deterioration of this patient's condition which required my full and direct attention, intervention and personal management. ICU/Critical care attestation This patient is critically ill with 30 minutes devoted solely to this patient managing life/organ supporting interventions that required physician assessment. This includes time spent making adjustments in ventilator settings, IV fluid administration, titration of pressors, adjustments of medications, discussion of patient with consultants and other care providers as well as updating patient and/or family (if patient by virtue of his/her condition is unable to participate in decision making). This does not include time spent performing separately billed procedures. Time is not concurrent with that of other providers.
[2024-04-16] VITALS (29 sets, daily range): BP systolic 85–162; BP diastolic 39–75; PULSE 57–102; RESP 18–40; TEMP 36.3–37.2; O2SAT 93–100; BMI 23.3
[2024-04-16] MEDS: propofoL 100 ML 7.62 MG IV (00:24)
[2024-04-16 05:48] LABS: POC Glucose,Bedside 112 (70-110)
[2024-04-16 05:48] LABS: POC Glucose,Bedside 111 (70-110)
[2024-04-16 05:48] LABS: POC Glucose,Bedside 108 (70-110)
[2024-04-16 05:48] LABS: POC Glucose,Bedside 131 (70-110)
[2024-04-16] MEDS: NOREPINEPHRINE BITARTRATE/D5W 8 MG/250 ML PLAST..BAG 22.5 MG IV (05:57)
[2024-04-16] MEDS: LEVOTHYROXINE 25MCG (0.025MG) TAB 25 MCG PO (06:23)
[2024-04-16 08:05] LABS: Basophils # 0.1 K/mm3 (0-0.2); Basophils % 0.4 % (0.1-2.0); Eosinophils # 0.2 K/mm3 (0.0-0.4); Eosinophils % 1.5 % (0.1-12.0); Hematocrit 31.2 % (37.0-47.0); Lymphocytes # 1.9 K/mm3 (0.7-4.5); Lymphocytes % 14.3 % (10-50); Mean Corpuscular HGB Conc 28.9 g/dL (31.8-35.4); Mean Corpuscular Hemoglobin 22.9 pg (27.0-31.2); Mean Corpuscular Volume 79.4 fl (81-99); Mean Platelet Volume 7.8 fl (7.4-10.4); Monocytes # 0.6 K/mm3 (0.1-1.0); Monocytes % 4.3 % (1.7-9.3); Neutrophils # 10.4 K/mm3 (1.8-7.8); Neutrophils % 79.4 % (37.0-80.0); Platelet Count 104 K/mm3 (142-424); Red Blood Count 3.93 M/mm3 (4.20-5.40); Red Cell Distribution Width 21.3 % (11.5-17.5); White Blood Count 13.1 K/mm3 (4.8-10.8)
[2024-04-16] MEDS: lamoTRIgine 100MG TABLET 100 MG PO (08:10)
[2024-04-16] MEDS: LACTULOSE 20GM/30ML UDC 20 GM PO ×2 (08:11→13:15)
[2024-04-16] MEDS: BUMETANIDE 1MG/4ML VIAL 1 MG IV (08:11)
[2024-04-16] MEDS: ENOXAPARIN 40MG/0.4ML SYRINGE 40 MG SQ (08:11)
[2024-04-16] MEDS: VANCOMYCIN/WATER FOR INJ (PEG) 1.25 GM/250 ML PIGGYBACK IV (08:11)
[2024-04-16 08:15] LABS: Alanine Aminotransferase 30 U/L (12-78); Albumin Level 2.4 g/dl (3.5-5.0); Albumin/Globulin Ratio 0.7 (1.1-1.8); Alkaline Phosphatase 156 U/L (38-126); Anion Gap 2.7 mEq/L (5-15); Aspartate Amino Transferase 58 U/L (14-36); Bilirubin,Total 2.6 mg/dl (0.2-1.3); Blood Urea Nitrogen 23 mg/dl (7-17); Calcium 7.2 mg/dl (8.4-10.2); Carbon Dioxide 30 mmol/L (22.0-30.0); Chloride 104 mmol/L (98-107); Creatinine Clearance Estimated 53 mL/min (50-200); Estimated Glomerular Filt Rate 63 ml/min (>60); GFR (African American) 76 ML/MIN (>60); Globulin 3.3 g/dL (1.3-3.2); Glucose 113 mg/dl (74-100); Potassium 3.7 mmoL/L (3.5-5.1); Sodium 133 mmol/L (136-145); Total Protein,Serum 5.7 g/dl (6.3-8.2)
[2024-04-16 08:28] LABS: Phosphorous 2.3 mg/dl (2.5-4.5)
--- NOTE | 2024-04-16 08:45 | XR_ITS ---
FINAL REPORT CLINICAL HISTORY: plueral effusion/opacities COMPARISON: 04/15/2024 FINDINGS: The heart size is mildly enlarged. An endotracheal tube is present with the tip 4.4 cm superior to the pilo. The mediastinum is unremarkable. There is patchy airspace opacity at the lung bases and in the right upper lobe, all of which is stable. The airspace opacity is most dense at the left lung base. The pleural effusion is stable. There is no pneumothorax. IMPRESSION: Stable pleural effusion and patchy airspace opacities. Reviewed, Interpreted and Dictated by Ean Palmer MD Transcribed by Genet Maciel Authenticated and [facility]
[2024-04-16 09:10] LABS: Chol/HDL Ratio 10.5 (1-3.5); Cholesterol 115 mg/dl (140-200); HDL Cholesterol 11 mg/dl (40-60); Triglycerides 164 mg/dl (30-150); VLDL Cholesterol 33 mg/dL (0-40)
[2024-04-16 09:21] LABS: Direct LDL Cholesterol 53.36 mg/dL (100-129)
--- NOTE | 2024-04-16 09:30 | P.PN_ITS ---
Subjective *Date: 04/16/24 *Time: 11:06 Interval history: No acute respiratory vents overnight. Continues remain on minimal ventilator settings. Pulmonology Exam Inpatient Vital signs and Labs for Last 24 Hours: Temp Pulse Resp BP Pulse Ox O2 Del Method FiO2 97.6 F 60 18 90/42 L 100 Mechanical Ventilation 30 04/16/24 08:00 04/16/24 09:00 04/16/24 09:00 04/16/24 09:00 04/16/24 09:00 04/16/24 09:00 04/16/24 08:00 Laboratory Results - last 24 hr 04/14/24 11:22: POC Glucose 131 H 04/15/24 08:25: Vancomycin Trough 10.2 H 04/15/24 11:01: POC Glucose 112 H 04/15/24 14:30: Vancomycin Peak 27.5 04/15/24 17:29: POC Glucose 117 H 04/15/24 23:27: POC Glucose 108 04/16/24 05:32: POC Glucose 111 H 04/16/24 07:25: WBC 13.1 H, RBC 3.93 L, Hgb 9.0 L, Hct 31.2 L, MCV 79.4 L, MCH 22.9 L, MCHC 28.9 L, RDW 21.3 H, Plt Count 104 L, MPV 7.8, Neut % (Auto) 79.4, Lymph % (Auto) 14.3, [place] % (Auto) 4.3, Eos % (Auto) 1.5, Baso % (Auto) 0.4, Neut # (Auto) 10.4 H, Lymph # (Auto) 1.9, [place] # (Auto) 0.6, Eos # (Auto) 0.2, Baso # (Auto) 0.1, Sodium 133 L, Potassium 3.7, Chloride 104, Carbon Dioxide 30, Anion Gap 2.7 L, BUN 23 H, Creatinine 0.90, Estimated Creat Clear 53, Estimated GFR 63, Est GFR ( Amer) 76, Glucose 113 H, Calcium 7.2 L, Phosphorus 2.3 L, Magnesium 2.0 D, Total Bilirubin 2.6 H, AST 58 H, ALT 30, Alkaline Phosphatase 156 H, Total Protein 5.7 L, Albumin 2.4 L, Globulin 3.3 H, Albumin/Globulin Ratio 0.7 L, Triglycerides 164 H, Cholesterol 115 L, LDL Cholesterol Direct 53.36 L, VLDL Cholesterol 33, HDL Cholesterol 11 L, Cholesterol/HDL Ratio 10.5 H Temp Pulse Resp BP Pulse Ox O2 Del Method FiO2 98.8 F 89 18 117/52 L 93 L Mechanical Ventilation 30 04/15/24 08:00 04/15/24 09:00 04/15/24 09:00 04/15/24 09:00 04/15/24 09:00 04/15/24 09:00 04/15/24 07:00 Laboratory Results - last 24 hr 04/14/24 07:23: Total Counted 100, Neutrophils % (Manual) 70, Lymphocytes % (Manual) 28, Monocytes % (Manual) 2, Platelet Estimate Moderate decrease, Hypochromasia 1+ 04/14/24 14:31: VBG pH 7.49 H, VBG pCO2 30.6 L, VBG pO2 73.1 H, VBG HCO3 22.6 L, VBG Total CO2 23.6, VBG O2 Saturation 95.3 H, VBG Base Excess -0.8, VBG Lactic Acid 1.4 04/14/24 16:39: Sodium 135 L, Potassium 3.6, Chloride 105, Carbon Dioxide 29, Anion Gap 4.6 L, BUN 25 H, Creatinine 1.10 H, Estimated Creat Clear 47, Estimated GFR 50 L, Est GFR ( Amer) 61, Glucose 123 H, Calcium 7.1 L, Magnesium 1.6 04/14/24 17:19: POC Glucose 136 H 04/14/24 21:14: POC Glucose 140 H 04/15/24 05:30: POC Glucose 117 H 04/15/24 06:05: WBC 13.9 H D, RBC 3.86 L, Hgb 8.9 L, Hct 29.8 L, MCV 77.1 L, MCH 23.1 L, MCHC 29.9 L, RDW 21.9 H, Plt Count 101 L, MPV 9.2, Neut % (Auto) 78.4, Lymph % (Auto) 14.4, [place] % (Auto) 5.6, Eos % (Auto) 1.2, Baso % (Auto) 0.4, Neut # (Auto) 10.9 H, Lymph # (Auto) 2.0, [place] # (Auto) 0.8, Eos # (Auto) 0.2, Baso # (Auto) 0.1, Sodium 134 L, Potassium 3.3 L, Chloride 106, Carbon Dioxide 24, Anion Gap 7.3, BUN 25 H, Creatinine 1.00, Estimated Creat Clear 52, Estimated GFR 56 L, Est GFR ( Amer) 68, Glucose 102 H, Calcium 6.8 L, Phosphorus 2.6, Magnesium 2.6 H D, Total Bilirubin 2.3 H, AST 63 H, ALT 29, Alkaline Phosphatase 170 H, Total Protein 5.7 L, Albumin 2.3 L, Globulin 3.4 H, Albumin/Globulin Ratio 0.7 L I & O for Labs for Last 24 Hours: Intake & Output 04/13/24 04/14/24 04/15/24 04/16/24 23:59 23:59 23:59 23:59 Intake Total 755.043 / 308.080 7999.246 / 6392.031 6928.962 / 1250.962 638.456 / 638.456 Output Total 3180 / 3220 1758 / 1823 1150 / 1150 490 / 490 Balance -2424.957 / -2464.957 -481.754 / -546.754 100.962 / 100.962 148.456 / 148.456 Weight 139 lb 15.896 oz 127 lb 8 oz 127 lb 6.835 oz 131 lb 7 oz Intake & Output 04/12/24 04/13/24 04/14/24 04/15/24 23:59 23:59 23:59 23:59 Intake Total 755.043 / 450.734 5476.246 / 1276.246 394.121 / 394.121 Output Total 3180 / 3220 1758 / 1823 435 / 435 Balance -2424.957 / -2464.957 -481.754 / -546.754 -40.879 / -40.879 Weight 139 lb 15.896 oz 127 lb 8 oz 127 lb 6.835 oz Microbiology Reports for the Last 24 Hours: Microbiology 04/13/24 02:31 Urine,Catheterized Urine Culture - Final 04/13/24 02:35 Sputum - Endotracheal Tube Aspirate Gram Stain - Final 04/13/24 02:35 Sputum - Endotracheal Tube Aspirate Sputum Culture - Final Pseudomonas aeruginosa Microbiology 04/13/24 02:31 Urine,Catheterized Urine Culture - Final 04/13/24 02:35 Sputum - Endotracheal Tube Aspirate Gram Stain - Final 04/13/24 02:35 Sputum - Endotracheal Tube Aspirate Sputum Culture - Final Pseudomonas aeruginosa 04/13/24 02:50 Blood Blood Culture - Preliminary NO GROWTH AFTER 48 HOURS 04/13/24 02:50 Blood Blood Culture - Preliminary NO GROWTH AFTER 48 HOURS Constitutional: Present severe distress Comment:: Intubated and Sedated Head: Present normocephalic and atraumatic Neck: Present normal inspection and trachea midline Respiratory: Present patient mechanically ventilated, respiratory distress and rhonchi; Absent wheezes or normal respiratory effort Cardiac: Present S1/S2 and Tachycardia GI: Present soft; Absent distention or tenderness Skin: Present intact; Absent cyanosis Neuro: Present awake; Absent alert or oriented x 3 Extremities: Present normal inspection; Absent clubbing or cyanosis Psychiatric: Present unable to assess Assessment and Plan *Assessment and plan (1) Acute hypoxic respiratory failure: Status: Acute Category: Medical Code(s): J96.01 - Acute respiratory failure with hypoxia (2) Pneumonia: Status: Acute Category: Medical Code(s): J18.9 - Pneumonia, unspecified organism (3) On mechanically assisted ventilation: Status: Acute Category: Medical Code(s): Z99.11 - Dependence on respirator [ventilator] status Plan Ms. Woo is a 63-year-old female never smoker, history of hemochromatosis alpha-1 antitrypsin deficiency, emphysema multiple pulmonary nodules and bronchiectasis presented to the ER with worsening respiratory distress eventually needing intubation mechanical ventilatory support and pulmonary was called for further evaluation and management. CT chest upon admission bilateral diffuse patchy dense consolidative changes not consistent with pulmonary edema. These consolidative changes are new from her most recent CT from October 2023. Patient also noted to have bilateral pleural effusions. Patient on admission was initiated on vancomycin and cefepime. Tracheal aspirate culture from this admission growing Pseudomonas, pansensitive. Interval update: No acute respiratory events overnight. Minimal ventilator settings. Chest x-ray with no acute changes, slight improvement from yesterday. Continue to receive diuretics. Continue to receive vancomycin levofloxacin. Weaning sedation this morning.. 2-week. Discussed with family would like to be DNR/DNI postextubation. Plan: Continue abnormal sedation propofol and fentanyl. No need for deep sensation sedation Continue mechanical ventilator support, currently on PEEP of 5 FiO2 30% tidal volume of 420 and a rate of 18. Will follow SBT trial. Monitor end-tidal CO2. Continue vancomycin pending nasal MRSA PCR Continue levofloxacin. DuoNebs every 6 hours scheduled Abdomen soft nondistended. Tube feeds initiated at 10/h. Significant residual, abdomen distended and tense. No acute findings on CT abdomen pelvis from admission. Retained stool burden noted. Plan was made to increase bowel regimen to be titrated for bowel movement Adequate urine output. Continue to be diuresed. - Continue mechanical ventilatory support - Continue AnalgoSedation with Propofol and Fentanyl with CPOT gal less than or euqal to 2 and RASS goal of to 2 (No need for deep sedation) - VAP bundle Recommend elevate head of the bed at 30 to 45 degrees Recommend oral care with chlorhexidne Recommend GI ulcer prophylaxis - Famotidine 20mg IV BID Recommend chemical DVT prophylaxis Total critical care time spent on this patient is 35 minutes managing acute hypoxic respiratory failure needing mechanical ventilation. This time spent include reviewing test results including interpreting chest x-rays, labs and arterial blood gas, optimizing the ventilator settings,formulating plan of care, discussing the plan of care with the team and the nursing staff.
--- NOTE | 2024-04-16 10:16 | PC.NURSE ---
held tube feeding per dr. lei for svt trial
--- NOTE | 2024-04-16 11:00 | DIET.NUTRFU ---
Addendum entered by Basilia Handley RD, LD 04/16/24 11:06: reviewed weight hx and appears stable over past year at 57-59kg. Was admitted at 63kg with edema noted and bumex given Original Note: Reviewed care with nursing, TF is currently on hold secondary to SBT. Family is expressing wishes of no re-intubation if fails. She is DNR status currently. TF was started yesterday at 10ml, went to increase later and residuals were high, not tolerating TF. Will re-eval if needed to restart. Lactulose was also increased d/t no BM since admit, nursing reports active bowel sounds. Protonix in place, bumex continues. Urine output yesterday was 1150ml with positive fluid status of 100.9ml secondary to TF flush/formula. Labs reviewed Na 133L, glucose 113H, Phosphorous 2.3L, albumin 2.4L
[2024-04-16 11:31] LABS: POC Glucose,Bedside 105 (70-110)
[2024-04-16] MEDS: LEVOFLOXACIN/D5W 750 MG/150 ML 750 MG/150 ML PIGGYBACK 100 MG IV (12:08)
--- NOTE | 2024-04-16 13:19 | P.PN_ITS ---
Subjective Subjective Date: 04/16/24 Time: 13:00 Principal diagnosis: acute HFrEF Interval history: This is a 63-year-old female who presented to the emergency department with respiratory failure. The patient ultimately ended up intubated and on the ventilator. She was found to have a slightly elevated troponin on admission as well as an abnormal EKG and elevated BNP. The patient appears to be in no distress this morning and remains sedated and intubated on the ventilator. Exam Data for Last 24 hours Vital signs and Labs for Last 24 Hours: Temp Pulse Resp BP Pulse Ox O2 Del Method FiO2 98.9 F 98 H 21 101/40 L 99 Mechanical Ventilation 30 04/16/24 13:00 04/16/24 12:30 04/16/24 12:30 04/16/24 12:30 04/16/24 12:30 04/16/24 12:30 04/16/24 12:00 Laboratory Results - last 24 hr 04/14/24 11:22: POC Glucose 131 H 04/15/24 11:01: POC Glucose 112 H 04/15/24 14:30: Vancomycin Peak 27.5 04/15/24 17:29: POC Glucose 117 H 04/15/24 23:27: POC Glucose 108 04/16/24 05:32: POC Glucose 111 H 04/16/24 07:25: WBC 13.1 H, RBC 3.93 L, Hgb 9.0 L, Hct 31.2 L, MCV 79.4 L, MCH 22.9 L, MCHC 28.9 L, RDW 21.3 H, Plt Count 104 L, MPV 7.8, Neut % (Auto) 79.4, Lymph % (Auto) 14.3, [place] % (Auto) 4.3, Eos % (Auto) 1.5, Baso % (Auto) 0.4, Neut # (Auto) 10.4 H, Lymph # (Auto) 1.9, [place] # (Auto) 0.6, Eos # (Auto) 0.2, Baso # (Auto) 0.1, Sodium 133 L, Potassium 3.7, Chloride 104, Carbon Dioxide 30, Anion Gap 2.7 L, BUN 23 H, Creatinine 0.90, Estimated Creat Clear 53, Estimated GFR 63, Est GFR ( Amer) 76, Glucose 113 H, Calcium 7.2 L, Phosphorus 2.3 L, Magnesium 2.0 D, Total Bilirubin 2.6 H, AST 58 H, ALT 30, Alkaline Phosphatase 156 H, Total Protein 5.7 L, Albumin 2.4 L, Globulin 3.3 H, Al bumin/Globulin Ratio 0.7 L, Triglycerides 164 H, Cholesterol 115 L, LDL Cholesterol Direct 53.36 L, VLDL Cholesterol 33, HDL Cholesterol 11 L, Cholesterol/HDL Ratio 10.5 H 04/16/24 11:23: POC Glucose 105 I & O for Last 24 hours: Intake & Output 04/13/24 04/14/24 04/15/24 04/16/24 23:59 23:59 23:59 23:59 Intake Total 755.043 / 052.831 7128.246 / 2335.995 4930.962 / 1250.962 963.368 / 963.368 Output Total 3180 / 3220 1758 / 1823 1150 / 1150 1275 / 1275 Balance -2424.957 / -2464.957 -481.754 / -546.754 100.962 / 100.962 -311.632 / - 311.632 Weight 139 lb 15.896 oz 127 lb 8 oz 127 lb 6.835 oz 131 lb 7 oz Constitutional Constitutional: no acute distress and average body habitus *Routine HEENT Exam Head: Present normocephalic and atraumatic ENT: Present mucous membranes moist *Routine Neck Exam Neck: Present normal carotid upstroke; Absent JVD, carotid bruit or lymphadenopathy *Routine Respiratory Exam Respiratory: Present patient mechanically ventilated and decreased breath sounds *Routine Cardiovascular Exam Cardiovascular: Present RRR, Normal S1 and Normal S2; Absent murmur or gallop *Routine Abdominal Exam Abdominal: Present soft and normoactive bowel sounds; Absent organomegaly *Routine Extremities Exam Extremities: Present pulses intact and normal capillary refill; Absent cyanosis, clubbing or edema *Routine Skin Exam Skin: Present intact and warm; Absent erythema *Routine Neurological Exam Neurological: Present altered mental status (Patient is sedated) Routine Psychiatric Exam Psychiatric: Present unable to assess Progress Note: A&P Assessment and plan (1) HFrEF (heart failure with reduced ejection fraction): Status: Acute (2) On mechanically assisted ventilation: Status: Acute (3) Acute hypoxic respiratory failure: Status: Acute (4) Pneumonia: Status: Acute (5) Sepsis: Status: Acute (6) Pleural effusion: Status: Acute (7) Pulmonary edema: Status: Acute (8) Chronic dementia: Status: Acute (9) HLD (hyperlipidemia): Status: Acute (10) HTN (hypertension): Status: Acute Assessment and Plan Assessment and Plan for All Diagnoses:: Plan: 1. The patient was admitted to the hospital with acute respiratory failure requiring intubation and mechanical ventilation. She remains sedated and on the ventilator today. Will defer to pulmonology and the hospitalist. 2. The patient does have acute HFrEF. Her ejection fraction is currently 30%. She also has at least a large left pleural effusion. The patient will need aggressive diuresis. She did have a positive fluid balance overnight. Will switch her over to a Bumex drip today for more aggressive diuresis. 3. Once this patient is able to take oral medications we do recommend carvedilol, Entresto, Jardiance and spironolactone as well due to her HFrEF. 4. She did have a slightly elevated troponin which is likely a type II non- STEMI secondary to her acute respiratory failure and acute HFrEF. We do recomme nd aspirin 81 mg daily and a statin once she is able to take oral medications. 5. The patient would benefit from an ischemic evaluation once she has recovered from her respiratory failure. This can likely be done on an outpatient basis. 6. Her blood pressure is stable at this time on a norepinephrine drip. 7. Her LDL goal is less than 55. LDL is 53. As mentioned above we do recommend a statin once she is able to take oral medications. 8. Her renal function is normal. Will continue to follow. 9. Further recommendations will be made pending the patient's response to treatment. Thank you for the opportunity to help her to spend the care of this patient. All recommendations and orders are per Dr. Gardner.
[2024-04-16] MEDS: BUMETANIDE 10 MG in 0.9 % SODIUM CHLORIDE 60 ML 5 MG IV (13:49)
--- NOTE | 2024-04-16 13:56 | PC.NURSE ---
Patient extubated at 1330
--- NOTE | 2024-04-16 14:06 | PC.NURSE ---
RESP CARE NOTE: Pt placed on bipap machine for use of AVAPS mode. Settings initiated per Dr Wallace as follows, Max P [id number], Min P [id number], EPAP [id number], Rate 18 bpm, Vt 400ml, FIO2 40%. Pt achieving 358ml Vt, Spontaneous Rate 48bpm, Ve 17.1 L/min, PIP 17 cmH2O, and the patient leak is 0 L/min. Will continue to monitor patient.
[2024-04-16] MEDS: LORazepam 2MG/ML VIAL 1 MG IV (15:01)
--- NOTE | 2024-04-16 15:25 | EXP.PN ---
Subjective *Date: 04/16/24 *Time: 16:14 Interval history: This is a 63-year-old female patient with history of alpha 1 antitrypsin deficiency phenotype ZZ and hemochromatosis. 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 She was admitted through the ER for respiratory failure and was intubated. CT showed extensive bilateral infiltrates and moderate bilateral pleural effusions. Sputum grew Pseudomonas. Blood cultures x 2 negative. Upon arrival she had elevated bilirubin of 1.3, AST elevated of 81, ALT of 44 and alk phos of 211. Bilirubin has increased to 2.6 with mild improvement of AST, normal ALT and alk phos has been consistent in the 150s. Does not appear to be acute liver failure. She has been extubated and is on BiPAP currently. Has been given Ativan for ongoing agitation. Has not had a bowel movement since admission and lactulose has been increased. Exam Data for Last 24 hours Vital signs and Labs for Last 24 Hours: Temp Pulse Resp BP Pulse Ox O2 Del Method FiO2 98.9 F 83 32 H 162/75 H 100 CPAP 30 04/16/24 13:00 04/16/24 15:00 04/16/24 15:00 04/16/24 15:00 04/16/24 15:00 04/16/24 15:00 04/16/24 13:15 Laboratory Results - last 24 hr 04/14/24 11:22: POC Glucose 131 H 04/15/24 11:01: POC Glucose 112 H 04/15/24 14:30: Vancomycin Peak 27.5 04/15/24 17:29: POC Glucose 117 H 04/15/24 23:27: POC Glucose 108 04/16/24 05:32: POC Glucose 111 H 04/16/24 07:25: WBC 13.1 H, RBC 3.93 L, Hgb 9.0 L, Hct 31.2 L, MCV 79.4 L, MCH 22.9 L, MCHC 28.9 L, RDW 21.3 H, Plt Count 104 L, MPV 7.8, Neut % (Auto) 79.4, Lymph % (Auto) 14.3, [place] % (Auto) 4.3, Eos % (Auto) 1.5, Baso % (Auto) 0.4, Neut # (Auto) 10.4 H, Lymph # (Auto) 1.9, [place] # (Auto) 0.6, Eos # (Auto) 0.2, Baso # (Auto) 0.1, Sodium 133 L, Potassium 3.7, Chloride 104, Carbon Dioxide 30, Anion Gap 2.7 L, BUN 23 H, Creatinine 0.90, Estimated Creat Clear 53, Estimated GFR 63, Est GFR ( Amer) 76, Glucose 113 H, Calcium 7.2 L, Phosphorus 2.3 L, Magnesium 2.0 D, Total Bilirubin 2.6 H, AST 58 H, ALT 30, Alkaline Phosphatase 156 H, Total Protein 5.7 L, Albumin 2.4 L, Globulin 3.3 H, Albumin/Globulin Ratio 0.7 L, Triglycerides 164 H, Cholesterol 115 L, LDL Cholesterol Direct 53.36 L, VLDL Cholesterol 33, HDL Cholesterol 11 L, Cholesterol/HDL Ratio 10.5 H 04/16/24 11:23: POC Glucose 105 I & O for Last 24 hours: Intake & Output 04/14/24 04/15/24 04/16/24 04/17/24 11:59 11:59 11:59 11:59 Intake Total 1257.146 355.440 8209.709 431.813 Output Total 1158 1840 1740 325 Balance 99.146 -991.090 -190.291 106.813 Weight 57.833 kg 57.8 kg 59.619 kg Constitutional Constitutional: thin *Routine Abdominal Exam Abdominal: Present normoactive bowel sounds and distended (Mild soft distention with palpable stool); Absent tenderness, mass, hernia or wound Assessment and Plan *Assessment and plan (1) Cirrhosis: Status: Acute Category: Medical Code(s): K74.60 - Unspecified cirrhosis of liver (2) Acute hypoxic respiratory failure: Status: Acute Category: Medical Code(s): J96.01 - Acute respiratory failure with hypoxia (3) Sepsis: Status: Acute Category: Medical Code(s): A41.9 - Sepsis, unspecified organism (4) Pulmonary edema: Status: Acute Qualifiers: Chronicity: acute Qualified Code(s): J81.0 - Acute pulmonary edema Category: Medical Code(s): J81.1 - Chronic pulmonary edema (5) AAT (rlrag-8-tvypdqozldh) deficiency: Status: Acute Category: Medical Code(s): E88.01 - Uctkb-9-ccgfbijemcs deficiency (6) Encephalopathy: Status: Acute Category: Medical Code(s): G93.40 - Encephalopathy, unspecified (7) Hemochromatosis: Status: Acute Category: Medical Code(s): E83.119 - Hemochromatosis, unspecified (8) Elevated liver enzymes: Status: Acute Category: Medical Code(s): R74.8 - Abnormal levels of other serum enzymes Plan Will continue to monitor patient throughout admission. Bilirubin slightly elevated 2.6 from 1.6 upon admission. Appears to be intrahepatic cholestasis contributing to the LFT elevations. Can be seen with sepsis and acute illness. Recommend fractionated bilirubin if it continues to climb. Nursing reports agitation today requiring Ativan after extubation. She has not had a bowel movement and had last ammonia level equal to 40. May be worth repeating the ammonia level. I agree with increasing lactulose.
--- NOTE | 2024-04-16 15:56 | SW/DCPLANNER ---
Addendum entered by Sunshine Prince 04/18/24 11:20: I have updated Soraya w/ [facility] and Meeta terrell/ [facility] that patient will discharge today. Patient will be admitted under Hospice once she admits to [facility]. Addendum entered by Sunshine Prince 04/17/24 13:36: Soraya w/ [facility] stated that she can accept this patient once medically stable for discharge. Addendum entered by Sunshine [place] 04/17/24 09:36: BAO w/ [facility] is present to evaluate patient and speak w/ family. Family has requested that patient information be faxed to [facility] as they are no longer able to care for her at home since being ill. Soraya w/ [facility] confirmed they do have beds and patient information has been faxed. I will continue to follow up w/ patient, family, MD, Hospice and [facility]. Original Note: I received a phone call from Dr Pelaez stating that patient's family approached him this afternoon regarding Hospice care. Patient's brother (Austin) is patient's POA and would like to pursue Hospice Care for this patient at a LTC facility. I have updated Dr Bundy and he is agreeable w/ this plan. I also spoke w/ Austin whom is agreeable for information to be faxed to Hospice today. I have updated Meeta w/ Hospice and she will call and arrange a time to evaluate patient and speak w/ family. I will follow up w/ patient, family, MD and Hospice in the AM.
--- NOTE | 2024-04-16 16:17 | PC.NURSE ---
Patient restless and trying to climb out of bed, prn ativan given. Patient able to rest after administration but levophed turned back on due to low blood pressure. Bath given, patient turned q2. Oral care attempted every 2 hours but patient not tolerant and biting yanker each time. Lung sounds coarse.
--- NOTE | 2024-04-16 17:36 | EXP.PN ---
Subjective *Date: 04/16/24 *Time: 17:36 Exam Data for Last 24 hours Vital signs and Labs for Last 24 Hours: Temp Pulse Resp BP Pulse Ox O2 Del Method FiO2 98.4 F 102 H 33 H 129/59 L 99 CPAP 30 04/16/24 16:00 04/16/24 17:00 04/16/24 17:00 04/16/24 17:00 04/16/24 17:00 04/16/24 17:00 04/16/24 13:15 Laboratory Results - last 24 hr 04/14/24 11:22: POC Glucose 131 H 04/15/24 11:01: POC Glucose 112 H 04/15/24 14:30: Vancomycin Peak 27.5 04/15/24 17:29: POC Glucose 117 H 04/15/24 23:27: POC Glucose 108 04/16/24 05:32: POC Glucose 111 H 04/16/24 07:25: WBC 13.1 H, RBC 3.93 L, Hgb 9.0 L, Hct 31.2 L, MCV 79.4 L, MCH 22.9 L, MCHC 28.9 L, RDW 21.3 H, Plt Count 104 L, MPV 7.8, Neut % (Auto) 79.4, Lymph % (Auto) 14.3, [place] % (Auto) 4.3, Eos % (Auto) 1.5, Baso % (Auto) 0.4, Neut # (Auto) 10.4 H, Lymph # (Auto) 1.9, [place] # (Auto) 0.6, Eos # (Auto) 0.2, Baso # (Auto) 0.1, Sodium 133 L, Potassium 3.7, Chloride 104, Carbon Dioxide 30, Anion Gap 2.7 L, BUN 23 H, Creatinine 0.90, Estimated Creat Clear 53, Estimated GFR 63, Est GFR ( Amer) 76, Glucose 113 H, Calcium 7.2 L, Phosphorus 2.3 L, Magnesium 2.0 D, Total Bilirubin 2.6 H, AST 58 H, ALT 30, Alkaline Phosphatase 156 H, Total Protein 5.7 L, Albumin 2.4 L, Globulin 3.3 H, Albumin/Globulin Ratio 0.7 L, Triglycerides 164 H, Cholesterol 115 L, LDL Cholesterol Direct 53.36 L, VLDL Cholesterol 33, HDL Cholesterol 11 L, Cholesterol/HDL Ratio 10.5 H 04/16/24 11:23: POC Glucose 105 I & O for Last 24 hours: Intake & Output 04/13/24 04/14/24 04/15/24 04/16/24 23:59 23:59 23:59 23:59 Intake Total 755.043 / 780.077 6314.246 / 2227.036 4531.962 / 8016.334 4417.118 / 1152.118 Output Total 3180 / 3220 1758 / 1823 1150 / 1150 1540 / 1540 Balance -2424.957 / -2464.957 -481.754 / -546.754 100.962 / 100.962 -387.882 / -387.882 Weight 63.5 kg 57.833 kg 57.8 kg 59.619 kg *Routine Respiratory Exam Comments: Constitutional: Present no acute distress, thin and chronically ill appearing Head: Present atraumatic and normocephalic ENT: Present normal exam and mucous membranes moist Bitemporal wasting Neck: Present normal inspection Respiratory: Absent rhonchi and crackles; Absent wheezes Cardiac: Present Reg Rate and Rhythm GI: Present soft and normal bowel sounds; Absent distention or tenderness Extremities: Present normal inspection, full ROM and edema (1+ pitting edema to knees) Skin: Present intact; Absent erythema Neuro: Present Other, alert, awake and moves all extremities Assessment and Plan *Assessment and plan (1) Acute hypoxic respiratory failure: Status: Acute Category: Medical Code(s): J96.01 - Acute respiratory failure with hypoxia (2) Pulmonary edema: Status: Acute Qualifiers: Chronicity: acute Qualified Code(s): J81.0 - Acute pulmonary edema Category: Medical Code(s): J81.1 - Chronic pulmonary edema (3) Hyperkalemia: Status: Acute Category: Medical Code(s): E87.5 - Hyperkalemia (4) UTI (urinary tract infection): Status: Acute Qualifiers: Urinary tract infection type: site unspecified Hematuria presence: without hematuria Qualified Code(s): N39.0 - Urinary tract infection, site not specified Category: Medical Code(s): N39.0 - Urinary tract infection, site not specified (5) Sepsis: Status: Acute Qualifiers: Sepsis type: Pseudomonas Sepsis acute organ dysfunction status: with acute organ dysfunction Severe sepsis acute organ dysfunction type: acute respiratory failure Acute respiratory failure type: with hypoxia Severe sepsis shock status: without septic shock Qualified Code(s): A41.52 - Sepsis due to Pseudomonas; R65.20 - Severe sepsis without septic shock; J96.01 - Acute respiratory failure with hypoxia Category: Medical Code(s): A41.9 - Sepsis, unspecified organism (6) Pleural effusion: Status: Acute Category: Medical Code(s): J90 - Pleural effusion, not elsewhere classified (7) Chronic dementia: Status: Acute Category: Medical Code(s): F03.90 - Unspecified dementia, unspecified severity, without behavioral disturbance, psychotic disturbance, mood disturbance, and anxiety (8) Chronic dementia: Status: Acute Category: Medical Code(s): F03.90 - Unspecified dementia, unspecified severity, without behavioral disturbance, psychotic disturbance, mood disturbance, and anxiety (9) Declining functional status: Status: Acute Category: Medical Code(s): R53.81 - Other malaise (10) AAT (novok-0-lzlxjgrafan) deficiency: Status: Acute Category: Medical Code(s): E88.01 - Tojss-9-zkdxtmaihfm deficiency Plan Ms. Woo is a 63-year-old female who presented in respiratory failure. Necessitating intubation in the ER. Found to have hemoptysis. Case discussed with ER physician, request admission to ICU for further management of respiratory failure and hemoptysis along with hyperkalemia. Medicine agreed to admit for further management. Pulmonology consulted to assist with vent management and assisting with critical care management. Patient showing slight improvements. Successfully extubated today and tolerating BiPAP appropriately. Acute hypoxemic respiratory failure Pulmonary edema Acute HFrEF Pneumonia, aspiration versus CAP ? Successfully extubated today and tolerating BiPAP appropriately. ? IV vancomycin, Levaquin given sputum cultures positive for Pseudomonas. Vancomycin can be discontinued once MRSA culture has resulted. - Discussed case with cardiology, echo obtained showing reduced ejection fraction of 30%. Continue Bumex 1 mg IV twice daily. Discussed case with cardiology. Given slight elevation in troponin, likely type II NSTEMI due to her acute respiratory failure and heart failure. Recommend initiating aspirin 81 mg daily on a statin once able to take oral medications. Will not pursue ischemic workup given family wants to pursue hospice care. - Pulmonology consulted, appreciate recommendations and involvement in care. ? Patient advanced dementia puts her at a higher aspiration risk. Aspiration precautions. ? Wean BiPAP as tolerated. ? After discussion with family, they want a pursue hospice care but not withdrawing care. ? Discontinued Ativan given hypotension necessitating norepinephrine. Started Zyprexa as needed. Seizure disorder: Continue Lamictal 100 mg per tube twice daily Hypothyroid: Continue levothyroxine 25 mcg daily Alpha-1 antitrypsin deficiency Hemochromatosis Constipation -Complicated liver function, heart function, respiratory function, cognition. -Ammonia elevated at 40. Increase lactulose to 20 mg 3 times daily as patient has not had a bowel movement in the last 2 days. ?Continue to monitor liver function. ? Consider enema if no bowel movement tomorrow. Electrolyte abnormalities: -Replace per protocol Continue NG feeds Lovenox 40 mg daily DNR
[2024-04-17] VITALS (42 sets, daily range): BP systolic 68–134; BP diastolic 29–61; PULSE 55–94; RESP 16–34; TEMP 35.3–36.7; O2SAT 93–100; BMI 23.3
[2024-04-17 04:32] LABS: Microscopic, Urine URINE MICROSCOPIC (MICROSCOPIC)
[2024-04-17 04:33] LABS: Appearance,Urine CLEAR (Clear); Bilirubin,Urine Negative (Negative); Blood, Urine 2+ (Negative); Color,Urine YELLOW (Yellow); Glucose,Urine (UA) Negative (Negative); Ketones,Urine Negative (Negative); Leukocyte Esterase,Urine TRACE (Negative); Nitrate,Urine Negative (Negative); Protein,Urine Negative (Negative); Urobilinogen,Urine 0.2 EU/dl (0.2)
[2024-04-17 04:41] LABS: Bacteria,Urine Trace /lpf
[2024-04-17] MEDS: NOREPINEPHRINE BITARTRATE/D5W 8 MG/250 ML PLAST..BAG 7.5 MG IV (04:45)
[2024-04-17] MEDS: KETOROLAC 30MG/ML VIAL 15 MG IV (05:27)
[2024-04-17] MEDS: BUMETANIDE 10 MG in 0.9 % SODIUM CHLORIDE 60 ML 5 MG IV (05:36)
[2024-04-17 06:26] LABS: Anion Gap 5.2 mEq/L (5-15); Blood Urea Nitrogen 24 mg/dl (7-17); Calcium 7.3 mg/dl (8.4-10.2); Carbon Dioxide 32 mmol/L (22.0-30.0); Chloride 102 mmol/L (98-107); Creatinine Clearance Estimated 53 mL/min (50-200); Estimated Glomerular Filt Rate 56 ml/min (>60); GFR (African American) 68 ML/MIN (>60); Glucose 94 mg/dl (74-100); Potassium 3.2 mmoL/L (3.5-5.1); Sodium 136 mmol/L (136-145)
[2024-04-17 09:24] LABS: Basophils % 0.3 % (0.1-2.0); Eosinophils # 0.1 K/mm3 (0.0-0.4); Eosinophils % 1.1 % (0.1-12.0); Hematocrit 29.4 % (37.0-47.0); Hemoglobin 8.7 g/dL (12.2-16.2); Lymphocytes # 1.2 K/mm3 (0.7-4.5); Lymphocytes % 13.2 % (10-50); Mean Corpuscular HGB Conc 29.5 g/dL (31.8-35.4); Mean Corpuscular Hemoglobin 23.6 pg (27.0-31.2); Mean Corpuscular Volume 80.1 fl (81-99); Mean Platelet Volume 7.7 fl (7.4-10.4); Monocytes # 0.6 K/mm3 (0.1-1.0); Monocytes % 6.3 % (1.7-9.3); Neutrophils % 79.3 % (37.0-80.0); Platelet Count 84 K/mm3 (142-424); Red Blood Count 3.67 M/mm3 (4.20-5.40); Red Cell Distribution Width 20.9 % (11.5-17.5); White Blood Count 8.8 K/mm3 (4.8-10.8)
--- NOTE | 2024-04-17 09:37 | EXP.PULM.PN ---
Subjective *Date: 04/17/24 *Time: 12:21 Interval history: No acute respiratory vents overnight. Pulmonology Exam Inpatient Vital signs and Labs for Last 24 Hours: Temp Pulse Resp BP Pulse Ox O2 Del Method O2 Flow Rate 98.1 F 87 24 79/39 L 100 Nasal Cannula 2 04/17/24 08:00 04/17/24 09:00 04/17/24 09:00 04/17/24 09:00 04/17/24 09:00 04/17/24 09:16 04/17/24 09:16 FiO2 2 04/17/24 00:00 Laboratory Results - last 24 hr 04/16/24 11:23: POC Glucose 105 04/17/24 04:12: Urine Color Yellow, Urine Appearance Clear, Urine pH 6.0, Ur Specific [place] 1.020, Urine Protein Negative, Urine Glucose (UA) Negative, Urine Ketones Negative, Urine Blood 2+ A, Urine Nitrate Negative, Urine Bilirubin Negative, Urine Urobilinogen 0.2, Ur Leukocyte Esterase Trace, Urine RBC 5-10, Urine WBC 3-5, Ur Squamous Epith Cells 3-5, Urine Bacteria Trace, Hyaline Casts 3-5 04/17/24 06:07: WBC 8.8 D, RBC 3.67 L, Hgb 8.7 L, Hct 29.4 L, MCV 80.1 L, MCH 23.6 L, MCHC 29.5 L, RDW 20.9 H, Plt Count 84 L, MPV 7.7, Neut % (Auto) 79.3, Lymph % (Auto) 13.2, [place] % (Auto) 6.3, Eos % (Auto) 1.1, Baso % (Auto) 0.3, Neut # (Auto) 7.0, Lymph # (Auto) 1.2, [place] # (Auto) 0.6, Eos # (Auto) 0.1, Baso # (Auto) 0.0, Sodium 136, Potassium 3.2 L, Chloride 102, Carbon Dioxide 32 H, Anion Gap 5.2, BUN 24 H, Creatinine 1.00, Estimated Creat Clear 53, Estimated GFR 56 L, Est GFR ( Amer) 68, Glucose 94, Calcium 7.3 L Temp Pulse Resp BP Pulse Ox O2 Del Method FiO2 98.8 F 89 18 117/52 L 93 L Mechanical Ventilation 30 04/15/24 08:00 04/15/24 09:00 04/15/24 09:00 04/15/24 09:00 04/15/24 09:00 04/15/24 09:00 04/15/24 07:00 Laboratory Results - last 24 hr 04/14/24 07:23: Total Counted 100, Neutrophils % (Manual) 70, Lymphocytes % (Manual) 28, Monocytes % (Manual) 2, Platelet Estimate Moderate decrease, Hypochromasia 1+ 04/14/24 14:31: VBG pH 7.49 H, VBG pCO2 30.6 L, VBG pO2 73.1 H, VBG HCO3 22.6 L, VBG Total CO2 23.6, VBG O2 Saturation 95.3 H, VBG Base Excess -0.8, VBG Lactic Acid 1.4 04/14/24 16:39: Sodium 135 L, Potassium 3.6, Chloride 105, Carbon Dioxide 29, Anion Gap 4.6 L, BUN 25 H, Creatinine 1.10 H, Estimated Creat Clear 47, Estimated GFR 50 L, Est GFR ( Amer) 61, Glucose 123 H, Calcium 7.1 L, Magnesium 1.6 04/14/24 17:19: POC Glucose 136 H 04/14/24 21:14: POC Glucose 140 H 04/15/24 05:30: POC Glucose 117 H 04/15/24 06:05: WBC 13.9 H D, RBC 3.86 L, Hgb 8.9 L, Hct 29.8 L, MCV 77.1 L, MCH 23.1 L, MCHC 29.9 L, RDW 21.9 H, Plt Count 101 L, MPV 9.2, Neut % (Auto) 78.4, Lymph % (Auto) 14.4, [place] % (Auto) 5.6, Eos % (Auto) 1.2, Baso % (Auto) 0.4, Neut # (Auto) 10.9 H, Lymph # (Auto) 2.0, [place] # (Auto) 0.8, Eos # (Auto) 0.2, Baso # (Auto) 0.1, Sodium 134 L, Potassium 3.3 L, Chloride 106, Carbon Dioxide 24, Anion Gap 7.3, BUN 25 H, Creatinine 1.00, Estimated Creat Clear 52, Estimated GFR 56 L, Est GFR ( Amer) 68, Glucose 102 H, Calcium 6.8 L, Phosphorus 2.6, Magnesium 2.6 H D, Total Bilirubin 2.3 H, AST 63 H, ALT 29, Alkaline Phosphatase 170 H, Total Protein 5.7 L, Albumin 2.3 L, Globulin 3.4 H, Albumin/Globulin Ratio 0.7 L I & O for Labs for Last 24 Hours: Intake & Output 04/14/24 04/15/24 04/16/24 04/17/24 23:59 23:59 23:59 23:59 Intake Total 1276.246 / 3624.346 3259.962 / 6788.186 4871.118 / 1204.118 224.692 / 224.692 Output Total 1758 / 1823 1150 / 1150 2565 / 2665 1675 / 1675 Balance -481.754 / -546.754 100.962 / 100.962 -1412.882 / -1460.882 -1450.308 / -1450.308 Weight 127 lb 8 oz 127 lb 6.835 oz 131 lb 7 oz 131 lb 6.998 oz Intake & Output 04/12/24 04/13/24 04/14/24 04/15/24 23:59 23:59 23:59 23:59 Intake Total 755.043 / 806.445 5535.246 / 1276.246 394.121 / 394.121 Output Total 3180 / 3220 1758 / 1823 435 / 435 Balance -2424.957 / -2464.957 -481.754 / -546.754 -40.879 / -40.879 Weight 139 lb 15.896 oz 127 lb 8 oz 127 lb 6.835 oz Microbiology Reports for the Last 24 Hours: Microbiology 04/13/24 02:50 Blood Blood Culture - Preliminary NO GROWTH AFTER 4 DAYS 04/13/24 02:50 Blood Blood Culture - Preliminary NO GROWTH AFTER 4 DAYS Microbiology 04/13/24 02:31 Urine,Catheterized Urine Culture - Final 04/13/24 02:35 Sputum - Endotracheal Tube Aspirate Gram Stain - Final 04/13/24 02:35 Sputum - Endotracheal Tube Aspirate Sputum Culture - Final Pseudomonas aeruginosa 04/13/24 02:50 Blood Blood Culture - Preliminary NO GROWTH AFTER 48 HOURS 04/13/24 02:50 Blood Blood Culture - Preliminary NO GROWTH AFTER 48 HOURS Constitutional: Present moderate distress Head: Present normocephalic and atraumatic Neck: Present normal inspection and trachea midline Respiratory: Present patient mechanically ventilated, respiratory distress and rhonchi; Absent wheezes or normal respiratory effort Cardiac: Present S1/S2 and Tachycardia GI: Present soft; Absent distention or tenderness Skin: Present intact; Absent cyanosis Neuro: Present alert and awake; Absent oriented x 3 Extremities: Present normal inspection; Absent clubbing or cyanosis Psychiatric: Present normal affect Assessment and Plan *Assessment and plan (1) Acute hypoxic respiratory failure: Status: Acute Category: Medical Code(s): J96.01 - Acute respiratory failure with hypoxia (2) Pneumonia: Status: Acute Category: Medical Code(s): J18.9 - Pneumonia, unspecified organism (3) On mechanically assisted ventilation: Status: Acute Category: Medical Code(s): Z99.11 - Dependence on respirator [ventilator] status Plan Ms. Woo is a 63-year-old female never smoker, history of hemochromatosis alpha-1 antitrypsin deficiency, emphysema multiple pulmonary nodules and bronchiectasis presented to the ER with worsening respiratory distress eventually needing intubation mechanical ventilatory support and pulmonary was called for further evaluation and management. CTA chest upon admission bilateral diffuse patchy dense consolidative changes not consistent with pulmonary edema. No evidence of pulmonary embolism. These consolidative changes are new from her most recent CT from October 2023. Patient also noted to have bilateral pleural effusions. Patient on admission was initiated on vancomycin and cefepime. Tracheal aspirate culture from this admission growing Pseudomonas, pansensitive. Interval update: Extubated BiPAP yesterday. Weaned to nasal cannula. Respiratory distress improved from yesterday. Tolerating well. Chest x-ray from this morning reviewed, no acute change. Afebrile. Improving leukocytosis. Hemodynamically unstable still needing vasopressors. Will consider stress dose steroids. Blood cultures no growth at 4 days. Nasal MRSA PCR pending. Continue to receive vancomycin and levofloxacin. Family also requesting to pursue hospice care at this point of time, consult placed by primary team. Will follow the family's wishes. Plan: Continue vancomycin pending nasal MRSA PCR Continue levofloxacin. DuoNebs every 6 hours scheduled # Thank you for involving pulmonary in this patient care. Will continue to follow.
--- NOTE | 2024-04-17 09:38 | XR_ITS ---
FINAL REPORT CLINICAL HISTORY: PNM COMPARISON: 04/16/2024 FINDINGS: SINGLE-VIEW CHEST The heart size is normal. The mediastinum is normal. The patient has been extubated. There is patchy airspace opacity in the right upper lobe and medial right base. Right upper lobe opacity is similar to previous. Focus at the right base is improved. There is an ovoid density at the right base which is relatively opaque for size, may be related to a granuloma. There is no pneumothorax. IMPRESSION: Airspace opacities, similar in the right upper lobe and improved at the right base. Ovoid density right base, may be a granuloma but continued follow-up is recommended. Reviewed, Interpreted and Dictated by Ean Palmer MD Transcribed by Sharon Cartwright Authenticated and [facility]
--- NOTE | 2024-04-17 09:40 | EXP.PHA.PN ---
Subjective *Date: 04/17/24 *Time: 09:40 Medical Exam Vital signs and Labs for Last 24 Hours: Vital Signs Temp Pulse Pulse Resp BP Pulse Ox O2 Del Method 04/17/24 09:16 Nasal Cannula 04/17/24 09:00 87 24 79/39 L 100 Nasal Cannula 04/17/24 08:30 78 24 85/45 L 100 Nasal Cannula 04/17/24 08:06 100 Nasal Cannula 04/17/24 08:00 85 04/17/24 08:00 98.1 F 04/17/24 08:00 80 28 H 96/48 L 100 Nasal Cannula 04/17/24 07:30 73 100 Nasal Cannula 04/17/24 07:30 90 32 H 91/43 L 100 Nasal Cannula 04/17/24 07:00 92 H 34 H 101/45 L 100 Nasal Cannula 04/17/24 06:00 94 H 28 H 116/42 L 99 Room Air 04/17/24 05:00 79 22 97/42 L 96 Room Air 04/17/24 04:00 90 04/17/24 04:00 97.6 F 87 24 89/38 L 97 Room Air 04/17/24 03:00 86 20 114/41 L 97 Room Air 04/17/24 02:40 94 L Room Air 04/17/24 02:00 90 18 117/52 L 94 L Room Air 04/17/24 01:00 80 29 H 102/55 L 100 Nasal Cannula 04/17/24 00:00 97.5 F L 75 25 H 97/44 L 99 Nasal Cannula 04/17/24 00:00 78 04/16/24 23:00 Nasal Cannula 04/16/24 23:00 92 H 27 H 97/56 L 100 Nasal Cannula 04/16/24 22:00 85 28 H 111/54 L 100 Nasal Cannula 04/16/24 21:24 100 Nasal Cannula 04/16/24 20:00 100 H 04/16/24 20:00 98.7 F 84 30 H 107/44 L 100 BiPAP 04/16/24 19:00 99 H 24 105/53 L 100 CPAP 04/16/24 18:44 CPAP 04/16/24 18:00 90 30 H 105/42 L 100 CPAP 04/16/24 17:00 CPAP 04/16/24 17:00 102 H 33 H 129/59 L 99 CPAP 04/16/24 16:00 90 04/16/24 16:00 98.4 F 04/16/24 16:00 BiPAP 04/16/24 16:00 85 24 85/41 L 100 CPAP 04/16/24 15:00 CPAP 04/16/24 15:00 83 32 H 162/75 H 100 CPAP 04/16/24 14:00 101 H 40 H 89/46 L 93 L BiPAP 04/16/24 13:30 98 04/16/24 13:15 35 H 97 04/16/24 13:00 Mechanical Ventilation 04/16/24 13:00 98.9 F 04/16/24 12:30 98 H 21 101/40 L 99 Mechanical Ventilation 04/16/24 12:00 100 H 04/16/24 12:00 100 Mechanical Ventilation 04/16/24 12:00 97 H 22 88/39 L 99 Mechanical Ventilation 04/16/24 11:30 95 H 104/54 L 100 Mechanical Ventilation 04/16/24 11:00 94 H 22 95/48 L 100 Mechanical Ventilation 04/16/24 11:00 Mechanical Ventilation 04/16/24 10:00 69 21 99/49 L 100 Mechanical Ventilation O2 Flow Rate FiO2 04/17/24 09:16 2 04/17/24 09:00 2 04/17/24 08:30 2 04/17/24 08:06 2 04/17/24 08:00 04/17/24 08:00 04/17/24 08:00 2 04/17/24 07:30 2 04/17/24 07:30 2 04/17/24 07:00 2 04/17/24 06:00 04/17/24 05:00 04/17/24 04:00 04/17/24 04:00 04/17/24 03:00 04/17/24 02:40 04/17/24 02:00 04/17/24 01:00 2 04/17/24 00:00 2 04/17/24 00:00 04/16/24 23:00 2 04/16/24 23:00 04/16/24 22:00 2 04/16/24 21:24 3 04/16/24 20:00 04/16/24 20:00 40 04/16/24 19:00 04/16/24 18:44 04/16/24 18:00 04/16/24 17:00 04/16/24 17:00 04/16/24 16:00 04/16/24 16:00 04/16/24 16:00 04/16/24 16:00 04/16/24 15:00 04/16/24 15:00 04/16/24 14:00 04/16/24 13:30 04/16/24 13:15 30 04/16/24 13:00 04/16/24 13:00 04/16/24 12:30 04/16/24 12:00 04/16/24 12:00 30 04/16/24 12:00 04/16/24 11:30 04/16/24 11:00 04/16/24 11:00 04/16/24 10:00 30 Intake and Output 04/16/24 04/17/24 04/17/24 23:59 07:59 15:59 Intake Total 6.937 / 1204.118 186.792 / 224.692 37.9 / 224.692 Output Total 1165 / 2665 1600 / 1675 75 / 1675 Balance -1158.063 / -1460.882 -1413.208 / -1450.308 -37.1 / -1450.308 Intake: Intake, Total IV Amount 6.937 / 1020.118 186.792 / 224.692 37.9 / 224.692 Bumetanide 10 mg In 0.9 % 85 / 94 9 / 94 Sodium Chloride 60 ml @ 5 mls/ hr IV .Q20H SUDHA Rx#:[id number] Norepinephrine Bitartrate/D5w 8 15 / 15 mg In 250 ml @ 8 MCG/MIN 15 mls/hr IV .[id number] SUDHA Rx#: [id number] Output: Output, Urine Amount 150 / 550 175 / 250 75 / 250 Output, Urine Amount (Catheter) 1015 / 2115 1425 / 1425 Banks 1015 / 2115 1425 / 1425 Other: Number of Unmeasured Voids 0 0 Number of Bowel Movements 1 Weight 59.619 kg Patient Weight 04/17/24 23:59 Weight 59.619 kg Laboratory Results - last 24 hr 04/16/24 11:23: POC Glucose 105 04/17/24 04:12: Urine Color Yellow, Urine Appearance Clear, Urine pH 6.0, Ur Specific [place] 1.020, Urine Protein Negative, Urine Glucose (UA) Negative, Urine Ketones Negative, Urine Blood 2+ A, Urine Nitrate Negative, Urine Bilirubin Negative, Urine Urobilinogen 0.2, Ur Leukocyte Esterase Trace, Urine RBC 5-10, Urine WBC 3-5, Ur Squamous Epith Cells 3-5, Urine Bacteria Trace, Hyaline Casts 3-5 04/17/24 06:07: WBC 8.8 D, RBC 3.67 L, Hgb 8.7 L, Hct 29.4 L, MCV 80.1 L, MCH 23.6 L, MCHC 29.5 L, RDW 20.9 H, Plt Count 84 L, MPV 7.7, Neut % (Auto) 79.3, Lymph % (Auto) 13.2, [place] % (Auto) 6.3, Eos % (Auto) 1.1, Baso % (Auto) 0.3, Neut # (Auto) 7.0, Lymph # (Auto) 1.2, [place] # (Auto) 0.6, Eos # (Auto) 0.1, Baso # (Auto) 0.0, Sodium 136, Potassium 3.2 L, Chloride 102, Carbon Dioxide 32 H, Anion Gap 5.2, BUN 24 H, Creatinine 1.00, Estimated Creat Clear 53, Estimated GFR 56 L, Est GFR ( Amer) 68, Glucose 94, Calcium 7.3 L I & O for Labs for Last 24 Hours: Intake & Output 04/14/24 04/15/24 04/16/24 04/17/24 23:59 23:59 23:59 23:59 Intake Total 1276.246 / 1706.479 4335.962 / 7607.141 8951.118 / 1204.118 224.692 / 224.692 Output Total 1758 / 1823 1150 / 1150 2565 / 2665 1675 / 1675 Balance -481.754 / -546.754 100.962 / 100.962 -1412.882 / -1460.882 -1450.308 / -1450.308 Weight 57.833 kg 57.8 kg 59.619 kg 59.619 kg Microbiology Reports for the Last 24 Hours: Microbiology 04/13/24 02:50 Blood Blood Culture - Preliminary NO GROWTH AFTER 4 DAYS 04/13/24 02:50 Blood Blood Culture - Preliminary NO GROWTH AFTER 4 DAYS The patient's infection will respond to the chosen ABx?: Yes (BLOOD CULTURE NO GROWTH, MRSA CULTURE PENDING, AFEBRILE OVER 24 HR) Is the patient receiving the right drug, dose, and route?: Yes Could a more targeted ABx be ordered?: No
[2024-04-17] MEDS: VANCOMYCIN/WATER FOR INJ (PEG) 1.25 GM/250 ML PIGGYBACK IV (10:26)
[2024-04-17 12:03] LABS: Magnesium 1.6 mg/dl (1.6-2.3)
[2024-04-17] MEDS: POTASSIUM CHLORIDE 10 MEQ, LIDOCAINE HCL/PF 3 ML in 0.9 % SODIUM CHLORIDE 100 ML 108 MEQ IV ×6 (12:19→18:09)
[2024-04-17 12:34] LABS: POC Glucose,Bedside 92 (70-110)
--- NOTE | 2024-04-17 12:46 | EXP.CARD.PN ---
Subjective Subjective Date: 04/17/24 Time: 10:30 Principal diagnosis: acute HFrEF Interval history: This is a 63-year-old female who presented to the emergency department with respiratory failure. The patient ultimately ended up intubated and on the ventilator. She was found to have a slightly elevated troponin on admission as well as an abnormal EKG and elevated BNP. The patient has HFrEF and is being diuresed with IV Bumex. The patient was extubated yesterday and is currently on oxygen via nasal cannula at 2 L/min. The patient is unable to answer any of my questions this morning but she appears to be in no distress. Her brother and [id number] are at bedside. Exam Data for Last 24 hours Vital signs and Labs for Last 24 Hours: Temp Pulse Resp BP Pulse Ox O2 Del Method O2 Flow Rate 97.4 F L 70 20 105/51 L 100 Nasal Cannula 1 04/17/24 12:00 04/17/24 12:20 04/17/24 12:20 04/17/24 12:20 04/17/24 12:20 04/17/24 12:20 04/17/24 12:20 FiO2 2 04/17/24 00:00 Laboratory Results - last 24 hr 04/17/24 04:12: Urine Color Yellow, Urine Appearance Clear, Urine pH 6.0, Ur Specific [place] 1.020, Urine Protein Negative, Urine Glucose (UA) Negative, Urine Ketones Negative, Urine Blood 2+ A, Urine Nitrate Negative, Urine Bilirubin Negative, Urine Urobilinogen 0.2, Ur Leukocyte Esterase Trace, Urine RBC 5-10, Urine WBC 3-5, Ur Squamous Epith Cells 3-5, Urine Bacteria Trace, Hyaline Casts 3-5 04/17/24 06:07: WBC 8.8 D, RBC 3.67 L, Hgb 8.7 L, Hct 29.4 L, MCV 80.1 L, MCH 23.6 L, MCHC 29.5 L, RDW 20.9 H, Plt Count 84 L, MPV 7.7, Neut % (Auto) 79.3, Lymph % (Auto) 13.2, [place] % (Auto) 6.3, Eos % (Auto) 1.1, Baso % (Auto) 0.3, Neut # (Auto) 7.0, Lymph # (Auto) 1.2, [place] # (Auto) 0.6, Eos # (Auto) 0.1, Baso # (Auto) 0.0, Sodium 136, Potassium 3.2 L, Chloride 102, Carbon Dioxide 32 H, Anion Gap 5.2, BUN 24 H, Creatinine 1.00, Estimated Creat Clear 53, Estimated GFR 56 L, Est GFR ( Amer) 68, Glucose 94, Calcium 7.3 L 04/17/24 09:50: Magnesium 1.6 D 04/17/24 12:26: POC Glucose 92 I & O for Last 24 hours: Intake & Output 04/14/24 04/15/24 04/16/24 04/17/24 23:59 23:59 23:59 23:59 Intake Total 1276.246 / 7514.978 6984.962 / 5978.245 5309.118 / 1204.118 285.379 / 285.379 Output Total 1758 / 1823 1150 / 1150 2565 / 2665 1795 / 1795 Balance -481.754 / -546.754 100.962 / 100.962 -1412.882 / -1460.882 -1509.621 / -1509.621 Weight 127 lb 8 oz 127 lb 6.835 oz 131 lb 7 oz 131 lb 6.998 oz Microbiology Reports for the Last 24 Hours: Microbiology 04/13/24 02:50 Blood Blood Culture - Preliminary NO GROWTH AFTER 4 DAYS 04/13/24 02:50 Blood Blood Culture - Preliminary NO GROWTH AFTER 4 DAYS Constitutional Constitutional: no acute distress and average body habitus *Routine HEENT Exam Head: Present normocephalic and atraumatic ENT: Present mucous membranes moist *Routine Neck Exam Neck: Present normal carotid upstroke; Absent JVD, carotid bruit or lymphadenopathy *Routine Respiratory Exam Respiratory: Present decreased breath sounds *Routine Cardiovascular Exam Cardiovascular: Present RRR, Normal S1 and Normal S2; Absent murmur or gallop *Routine Abdominal Exam Abdominal: Present soft and normoactive bowel sounds; Absent organomegaly *Routine Extremities Exam Extremities: Present pulses intact and normal capillary refill; Absent cyanosis, clubbing or edema *Routine Skin Exam Skin: Present intact and warm; Absent erythema *Routine Neurological Exam Neurological: Present alert and altered mental status Routine Psychiatric Exam Psychiatric: Present unable to assess Progress Note: A&P Assessment and plan (1) HFrEF (heart failure with reduced ejection fraction): Status: Acute (2) Acute hypoxic respiratory failure: Status: Acute (3) Pneumonia: Status: Acute (4) On mechanically assisted ventilation: Status: Acute (5) Elevated liver enzymes: Status: Acute (6) Cirrhosis: Status: Acute (7) Pleural effusion: Status: Acute (8) Pulmonary edema: Status: Acute (9) Chronic dementia: Status: Acute (10) Declining functional status: Status: Acute (11) HLD (hyperlipidemia): Status: Acute (12) HTN (hypertension): Status: Acute Assessment and Plan Assessment and Plan for All Diagnoses:: Plan: 1. The patient was admitted to the hospital with acute respiratory failure requiring intubation and mechanical ventilation. She was extubated yesterday and now on nasal cannula at 2 L/min. Will defer to pulmonology and the hospitalist. 2. The patient does have acute HFrEF. Her ejection fraction is currently 30%. She also has at least a large left pleural effusion. She was started on a Bumex drip and has a -2970 mL output overnight. Will continue with IV diuresis. 3. Once this patient is able to take oral medications since passes a swallow evaluation, we do recommend aspirin 81 mg daily and Lipitor 20 mg p.o. nightly. 4. Once her vital signs are stable we also recommend low-dose Entresto and carvedilol. 5. She did have a slightly elevated troponin which is likely a type II non-STEMI secondary to her acute respiratory failure and acute HFrEF. She would benefit from an ischemic evaluation due to her non-STEMI. I have had a long discussion with the patient and her family about the elevated troponin and new onset cardiomyopathy which may be from ischemia. However the patient's family declines any invasive procedures and they would prefer medical management. 6. Her blood pressure is stable at this time. 7. Her LDL goal is less than 55. LDL is 53. As mentioned above we do recommend a statin once she is able to take oral medications. 8. Her renal function is normal. Will continue to follow. 9. The family has decided to enroll the patient in hospice care. She has underlying dementia and cognitive impairment and disability. They have opted for no further invasive procedures. No further recommendations at this time from a cardiac standpoint. Thank you for the opportunity to help her to spend the care of this patient. All recommendations and orders are per Dr. Gardner.
--- NOTE | 2024-04-17 13:03 | P.PN_ITS ---
Subjective *Date: 04/17/24 *Time: 13:03 Interval history: No acute change in status and no evidence of progression. Nurse states hospice has been consulted. Exam Data for Last 24 hours Vital signs and Labs for Last 24 Hours: Temp Pulse Resp BP Pulse Ox O2 Del Method O2 Flow Rate 97.4 F L 70 20 105/51 L 100 Nasal Cannula 1 04/17/24 12:00 04/17/24 12:20 04/17/24 12:20 04/17/24 12:20 04/17/24 12:20 04/17/24 12:20 04/17/24 12:20 FiO2 2 04/17/24 00:00 Laboratory Results - last 24 hr 04/17/24 04:12: Urine Color Yellow, Urine Appearance Clear, Urine pH 6.0, Ur Specific [place] 1.020, Urine Protein Negative, Urine Glucose (UA) Negative, Urine Ketones Negative, Urine Blood 2+ A, Urine Nitrate Negative, Urine Bilirubin Negative, Urine Urobilinogen 0.2, Ur Leukocyte Esterase Trace, Urine RBC 5-10, Urine WBC 3-5, Ur Squamous Epith Cells 3-5, Urine Bacteria Trace, Hyaline Casts 3-5 04/17/24 06:07: WBC 8.8 D, RBC 3.67 L, Hgb 8.7 L, Hct 29.4 L, MCV 80.1 L, MCH 23.6 L, MCHC 29.5 L, RDW 20.9 H, Plt Count 84 L, MPV 7.7, Neut % (Auto) 79.3, Lymph % (Auto) 13.2, [place] % (Auto) 6.3, Eos % (Auto) 1.1, Baso % (Auto) 0.3, Neut # (Auto) 7.0, Lymph # (Auto) 1.2, [place] # (Auto) 0.6, Eos # (Auto) 0.1, Baso # (Auto) 0.0, Sodium 136, Potassium 3.2 L, Chloride 102, Carbon Dioxide 32 H, Anion Gap 5.2, BUN 24 H, Creatinine 1.00, Estimated Creat Clear 53, Estimated GFR 56 L, Est GFR ( Amer) 68, Glucose 94, Calcium 7.3 L 04/17/24 09:50: Magnesium 1.6 D 04/17/24 12:26: POC Glucose 92 I & O for Last 24 hours: Intake & Output 04/14/24 04/15/24 04/16/24 04/17/24 23:59 23:59 23:59 23:59 Intake Total 1276.246 / 5001.562 7074.962 / 3985.791 8481.118 / 1204.118 285.379 / 285.379 Output Total 1758 / 1823 1150 / 1150 2565 / 2665 1795 / 1795 Balance -481.754 / -546.754 100.962 / 100.962 -1412.882 / -1460.882 -1509.621 / -1509.621 Weight 127 lb 8 oz 127 lb 6.835 oz 131 lb 7 oz 131 lb 6.998 oz Microbiology Reports for the Last 24 Hours: Microbiology 04/13/24 02:50 Blood Blood Culture - Preliminary NO GROWTH AFTER 4 DAYS 04/13/24 02:50 Blood Blood Culture - Preliminary NO GROWTH AFTER 4 DAYS *Routine Abdominal Exam Abdominal: Present soft and normoactive bowel sounds Comments: Normoactive bowel sounds, soft, no ascites Assessment and Plan *Assessment and plan (1) Elevated liver enzymes: Status: Acute Category: Medical Code(s): R74.8 - Abnormal levels of other serum enzymes (2) Cirrhosis: Status: Acute Category: Medical Code(s): K74.60 - Unspecified cirrhosis of liver (3) AAT (cwrnp-1-bftxyoevyyr) deficiency: Status: Acute Category: Medical Code(s): E88.01 - Tgymb-0-dnmavpocmgz deficiency Plan 1. History of alpha 1 antitrypsin deficiency ZZ phenotype with pulmonary involvement. The patient does have concomitant heterozygous (not homozygous) hemochromatosis [id number]. I do feel that her cirrhosis is stable and there is no clear evidence that she has any hepatic decompensation. She does have a mildly elevated bilirubin which is possibly related to underlying illness with both conjugated and unconjugated proportionally elevated. The remainder of her liver chemistries are improving. I suspect that she had some reactive hepatopathy related to her current illness/respiratory failure as well. The patient is to be discharged with hospice. Presently, I do not have anything further to add and she appears to be stable from hepatic standpoint.
--- NOTE | 2024-04-17 13:29 | DIET.NUTRFU ---
Rounded on patient with IDT and reviewed with nursing. Patient is on room air, MANAGER CREDIT to eval for oral diet later today. Family possibly pursuing hospice care. migratory worker working on placement. Bumex on hold, -1412ml fluid balance on 04/16. Risk for PCM will continue to follow oral diet recommendations. Patient did have BM on 04/16.
--- NOTE | 2024-04-17 13:55 | PC.WOUNDNOTE ---
1130 IV in pt r ac noted to be leaking. new iv started above site in 20 r ua. 1230 iv in r fa noted to be leaking. unable to start new line after multiple insertion attempts. us guided iv attempted. 20 r ua (inner) 20 l fa
[2024-04-17] MEDS: MAGNESIUM SULFATE IN WATER 2 GM/50 ML PIGGYBACK IV ×2 (14:07→15:02)
[2024-04-17] MEDS: LEVOFLOXACIN/D5W 750 MG/150 ML 750 MG/150 ML PIGGYBACK 100 MG IV (15:17)
--- NOTE | 2024-04-17 15:29 | PC.NURSE ---
pt had speech eval. pt is able to drink water/liquid from spoon, but does not/will not swallow liquid. pt was also given a bit of pudding, but again per ST pt did not swallow it
--- NOTE | 2024-04-17 16:09 | HMH.SLDYSPHA ---
Speech & Language Evaluation Speech/Language Dysphagia Evaluation Start: 04/17/24 15:27 Freq: ONCE Status: Active Protocol: Document 04/17/24 15:27 CHAPO (Rec: 04/17/24 16:09 ECLARK Laptop) Co-signed By ST Isma Dysphagia Assess/Goals/Plan Assessment Date of Evaluation: 04/17/24 Evaluation Type Initial Certification Assessment/Problems Post-extubation protocol per MD order Does Patient Qualify for Service No Qualify/Failure Comment Based on clinical observations made throughout bedside clinical swallow evaluation, nursing interview, and review of pt's history, mastication and manipulation of bolus and swallowing are not WFL. However, at this time pt is receiving hospice/comfort care per nursing and care management. Recommendations PHYSICIAN CERTIFICATION: The specified therapy services are required, authorized, and reviewed every 30 days. Diet Recommendations Pureed Liquid Type Recommendations Normal/Thin SL Swallow Guidelines Assist w/all meals,Alt bite w/ sip thru meal,High aspiration risk,Standard Aspiration Prec. ,Eat at slow rate,Oral Care Education,Oral care pre/post meals,Liquids given* Dysphagia Swallow Precautions/Strategies Sitting Upright (90 deg),No Straw,Liquids from Spoon,Small Bites and Sips,Alternate Liquids/Solids Plan Pt/Guardian verbally ack understanding Yes of dx/prognosis/goals G -code Required No Education Instructions provided SQL DATA ANALYST discussed clinical observations made throughout bedside CSE, aspiration precautions/compensatory strategies, and diet recommendations with nursing and care management, each of which expressed understanding. Pt/Caregiver able to recall information Able to recall/restate Reinforcement needed No Speech & Language HPI History Present Illness Description of Patient Problem SQL DATA ANALYST pulled the following from pt's H&P and recent chest-xray : This patient with multiple medical problems and being O2 dependent at home with hemochromatosis and alpha-1 antitrypsin deficiency who is oxygen dependent at home began to have difficulty breathing and not able to keep O2 saturations above 80% showing some signs of encephalitis with elevated white count and mild increase in creatinine other problems included elevated KCl. Urgency room physician did speak with Dr. Dawson patient was diuresed I believe with 80 of Lasix troponin slightly elevated but is stable patient noted with abnormal EKGs, the patient sees Dr. Valenzuela our new formulation scientist also Dr. Wallace. Pulmonology. is with the patient he does want her to remain a full code but actually expressed his relief that she was still alive he was unsure if she was can to make it to the hospital. Also gave history that she used to have seizure and had brain surgery done approximately 30 years ago. Primary care doctor is Dr. Huber Chest X-ray: The heart size is mildly enlarged. An endotracheal tube is present with the tip 4.4 cm superior to the pilo. The mediastinum is unremarkable. There is patchy airspace opacity at the lung bases and in the right upper lobe, all of which is stable. The airspace opacity is most dense at the left lung base. The pleural effusion is stable. There is no pneumothorax. Patient was intubated on 04/13 and extubated on 04/16. Pt has hx of respiratory conditions including COPD, Acute hypoxemic respiratory failure, Pulmonary edema, Acute HFrEF, and Pneumonia (aspiration versus CAP). Rehab Services Assessed Speech therapy Is this evaluation r/t stroke? No General Information General Current Food Consistancy NPO Dentition Poor Dentition Oxygen Status Nasal Cannula Ability to Follow Directions Poor Communication Ability Severe Impairment Dysphagia:Food Presentation Evaluation Food Type Liquid,Pudding Normal/Thin Liquid Response Falls out of mouth,Unable to suck straw,Delayed swallow, Clears throat Pudding Consistency Liquid Response Falls out of mouth,Unable to form bolus,Unable to move bolus,Multiple swallow attempts,Residual on tongue, Residual on hard palate, Delayed swallow,Clears throat, Excessive saliva/mucous Dysphagia Evaluation Summary A bedside CSE was administered on this date. Patient was found to be leaning neck forward in bed, using nasal cannula, and with poor dentition. Extensive oral care using mouth wash with oral swabs and suction were provided prior to starting CSE . During oral care, SQL DATA ANALYST observed dried and new blood in mouth, along with dried secretions. Patient was noted to attempt to bite suction and oral care swabs. An empty spoon was given to patient at beginning of CSE to observe pt 's labial seal. Consistencies presented during CSE include thin liquid (water) via spoon and straw, and pudding. Pt was able to take small spoon of thin liquid and swallow. Pt u/ a to suck straw during thin liquid trial. Pt was able to take spoon of pudding and swallowed x1. On other pudding trials, suction was warranted d/t bolus holding. Pt exhibited throat clearing after each trial. Pt is at high risk for aspiration. SQL DATA ANALYST' s safest recommendation would be to remain NPO, however given hospice status and request for comfort care diet, SQL DATA ANALYST recommends thin liquids via oral sponge/spoon and puree with small spoonful. SQL DATA ANALYST also recommends extensive oral care w/ suction pre- and post-meals and assist w/ all meals. Stroke Dysphagia Assessment PHYSICIAN CERTIFICATION: I certify the specified therapy services for Leona Woo are required, authorized, and reviewed every 30 days.
--- NOTE | 2024-04-17 16:23 | EXP.PN ---
Subjective *Date: 04/17/24 *Time: 16:23 Interval history: Patient is lying in bed comfortably without acute distress. She is currently on nasal cannula. Weaned off BiPAP yesterday. Continues to require Levophed, IV Bumex discontinued this morning. Given patient's advanced dementia, she minimally answers questions but responsive to stimuli. Exam Data for Last 24 hours Vital signs and Labs for Last 24 Hours: Temp Pulse Resp BP Pulse Ox O2 Del Method O2 Flow Rate 97.4 F L 55 L 19 75/29 L 93 L Room Air 1 04/17/24 12:00 04/17/24 16:00 04/17/24 16:00 04/17/24 16:00 04/17/24 16:11 04/17/24 16:11 04/17/24 12:20 FiO2 2 04/17/24 00:00 Laboratory Results - last 24 hr 04/17/24 04:12: Urine Color Yellow, Urine Appearance Clear, Urine pH 6.0, Ur Specific [place] 1.020, Urine Protein Negative, Urine Glucose (UA) Negative, Urine Ketones Negative, Urine Blood 2+ A, Urine Nitrate Negative, Urine Bilirubin Negative, Urine Urobilinogen 0.2, Ur Leukocyte Esterase Trace, Urine RBC 5-10, Urine WBC 3-5, Ur Squamous Epith Cells 3-5, Urine Bacteria Trace, Hyaline Casts 3-5 04/17/24 06:07: WBC 8.8 D, RBC 3.67 L, Hgb 8.7 L, Hct 29.4 L, MCV 80.1 L, MCH 23.6 L, MCHC 29.5 L, RDW 20.9 H, Plt Count 84 L, MPV 7.7, Neut % (Auto) 79.3, Lymph % (Auto) 13.2, [place] % (Auto) 6.3, Eos % (Auto) 1.1, Baso % (Auto) 0.3, Neut # (Auto) 7.0, Lymph # (Auto) 1.2, [place] # (Auto) 0.6, Eos # (Auto) 0.1, Baso # (Auto) 0.0, Sodium 136, Potassium 3.2 L, Chloride 102, Carbon Dioxide 32 H, Anion Gap 5.2, BUN 24 H, Creatinine 1.00, Estimated Creat Clear 53, Estimated GFR 56 L, Est GFR ( Amer) 68, Glucose 94, Calcium 7.3 L 04/17/24 09:50: Magnesium 1.6 D 04/17/24 12:26: POC Glucose 92 I & O for Last 24 hours: Intake & Output 04/14/24 04/15/24 04/16/24 04/17/24 23:59 23:59 23:59 23:59 Intake Total 1276.246 / 7767.667 3133.962 / 1076.377 0373.118 / 3381.905 6638.729 / 1116.729 Output Total 1758 / 1823 1150 / 1150 2565 / 2665 1969 / 1970 Balance -481.754 / -546.754 100.962 / 100.962 -1412.882 / -1460.882 -853.271 / -853.271 Weight 57.833 kg 57.8 kg 59.619 kg 59.619 kg Microbiology Reports for the Last 24 Hours: Microbiology 04/13/24 02:50 Blood Blood Culture - Preliminary NO GROWTH AFTER 4 DAYS 04/13/24 02:50 Blood Blood Culture - Preliminary NO GROWTH AFTER 4 DAYS *Routine Respiratory Exam Comments: Constitutional: Present no acute distress, thin and chronically ill appearing Head: Present atraumatic and normocephalic ENT: Present normal exam and mucous membranes moist Bitemporal wasting Neck: Present normal inspection Respiratory: Absent rhonchi and crackles; Absent wheezes Cardiac: Present Reg Rate and Rhythm GI: Present soft and normal bowel sounds; Absent distention or tenderness Extremities: Present normal inspection, full ROM with trace edema. Skin: Present intact; Absent erythema Neuro: Present Other, alert, awake and moves all extremities Assessment and Plan *Assessment and plan (1) Acute hypoxic respiratory failure: Status: Acute Category: Medical Code(s): J96.01 - Acute respiratory failure with hypoxia (2) Pulmonary edema: Status: Acute Qualifiers: Chronicity: acute Qualified Code(s): J81.0 - Acute pulmonary edema Category: Medical Code(s): J81.1 - Chronic pulmonary edema (3) Hyperkalemia: Status: Acute Category: Medical Code(s): E87.5 - Hyperkalemia (4) UTI (urinary tract infection): Status: Acute Qualifiers: Hematuria presence: without hematuria Urinary tract infection type: site unspecified Qualified Code(s): N39.0 - Urinary tract infection, site not specified Category: Medical Code(s): N39.0 - Urinary tract infection, site not specified (5) Sepsis: Status: Acute Qualifiers: Acute respiratory failure type: with hypoxia Sepsis acute organ dysfunction status: with acute organ dysfunction Sepsis type: Pseudomonas Severe sepsis acute organ dysfunction type: acute respiratory failure Severe sepsis shock status: without septic shock Qualified Code(s): A41.52 - Sepsis due to Pseudomonas; R65.20 - Severe sepsis without septic shock; J96.01 - Acute respiratory failure with hypoxia Category: Medical Code(s): A41.9 - Sepsis, unspecified organism (6) Pleural effusion: Status: Acute Category: Medical Code(s): J90 - Pleural effusion, not elsewhere classified (7) Chronic dementia: Status: Acute Category: Medical Code(s): F03.90 - Unspecified dementia, unspecified severity, without behavioral disturbance, psychotic disturbance, mood disturbance, and anxiety (8) Chronic dementia: Status: Acute Category: Medical Code(s): F03.90 - Unspecified dementia, unspecified severity, without behavioral disturbance, psychotic disturbance, mood disturbance, and anxiety (9) Declining functional status: Status: Acute Category: Medical Code(s): R53.81 - Other malaise (10) AAT (lvesb-[id number]) deficiency: Status: Acute Category: Medical Code(s): E88.01 - Eqwje-2-ajyoanahlnq deficiency Plan Ms. Woo is a 63-year-old female who presented in respiratory failure. Necessitating intubation in the ER. Found to have hemoptysis. Case discussed with ER physician, request admission to ICU for further management of respiratory failure and hemoptysis along with hyperkalemia. Medicine agreed to admit for further management. Pulmonology consulted to assist with vent management and assisting with critical care management. Patient showing slight improvements. Successfully extubated today and tolerating BiPAP appropriately. Acute hypoxemic respiratory failure Pulmonary edema Acute HFrEF Pneumonia, aspiration versus CAP ? Successfully extubated 04/16/2024, weaned to 1 L nasal cannula today. ? Family desires to pursue hospice care. Case management consulted, patient has bed at [facility] for hospice care tomorrow. ? However, patient continues to require Levophed. IV Bumex drip stopped for HFrEF given soft blood pressures. Patient is more euvolemic today. ? I had conversations with patient's brother, Austin Woo, today regarding goals of care. Austin would like to discontinue Levophed at this time but continue antibiotics. ? IV vancomycin, Levaquin given sputum cultures positive for Pseudomonas. Vancomycin can be discontinued once MRSA culture has resulted. - Cardiology following, appreciate recommendations. Given family wants to pursue hospice care, will withhold life-prolonging medications at this time. - Pulmonology consulted, appreciate recommendations and involvement in care. ? Patient advanced dementia puts her at a higher aspiration risk. Aspiration precautions. ? Plan for discharge to [facility] tomorrow if stable. ? Continue treatment for anxiety, pain with Ativan, morphine as needed. Seizure disorder: Continue Lamictal 100 mg per tube twice daily Hypothyroid: Continue levothyroxine 25 mcg daily Alpha-1 antitrypsin deficiency Hemochromatosis Constipation -Complicated liver function, heart function, respiratory function, cognition. -Ammonia elevated at 40. ?Continue to monitor liver function. ? Consider enema if no bowel movement tomorrow. Electrolyte abnormalities: -Replace per protocol Lovenox 40 mg daily DNR
--- NOTE | 2024-04-17 16:27 | PC.NURSE ---
1627 levophed stopped at this time per order from MD. Dr Zayas clarified POA wishes.
--- NOTE | 2024-04-17 16:32 | PC.NURSE ---
pt has appeared very restless this shift. when pt is positioned in bed, she adjusts herself so that she is sitting straight up, slightly leaned over and unsupported by the bed. pt able to vocalize very few words at this time. pt axillary temp noted to be 96.8, pt covered in warm blankets. pt proceeds to push the covers off of her body and towards the food of the bed. this has been pts response to being covered up all day.
[2024-04-17 17:21] LABS: POC Glucose,Bedside 99 (70-110)
--- NOTE | 2024-04-17 18:21 | PC.NURSE ---
1630 axillary temp of 96.8, warm blankets applied to pt. pt repeatedly removes warm blanket from her body. 1720 axillary temp of 96.2, new warm blankets applied to pt, pt removes blankets. room temperature increased at this time as well. 1820 warm blankets applied to pt again at this time r/t rectal temp of 95.5
[2024-04-17] MEDS: IPRATROPIUM/ALBUTEROL 3 ML NEB IH ×2 (18:45→23:41)
[2024-04-17] MEDS: SODIUM CHLORIDE 0.9% 10ML VIAL 10 ML IV (19:45)
[2024-04-17] MEDS: PANTOPRAZOLE 40MG VIAL 40 MG IV (19:45)
[2024-04-18] VITALS (7 sets, daily range): BP systolic 86–101; BP diastolic 41–49; PULSE 59–80; RESP 16–22; TEMP 36.3–36.6; O2SAT 91–100; BMI 22.5
[2024-04-18 05:03] LABS: POC Glucose,Bedside 88 (70-110)
--- NOTE | 2024-04-18 05:24 | PC.NURSE ---
Patient has appeared very restless this shift. When patient is positioned in bed, she adjusts herself so that she is sitting up, slightly leaned over and unsupported by the bed. Frequent complaints of needing to urinate and when placed on bedpan, there is small amounts of urination with each attempt. Patient did get on bedside commode once this shift, mostly due to restlessness, and she had lots of trouble sitting up straight and holding herself up independently. Tolerating room air well. Patient was hypotensive around 0000 with a blood pressure of 86/41, taken multiple times. When attempting to give patient sips of water or thickened liquids, patient will not swallow, therefore, no oral meds were administered this shift. Oral care administered q2h. SCUDs in use this shift for VTE prophylaxis, with intermittent breaks per patients request. Bed alarm on for patient safety. Call light within reach.
[2024-04-18] MEDS: IPRATROPIUM/ALBUTEROL 3 ML NEB IH ×2 (06:26→11:24)
[2024-04-18 07:31] LABS: MANUAL DIFFERENTIAL MANUAL DIFFERENTIAL (MANUAL DIFF)
[2024-04-18 07:45] LABS: Basophils % 0.5 % (0.1-2.0); Eosinophils % 0.5 % (0.1-12.0); Hematocrit 28.3 % (37.0-47.0); Hemoglobin 8.5 g/dL (12.2-16.2); Lymphocytes # 0.8 K/mm3 (0.7-4.5); Lymphocytes % 15.9 % (10-50); Mean Corpuscular Hemoglobin 23.8 pg (27.0-31.2); Mean Corpuscular Volume 79.1 fl (81-99); Monocytes # 0.2 K/mm3 (0.1-1.0); Monocytes % 4.4 % (1.7-9.3); Neutrophils % 78.8 % (37.0-80.0); Platelet Count 68 K/mm3 (142-424); Red Blood Count 3.58 M/mm3 (4.20-5.40); Red Cell Distribution Width 21.9 % (11.5-17.5)
[2024-04-18 07:48] LABS: Anion Gap 6.9 mEq/L (5-15); Blood Urea Nitrogen 35 mg/dl (7-17); Calcium 7.8 mg/dl (8.4-10.2); Carbon Dioxide 32 mmol/L (22.0-30.0); Chloride 105 mmol/L (98-107); Creatinine Clearance Estimated 32 mL/min (50-200); Estimated Glomerular Filt Rate 32 ml/min (>60); GFR (African American) 39 ML/MIN (>60); Glucose 85 mg/dl (74-100); Potassium 3.9 mmoL/L (3.5-5.1); Sodium 140 mmol/L (136-145)
[2024-04-18 08:56] LABS: Magnesium 2.9 mg/dl (1.6-2.3)
[2024-04-18 09:22] LABS: Vancomycin,Trough 22.7 ug/mL (5.0-10.0)
--- NOTE | 2024-04-18 09:50 | P.CONPHA_ITS ---
Pharmacy Consult Date: 04/18/24 Time: 09:50 Referring provider: DR. VERNON Reason for Consult:: VANCOMYCIN TROUGH LEVEL Allergies Allergy/AdvReac Type Severity Reaction Status Date / Time No Known Allergies Allergy Verified 04/09/24 10:42 Home Medications ?Medication ?Instructions ?Recorded ?Confirmed ?Type lamotrigine 100 mg tablet 100 mg PO BID 09/26/23 04/13/24 History pravastatin 20 mg tablet 20 mg PO DAILY 09/26/23 04/13/24 History levothyroxine 25 mcg tablet 25 mcg PO DAILY 11/07/23 04/13/24 History alpha-1 proteinase inhib.(hum) 3,524 mg (70.48 mL) IV WEEKLY 12 12/11/23 04/13/24 Rx 1,000 mg (+/-)/20 mL IV solution months (Prolastin-C) fluticasone fur. 100 mcg-umeclid 1 inh inhalation DAILY 90 days #90 01/01/24 04/13/24 Rx 62.5 mcg-vilant 25 mcg ea inhalat.powder (Trelegy Ellipta) acetylcysteine 600 mg capsule (NAC) 1,000 mg PO DAILY 04/13/24 04/13/24 History s-adenosylmethionine 400 mg tablet 400 mg PO DAILY 04/13/24 04/13/24 History sertraline 100 mg tablet 100 mg PO DAILY 04/13/24 04/13/24 History spironolactone 50 mg tablet 50 mg PO BID 04/13/24 04/13/24 History New Prescriptions to Start Prescriptions: Height: 1.6 m Weight: 57.697 kg Laboratory Results:: Laboratory Results - last 24 hr 04/17/24 09:50: Magnesium 1.6 D, Cortisol 21.0 H 04/17/24 12:26: POC Glucose 92 04/17/24 17:14: POC Glucose 99 04/18/24 04:56: POC Glucose 88 04/18/24 07:13: WBC 5.0 D, RBC 3.58 L, Hgb 8.5 L, Hct 28.3 L, MCV 79.1 L, MCH 23.8 L, MCHC 30.0 L, RDW 21.9 H, Plt Count 68 L, MPV 8.0, Neut % (Auto) 78.8, Lymph % (Auto) 15.9, [place] % (Auto) 4.4, Eos % (Auto) 0.5, Baso % (Auto) 0.5, Neut # (Auto) 4.0, Lymph # (Auto) 0.8, [place] # (Auto) 0.2, Eos # (Auto) 0.0, Baso # (Auto) 0.0, Sodium 140, Potassium 3.9 D, Chloride 105, Carbon Dioxide 32 H, Anion Gap 6.9, BUN 35 H D, Creatinine 1.60 H D, Estimated Creat Clear 32, Estimated GFR 32 L, Est GFR ( Amer) 39 L D, Glucose 85, Calcium 7.8 L, Magnesium 2.9 H D, Vancomycin Trough 22.7 H Medical History: Medical History (Updated 04/16/24 @ 17:54 by Clint Zayas MD) HFrEF (heart failure with reduced ejection fraction) UTI (urinary tract infection) Acute hypoxic respiratory failure Sepsis Pleural effusion Pulmonary edema HLD (hyperlipidemia) HTN (hypertension) On mechanically assisted ventilation Pulmonary emphysema Recurrent pneumonia Bronchiectasis AAT (btftm-[id number]) deficiency COPD mixed type UTI (urinary tract infection) Pneumonia CKD (chronic kidney disease) Cirrhosis Hemochromatosis Seizure COPD (chronic obstructive pulmonary disease) Assessment and Plan Assessment and plan all Dx Assessment and Plan for all problems:: BASED ON PATIENT FACTORS AND VANCOMYCIN TROUGH LEVEL OF 22.7, RECOMMEND CHANGING VANCOMYCIN DOSE TO 1,000MG EVERY 36 HOURS STARTING THIS EVENING AT 2100. PHARMACY WILL CONTINUE TO MONITOR AND ADJUST DOSE APPROPRIATE. -KELSEY ZAMORA, PAWEL
[2024-04-18 10:11] LABS: Anisocytosis 1+; Hypochromasia 2+; Lymphocytes % 17 % (10-50); Microcytosis 1+; Monocytes % 3 % (2-9); Neutrophils % 80 % (42-76); Total Cells Counted 100
[2024-04-18 10:12] LABS: Platelet Estimate Moderate Decrease
--- NOTE | 2024-04-18 13:20 | P.DS_ITS ---
General Admission date:: 04/13/24 HPI HPI HPI: This is a 63-year-old female patient known to this office. She has history of alpha 1 antitrypsin deficiency phenotype ZZ and hemochromatosis. 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 Patient was last seen earlier this year at our previous office. She has been having a decline over the past month per family's report. She has a history of COPD and oxygen requi rements secondary to alpha-1 antitrypsin deficiency as well. Over the past month the patient has been gaining weight and becoming more short of breath. She was placed on p.o. Lasix by her PCP Dr. Pelaez. She had gone from 125 pounds to 145 approximately. On the Lasix she was able to lose the 20 pounds but was still significantly short of breath. She was admitted through the ER for respiratory failure and was intubated. CT showed extensive bilateral infiltrates and moderate bilateral pleural effusions. Sputum grew Pseudomonas. Blood cultures x 2 have been negative for 48 hours. She did have a echo done today and we are awaiting results. Upon arrival she had elevated bilirubin of 1.3, AST elevated of 81, ALT of 44 and alk phos of 211. Bilirubin was as high as 2.0 AST of 67, ALT of 37 and alk phos of 154. Concern was for pulmonary edema related to liver failure versus heart failure. Ammonia is 40 patient remains intubated. She is currently still on Lasix, lactulose for the h yperammonemia and antibiotics for Pseudomonas. No signs of ascites or perihepatic fluid on imaging. Current MELD sodium score equals 15 with elevations of her INR and bilirubin. Creatinine has remained stable around 1.0. Platelet count 101. Hospital Course Hospital Course Hospital Course: Ms. Woo is a 63-year-old female who presented in respiratory failure. Necessitating intubation in the ER. Found to have hemoptysis. Case discussed with ER physician, request admission to ICU for further management of respiratory failure and hemoptysis along with hyperkalemia. Medicine agreed to admit for further management. Pulmonology consulted to assist with vent management and assisted with critical care management. #Acute hypoxemic respiratory failure #Acute on chronic HFrEF #Pneumonia, pseudomonal ? Patient's clinical status improved with broad-spectrum antibiotics with vancomycin, levofloxacin, and Bumex drip. She also required Levophed during this time. ? Respiratory cultures grew Pseudomonas sensitive to levofloxacin. Blood cultures no growth at 48 hours. ? Cardiology and pulmonology consulted, appreciate recommendations. ? Successfully extubated 04/16/2024, weaned to room air today. ? Given progressive advanced dementia, multiple complex comorbidities, and the risk recurrent pneumonia given high aspiration risk family (HARDEEP Woo) desired to pursue hospice care. Case management consulted, patient accepted to [facility] for hospice care. ? Discharged with prescriptions for levofloxacin for total antibiotic course of 10 days, Ativan for anxiety, glycopyrrolate for secretions. Chronic problems COPD: Trelegy. Seizure disorder: Continue Lamictal 100 mg per tube twice daily Hypothyroid: Continue levothyroxine 25 mcg daily. Alpha-1 antitrypsin deficiency, hemochromatosis: Continue acetylcysteine, alpha- 1 proteinase inhibitor, S-Adenosyl methionine. Can be discontinued for hospice care. Liver consistent with cirrhosis but not decompensated at this time. Can consider lactulose outpatient if patient becomes encephalopathic from hyperammonia. Exam Data for Last 24 hours Vital signs and Labs for Last 24 Hours: Temp Pulse Resp BP Pulse Ox O2 Del Method O2 Flow Rate 97.9 F 80 21 100/46 L 100 Nasal Cannula 2 04/18/24 11:26 04/18/24 11:28 04/18/24 11:26 04/18/24 11:26 04/18/24 11:28 04/18/24 13:00 04/18/24 13:00 FiO2 2 04/17/24 00:00 Laboratory Results - last 24 hr 04/17/24 09:50: Cortisol 21.0 H 04/17/24 17:14: POC Glucose 99 04/18/24 04:56: POC Glucose 88 04/18/24 07:13: WBC 5.0 D, RBC 3.58 L, Hgb 8.5 L, Hct 28.3 L, MCV 79.1 L, MCH 23.8 L, MCHC 30.0 L, RDW 21.9 H, Plt Count 68 L, MPV 8.0, Neut % (Auto) 78.8, Lymph % (Auto) 15.9, [place] % (Auto) 4.4, Eos % (Auto) 0.5, Baso % (Auto) 0.5, Neut # (Auto) 4.0, Lymph # (Auto) 0.8, [place] # (Auto) 0.2, Eos # (Auto) 0.0, Baso # (Auto) 0.0, Total Counted 100, Neutrophils % (Manual) 80 H, Lymphocytes % ( Manual) 17, Monocytes % (Manual) 3, Platelet Estimate Moderate decrease, Hypochromasia 2+, Anisocytosis 1+, Microcytosis 1+, Sodium 140, Potassium 3.9 D , Chloride 105, Carbon Dioxide 32 H, Anion Gap 6.9, BUN 35 H D, Creatinine 1.60 H D, Estimated Creat Clear 32, Estimated GFR 32 L, Est GFR ( Amer) 39 L D , Glucose 85, Calcium 7.8 L, Magnesium 2.9 H D, Vancomycin Trough 22.7 H I & O for Last 24 hours: Intake & Output 04/15/24 04/16/24 04/17/24 04/18/24 23:59 23:59 23:59 23:59 Intake Total 1250.962 / 7651.976 7891.118 / 2415.117 5415.729 / 1573.729 0 / 0 Output Total 1150 / 1150 2565 / 2665 2070 / 2070 550 / 550 Balance 100.962 / 100.962 -1412.882 / -1460.882 -496.271 / -496.271 -550 / -550 Weight 57.8 kg 59.619 kg 59.619 kg 57.697 kg Microbiology Reports for the Last 24 Hours: Microbiology 04/15/24 11:38 Nose - Nasal MRSA Culture - Final Negative 04/13/24 02:50 Blood Blood Culture - Final NO GROWTH AFTER 5 DAYS 04/13/24 02:50 Blood Blood Culture - Final NO GROWTH AFTER 5 DAYS Results Data Completed and Pending Labs on day of discharge: Labs from last 24 hours 04/18/24 04/18/24 04/17/24 07:13 04:56 17:14 WBC 5.0 D RBC 3.58 L Hgb 8.5 L Hct 28.3 L MCV 79.1 L MCH 23.8 L MCHC 30.0 L RDW 21.9 H Plt Count 68 L MPV 8.0 Neut % (Auto) 78.8 Lymph % (Auto) 15.9 [place] % (Auto) 4.4 Eos % (Auto) 0.5 Baso % (Auto) 0.5 Neut # (Auto) 4.0 Lymph # (Auto) 0.8 [place] # (Auto) 0.2 Eos # (Auto) 0.0 Baso # (Auto) 0.0 Total Counted 100 Neutrophils % (Manual) 80 H Lymphocytes % (Manual) 17 Monocytes % (Manual) 3 Platelet Estimate Moderate decrease Hypochromasia 2+ Anisocytosis 1+ Microcytosis 1+ Sodium 140 Potassium 3.9 D Chloride 105 Carbon Dioxide 32 H Anion Gap 6.9 BUN 35 H D Creatinine 1.60 H D Estimated Creat Clear 32 Estimated GFR 32 L Est GFR ( Amer) 39 L D Glucose 85 POC Glucose 88 99 Calcium 7.8 L Magnesium 2.9 H D Cortisol Vancomycin Trough 22.7 H 04/17/24 09:50 WBC RBC Hgb Hct MCV MCH MCHC RDW Plt Count MPV Neut % (Auto) Lymph % (Auto) [place] % (Auto) Eos % (Auto) Baso % (Auto) Neut # (Auto) Lymph # (Auto) [place] # (Auto) Eos # (Auto) Baso # (Auto) Total Counted Neutrophils % (Manual) Lymphocytes % (Manual) Monocytes % (Manual) Platelet Estimate Hypochromasia Anisocytosis Microcytosis Sodium Potassium Chloride Carbon Dioxide Anion Gap BUN Creatinine Estimated Creat Clear Estimated GFR Est GFR ( Amer) Glucose POC Glucose Calcium Magnesium Cortisol 21.0 H Vancomycin Trough DS: Diagnosis Discharge Diagnosis (1) Acute hypoxic respiratory failure: Status: Acute Code(s): J96.01 - Acute respiratory failure with hypoxia (2) Pulmonary edema: Status: Acute Code(s): J81.1 - Chronic pulmonary edema Qualifiers: Chronicity: acute Qualified Code(s): J81.0 - Acute pulmonary edema (3) Hyperkalemia: Status: Acute Code(s): E87.5 - Hyperkalemia (4) UTI (urinary tract infection): Status: Acute Code(s): N39.0 - Urinary tract infection, site not specified Qualifiers: Hematuria presence: without hematuria Urinary tract infection type: site unspecified Qualified Code(s): N39.0 - Urinary tract infection, site not specified (5) Sepsis: Status: Acute Code(s): A41.9 - Sepsis, unspecified organism Qualifiers: Acute respiratory failure type: with hypoxia Sepsis acute organ dy sfunction status: with acute organ dysfunction Sepsis type: Pseudomonas Severe sepsis acute organ dysfunction type: acute respiratory failure Severe sepsis shock status: without septic shock Qualified Code(s): A41.52 - Sepsis due to Pseudomonas; R65.20 - Severe sepsis without septic shock; J96.01 - Acute respiratory failure with hypoxia (6) Pleural effusion: Status: Acute Code(s): J90 - Pleural effusion, not elsewhere classified (7) Chronic dementia: Status: Acute Code(s): F03.90 - Unspecified dementia, unspecified severity, without behavioral disturbance, psychotic disturbance, mood disturbance, and anxiety (8) Declining functional status: Status: Acute Code(s): R53.81 - Other malaise (9) AAT (usimc-[id number]) deficiency: Status: Acute Code(s): E88.01 - [id number] deficiency Meds Home Medications and Allergies Home Medications ?Medication ?Instructions ?Recorded ?Confirmed ?Type lamotrigine 100 mg tablet 100 mg PO BID 09/26/23 04/13/24 History pravastatin 20 mg tablet 20 mg PO DAILY 09/26/23 04/13/24 History levothyroxine 25 mcg tablet 25 mcg PO DAILY 11/07/23 04/13/24 History alpha-1 proteinase inhib.(hum) 3,524 mg (70.48 mL) IV WEEKLY 12 12/11/23 04/13/24 Rx 1,000 mg (+/-)/20 mL IV solution months (Prolastin-C) fluticasone fur. 100 mcg-umeclid 1 inh inhalation DAILY 90 days #90 01/01/24 04/13/24 Rx 62.5 mcg-vilant 25 mcg ea inhalat.powder (Trelegy Ellipta) acetylcysteine 600 mg capsule (NAC) 1,000 mg PO DAILY 04/13/24 04/13/24 History s-adenosylmethionine 400 mg tablet 400 mg PO DAILY 04/13/24 04/13/24 History sertraline 100 mg tablet 100 mg PO DAILY 04/13/24 04/13/24 History glycopyrrolate 1 mg tablet 1 mg PO TID PRN secretions #30 tabs 04/18/24 Rx ipratropium 0.5 mg-albuterol 3 mg 3 ml inhalation Q6RT #0 mL 04/18/24 Rx (2.5 mg base)/3 mL nebulization soln levofloxacin 750 mg tablet 750 mg PO Q48H 10 days #5 tabs 04/18/24 Rx lorazepam 0.5 mg tablet (Ativan) 0.5 mg PO TID PRN anxiety #30 tabs 04/18/24 Rx New Prescriptions to Start Prescriptions: glycopyrrolate Jamal Bundy levofloxacin Jamal Bundy lorazepam [Ativan] Jamal Bundy Allergies Allergy/AdvReac Type Severity Reaction Status Date / Time No Known Allergies Allergy Verified 04/09/24 10:42 Discharge Plan Disposition Patient Disposition: Hospice - Medical Facility Condition: Undetermined Discharge Order Discharge Orders: Discharge Order (Routine); Ordered 04/18/24 Ordered By: Clint Zayas Follow up Plan Prescriptions/Medication Reconciliation: New levofloxacin 750 mg tablet 750 mg PO Q48H 10 Days Qty: 5 0RF Rx Instructions: first dose 04/19/24 lorazepam [Ativan] 0.5 mg tablet 0.5 mg PO TID PRN (Reason: anxiety) Qty: 30 0RF ipratropium-albuterol 0.5 mg-3 mg(2.5 mg base)/3 mL Solution For Nebulization 3 ml inhalation Q6RT Qty: 0 0RF glycopyrrolate 1 mg tablet 1 mg PO TID PRN (Reason: secretions) Qty: 30 0RF Continued Trelegy Ellipta 100-62.5-25 mcg blister with device 1 inh inhalation DAILY 90 Days Qty: 90 2RF Prolastin-C 1,000 mg (+/-)/20 mL solution 3,524 mg IV WEEKLY 360 Days Rx Instructions: Patient has not started this med yet. first dose is to be 04/17 pravastatin 20 mg tablet 20 mg PO DAILY Patient Comments: TAKE 1 TABLET BY MOUTH ONCE DAILY lamotrigine 100 mg tablet 100 mg PO BID Patient Comments: TAKE 1 TABLET BY MOUTH TWICE DAILY s-adenosylmethionine 400 mg Tablet 400 mg PO DAILY Rx Instructions: administer on an empty stomach acetylcysteine [NAC] 600 mg Capsule 1,000 mg PO DAILY sertraline 100 mg tablet 100 mg PO DAILY Patient Comments: TAKE 1 TABLET BY MOUTH ONCE DAILY levothyroxine 25 mcg tablet 25 mcg PO DAILY Patient Comments: TAKE 1 TABLET BY MOUTH ONCE DAILY Discontinued spironolactone 50 mg Tablet 50 mg PO BID Problem Reconciliation Problems Reviewed?: Yes Patient Discharge Instructions ACTIVITY: Continue current activity DIET: continue same diet Additional Instructions: Comfort feeds Patient Instructions: DI for Hyperkalemia, Ventilator-Associated Pneumonia, DI for Respiratory Failure, Catheter-Associated Urinary Tract Infection Print Language: [place] Providers Primary Care Provider: Graham Pelaez Admit Provider: Jamal Bundy Attending Provider: Jamal Bundy
--- NOTE | 2024-04-18 13:40 | PC.NURSE ---
Current Medications Leona Woo 1960 Albuterol/Ipratropium (Ipratropium/Albuterol 3 Ml Neb) 3 ml IH Q6RT [facility] Stop: 05/17/24 17:59 Last Admin: 04/18/24 11:24 Dose: 3 ml Levofloxacin/Dextrose (Levofloxacin 750mg/150ml Premix) 750 mg in 150 mls @ 100 mls/hr IV Q48H [facility] Stop: 04/29/24 15:59 Vancomycin HCl 1,000 mg/ (Sodium Chloride) 250 mls @ 125 mls/hr IV Q36H [facility] Stop: 04/28/24 20:59 Lactulose (Lactulose 20gm/30ml Udc) 20 gm PO TID [facility] Stop: 05/16/24 12:59 Last Admin: 04/18/24 08:56 Dose: Not Given Lamotrigine (Lamotrigine 100mg Tablet) 100 mg PO BID [facility] Stop: 05/14/24 20:59 Last Admin: 04/18/24 08:56 Dose: Not Given Levothyroxine Sodium (Levothyroxine 25mcg (0.025mg) Tab) 25 mcg PO DAILYDM [facility] Stop: 05/15/24 08:59 Last Admin: 04/18/24 06:21 Dose: Not Given Morphine Sulfate (Morphine 2mg/Ml Syringe) 2 mg IV Q2HP PRN PRN Reason: Severe Pain (7-10) Stop: 05/13/24 05:09 Olanzapine (Olanzapine 10 Mg Vial) 5 mg IM Q4HP PRN PRN Reason: Agitation Ondansetron HCl (Ondansetron 4mg/2ml Vial) 4 mg IV Q6HP PRN PRN Reason: Nausea Stop: 05/13/24 05:03 Pantoprazole Sodium (Pantoprazole 40mg Vial) 40 mg IV HS [facility] Stop: 05/13/24 20:59 Last Admin: 04/17/24 20:10 Dose: Not Given Sodium Chloride (Sodium Chloride 0.9% 10ml Vial) 10 ml IV NEEDED PRN PRN Reason: dilute protonix Stop: 05/13/24 05:03 Last Admin: 04/17/24 19:45 Dose: 10 ml Sodium Chloride (Sodium Chloride 3% 15ml Neb) 3 ml IH ONCE PRN PRN Reason: INDUCE [employer]UM [employer]LECTION Stop: 05/13/24 05:09 Sodium Chloride (Sodium Chloride 0.9% 10ml Flush Syringe) 10 ml IV NEEDED PRN PRN Reason: Maintain IV Site Stop: 05/15/24 08:30
[2024-04-19 05:25] LABS: POC Glucose,Bedside 104 (70-110)
[2024-04-19 05:25] LABS: POC Glucose,Bedside 131 (70-110)
[2024-04-19 05:25] LABS: POC Glucose,Bedside 101 (70-110)
== END 2024-04-18 15:29 | disposition hospice, inpatient (51) | DRG 208 ==
LOC: ER 02:23 → 2ND 05:31
PROVIDERS: Internal Medicine Pulmonary Disease; Nurse Practitioner Family; Student in an Organized Health Care Education/Training Program; Admitting Provider Internal Medicine Adolescent Medicine; Emergency Provider Emergency Medicine; PCP Internal Medicine Adolescent Medicine; Visit Provider Internal Medicine Adolescent Medicine
DX: J96.01 Acute respiratory failure with hypoxia (principal); J15.1 Pneumonia due to Pseudomonas; I50.23 Acute on chronic systolic (congestive) heart failure; E88.01 Alpha-1-antitrypsin deficiency; I21.A1 Myocardial infarction type 2; N18.9 Chronic kidney disease, unspecified; Z99.81 Dependence on supplemental oxygen; E83.119 Hemochromatosis, unspecified; K74.60 Unspecified cirrhosis of liver; Z79.899 Other long term (current) drug therapy; E87.5 Hyperkalemia; G40.909 Epilepsy, unspecified, not intractable, without status epilepticus; J47.9 Bronchiectasis, uncomplicated; I12.9 Hypertensive chronic kidney disease with stage 1 through stage 4 chronic kidney disease, or unspecified chronic kidney disease
CPT/HCPCS: 31500; 36415; 51702; 70450; 71045; 71275; 74018; 74177; 80048; 80053; 80061; 80076; 80202; 81001; 82140; 82533; 82803; 82962; 83605; 83735; 83880; 84100; 84132; 84484; 85007; 85014; 85018; 85025; 85027; 85048; 85049; 85610; 87040; 87070; 87077; 87081; 87086; 87088; 87186; 87205; 87636; 92610; 93005; 93306; 94003; 94640; 94660; 94761; 99231; 99251; 99291; 99292; J1650; J1885; J1939; J1940; J1956; J2060; J2543; J2704; J3010; J3370; J3475; J3480; J7050; J7613; J7620; Q9967